=== PATIENT | female | born 1955 | race Caucasian/White ===

== ENCOUNTER 2018-12-19 16:22 | Inpatient (IN) | payer MEDICARE, OTHER ==
--- NOTE | 2018-12-19 16:37 | ED ---
HPI Chest Pain - HPI Summary HPI Summary: Pt is a 63 y/o female who presents to the ED c/o CP. She has had CP since August 2018 that was diagnosed as costochondritis. 2 days ago at 4:00 she began to have more intense mid-sternal chest pressure. As per nurses note pt thought she might be having an ND but did not seek medical attention because she did not want to pay for the ambulance. The CP has been constant, is diffuse , and radiates to her ribs, neck, and back. The pain is made worse when being in a wrong position. At 4:00 this morning she had a syncopal episode. Pt also c/o cough and nausea which has now resolved. She denies any SOB. Currently pt denies any pain and just reports anxiety. PMHx DM, HTN, COPD. Pt is a heavy smoker. STEMI called at 16:41. - History of Current Complaint Chief Complaint: EDChestPainROMI Time Seen by Provider: 12/19/18 16:33 Hx Obtained From: Patient, Medical Records Onset/Duration: Started Days Ago - 2, Still Present Timing: Constant Pain Intensity: 3 Pain Scale Used: 0-10 Numeric Chest Pain Location: Diffuse, Mid Sternal Chest Pain Radiates: Yes Chest Pain Radiates To:: Back, Neck, Other - ribs Character: Pressure/Squeezing Aggravating Factor(s): Other: - "wrong" position Alleviating Factor(s): Nothing Associated Signs and Symptoms: Positive: Chest Pain, Anxiety, Syncope, Nausea, Cough. Negative: Shortness of Breath Related History: Similar Episode/Dx as: - hx HTN, DM - Allergy/Home Medications Allergies/Adverse Reactions: Allergies Allergy/AdvReac Type Severity Reaction Status Date / Time amoxicillin Allergy Severe Anaphylatic Verified 12/19/18 16:54 Shock ampicillin Allergy Severe Anaphylatic Verified 12/19/18 16:54 Shock clavulanic acid Allergy Severe Anaphylatic Verified 12/19/18 16:54 Shock Penicillins Allergy Severe Anaphylatic Verified 12/19/18 16:54 Shock azithromycin Allergy Intermediate Hives Verified 12/19/18 16:54 erythromycin base Allergy Intermediate Hives Verified 12/19/18 16:54 cetirizine Allergy Unknown Unknown Verified 12/19/18 16:54 Reaction Details doxycycline Allergy Unknown Unknown Verified 12/19/18 16:54 Reaction Details Tetracyclines Allergy Unknown Unknown Verified 12/19/18 16:54 Reaction Details ceptra Allergy Intermediate Rash Uncoded 09/28/14 08:42 dairy Allergy Mild Congestion Uncoded 09/28/14 08:42 PMH/Surg Hx/FS Hx/Imm Hx Endocrine/Hematology History: Reports: Hx Diabetes - NIDDM Cardiovascular History: Reports: Hx Hypertension Respiratory History: Reports: Hx Chronic Obstructive Pulmonary Disease (COPD) - Cancer History Hx Chemotherapy: No Hx Radiation Therapy: No - Surgical History Surgery Procedure, Year, and Place: Right knee surgery injury repair Infectious Disease History: No Infectious Disease History: Denies: Traveled Outside the [place] in Last 30 Days - Family History Known Family History: Positive: Hypertension - Social History Alcohol Use: None Substance Use Type: Reports: None, Excessive Caffeine Substance Use Comment - Amount & Last Used: four bottles of soda daily Hx Tobacco Use: Yes Smoking Status (MU): Heavy Every Day Tobacco Smoker Type: Cigarettes Amount Used/How Often: 1 ppd Length of Time of Smoking/Using Tobacco: 40 years Have You Smoked in the Last Year: Yes Review of Systems Positive: Chest Pain Positive: Cough. Negative: Shortness Of Breath Positive: Nausea - resolved Positive: Syncope Positive: Anxious All Other Systems Reviewed And Are Negative: Yes Physical Exam - Summary Physical Exam Summary: Appearance: well appearing, mild pain distress, tearful, mildly agitated Skin: warm, dry, reflects adequate perfusion Head/face: normal Eyes: EOMI, ANJALI ENT: mucous membranes moist Neck: supple, non-tender Respiratory: CTA, breath sounds present Cardiovascular: RRR, pulses symmetrical, tenderness to palpation over sternum Abdomen: non-tender, soft Bowel Sounds: present Musculoskeletal: normal, strength/ROM intact Neuro: normal, sensory motor intact, A&Ox3 Triage Information Reviewed: Yes Vital Signs On Initial Exam: Initial Vitals Temp Pulse Resp BP Pulse Ox 96.0 F 97 22 100/61 97 12/19/18 16:25 12/19/18 16:25 12/19/18 16:25 12/19/18 16:25 12/19/18 16:25 Vital Signs Reviewed: Yes Diagnostics - Vital Signs Vital Signs Temp Pulse Resp BP Pulse Ox 12/19/18 16:25 96.0 F 97 22 100/61 97 - Laboratory Result Diagrams: 12/19/18 16:45 12/19/18 16:45 Lab Statement: Any lab studies that have been ordered have been reviewed, and results considered in the medical decision making process. - Radiology CXR Radiology Interpretation Completed By: Radiologist Summary of Radiographic Findings: RIGHT BASILAR ATELECTASIS VERSUS CONSOLIDATION. ED physician reviewed radiology report. - EKG 16:37 Cardiac Rate: NL - 91 bpm EKG Rhythm: Sinus Rhythm Summary of EKG Findings: RBBB, ST elevations in anterior leads Chest Pain Course/Dx - Course Course Of Treatment: Nurse's notes reviewed. Patient presents with a confusing history however has worsening chest pain today. She had acute ST elevation and a right bundle branch block. STEMI alert called and the beef breaker came to the bedside. He confirmed wall motion abnormality and bedside echocardiogram and took the patient emergently to the Clothing Worker. She did receive aspirin, heparin, etc. here in the ER prior to disposition. There was concern given the course of first symptoms that she may have had thoracic dissection however the chest x-ray did not show widened mediastinum. Following her disposition her troponin level came back at 12. - Chest Pain Differential Diagnosis/HQI/PQRI: Acute ND, ACS, Angina, CHF, Other: - Thoracic aortic dissection - Diagnoses Provider Diagnoses: Acute ST elevation myocardial infarction (STEMI) During the Visit The Following Alert/Code Occurred: STEMI - Called at 16:41 - Provider Notifications Discussed Care Of Patient With: Gary Mcrae Time Discussed With Above Provider: 16:46 Instructed by Provider To: Other - Dr. Mcrae is in the room for a consult. He accepts pt for admission and is bringing her to the supervisor laboratory. The echocardiogram showed abnormal wall movement. - Critical Care Time Critical Care Time: 30-74 min - Critical care time is exclusive of separately billable procedures Discharge - Sign-Out/Discharge Documenting (check all that apply): Patient Departure - Admit Patient Received Moderate/Deep Sedation with Procedure: No - Discharge Plan Condition: Guarded Disposition: ADMITTED TO [facility] - Billing Disposition and Condition Condition: GUARDED Disposition: Admitted to [facility] - Attestation Statements Document Initiated by Scribe: Yes Documenting Scribe: Joan Laboy Provider For Whom Scribe is Documenting (Include Credential): Eliezer Gomez MD Scribe Attestation: Joan Esposito, scribed for Eliezer Gomez MD on 12/19/18 at 1944. Scribe Documentation Reviewed: Yes Provider Attestation: The documentation as recorded by the scribe, Joan Laboy accurately reflects the service I personally performed and the decisions made by me, Eliezer Gomez MD Status of Scribrafael Document: Viewed
[2018-12-19] MEDS ORDERED: NS 0.9% 1000 ML** 1,000 ML IV ONE (16:42)
[2018-12-19] MEDS ORDERED: Ticagrelor* 90 MG TAB PO ONE (16:42)
[2018-12-19] MEDS ORDERED: Heparin for STEMI(*) 5,000 UNITS/ML 1 ML VIAL IV ONE (16:42)
[2018-12-19] MEDS ORDERED: Aspirin 81 mg CHEW TAB* 81 MG TAB.CHEW PO ONE (16:42)
[2018-12-19 17:01] LABS: Hematocrit 43 % (33-41); Hemoglobin 14.7 g/dL (12.0-16.0); Mean Corpuscular HGB Conc 34 g/dL (31-36); Mean Corpuscular Hemoglobin 30 pg (27-31); Mean Corpuscular Volume 88 fL (80-97); Mean Platelet Volume 7.8 fL (7.4-10.4); Platelet Count 307 10^3/uL (150-450); Red Blood Count 4.87 10^6 /uL (3.70-4.87); Red Cell Distribution Width 14 % (10.5-15); White Blood Count 16.6 10^3/uL (3.5-10.8)
[2018-12-19] MEDS ORDERED: Lidocaine 1% INJ* 10 MG/ML 30 ML SDV ONE ×2 (17:08→17:21)
[2018-12-19] MEDS ORDERED: Iohexol 350 (CONTRAST) 200 ML MDV IV ONE (17:08)
[2018-12-19] MEDS ORDERED: Heparin 2 UNITS/ML IVPREMIX* 2,000 UNIT/1,000 ML BAG IV ONE (17:08)
[2018-12-19 17:12] LABS: Activated Partial Thrombo Time 26.8 seconds (26.0-36.3); INR 1.01 (0.77-1.02)
[2018-12-19] MEDS ORDERED: Heparin(*) 1000 UNIT/ML 10 ML VIAL CATH LAB IV ONE (17:20)
[2018-12-19 17:21] LABS: ALT 24 U/L (7-52); AST 43 U/L (13-39); Albumin/Globulin Ratio 1.2 (1-3); Alkaline Phosphatase 97 U/L (34-104); Anion Gap 13 mmol/L (2-11); Blood Urea Nitrogen 20 mg/dL (6-24); CO2 Carbon Dioxide 24 mmol/L (22-32); Calcium 9.4 mg/dL (8.6-10.3); Chloride 97 mmol/L (101-111); Creatine Kinase 183 U/L (10-223); EGFR African American 79.1 (>60); EGFR Non-African American 65.3 (>60); Globulin 3.3 g/dL (2-4); Glucose 188 mg/dL (70-100); LDL Cholesterol Direct 159 mg/dL; Potassium 4.2 mmol/L (3.5-5.0); Sodium 134 mmol/L (135-145); Total Protein 7.3 g/dL (6.4-8.9)
[2018-12-19] MEDS ORDERED: nitroGLYCERIN DRIP* 25,000 MCG/250 ML BTL ONE (17:21)
[2018-12-19 17:24] LABS: CKMB ng/mL 28.2 ng/mL (0.6-6.3)
[2018-12-19] MEDS ORDERED: fentaNYL* 50 MCG/ML 2 ML VIAL (100 MCG VIAL) ONE (17:24)
[2018-12-19] MEDS ORDERED: Midazolam* 1 MG/ML 5 ML VIAL (5 MG) ONE (17:24)
[2018-12-19 17:28] LABS: Troponin I 12.93 ng/mL (<0.04)
[2018-12-19] MEDS ORDERED: Bivalirudin(*) 250 MG VIAL ONE (17:42)
[2018-12-19 17:50] LABS: ABS Basophils 0.1 10^3/ul (0-0.2); ABS Eosinophils 0 10^3/ul (0-0.6); ABS Lymphocytes 3.6 10^3/ul (1.0-4.8); ABS Monocytes 2.1 10^3/ul (0-0.8); ABS Neutrophils 10.8 10^3/ul (1.5-7.7); ABS Nucleated RBC 0 10^3/ul; Eosinophil % 0.2 %; Lymphocyte % 21.5 %; Nucleated Red Blood Cells % 0
[2018-12-19] MEDS ORDERED: Ondansetron INJ* 2 MG/ML VIAL IV PRN (18:21)
[2018-12-19] MEDS ORDERED: Docusate CAP* 100 MG PO PRN (18:21)
[2018-12-19] MEDS ORDERED: NS 0.9% 1000 ML** 1,000 ML IV SCH ×2 (18:30→18:45)
[2018-12-19] MEDS ORDERED: Atorvastatin* 80 MG TAB PO ONE (18:36)
[2018-12-19] MEDS: fentaNYL* 50 MCG/ML 2 ML VIAL (100 MCG VIAL) IV PRN ×3 (19:44→23:41)
[2018-12-19] MEDS: Metoprolol Tartrate TAB* 25 MG PO SCH (19:44)
[2018-12-19] MEDS ORDERED: Dextrose 50% Syringe 50 ML* 25 GM/50 ML SYRINGE IV PUSH PRN (19:49)
[2018-12-19] MEDS ORDERED: Midazolam* 1 MG/ML 2 ML VIAL (2 MG) IV ONE (21:00)
--- NOTE | 2018-12-19 21:00 | CONSULT ---
Subjective Date of Service: 12/19/18 Interval History: MEDICINE CONSULT CC: diabetes question of control PCP: Jeffrey Tumble [facility] Turret Lathe Operator: Grant Requesting MD: Thor HPI: Patient is 63 year old woman with history of tobacco abuse and diabetes who presented to the ER today with vague chest complaints. She describes chest pain off and on since Wednesday, brief severe spells, some rated 10/10. Wednesday morning at 4AM the day of admission she had an episode of loss of consciousness at home. She fell, may have struck head. She does not remember feeling pre- syncopal and no seizure activity was noted. The patient was assessed to have a STEMI in the ER, and was taken to the laborer petroleum ref[facility] by Dr. Mcrae this afternoon, where a 95% lesion of the proximal LAD was stented. She is now on Brillinta and she had a dose of bivalirudin pre-cath. At the time of evaluation she complains of 5/10 chest pain, substernal, with no radiation. Family History: Findings - denies CAD history, father prostate cancer, also had schizophrenia, mother had non-Hodgkins lymphoma, an uncle had diabetes. She has 8 siblings Social History: Findings - Retired, owned business with , , 2 daughters, is HCP. She smokes 2PPD, no alcohol/drug use Past Medical History: Findings - PMH: hypertension, type 2 diabetes, COPD, anxiety; SH: none Review of Systems - Measurements Intake and Output: Intake and Output Last 24 Hours 12/17/18 12/18/18 12/19/18 12/20/18 06:59 06:59 06:59 06:59 Weight 63.503 kg - Review of Systems General Comments: poor historian Constitutional Symptoms: Positive: Weakness, Fatigue Dermatology: Positive: Normal HEENT: Positive: Normal Eyes: Positive: Normal Thyroid: Positive: Normal Pulmonary: Negative: Cough, Shortness of Breath Cardiology: Positive: Chest Pain, Syncope Negative: Palpitations, Orthopnoea Gastroenterology: Positive: Normal Genital - Urinary: Positive: Normal Genitourinay - Female: Positive: Menopause Endocrinology: Positive: Diabetes Mellitus Hematologic/Lymphatic: Positive: Use of Antiplatelet Drugs Neurology: Positive: Normal Psychiatry: Positive: Normal Objective Active Medications: Current ICU medications: Acetaminophen (Tylenol Tab*) 650 mg PO Q4H PRN PRN Reason: HEADACHE/PAIN Aspirin (Aspirin 81 Mg Chew Tab*) 81 mg PO DAILY [facility] Atorvastatin Calcium (Lipitor*) 80 mg PO 2100 [facility] Dextrose (D50w Syringe 50 Ml*) 12.5 gm IV PUSH .FOR FS < 60 - SS PRN PRN Reason: FS < 60 Docusate Sodium (Colace Cap*) 100 mg PO DAILY PRN PRN Reason: CONSTIPATION Fentanyl Citrate (Fentanyl*) 12.5 mcg IV Q2H PRN PRN Reason: PAIN Last Admin: 12/19/18 19:44 Dose: 12.5 mcg Sodium Chloride (Ns 0.9% 1000 Ml) 1,000 mls @ 100 mls/hr IV .100 ML/HR FOR 10 HR [facility] Stop: 12/20/18 04:29 Insulin Human Lispro (Humalog*) 0 units SUBCUT FS ACHS ICU [facility]; Protocol Metoprolol Tartrate (Lopressor Tab*) 12.5 mg PO Q8H [facility] Last Admin: 12/19/18 19:44 Dose: 12.5 mg Midazolam HCl (Versed 2mg/2ml*) 1 mg IV ONCE ONE Stop: 12/19/18 21:01 Nitroglycerin (Nitroglycerin Tab 0.4 Mg*) 0.4 mg SL Q5M PRN PRN Reason: ANGINA Ondansetron HCl (Zofran Inj*) 4 mg IV Q4H PRN PRN Reason: NAUSEA Ticagrelor (Brilinta*) 90 mg PO BID [facility] Vital Signs - 8 hr 12/19/18 12/19/18 12/19/18 16:25 18:28 19:44 Temperature 35.6 C 36.1 C Pulse Rate 97 97 Respiratory 22 22 19 Rate Blood Pressure 100/61 100/61 (mmHg) O2 Sat by Pulse 97 96 Oximetry Oxygen Devices in Use Now: Nasal Cannula Appearance: alert, squirming in bed Eyes: No Scleral Icterus Ears/Nose/Mouth/Throat: Clear Oropharnyx Neck: NL Appearance and Movements; NL JVP, No Thyroid Enlargement, Masses Respiratory: Symmetrical Chest Expansion and Respiratory Effort, - - diminished breath sounds bilat, chest tender anteriorly, parasternal Cardiovascular: NL Sounds; No Murmurs; No JVD, RRR Abdominal: NL Sounds; No Tenderness; No Distention, No Hepatosplenomegaly Lymphatic: No Cervical Adenopathy Skin: No Rash or Ulcers, - - bandage RT groin w/ some blood visible in bandage Neurological: Alert and Oriented x 3 Lines/Tubes/Other Access: Clean, Dry and Intact Peripheral IV Nutrition: Taking PO's Result Diagrams: 12/20/18 05:15 12/20/18 09:35 Additional Lab and Data: Laboratory Tests 12/19/18 12/19/18 12/19/18 16:45 16:45 16:45 INR (Anticoag Therapy) 1.01 APTT 26.8 Glucose 188 H Lactic Acid 1.5 AST 43 H ALT 24 CK-MB (CK-2) 28.2 H Troponin I 12.93 H* LDL Cholesterol Direct 159 Influenza A (Rapid) Influenza B (Rapid) 12/19/18 23:15 INR (Anticoag Therapy) APTT Glucose Lactic Acid AST ALT CK-MB (CK-2) Troponin I LDL Cholesterol Direct Influenza A (Rapid) Negative Influenza B (Rapid) Negative Diagnostic Imaging: CXR: Rt basilar atelectasis vs infiltrate Head CT: no hemorrahge or hematoma EKG Data: NSR, leftward axis, RBBB, ST elevations V2-V5, injury pattern in limb leads, T- wave flattening Assessment/Plan - Billing Plan By Medical Problem: 1. STEMI: had stent to 95% stenosis of proximal LAD. Continue management per Dr. Mcrae. 2. Syncope: likely due to arrhythmia. Head CT reviewed, no intracerebral contusion or hemorrhage seen. 3. Diabetes: will hold metformin, start glimepiride once outpatient dose ascertained. Will monitor FSBG and give sliding scale humalog as needed. 4. Chest pain: differential includes pericarditis, aristeo syndrome, dissecting aorta, or recurrent stenosis of coronaries/angina. Will repeat EKG, discuss with Dr. Mcrae. Will have CTA of chest to rule out dissection, which can be complication of cath. VTE PPX: following cath protocol, on high-potency antiplatelet drugs, can use SCDs also Diet: Diabetic Code Status: Full
[2018-12-19] MEDS: Nitroglycerin TAB 0.4 MG* 0.4 MG TAB SL PRN (21:20)
[2018-12-19] MEDS ORDERED: fentaNYL* 50 MCG/ML 2 ML VIAL (100 MCG VIAL) IV SLOW PU ONE (21:20)
[2018-12-19 22:09] LABS: Creatine Kinase 261 U/L (10-223)
[2018-12-19 22:14] LABS: CKMB ng/mL 19.7 ng/mL (0.6-6.3)
[2018-12-19 22:15] LABS: Troponin I 34.47 ng/mL (<0.04)
[2018-12-19 23:28] LABS: Influenza A Molecular NEGATIVE (Negative); Influenza B Molecular NEGATIVE (Negative)
[2018-12-20] MEDS ORDERED: Iodixanol* (CONTRAST) 320 MG/ML 100 ML SDV IV ONE (00:17)
[2018-12-20] MEDS ORDERED: LORazepam INJ* 2 MG/ML 1 ML VIAL IV PUSH PRN ×2 (01:06→11:11)
[2018-12-20] MEDS: Metoprolol Tartrate TAB* 25 MG PO SCH ×3 (04:11→19:40)
[2018-12-20] MEDS: fentaNYL* 50 MCG/ML 2 ML VIAL (100 MCG VIAL) IV PRN (04:11)
[2018-12-20] MEDS ORDERED: Insulin LISPRO* 1 UNITS UNIT SUBCUT ONE (04:42)
[2018-12-20] MEDS: Insulin LISPRO* 1 UNITS UNIT SUBCUT SCH ×5 (05:45→20:59)
[2018-12-20 06:02] LABS: Creatine Kinase 176 U/L (10-223)
[2018-12-20 06:08] LABS: CKMB ng/mL 11.8 ng/mL (0.6-6.3)
[2018-12-20 06:09] LABS: Troponin I 16.97 ng/mL (<0.04)
[2018-12-20 07:41] LABS: Hematocrit 39 % (33-41); Hemoglobin 13.1 g/dL (12.0-16.0); Mean Corpuscular HGB Conc 33 g/dL (31-36); Mean Corpuscular Hemoglobin 30 pg (27-31); Mean Corpuscular Volume 89 fL (80-97); Mean Platelet Volume 8.4 fL (7.4-10.4); Platelet Count 301 10^3/uL (150-450); Red Cell Distribution Width 14 % (10.5-15); White Blood Count 16.8 10^3/uL (3.5-10.8)
[2018-12-20 07:43] LABS: ABS Basophils 0.2 10^3/ul (0-0.2); ABS Eosinophils 0 10^3/ul (0-0.6); ABS Lymphocytes 2.9 10^3/ul (1.0-4.8); ABS Monocytes 2.1 10^3/ul (0-0.8); ABS Neutrophils 11.6 10^3/ul (1.5-7.7); ABS Nucleated RBC 0 10^3/ul; Eosinophil % 0 %; Lymphocyte % 17.2 %; Nucleated Red Blood Cells % 0.1
[2018-12-20 07:53] LABS: ALT 25 U/L (7-52); Albumin 3.6 g/dL (3.2-5.2); Albumin/Globulin Ratio 1.2 (1-3); Alkaline Phosphatase 101 U/L (34-104); BUN/Creatinine Ratio 25.4 (8-20); Blood Urea Nitrogen 18 mg/dL (6-24); CO2 Carbon Dioxide 19 mmol/L (22-32); Calcium 8.7 mg/dL (8.6-10.3); Chloride 98 mmol/L (101-111); Cholesterol 183 mg/dL; EGFR Non-African American 82.6 (>60); Globulin 3.1 g/dL (2-4); Glucose 260 mg/dL (70-100); LDL Cholesterol 117 mg/dL; Sodium 131 mmol/L (135-145); Total Protein 6.7 g/dL (6.4-8.9); Triglycerides 135 mg/dL
[2018-12-20 07:57] LABS: Anion Gap 14 mmol/L (2-11)
--- NOTE | 2018-12-20 09:13 | ECHO ---
Patient: RADHA SOL [facility] Rec#: [id number] : 1955 Date: 12/20/2018 Age: 63y Height: 163 cm / 64.2 in Weight: 63.5 kg / 140.0 lbs Sex: F BSA: 1.68 Room#: ICU 7 Admit Date#: 12/19/2018 Type: Inpatient Referring: Gary Mcrae MD Reading: Lance Gonzales MD Supervisor Frame Sample And Pattern: China Arzola,RDCS,RDMS CC: Steven Murphy MD Transthoracic Echocardiogram Indication: Acute TN BP: 118/76 HR: 90 Rhythm: NSR with PVCs Findings History: S/P STEMI, PCI, DM, heavy smoker, Technical Comments: The study quality is fair. Left Ventricle: The left ventricular chamber size is normal. Moderate concentric left ventricular hypertrophy is observed. There are multiple regional wall motion abnormalities. There is moderate to severely decreased left ventricular systolic function. The estimated ejection fraction is 25-30%. There is an E to A reversal in the mitral valve flow pattern suggestive of diastolic dysfunction. The mid anteroseptal, mid anterior, mid anterolateral, apical septal, apical anterior, and apical lateral wall segments are hypokinetic (score 2). The apical inferior wall segment is akinetic (score 3). Overall wallmotion score index is 2.14 Left Atrium: The left atrial chamber size is normal. Right Ventricle: The right ventricular chamber size and systolic function are within normal limits. The right ventricle wall thickness is mildly increased. Right Atrium: The right atrial cavity size is normal. The interatrial septum appears lipomatous. Aortic Valve: The aortic valve is trileaflet. Systolic excursion of the aortic valve is normal. There is aortic annular calcification. There is no evidence of aortic regurgitation. There is no evidence of aortic stenosis. Mitral Valve: The mitral valve leaflets appear normal. There is a trace of mitral regurgitation. There is no evidence of mitral stenosis. Tricuspid Valve: The tricuspid valve leaflets are normal. There is trace tricuspid regurgitation. There is evidence of borderline pulmonary hypertension. Pulmonic Valve: The pulmonic valve structure is not well visualized. There is no evidence of pulmonic regurgitation. Pericardium: There is no significant pericardial effusion. Aorta: The aortic root appears normal. There is no dilatation of the aortic arch. Pulmonary Artery: The main pulmonary artery is not well visualized. Venous: The inferior vena cava appears normal in size. There is less than 50% respiratory change in the inferior vena cava dimension. Conclusions Moderate concentric left ventricular hypertrophy is observed. There are multiple regional wall motion abnormalities. There is moderate to severely decreased left ventricular systolic function. The estimated ejection fraction is 25-30%. The mid anteroseptal, mid anterior, mid anterolateral, apical septal, apical anterior, and apical lateral wall segments are hypokinetic (score 2). The apical inferior wall segment is akinetic (score 3). The right ventricular chamber size and systolic function are within normal limits. There is no evidence of aortic stenosis. There is a trace of mitral regurgitation. There is trace tricuspid regurgitation. There is no significant pericardial effusion. Compared to limitied echo yesterday 12/19/18, the LV function is about the same Measurements Name Value Normal Range RVIDd (AP) 2D 2.9 cm (0.9 - 2.6) RVDdMajor (2D) 2.8 cm (2.2 - 4.4) RAd ISD 4CH 3.6 cm (3.4 - 4.9) RA (A4C)W 3.7 cm (2.9 - 4.6) IVSd (2D) 1.4 cm (0.6 - 1) LVPWd (2D) 1.4 cm (0.6 - 1) LVIDd (2D) 4.1 cm (3.6 - 5.4) LVIDs (2D) 3.1 cm - LV FS (2D) 23 % (25 - 45) Aortic Annulus 2 cm (1.4 - 2.6) Ao root diameter (2D) 2.7 cm (2.1 - 3.5) Ascending Ao 2.7 cm (2.1 - 3.4) Aortic arch 2.8 cm (1.8 - 3.4) LA dimension (AP) 2D 2.9 cm (2.3 - 3.8) LAd ISD 4CH 4.1 cm (2.9 - 5.3) LA ISD 4CH W 4.2 cm (2.5 - 4.5) Name Value Normal Range LA ESV BP (A/L) index 20 ml/m2 - Name Value Normal Range MV E-wave Vmax 0.5 m/sec - MV deceleration time 132 msec - MV A-wave Vmax 0.8 m/sec - MV E:A ratio 0.6 ratio - LV septal e' Vmax 0.04 m/sec - LV lateral e' Vmax 0.04 m/sec - LV E:e' septal ratio 12.5 ratio - LV E:e' lateral ratio 12.5 ratio - Name Value Normal Range AV Vmax 1 m/sec - AV VTI 18 cm - AV peak gradient 4 mmHg - AV mean gradient 3 mmHg - LVOT Vmax 1.1 m/sec - LVOT VTI 18 cm - LVOT peak gradient 5 mmHg - LVOT mean gradient 2 mmHg - ZONIA Vmax 0.6 m/sec - Name Value Normal Range TR Vmax 2.5 m/sec - TR peak gradient 25 mmHg - RAP 8 mmHg - RVSP 33 mmHg - IVC diameter 2.1 cm - Name Value Normal Range PV Vmax 0.7 m/sec - PV peak gradient 2 mmHg - Wallmotion BAS Not Seen BA Not Seen BAL Not Seen SHARAN Not Seen BI Not Seen BIS Not Seen MAS Hypokinetic MA Hypokinetic MAL Hypokinetic MIL Not Seen TN Not Seen MIS Not Seen Hypokinetic AA Hypokinetic AL Hypokinetic AI Akinetic APEX Dyskinetic
[2018-12-20] MEDS: Aspirin 81 mg CHEW TAB* 81 MG TAB.CHEW PO SCH (09:18)
[2018-12-20] MEDS: Ticagrelor* 90 MG TAB PO SCH ×2 (09:18→20:56)
[2018-12-20 10:14] LABS: CKMB ng/mL 8.2 ng/mL (0.6-6.3); Potassium Redraw 3.9 mmol/L (3.5-5.0); Troponin I 9.8 ng/mL (<0.04)
--- NOTE | 2018-12-20 10:36 | PN ---
<GurpreetRadha - Last Filed: 12/20/18 10:56> Subjective Date of Service: 12/20/18 - late presenting anterior AR Interval History: s/p Peter proximal LAD with known moderate residual LAD lesion. c.o intermittent chest pain that did not improve with PCI. CT chest negative for dissection. she has had intermittent c/o headache since presenting most recent was at 0800. No c /o change in vision. Currently does not have a headache. I spoke with Iona RODRIGUEZ who is taking care of the patient. She expressed concern in regards to the patient requiring 1:1 sitter and acting sporadic. The patient actually appreciates that she is having a hard time controlling her emotions and states at home she does not have emotional outbursts. She states that she is overwhelmed with diagnosis of having an AR and feels like she is doomed. Medications Active Medications: Acetaminophen (Tylenol Tab*) 650 mg PO Q4H PRN PRN Reason: HEADACHE/PAIN Aspirin (Aspirin 81 Mg Chew Tab*) 81 mg PO DAILY [facility] Last Admin: 12/20/18 09:18 Dose: 81 mg Atorvastatin Calcium (Lipitor*) 80 mg PO 2100 [facility] Dextrose (D50w Syringe 50 Ml*) 12.5 gm IV PUSH .FOR FS < 60 - SS PRN PRN Reason: FS < 60 Docusate Sodium (Colace Cap*) 100 mg PO DAILY PRN PRN Reason: CONSTIPATION Insulin Human Lispro (Humalog*) 0 units SUBCUT FS ACHS ICU [facility]; Protocol Last Admin: 12/20/18 08:42 Dose: 4 unit Lorazepam (Ativan Inj*) 0.5 mg IV PUSH Q4H PRN PRN Reason: ANXIETY Last Admin: 12/20/18 01:22 Dose: 0.5 mg Metoprolol Succinate (Toprol Xl Tab*) 25 mg PO DAILY [facility] Metoprolol Tartrate (Lopressor Tab*) 12.5 mg PO Q8H [facility] Stop: 12/20/18 23:59 Last Admin: 12/20/18 04:11 Dose: 12.5 mg Nitroglycerin (Nitroglycerin Tab 0.4 Mg*) 0.4 mg SL Q5M PRN PRN Reason: ANGINA Last Admin: 12/19/18 21:20 Dose: 0.4 mg Ondansetron HCl (Zofran Inj*) 4 mg IV Q4H PRN PRN Reason: NAUSEA Ticagrelor (Brilinta*) 90 mg PO BID ALDO Last Admin: 12/20/18 09:18 Dose: 90 mg Objective Vital Signs: Temp Pulse Resp BP Pulse Ox 97.6 F 94 24 96/65 95 12/20/18 08:15 12/20/18 09:01 12/20/18 10:00 12/20/18 09:01 12/20/18 09:01 Oxygen Devices in Use Now: None Appearance: weeping sitting in chair upon entering room. A+O x3, cooperative with exam. Ears/Nose/Mouth/Throat: NL Teeth, Lips, Gums, Mucous Membranes Moist, - - + bright blood noted on tissue after patient blew her nose. Neck: NL Appearance and Movements; NL JVP, Trachea Midline Respiratory: Symmetrical Chest Expansion and Respiratory Effort, Clear to Auscultation Cardiovascular: NL Sounds; No Murmurs; No JVD, No Edema Abdominal: NL Sounds; No Tenderness; No Distention Skin: No Rash or Ulcers, - - right groin access site is intact, no blood noted on 4X4 drsg. no hematoma. Strong distal pulses palpated distally. Lines/Tubes/Other Access: Clean, Dry and Intact Peripheral IV Laboratory Results: 12/20/18 05:15 12/20/18 09:35 INR (Anticoag Therapy) 1.01 (0.77-1.02) 12/19/18 16:45 APTT 26.8 seconds (26.0-36.3) 12/19/18 16:45 Total Bilirubin 1.10 mg/dL (0.2-1.0) H 12/20/18 05:15 AST TNP 12/20/18 05:15 ALT 25 U/L (7-52) 12/20/18 05:15 Alkaline Phosphatase 101 U/L (34-104) 12/20/18 05:15 CK-MB (CK-2) 8.2 ng/mL (0.6-6.3) H 12/20/18 09:35 B-Natriuretic Peptide 620 pg/mL (<=100) H 12/19/18 16:45 Total Protein 6.7 g/dL (6.4-8.9) 12/20/18 05:15 Albumin 3.6 g/dL (3.2-5.2) 12/20/18 05:15 Globulin 3.1 g/dL (2-4) 12/20/18 05:15 Albumin/Globulin Ratio 1.2 (1-3) 12/20/18 05:15 Triglycerides 135 mg/dL 12/20/18 05:15 Cholesterol 183 mg/dL 12/20/18 05:15 LDL Cholesterol 117 mg/dL 12/20/18 05:15 HDL Cholesterol 39.0 mg/dL 12/20/18 05:15 12/19/18 12/19/18 12/20/18 16:45 21:41 05:15 Troponin I 12.93 H* 34.47 H* 16.97 H* 12/20/18 09:35 Troponin I 9.80 H* Laboratory Results - last 24 hr 12/19/18 12/19/18 12/19/18 16:45 16:45 16:45 WBC 16.6 H RBC 4.87 Hgb 14.7 Hct 43 H MCV 88 MCH 30 MCHC 34 RDW 14 Plt Count 307 MPV 7.8 Neut % (Auto) 65.2 Lymph % (Auto) 21.5 Hale % (Auto) 12.6 Eos % (Auto) 0.2 Baso % (Auto) 0.5 Absolute Neuts (auto) 10.8 H Absolute Lymphs (auto) 3.6 Absolute Monos (auto) 2.1 H Absolute Eos (auto) 0 Absolute Basos (auto) 0.1 Absolute Nucleated RBC 0 Nucleated RBC % 0 INR (Anticoag Therapy) 1.01 APTT 26.8 POC Activ Clotting Time Sodium 134 L Potassium 4.2 Chloride 97 L Carbon Dioxide 24 Anion Gap 13 H BUN 20 Creatinine 0.87 Est GFR ( Amer) 79.1 Est GFR (Non-Af Amer) 65.3 BUN/Creatinine Ratio 23.0 H Glucose 188 H POC Glucose (mg/dL) Hemoglobin A1c Lactic Acid Calcium 9.4 Total Bilirubin 0.70 AST 43 H ALT 24 Alkaline Phosphatase 97 Total Creatine Kinase 183 CK-MB (CK-2) 28.2 H Troponin I 12.93 H* B-Natriuretic Peptide Total Protein 7.3 Albumin 4.0 Globulin 3.3 Albumin/Globulin Ratio 1.2 Triglycerides Cholesterol LDL Cholesterol LDL Cholesterol Direct 159 HDL Cholesterol Influenza A (Rapid) Influenza B (Rapid) Blood Type Antibody Screen 12/19/18 12/19/18 12/19/18 16:45 16:45 16:45 WBC RBC Hgb Hct MCV MCH MCHC RDW Plt Count MPV Neut % (Auto) Lymph % (Auto) Hale % (Auto) Eos % (Auto) Baso % (Auto) Absolute Neuts (auto) Absolute Lymphs (auto) Absolute Monos (auto) Absolute Eos (auto) Absolute Basos (auto) Absolute Nucleated RBC Nucleated RBC % INR (Anticoag Therapy) APTT POC Activ Clotting Time Sodium Potassium Chloride Carbon Dioxide Anion Gap BUN Creatinine Est GFR ( Amer) Est GFR (Non-Af Amer) BUN/Creatinine Ratio Glucose POC Glucose (mg/dL) Hemoglobin A1c Lactic Acid 1.5 Calcium Total Bilirubin AST ALT Alkaline Phosphatase Total Creatine Kinase CK-MB (CK-2) Troponin I B-Natriuretic Peptide 620 H Total Protein Albumin Globulin Albumin/Globulin Ratio Triglycerides Cholesterol LDL Cholesterol LDL Cholesterol Direct HDL Cholesterol Influenza A (Rapid) Influenza B (Rapid) Blood Type O Positive Antibody Screen Negative 12/19/18 12/19/18 12/19/18 17:38 21:41 23:15 WBC RBC Hgb Hct MCV MCH MCHC RDW Plt Count MPV Neut % (Auto) Lymph % (Auto) Hale % (Auto) Eos % (Auto) Baso % (Auto) Absolute Neuts (auto) Absolute Lymphs (auto) Absolute Monos (auto) Absolute Eos (auto) Absolute Basos (auto) Absolute Nucleated RBC Nucleated RBC % INR (Anticoag Therapy) APTT POC Activ Clotting Time 168 Sodium Potassium Chloride Carbon Dioxide Anion Gap BUN Creatinine Est GFR ( Amer) Est GFR (Non-Af Amer) BUN/Creatinine Ratio Glucose POC Glucose (mg/dL) Hemoglobin A1c Lactic Acid Calcium Total Bilirubin AST ALT Alkaline Phosphatase Total Creatine Kinase 261 H CK-MB (CK-2) 19.7 H Troponin I 34.47 H* B-Natriuretic Peptide Total Protein Albumin Globulin Albumin/Globulin Ratio Triglycerides Cholesterol LDL Cholesterol LDL Cholesterol Direct HDL Cholesterol Influenza A (Rapid) Negative Influenza B (Rapid) Negative Blood Type Antibody Screen 12/20/18 12/20/18 12/20/18 04:35 05:15 05:15 WBC 16.8 H RBC 4.40 Hgb 13.1 Hct 39 MCV 89 MCH 30 MCHC 33 RDW 14 Plt Count 301 MPV 8.4 Neut % (Auto) 69.1 Lymph % (Auto) 17.2 Hale % (Auto) 12.7 Eos % (Auto) 0 Baso % (Auto) 1.0 Absolute Neuts (auto) 11.6 H Absolute Lymphs (auto) 2.9 Absolute Monos (auto) 2.1 H Absolute Eos (auto) 0 Absolute Basos (auto) 0.2 Absolute Nucleated RBC 0 Nucleated RBC % 0.1 INR (Anticoag Therapy) APTT POC Activ Clotting Time Sodium 131 L Potassium TNP Chloride 98 L Carbon Dioxide 19 L Anion Gap 14 H BUN 18 Creatinine 0.71 Est GFR ( Amer) 100.0 Est GFR (Non-Af Amer) 82.6 BUN/Creatinine Ratio 25.4 H Glucose 260 H POC Glucose (mg/dL) 250 H Hemoglobin A1c Lactic Acid Calcium 8.7 Total Bilirubin 1.10 H AST TNP ALT 25 Alkaline Phosphatase 101 Total Creatine Kinase 176 CK-MB (CK-2) 11.8 H Troponin I 16.97 H* B-Natriuretic Peptide Total Protein 6.7 Albumin 3.6 Globulin 3.1 Albumin/Globulin Ratio 1.2 Triglycerides 135 Cholesterol 183 LDL Cholesterol 117 LDL Cholesterol Direct HDL Cholesterol 39.0 Influenza A (Rapid) Influenza B (Rapid) Blood Type Antibody Screen 12/20/18 12/20/18 12/20/18 05:15 08:20 09:35 WBC RBC Hgb Hct MCV MCH MCHC RDW Plt Count MPV Neut % (Auto) Lymph % (Auto) Hale % (Auto) Eos % (Auto) Baso % (Auto) Absolute Neuts (auto) Absolute Lymphs (auto) Absolute Monos (auto) Absolute Eos (auto) Absolute Basos (auto) Absolute Nucleated RBC Nucleated RBC % INR (Anticoag Therapy) APTT POC Activ Clotting Time Sodium Potassium 3.9 Chloride Carbon Dioxide Anion Gap BUN Creatinine Est GFR ( Amer) Est GFR (Non-Af Amer) BUN/Creatinine Ratio Glucose POC Glucose (mg/dL) 225 H Hemoglobin A1c 7.6 H Lactic Acid Calcium Total Bilirubin AST ALT Alkaline Phosphatase Total Creatine Kinase 135 CK-MB (CK-2) 8.2 H Troponin I 9.80 H* B-Natriuretic Peptide Total Protein Albumin Globulin Albumin/Globulin Ratio Triglycerides Cholesterol LDL Cholesterol LDL Cholesterol Direct HDL Cholesterol Influenza A (Rapid) Influenza B (Rapid) Blood Type Antibody Screen Diagnostic Imagin12/20/2018 echo; LVEF 25-30%, moderate PVH, + RWMA, trace MR SOILA from 12/19/2018 please refer to dictated report. EKG Data: 12/20/2018; NSR rate 96 with RBBB. Patient has anterior q waves with ST elevation consistent with prior ecg. Assessment/Plan #1 Late presenting anterior AR; Infarct likely occurred on Wednesday. She is a difficult historian thus it is difficult to get accurate history. She continues to c/o intermittent chest pain. CT ruled out aortic dissection. She is s/p PETER to proximal LAD with known residual mid LAD lesion. Troponin continues to trend down. Will continue ASA 81/day, Brilinta 90mg PO BID, Lipitor and Lopressor therapy. Last dose of Lopressor is tonight at 2300. 12/21/2018 will transition to Toprol 25mg/day. #2 Emotional upset; patient appreciates that she is having difficulty controlling emotions. She denied h/p prior psychological disorders. There are no focal neuro deficits on exam. Last headache was at 0800. She is expressing interest in signing out AMA. I spoke with hospitalist Sergio Mckeon who is to consult neuro psych. I will ask neurology to evaluate patient. CT head was negative for bleed last night. #3 h/o HLD; LDL goal < 70 given new diagnosis of CAD. She is on high intensity statin therapy. She will need repeat FLP and LFT in 6-8 weeks. #4 ICM with episode of syncope. LVEF < 35% will place order for lifevest. I spoke at length with the patient about indication for lifevest given LVEF still < 35% given risk for developing VT/VF. She understood indication. Order placed. Will convert Lopressor to Toprol 12/21/2018. No ACEI/ARB due to BP. She is compensated on exam. #5 Disposition; full code. await psych eval. Lifevest order placed. Will speak with Dr. Mcrae about plan of care. Attending: Gary Mcrae <Gary Mcrae - Last Filed: 12/20/18 14:57> Medications Active Medications: Acetaminophen (Tylenol Tab*) 650 mg PO Q4H PRN PRN Reason: HEADACHE/PAIN Aspirin (Aspirin 81 Mg Chew Tab*) 81 mg PO DAILY [facility] Last Admin: 12/20/18 09:18 Dose: 81 mg Atorvastatin Calcium (Lipitor*) 80 mg PO 2100 [facility] Dextrose (D50w Syringe 50 Ml*) 12.5 gm IV PUSH .FOR FS < 60 - SS PRN PRN Reason: FS < 60 Docusate Sodium (Colace Cap*) 100 mg PO DAILY PRN PRN Reason: CONSTIPATION Insulin Human Lispro (Humalog*) 0 units SUBCUT FS ACHS ICU [facility]; Protocol Last Admin: 12/20/18 13:07 Dose: 4 unit Lorazepam (Ativan Inj*) 1 mg IV PUSH Q4H PRN PRN Reason: ANXIETY Metoprolol Succinate (Toprol Xl Tab*) 25 mg PO DAILY [facility] Metoprolol Tartrate (Lopressor Tab*) 12.5 mg PO Q8H [facility] Stop: 12/20/18 23:59 Last Admin: 12/20/18 13:35 Dose: 12.5 mg Nicotine (Nicotine Inhaler*) 10 mg INH Q2H PRN PRN Reason: CRAVING Last Admin: 12/20/18 11:43 Dose: 10 mg Nicotine (Nicotine Patch 21 Mg/24 Hr*) 1 patch TRANSDERM DAILY@0800 [facility] Last Admin: 12/20/18 11:43 Dose: 1 patch Nitroglycerin (Nitroglycerin Tab 0.4 Mg*) 0.4 mg SL Q5M PRN PRN Reason: ANGINA Last Admin: 12/19/18 21:20 Dose: 0.4 mg Ondansetron HCl (Zofran Inj*) 4 mg IV Q4H PRN PRN Reason: NAUSEA Pharmacy Profile Note (Nicotine Patch Removal Note*) 1 note PATCH OFF 1999 [facility] Ticagrelor (Brilinta*) 90 mg PO BID [facility] Last Admin: 12/20/18 09:18 Dose: 90 mg Venlafaxine HCl (Effexor Xr Cap*) 225 mg PO DAILY [facility] Last Admin: 12/20/18 11:19 Dose: 225 mg Objective Vital Signs: Temp Pulse Resp BP Pulse Ox 98.7 F 101 24 109/56 93 12/20/18 12:00 12/20/18 14:01 12/20/18 14:01 12/20/18 14:00 12/20/18 14:01 Laboratory Results: 12/20/18 05:15 12/20/18 09:35 INR (Anticoag Therapy) 1.01 (0.77-1.02) 12/19/18 16:45 APTT 26.8 seconds (26.0-36.3) 12/19/18 16:45 Total Bilirubin 1.10 mg/dL (0.2-1.0) H 12/20/18 05:15 AST TNP 12/20/18 05:15 ALT 25 U/L (7-52) 12/20/18 05:15 Alkaline Phosphatase 101 U/L (34-104) 12/20/18 05:15 CK-MB (CK-2) 8.2 ng/mL (0.6-6.3) H 12/20/18 09:35 B-Natriuretic Peptide 620 pg/mL (<=100) H 12/19/18 16:45 Total Protein 6.7 g/dL (6.4-8.9) 12/20/18 05:15 Albumin 3.6 g/dL (3.2-5.2) 12/20/18 05:15 Globulin 3.1 g/dL (2-4) 12/20/18 05:15 Albumin/Globulin Ratio 1.2 (1-3) 12/20/18 05:15 Triglycerides 135 mg/dL 12/20/18 05:15 Cholesterol 183 mg/dL 12/20/18 05:15 LDL Cholesterol 117 mg/dL 12/20/18 05:15 HDL Cholesterol 39.0 mg/dL 12/20/18 05:15 12/19/18 12/19/18 12/20/18 16:45 21:41 05:15 Troponin I 12.93 H* 34.47 H* 16.97 H* 12/20/18 09:35 Troponin I 9.80 H* Assessment/Plan I personally spoke with the patient and her eldest daughter and reviewed her cardiac issues to date. Iexamined her as well. I discussed her care with Susanne Vázquez , my nurse practitioner and established the above game plan. Ideally will need a repeat assessment of her LV function before discharge to decide about a lifevest. Her current cardiac enzymes from this admission did not rise significantly suggesting ,her LAD may have been opening and closing over the past week or so.
[2018-12-20] MEDS ORDERED: LORazepam TAB(*) 1 MG PO ONE (11:10)
[2018-12-20] MEDS: Venlafaxine EXT RELEASE CAP* 75 MG PO SCH (11:19)
[2018-12-20] MEDS ORDERED: Nicotine Inhaler* 10 MG AMP INH PRN (11:26)
[2018-12-20] MEDS ORDERED: Mouth Piece, Nicotine* 1 EACH CARTRIDGE ONE (11:41)
[2018-12-20] MEDS: Nicotine PATCH 21 MG/24 HR* PATCH TRANSDERM SCH (11:43)
--- NOTE | 2018-12-20 12:35 | CONSULT ---
Consult Consult: Consult for Medical Decision Making Capacity S: Psychiatry is asked to evaluate capacity in this 63 y.o. single, white female with a history of depression and anxiety who just suffered a heart attack this weekend and was stented yesterday by cardiology. The patient has been extremely distraught and anxious since arrival and has been difficult for staff to accommodate, making attempts at times to leave AMA and refusing lorazepam. She still awaits further testing and placement of a life-vest and it could be detrimental to her if she chose to leave at this time. On exam the patient is anxious and tearful. She complains of claustrophobia in her small ICU room and resents that she has been placed on restrictive 1:1 observations status for her safety. "I'm just so upset. I can't believe this has happened to me. Nobody in my family ever had a heart attack before." She notes that she typically takes 225mg of venlafaxine daily and is endorsing some discomfort from withdrawals from this. She is agreeable to resuming this and states that she would welcome some Ativan to help her relax. She is able to articulate the risks of going home AMA, including further cardiopulmonary compromise and . O: aging, tall white female; dressed in patient gown; limited grooming; very distraught but otherwise cooperative; receptive to reassurance; anxious with a distressed affect bordering on labile; denies SI or HI; insight and judgment limited given her desire to leave without further care; awake and alert; oriented to person/place/situation/time A/P: 1. Capacity: the patient is able to state her diagnosis, the treatment which is indicated at this time, and the risks of going home. In my judgment, she has the capacity to do so, based on her demonstrated understanding of the risk/ benefit appraisal of her situation. Capacity is subject to change in these situations and psychiatry can be re-consulted in the event of any significant changes in her presentation. 2. Anxiety: we will write an order to resume venlafaxine XR 225mg PO qday, first dose now. I will also give her a one time oral dose of 2mg lorazepam. I' ll increase the prn dose of IV lorazepam to 1mg IV q4h for anxiety. Psychiatry will revisit the patient tomorrow (12/21) for follow up.
--- NOTE | 2018-12-20 14:54 | CONS ---
CC: Dr. Murphy; Dr. Borja CONSULTATION REPORT: DATE OF CONSULT: 12/19/18 PRIMARY CARE PROVIDER: Dr. Murphy. USED CAR LOT ATTENDANT: Dr. Borja. REASON FOR CONSULTATION: Emotional lability. HISTORY OF PRESENT ILLNESS: Ms. Martini is a 63-year-old female who has a history of diabetes and hypertension, also she smokes. On Wednesday of this last week, she developed acute onset chest pain, which was on and off that day. On Wednesday morning, she had an episode of loss of consciousness, where she fell. She states that she hit her head and she was out for an unknown amount of time. She has no prior history of seizures. She was in severe pain at that time. She had no bladder or bowel incontinence that she is aware of. No tongue bitting. She was brought to the ER, where she was found to have a STEMI , taken to the rn cardiac cath, found to have a 95% lesion of the proximal LAD and was stented. Subsequently, put on Brilinta. She did well during the procedure. Yesterday, she developed an episode of further chest pain. There was concern for possible dissection. A CT of the chest was done which showed no acute findings; centrilobular emphysema; bibasilar atelectasis; cardiomegaly; small hiatal hernia. She had a transthoracic echocardiogram this morning which showed moderate concentric left ventricular hypertrophy and multiple regional wall motion abnormalities, moderate to severely decreased left ventricular systolic function, estimated ejection fraction of 25% to 30%, mild mid- anteroseptal, midanterior, mid-anterolateral, apicoseptal, apical anterior, and apicolateral wall segments were hypokinetic. Apical inferior wall segment is akinetic. Right ventricular chamber size and systolic function are within normal limits. There is no evidence of aortic stenosis, trace mitral regurg, trace tricuspid regurg. No significant pericardial effusions. Limited echo from day before, LV function is about the same. I was consulted today because the patient has become more erratic in her behavior. She has become emotional. When I arrived to the bedside, she was tearful. Cardiology states that she has been anxious to leave and at times threatened to leave. She notes a long history of headaches that are intermittent in nature. She states they are "normal headaches that people get." She has had some headaches during her hospitalization, but they were not severe. She states that they were very typical and similar to her normal headaches. She notes no specific meningismus , although, she does state that the back of her head and neck hurt from the fall. She notes no photophobia or phonophobia. No nausea or vomiting. She notes no focal numbness, tingling or weakness. No speech difficulties. No vision changes. No swallowing difficulties. She has had no problems ambulating. She does want to go outside and feels "claustrophobic in the room. " She notes that if she has to stay in that room for any prolonged amount of time, she feels like leaving. She is aware of the fact that she cannot leave and that if she left it would be detrimental to her health. Today, she denied any further chest pain to me. No shortness of breath. No palpitations. She has no history of atrial fibrillation. She has no history of prior stroke. She notes that she takes medication at home for her diabetes, cholesterol, and hypertension. She also notes that she has a long history of depression and states that she takes a medication for it. Her home medications listed include an antidepressant of unknown type. She states that she has had depression for years, will occasionally get very emotional. She denies any suicidal or homicidal ideations. She states since Wednesday, she has felt very emotional. She is tearful today. She states that she cannot handle having "all of these problems." She feels that the reason she is emotional is because of all of the acute issues and she is very worried and concerned. She also told me that she has COPD that she was "not aware of." She is completely alert and oriented but is very sad. Her arrived at the bedside and told me that she has been very emotional since Wednesday, which is not typical for her. Based on this, a CT of the brain was done yesterday evening; showed no acute abnormalities. No hemorrhage, mass effect, or edema. No ventriculomegaly. PAST MEDICAL HISTORY: As noted above. MEDICATIONS: Currently include: 1. Tylenol 650 mg p.o. q.4 hours. 2. Aspirin 81 mg daily. 3. Lipitor 80 mg daily. 4. Colace. 5. Humalog sliding scale. 6. Lorazepam x1 and every 4 hours for anxiety. 7. Metoprolol. 8. Nitroglycerin p.r.n. 9. Zofran. 10. Brilinta 90 mg p.o. b.i.d. 11. Venlafaxine 225 mg p.o. daily. ALLERGIES: AMPICILLIN, AMOXICILLIN, CLAVULANIC ACID, PENICILLIN, AZITHROMYCIN, CETIRIZINE, DOXYCYCLINE, TETRACYCLINE, SEPTA, and DAIRY. FAMILY HISTORY: Father with prostate cancer and schizophrenia. Mother with non - Hodgkin lymphoma. Uncle with diabetes. SOCIAL HISTORY: Retired, lives with her , has 2 daughters. She smokes 2 packs per day, but states that she is going to quit. She denies any drug use or alcohol use. REVIEW OF SYSTEMS: Review of systems in 14 organ systems as noted above, otherwise negative. PHYSICAL EXAMINATION: Vital Signs: She is afebrile. Temp of 97.6. Has been afebrile since admission. Blood pressure 124/77, pulse in the 80s to 90s, respiratory rate 17 to 31, sating 96% to 100%. In general, she is a well- nourished, well-developed female, in no acute distress, although she is tearful and anxious. She is normocephalic, atraumatic. Sclerae are anicteric. Mucous membranes are moist. Oropharynx is clear. Nares are patent. She has poor dentition. Neck is supple. She has ability to flex and extend and turn side to side with no significant meningismus. She has no obvious cuts or bruises in the back of her head or neck. Chest: Clear to auscultation bilaterally. Cardiovascular is regular rate and rhythm without any significant murmurs. No carotid bruits. Abdomen is soft, nontender. Extremities: No clubbing, cyanosis, or edema. Her skin is warm and dry. On neurologic exam, she is awake , alert, and oriented x3. Her speech is fluent. There is no dysarthria. Repetition is intact. Recall of remote events is intact. Vocabulary is intact. Her mood is dysthymic. Affect is mood congruent. Cranial Nerves: Pupils are equally round and reactive to light and accommodation. Extraocular muscles are intact. Visual elliott are full. No nystagmus, ptosis, or diplopia appreciated. Face is symmetric. Facial sensation intact to light touch. Hearing is intact bilaterally. Palate raises symmetrically. Tongue is midline. Sternocleidomastoid and trapezius 5/5. Motor exam: She is spontaneously moving all extremities antigravity, good tone and bulk 5/5 throughout, no drift. Sensation is intact to light touch and pinprick throughout except for her left toes which have loss of all modalities. She states it is chronic in nature. DTRs are 2+ and symmetric at the patellar, biceps, brachioradialis, triceps; absent at the ankles. Equivocal Babinski's. Finger-to- nose, rapid alternating movements, and [id number]-[id number] are both normal. No tremors appreciated at rest or gqehkz-ai-[id number]. Gait: She is able to standup and walk several steps stable. Normal base. DIAGNOSTIC STUDIES/LAB DATA: Lab work includes a white count of 16.8, INR 1.01 , PTT of 26.8. Chemistry this morning, sodium of 131, chloride of 98, carbon dioxide of 19, BUN creatinine 25.4, glucose of 260, hemoglobin A1c of 7.6, total bili of 1.10. CK-MB of 11.8, this morning 8.2. Troponin 16.97 down to 9.8. Triglyceride 135, cholesterol 183, LDL 117, HDL 39, influenza negative. ASSESSMENT AND PLAN: Ms. Martini is a 63-year-old female with a history of hypertension, diabetes, heavy smoking for years, some peripheral neuropathy in her left leg, who presents to the hospital with a ST-Elevation Myocardial Infarction, 95% left anterior descending, status post stenting, developed some postop chest pain and her evaluation showed no evidence of dissection. She has been very emotional, since Wednesday, "all of this started happening and I am not ready for it."Has been emotional, tearful, at times threatening to leave, states that she feels "cooped up." She is logical though and understands that leaving would be dangerous for her. She does note significant depression, but notes no suicidal or homicidal ideations. She has a long history of depression. I was consulted to evaluate for possible altered mental status. At this time, her examination is completely nonfocal. She has no meningismus to suggest an infection and no fevers. No photophobia or phonophobia. My suspicion for underlying stroke is extremely low and given the fact that she has had a recent stent and I have a low suspicion. I do not think we need to do any further imaging. CT scan after the procedure showed no evidence of bleeding. I see no evidence of focality that would suggest an intracranial process. At this time, given my low suspicion for intracranial pathology, I feel lumbar puncture would be very low yield and put the patient at excessive risk given the need for blood thinners--risks outweigh benefits. I suspect that she is suffering from severe depression, likely exacerbated by her multiple acute issues over the last 72 hours. She tells me that she feels completely overwhelmed and that is why she is tearful. She does feel depressed as well. She notes no suicidal or homicidal ideations. Dr. Wynn is to see her for evaluation as well. At this point, I would continue her venlafaxine assuming that is safe from a cardiac standpoint. I do not think that there is any need for additional neurologic workup at this point. I will remain available, but will sign off, should any new focal neurologic symptoms develop. Thank you for the opportunity to participate in the care of this very interesting patient. [id number]/[facility] #: [id number] BERTO
--- NOTE | 2018-12-20 15:23 | PN ---
Subjective Date of Service: 12/20/18 Interval History: Patient seen and examined this AM. Remains very tearful and was threatening to leave AMA. Explained that this would not be safe for her given the seriousness of her new diagnosis and PA. Her behavior has been impulsive. She states she has diffuse chest wall pain even with mild palpation, denies SOB, no fevers or chills. Family History: Findings - denies CAD history, father prostate cancer, also had schizophrenia, mother had non-Hodgkins lymphoma, an uncle had diabetes. She has 8 siblings Social History: Findings - Retired, owned business with , , 2 daughters, is HCP. She smokes 2PPD, no alcohol/drug use Past Medical History: Findings - PMH: hypertension, type 2 diabetes, COPD, anxiety; SH: none Objective Active Medications: Acetaminophen (Tylenol Tab*) 650 mg PO Q4H PRN PRN Reason: HEADACHE/PAIN Aspirin (Aspirin 81 Mg Chew Tab*) 81 mg PO DAILY [facility] Last Admin: 12/20/18 09:18 Dose: 81 mg Atorvastatin Calcium (Lipitor*) 80 mg PO 2100 [facility] Dextrose (D50w Syringe 50 Ml*) 12.5 gm IV PUSH .FOR FS < 60 - SS PRN PRN Reason: FS < 60 Docusate Sodium (Colace Cap*) 100 mg PO DAILY PRN PRN Reason: CONSTIPATION Glimepiride (Glimepiride) 4 mg PO BID [facility] Insulin Human Lispro (Humalog*) 0 units SUBCUT FS ACHS ICU [facility]; Protocol Last Admin: 12/20/18 13:07 Dose: 4 unit Lorazepam (Ativan Inj*) 1 mg IV PUSH Q4H PRN PRN Reason: ANXIETY Metoprolol Succinate (Toprol Xl Tab*) 25 mg PO DAILY [facility] Metoprolol Tartrate (Lopressor Tab*) 12.5 mg PO Q8H [facility] Stop: 12/20/18 23:59 Last Admin: 12/20/18 13:35 Dose: 12.5 mg Nicotine (Nicotine Inhaler*) 10 mg INH Q2H PRN PRN Reason: CRAVING Last Admin: 12/20/18 11:43 Dose: 10 mg Nicotine (Nicotine Patch 21 Mg/24 Hr*) 1 patch TRANSDERM DAILY@0800 [facility] Last Admin: 12/20/18 11:43 Dose: 1 patch Nitroglycerin (Nitroglycerin Tab 0.4 Mg*) 0.4 mg SL Q5M PRN PRN Reason: ANGINA Last Admin: 12/19/18 21:20 Dose: 0.4 mg Ondansetron HCl (Zofran Inj*) 4 mg IV Q4H PRN PRN Reason: NAUSEA Pharmacy Profile Note (Nicotine Patch Removal Note*) 1 note PATCH OFF 1999 [facility] Ticagrelor (Brilinta*) 90 mg PO BID [facility] Last Admin: 12/20/18 09:18 Dose: 90 mg Venlafaxine HCl (Effexor Xr Cap*) 225 mg PO DAILY [facility] Last Admin: 12/20/18 11:19 Dose: 225 mg Vital Signs - 8 hr 12/20/18 12/20/18 12/20/18 08:00 08:01 08:15 Temperature 97.6 F Pulse Rate 94 93 Respiratory 33 33 Rate Blood Pressure 105/63 (mmHg) O2 Sat by Pulse 94 96 Oximetry 12/20/18 12/20/18 12/20/18 09:00 09:01 10:00 Temperature Pulse Rate 103 94 Respiratory 24 19 24 Rate Blood Pressure 96/65 (mmHg) O2 Sat by Pulse 92 95 Oximetry 12/20/18 12/20/18 12/20/18 10:06 11:00 11:19 Temperature Pulse Rate 99 97 Respiratory 15 15 24 Rate Blood Pressure 90/54 (mmHg) O2 Sat by Pulse 98 94 Oximetry 12/20/18 12/20/18 12/20/18 11:40 12:00 12:01 Temperature 98.7 F Pulse Rate 93 103 98 Respiratory 30 22 20 Rate Blood Pressure 104/59 100/62 (mmHg) O2 Sat by Pulse 96 96 95 Oximetry 12/20/18 12/20/18 12/20/18 13:00 13:01 14:00 Temperature Pulse Rate 103 104 101 Respiratory 16 29 38 Rate Blood Pressure 113/63 109/56 (mmHg) O2 Sat by Pulse 96 96 94 Oximetry 12/20/18 14:01 Temperature Pulse Rate 101 Respiratory 24 Rate Blood Pressure (mmHg) O2 Sat by Pulse 93 Oximetry Oxygen Devices in Use Now: None Appearance: alert, tearful and agitated at times Eyes: No Scleral Icterus, PERRLA Ears/Nose/Mouth/Throat: NL Teeth, Lips, Gums, Mucous Membranes Moist Neck: NL Appearance and Movements; NL JVP, Trachea Midline Respiratory: Symmetrical Chest Expansion and Respiratory Effort, Clear to Auscultation Cardiovascular: NL Sounds; No Murmurs; No JVD, RRR, No Edema Abdominal: NL Sounds; No Tenderness; No Distention Extremities: No Edema, No Clubbing, Cyanosis Skin: No Rash or Ulcers Neurological: Alert and Oriented x 3, NL Sensation, NL Muscle Strength and Tone Nutrition: Taking PO's Result Diagrams: 12/20/18 05:15 12/20/18 09:35 Additional Lab and Data: Laboratory Tests 12/19/18 12/19/18 12/19/18 16:45 16:45 16:45 INR (Anticoag Therapy) 1.01 APTT 26.8 Glucose 188 H Lactic Acid 1.5 AST 43 H ALT 24 CK-MB (CK-2) 28.2 H Troponin I 12.93 H* LDL Cholesterol Direct 159 Influenza A (Rapid) Influenza B (Rapid) 12/19/18 23:15 INR (Anticoag Therapy) APTT Glucose Lactic Acid AST ALT CK-MB (CK-2) Troponin I LDL Cholesterol Direct Influenza A (Rapid) Negative Influenza B (Rapid) Negative Microbiology and Other Data: Microbiology 12/19/18 23:00 Influenza Types A,B Antigen - Final Nasal Specimen received for Influenza A/B Molecular testing Diagnostic Imaging: CARDIAC ECHO 12/20/18 Conclusions Moderate concentric left ventricular hypertrophy is observed. There are multiple regional wall motion abnormalities. There is moderate to severely decreased left ventricular systolic function. The estimated ejection fraction is 25-30%. The mid anteroseptal, mid anterior, mid anterolateral, apical septal, apical anterior, and apical lateral wall segments are hypokinetic This report is only to be considered final once signed by the Provider(s) as displayed in the "<Electronically Signed by >" field (s). Absence of a signature indicates the report is in a draft status and still needs to be finalized. In the event this document was created by someone other than the signing Provider, the individual initiating the document will be listed in the "Entered by:" or "Dictated by:" elliott. (score 2). The apical inferior wall segment is akinetic (score 3). The right ventricular chamber size and systolic function are within normal limits. There is no evidence of aortic stenosis. There is a trace of mitral regurgitation. There is trace tricuspid regurgitation. There is no significant pericardial effusion. Compared to limitied echo yesterday 12/19/18, the LV function is about the same Patient Name: RADHA SOL Medical Record#: [id number] Ordering Physician: Jose Coulter MD Acct.#: [id number] : 1955 Age: 63 Sex: F Location[facility] Exam Date: 12/19/182326 ADM Status: ADM IN Order Information: CTA CHEST Accession Number: [id number] CPT: 94458 EXAM: CT Angiography Chest With Contrast EXAM DATE/TIME: 12/20/2018 12:31 AM CLINICAL HISTORY: 63 years old, female; Pain; Chest pressure and chest wall pain; Prior surgery; Surgery date: Post-operative (0-2 days); Surgery type: Chest cath earlier; Additional info: Chest pain possible aortic dissection TECHNIQUE: Imaging protocol: Axial computed tomographic angiography images of the chest with intravenous contrast using CT angiography protocol. Coronal and sagittal reformatted images were created and reviewed. 3D rendering: MIP reconstructed images were created and reviewed. Radiation optimization: All CT scans at this facility use at least one of these dose optimization techniques: automated exposure control; mA and/or kV adjustment per patient size (includes targeted exams where dose is matched to clinical indication); or iterative reconstruction. Contrast material: VISIPAQUE 320 Contrast volume: 100 ml Contrast route: RT AC 18 G COMPARISON: OT CXR PORTAP CHEST AP OR PORT 12/19/2018 4:43 PM FINDINGS: Pulmonary arteries: No pulmonary emboli. Aorta: Atherosclerosis. No aortic aneurysm. No aortic dissection. Lungs: Centrilobular emphysema. Bibasilar atelectasis. No consolidation. No masses. Pleural space: No pneumothorax. No pleural effusion. Heart: Cardiomegaly with coronary artery calcification. No pericardial effusion. Lymph nodes: No significantly enlarged lymph nodes. Bones/joints: Degenerative changes in the spine. No acute fracture. Soft tissues: A small hiatal hernia. IMPRESSION: 1. No acute findings. 2. Centrilobular emphysema and bibasilar atelectasis. 3. Cardiomegaly with coronary artery calcification. 4. A small hiatal hernia. Patient Name: RADHA SOL Medical Record#: [id number] Ordering Physician: Gary Mcrae MD Acct.#: [id number] : 1955 Age: 63 Sex: F Location: [facility] Exam Date: 12/19/181933 ADM Status: ADM IN Order Information: CT BRAIN WO Accession Number: [id number] CPT: 94823 EXAM: CT Head Without Contrast EXAM DATE/TIME: 12/19/2018 8:10 PM CLINICAL HISTORY: 63 years old, female; Signs and symptoms; Other: Headache after pci; Additional info: Patient complains of headache after pci TECHNIQUE: Imaging protocol: Axial computed tomography images of the head/brain without contrast. Radiation optimization: All CT scans at this facility use at least one of these dose optimization techniques: automated exposure control; mA and/or kV adjustment per patient size (includes targeted exams where dose is matched to clinical indication); or iterative reconstruction. COMPARISON: No relevant prior studies available. FINDINGS: Brain: Normal. No hemorrhage. No significant white matter disease. No edema. Ventricles: Normal. No ventriculomegaly. Bones/joints: Unremarkable. No acute fracture. Sinuses: Visualized sinuses are unremarkable. No acute sinusitis. Mastoid air cells: Visualized mastoid air cells are unremarkable. No mastoid effusion. Soft tissues: Unremarkable. IMPRESSION: No acute intracranial abnormality. EKG Data: 12/19/18: Pre-PCI NSR, leftward axis, RBBB, ST elevations V2-V5, injury pattern in limb leads, T- wave flattening Assess/Plan/Problems-Billing Assessment: This is a 63 year old female with history of diabetes that presented to ED yesterday with c/o chest pain and syncope, STEMI noted on EKG, currently status post cath and PCI but has been perisistently anxious and agitated since last night. - Patient Problems (1) STEMI (ST elevation myocardial infarction) Code(s): I21.3 - ST ELEVATION (STEMI) MYOCARDIAL INFARCTION OF [facility] SITE SNOMED Code(s): 062442273 Comment: - Stent placed yesterday for 95% stenosis of proximal LAD - Sheath pulled last night - CTA chest negative for PE or dissection, does appear to have undiagnosed emphasema and patient has history of being heavy smoker - BB, brillinta, statin, ASA - Referral made for Life[facility] given ECHO findings above - Continue management per Dr. Mcrae/cardiology (2) Diabetes Code(s): E11.9 - TYPE 2 DIABETES MELLITUS WITHOUT COMPLICATIONS SNOMED Code(s) : 54280145 Comment: - CC diet, lispro SS, restart glimeperide today - A1c pending (3) Anxiety and depression Code(s): F41.9 - ANXIETY DISORDER, UNSPECIFIED; F32.9 - MAJOR DEPRESSIVE DISORDER, SINGLE EPISODE, UNSPECIFIED SNOMED Code(s): 24430069 Comment: - Consulted neuro and psych, as patient was having periods of not being lucid - Per neuro, no additional workup needed - Per psych, patient does have capacity, although she seems to be agreeable to staying inpatient - Per Dr. Wynn, restart venlafaxine with ativan PRN and continue close monitoring (4) Tobacco abuse Code(s): Z72.0 - TOBACCO USE SNOMED Code(s): 789651333 Comment: - Given anxiety, will give nicotine replacement - Counseled on cessation (5) Syncope Code(s): R55 - SYNCOPE AND COLLAPSE SNOMED Code(s): 629689878 Comment: - Concern that there may an underlying arrhythmia? - Continue tele - Optimize lytes (6) Full code status Code(s): Z78.9 - OTHER SPECIFIED HEALTH STATUS SNOMED Code(s): 465407878 Status and Disposition: Inpatient, transfer to telemetry floor.
[2018-12-20] MEDS: Nitroglycerin TAB 0.4 MG* 0.4 MG TAB SL PRN (15:33)
[2018-12-20] MEDS: Acetaminophen TAB* 325 MG PO PRN (16:05)
[2018-12-20] MEDS: traMADol TAB* 50 MG PO PRN (16:19)
--- NOTE | 2018-12-20 16:43 | HP ---
CC: Dr. Steven Murphy; Dr. Borja in [place]* ADMISSION HISTORY AND PHYSICAL: DATE OF ADMISSION: 12/19/18 CHIEF COMPLAINT: The patient presented to the hospital after having multiple days of intermittent chest discomfort and a syncopal episode in the medical assistant secretary hours of Wednesday with profound weakness and an EKG that the emergency room physician called a STEMI alert for. HISTORY OF PRESENT ILLNESS: The patient is a 63-year-old female who denies any history of prior cardiac illnesses. Specifically, he denies any history of myocardial infarction, congestive heart failure, or significant heart rhythm disturbance. The patient's history at best is extremely difficult to get in that she wanders and cannot give a consistent history, and at times states she just does not know. She believes that she has had chest discomfort for multiple months that have been more of rib discomfort and at some point in time she was diagnosed with a history of costochondritis. The emergency room doctor' s documentation seemed to suggest this was a recent diagnosis. She states, however, though that last Wednesday she had a severe episode of chest discomfort but was unable to tell me exactly how long it lasted for; first she said for a minute, then she started saying perhaps longer, but did not know. She did not know if it radiated up to her chest, throat or arm. She stated she was winded and has shortness of breath when she exerts herself, but could not comment if she has significant shortness of breath at that time. Of note, she had symptoms on and off and then on in the early hours of Wednesday morning at 4 a.m., she sat up in bed and felt like she was starting to slide off the bed, then eventually got up, started walking and reportedly does not remember what happened. Her found her on the floor conscious. He stated that at that time she was not specifically complaining about anything, but it was difficult to get any degree of accurate history from him as well. She went back to bed. She eventually was feeling worse and worse and weaker and weaker and her convinced her to come to the emergency room. In the emergency room, the initial EKG documented a right bundle-branch block with a left anterior hemiblock. There were Q waves already in the precordial leads, but some degree of preserved R wave in V1 through V3. There were R waves in 1 and aVL without Q waves, but there was poor R-wave progression in V5 and V6. There was persistent ST segment elevation in V2 through V4 with subtle ST elevation in V5 and V6 and I and aVL. A STEMI alert was called. After discussing with her the risks and benefits during which time she was extremely emotional and tearful, she wished to proceed, and as such she had had 4 baby aspirins, she got 180 mg of Brilinta and 4000 units of heparin intravenously. Further management to be made in the cardiovascular laboratory depending on the findings. Of note, a bedside echocardiogram limited in nature was done, which did reveal severe hypo to akinesis of the apical region in the distal inferior wall with moderate hypokinesis of the rest of the anterior wall. PAST MEDICAL HISTORY: Includes: 1. Reported history of hypertension. 2. Diabetes. 3. COPD. 4. Anxiety. 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 She smokes 2 packs per day. She does not use alcohol or illicit drugs. FAMILY HISTORY: She denies any history in the family of CAD. Apparently, her father had prostate cancer and schizophrenia. REVIEW OF SYSTEMS: Consistent with proceeding emergently to the cardiovascular laboratory. She denied any hematochezia, hematemesis, hematuria. She denied any history of stroke or TIA. She denied any history of kidney disease and she denied any history of contrast allergy, although history was not good enough to know whether or not she was accurate with that. PHYSICAL EXAMINATION VITAL SIGNS: Physical examination when I saw her in the emergency room revealed vital signs, blood pressure was 100/61, ranging to 115/70s; pulse was 95 to 100; respirations were 22; O2 saturation on room air was 96%. HEENT: Conjunctivae were pink. Sclerae clear. NECK: Supple. There was no obvious increased JVP. I cannot appreciate bruits , although it was difficult to hear in the emergency room. LUNGS: Revealed no accessory muscle usage. She has fair excursion. No active rales, rhonchi, or wheezes. HEART: Revealed no palpable heaves or thrills. Normal S1, S2. No significant systolic or diastolic murmur. ABDOMEN: Soft, nontender. EXTREMITIES: Without edema. Of note, in touching her groin area, she was sensitive to this as well. Her ribcage was also quite sensitive to touch in that she said if she had pain, it would become worse with that. NEURO: She seems alert and oriented. MUSCULOSKELETAL: Moves all extremities, appropriate. PSYCHOLOGICAL: She was extremely anxious and tearful in nature. DIAGNOSTIC STUDIES/LAB DATA: Laboratory results were pending at the time of the initial presentation and will be checked again in the laundry laborer as they are available. Chest x-ray interpreted by the emergency room physician did not show any evidence of widening of the mediastinum and also did not show any significant evidence for vascular congestion, although there was some haziness in the right basilar lung field. OVERALL ASSESSMENT: [place] presents now with an EKG that still shows ST-segment elevation, an echocardiogram that does show the apical region akinetic. There did not appear to be profound thinning of the anterior wall at this point in time and there was some motion of the mid anterior wall. Given these findings and knowing that she has had ongoing chest discomfort since Wednesday, intermittent in nature, I favor proceeding to the cardiovascular laboratory to seeing whether or not there is residual critical disease left in her left anterior descending artery that would warrant the need for intervention. She has already received the appropriate medications, precardiac catheterization and further management will be made pending the results of the catheterization. I explained the risks and benefits to both her and her . They understood them and wish to proceed. [id number]/[facility] #: [id number] BERTO
--- NOTE | 2018-12-20 19:50 | CATH ---
CC: Dr. Steven Murphy, Dr. Marquis Doll MD CARDIAC CATHETERIZATION REPORT AND INTERVENTIONAL REPORT: DATE OF PROCEDURE: 12/19/18 REASON FOR THE CARDIAC CATHETERIZATION: The patient presents now with intermittent chest discomfort over the last 4 days with grossly abnormal EKG suggesting an anterior wall ST-segment elevation myocardial infarction with Q waves already developed, unsure of exact timing as the patient is an extremely poor historian. PROCEDURES: Coronary arteriography, left heart catheterization, thrombectomy and primary stenting of the beginning of the midportion of the left anterior descending artery with placement of a 3.5 x 20 mm long Synergy drug-eluting stent postdilated to 3.75 to 3.9 mm. CONSENT: The patient was interviewed and examined in the emergency room where the risks and benefits were explained to both her and her . She understood them and wished to proceed. PRE-CARDIAC CATHETERIZATION LABORATORY RESULTS: None available given the emergent nature of the cardiac catheterization. Ultimately reviewed during the catheterization when available - hemoglobin and hematocrit 14.7 and 43, platelet count of 307,000, glucose 188, BUN and creatinine 20 and 0.87, sodium 134, potassium 4.2, chloride 97, bicarb 24, troponin was 12.9, INR 1.0. MEDICATIONS GIVEN: A. Prior to cardiac catheterization in the emergency room - 180 mg of Brilinta, 325 mg of aspirin chewed, 4000 units of heparin. B. In the cardiac vascular laboratory - 1 mg of Versed, 100 mcg of intracoronary nitroglycerin, Angiomax bolus, and Angiomax drip for a subtherapeutic INR. EQUIPMENT UTILIZED: 1. Right femoral artery sheath - a 6.5-Slovenian Merit Prelude sheath. 2. Diagnostic coronary catheters - an FL4 and an FR4 curve 5-Slovenian catheters. 3. Left heart catheterization catheter - a 5-Slovenian angled pigtail catheter. 4. Interventional guide catheter - a 6-Slovenian VL 3.5 curve guide catheter. 5. Interventional wire utilized was a 190 cm length All Star wire. 6. The thrombectomy catheter - a 6-Slovenian Pronto V4 extraction catheter. 7. The stent utilized - a 3.5 x 20 mm long Synergy drug-eluting stent. 8. Poststent deployment, balloon inflations with a 3.75 x 12 mm long NC Emerge balloon. DESCRIPTION OF PROCEDURE: The patient was brought to the cardiovascular laboratory, where a formal time-out was performed. She was prepped and draped in a sterile fashion. The right coronary artery area was anesthetized with 1% lidocaine, the right femoral artery was cannulated with an anterior wall only stick and the sheath was placed. Coronary arteriography was performed. Following this, the procedure was made to intervene into the mid critical left anterior descending artery lesion just after the 1st septal python engineer. ACT was checked and found to be subtherapeutic and as such Angiomax bolus and Angiomax drip were given. Manual aspiration was carried out followed by stent deployment with post deployment high-pressure balloon inflations. Intracoronary nitroglycerin was given as well. Following this, central aortic pressure was recorded using the angled pigtail catheter advanced to the ascending aorta. The catheter was passed into the left ventricle, but care was taken not to extend into the apical region. Left ventricular pressures were recorded and pullback was performed. No ventriculogram was performed as the patient had a limited echocardiogram in the emergency room demonstrating left ventricular systolic dysfunction. At the end of the case, an injection was made into the right femoral sheath. Decision was made to suture the sheath in place as the patient was coughing quite a bit and had gotten anticoagulation both with heparin albeit subtherapeutic but also with Angiomax. The sheath will be pulled at the appropriate time after the effects of anticoagulation wear off. The total contrast used was 175 cc of omnipaque contrast. The radiation exposure included 10.2 minutes of fluoro time. The Air Kerma was 1220 milliGray, the DAP was 7356 microGy/m2. RESULTS: HEMODYNAMIC DATA: Left heart catheterization - revealed central aortic pressure of 118/66 with a mean of 90, left ventricular pressure 120 over left ventricular end- diastolic pressure of 14. CORONARY ARTERIOGRAPHY: A. Left coronary artery: 1. Left main - widely patent. 2. Left anterior descending artery - of note, there was mild prestenotic dilatation of the proximal left anterior descending artery, followed by critical 95 to 99% lesion with CARLENE 1 to 2 flow down the left anterior descending artery. The LAD supplied a first posteriorly directing diagonal branch followed by 2 more diagonal branches. The LAD extended to the apical region. Of note, there was haziness suggesting the presence of a thrombus in the initial portion of the stenosis in the LAD prior to the 95 to 99% area. 3. Circumflex artery - a nondominant vessel supplying a thin first and second obtuse marginal branch with a moderate to large size bifurcating low lying obtuse marginal branch. B. Right coronary artery - a dominant vessel supplying the PDA and 3 posterior left ventricular branches. There was mild luminal irregularity seen throughout the proximal and mid portion with areas of 30 to 35% narrowing with perhaps the most significant degree of narrowing in its mid segment of 35 to 40% . Collateral blood flow was seen to be filling septal perforators, but not well into the primary LAD. INTERVENTION INTO BEGINNING OF THE MIDPORTION OF THE LEFT ANTERIOR DESCENDING ARTERY: Successful reduction of critical 95 to 99% stenosis with primary stenting utilizing a 3.5 x 20 mm long Synergy drug-eluting stent dilated to 3.85 mm with high-pressure balloon inflation. Of note, in viewing the area of the LAD just distal to this, there was clear luminal reduction seen for the rest of the course of the left anterior descending artery. There was a mid lesion in the LAD of 45 to 50% noted. OVERALL ASSESSMENT: Successful intervention into subtotally occluded LAD as described above. Dual antiplatelet therapy as well as aggressive medications for left ventricular systolic dysfunction will be pursued. High-dose statin therapy will be given as well. Of note, the patient has a history of diabetes and as such, we will ask the hospitalist to manage this and we will also check a hemoglobin A1c to see how well her diabetes is under control on her current diabetic management. [id number]/[facility] #: [id number] MTDD
[2018-12-20] MEDS: Atorvastatin* 80 MG TAB PO SCH (20:56)
[2018-12-20] MEDS: Nicotine Patch Removal NOTE PATCH OFF SCH (20:56)
[2018-12-20] MEDS: CMCS:Glimepiride (NF) 2 MG TAB PO SCH (20:57)
[2018-12-21 06:34] LABS: BUN/Creatinine Ratio 25.4 (8-20); Calcium 8.7 mg/dL (8.6-10.3); EGFR African American 106.9 (>60); EGFR Non-African American 88.3 (>60); Potassium 3.6 mmol/L (3.5-5.0)
[2018-12-21] MEDS: Ticagrelor* 90 MG TAB PO SCH ×2 (07:42→20:44)
[2018-12-21] MEDS: Insulin LISPRO* 1 UNITS UNIT SUBCUT SCH ×4 (07:42→20:53)
[2018-12-21] MEDS: Metoprolol Succinate XL TAB* 25 MG PO SCH (07:42)
[2018-12-21] MEDS: Venlafaxine EXT RELEASE CAP* 75 MG PO SCH (07:42)
[2018-12-21] MEDS: Aspirin 81 mg CHEW TAB* 81 MG TAB.CHEW PO SCH (07:43)
[2018-12-21] MEDS: CMCS:Glimepiride (NF) 2 MG TAB PO SCH ×2 (07:43→20:44)
[2018-12-21] MEDS: Nicotine PATCH 21 MG/24 HR* PATCH TRANSDERM SCH (07:43)
[2018-12-21] MEDS ORDERED: Potassium Chlor TAB* 20 MEQ TAB.ER PO ONE (08:23)
--- NOTE | 2018-12-21 09:06 | PN ---
<GurpreetRadha - Last Filed: 12/21/18 10:14> Subjective Date of Service: 12/21/18 - s/p INDIGO LAD 12/19/2018 due to late presenting [place] Interval History: s/p INDIGO proximal LAD with known moderate residual LAD lesion. No recurrent chest pain since yesterday. Patients affect has improved since re initiation of antidepressant yesterday. She is c/o vision changes and her daughter who is bedside last night she had altered gate which is why she hasn't walked the halls. She denies sob, fitzpatrick, palpitations, sensation of heart racing, edema or dizziness. Does c/o head pain from where she fell. Upon further inquiry the patient will have an altered gait at home when blood glucose is low but otherwise I'm told she walks normal. She ambulated 50feet with me and the RN taking care of her. Her gait was altered ( shuffled) with a tendency to lean to right side. She then added she had double vision yesterday and earlier today. Medications Active Medications: Acetaminophen (Tylenol Tab*) 650 mg PO Q4H PRN PRN Reason: HEADACHE/PAIN Last Admin: 12/20/18 16:05 Dose: 650 mg Aspirin (Aspirin 81 Mg Chew Tab*) 81 mg PO DAILY [facility] Last Admin: 12/21/18 07:43 Dose: 81 mg Atorvastatin Calcium (Lipitor*) 80 mg PO 2100 [facility] Last Admin: 12/20/18 20:56 Dose: 80 mg Dextrose (D50w Syringe 50 Ml*) 12.5 gm IV PUSH .FOR FS < 60 - SS PRN PRN Reason: FS < 60 Docusate Sodium (Colace Cap*) 100 mg PO DAILY PRN PRN Reason: CONSTIPATION Glimepiride (Glimepiride (Nf)) 4 mg PO BID [facility] Last Admin: 12/21/18 07:43 Dose: 4 mg Insulin Human Lispro (Humalog*) 0 units SUBCUT FS ACHS ICU [facility]; Protocol Last Admin: 12/21/18 07:42 Dose: 4 unit Lorazepam (Ativan Inj*) 1 mg IV PUSH Q4H PRN PRN Reason: ANXIETY Last Admin: 12/21/18 01:16 Dose: 1 mg Metoprolol Succinate (Toprol Xl Tab*) 25 mg PO DAILY [facility] Last Admin: 12/21/18 07:42 Dose: 25 mg Nicotine (Nicotine Inhaler*) 10 mg INH Q2H PRN PRN Reason: CRAVING Last Admin: 12/20/18 11:43 Dose: 10 mg Nicotine (Nicotine Patch 21 Mg/24 Hr*) 1 patch TRANSDERM DAILY@0800 [facility] Last Admin: 12/21/18 07:43 Dose: 1 patch Nitroglycerin (Nitroglycerin Tab 0.4 Mg*) 0.4 mg SL Q5M PRN PRN Reason: ANGINA Last Admin: 12/20/18 15:33 Dose: 0.4 mg Ondansetron HCl (Zofran Inj*) 4 mg IV Q4H PRN PRN Reason: NAUSEA Pharmacy Profile Note (Nicotine Patch Removal Note*) 1 note PATCH OFF 1999 [facility] Last Admin: 12/20/18 20:56 Dose: 1 note Ticagrelor (Brilinta*) 90 mg PO BID [facility] Last Admin: 12/21/18 07:42 Dose: 90 mg Tramadol HCl (Ultram*) 50 mg PO Q8H PRN PRN Reason: chest wall pain Last Admin: 12/20/18 16:19 Dose: 50 mg Venlafaxine HCl (Effexor Xr Cap*) 225 mg PO DAILY [facility] Last Admin: 12/21/18 07:42 Dose: 225 mg Objective Vital Signs: Temp Pulse Resp BP Pulse Ox 97.3 F 87 25 114/72 95 12/21/18 06:48 12/21/18 08:01 12/21/18 08:01 12/21/18 08:00 12/21/18 08:01 Oxygen Devices in Use Now: None Appearance: weeping sitting in chair upon entering room. A+O x3, cooperative with exam. Ears/Nose/Mouth/Throat: NL Teeth, Lips, Gums, Mucous Membranes Moist, - - + bright blood noted on tissue after patient blew her nose. Neck: NL Appearance and Movements; NL JVP, Trachea Midline Respiratory: Symmetrical Chest Expansion and Respiratory Effort, Clear to Auscultation Cardiovascular: NL Sounds; No Murmurs; No JVD, No Edema Abdominal: NL Sounds; No Tenderness; No Distention Extremities: No Edema, - - right groin access site is soft nontender, no evidence of hematoma. Skin: No Rash or Ulcers, - - right groin access site is intact, no blood noted on 4X4 drsg. no hematoma. Strong distal pulses palpated distally. Neurological: Alert and Oriented x 3, - - please refer to HPI in regards to gait abnormalities. Lines/Tubes/Other Access: Clean, Dry and Intact Peripheral IV Laboratory Results: 12/20/18 05:15 12/21/18 05:51 INR (Anticoag Therapy) 1.01 (0.77-1.02) 12/19/18 16:45 APTT 26.8 seconds (26.0-36.3) 12/19/18 16:45 Total Bilirubin 1.10 mg/dL (0.2-1.0) H 12/20/18 05:15 AST TNP 12/20/18 05:15 ALT 25 U/L (7-52) 12/20/18 05:15 Alkaline Phosphatase 101 U/L (34-104) 12/20/18 05:15 CK-MB (CK-2) 8.2 ng/mL (0.6-6.3) H 12/20/18 09:35 B-Natriuretic Peptide 620 pg/mL (<=100) H 12/19/18 16:45 Total Protein 6.7 g/dL (6.4-8.9) 12/20/18 05:15 Albumin 3.6 g/dL (3.2-5.2) 12/20/18 05:15 Globulin 3.1 g/dL (2-4) 12/20/18 05:15 Albumin/Globulin Ratio 1.2 (1-3) 12/20/18 05:15 Triglycerides 135 mg/dL 12/20/18 05:15 Cholesterol 183 mg/dL 12/20/18 05:15 LDL Cholesterol 117 mg/dL 12/20/18 05:15 HDL Cholesterol 39.0 mg/dL 12/20/18 05:15 12/19/18 12/19/18 12/20/18 16:45 21:41 05:15 Troponin I 12.93 H* 34.47 H* 16.97 H* 12/20/18 09:35 Troponin I 9.80 H* Laboratory Results - last 24 hr 12/19/18 12/20/18 12/20/18 17:38 09:35 12:40 POC Activ Clotting Time 168 Sodium Potassium 3.9 Chloride Carbon Dioxide Anion Gap BUN Creatinine Est GFR ( Amer) Est GFR (Non-Af Amer) BUN/Creatinine Ratio Glucose POC Glucose (mg/dL) 235 H Calcium Total Creatine Kinase 135 CK-MB (CK-2) 8.2 H Troponin I 9.80 H* 12/20/18 12/20/18 12/21/18 17:23 20:44 04:51 POC Activ Clotting Time Sodium Cancelled Potassium Cancelled Chloride Cancelled Carbon Dioxide Cancelled Anion Gap Cancelled BUN Cancelled Creatinine Cancelled Est GFR ( Amer) Cancelled Est GFR (Non-Af Amer) Cancelled BUN/Creatinine Ratio Cancelled Glucose Cancelled POC Glucose (mg/dL) 200 H 251 H Calcium Cancelled Total Creatine Kinase CK-MB (CK-2) Troponin I 12/21/18 12/21/18 05:51 07:22 POC Activ Clotting Time Sodium 132 L Potassium 3.6 Chloride 100 L Carbon Dioxide 23 Anion Gap 9 BUN 17 Creatinine 0.67 Est GFR ( Amer) 106.9 Est GFR (Non-Af Amer) 88.3 BUN/Creatinine Ratio 25.4 H Glucose 200 H POC Glucose (mg/dL) 204 H Calcium 8.7 Total Creatine Kinase CK-MB (CK-2) Troponin I Laboratory Results - last 24 hr 12/19/18 12/20/18 12/20/18 17:38 09:35 12:40 WBC RBC Hgb Hct MCV MCH MCHC RDW Plt Count MPV Neut % (Auto) Lymph % (Auto) [place] % (Auto) Eos % (Auto) Baso % (Auto) Absolute Neuts (auto) Absolute Lymphs (auto) Absolute Monos (auto) Absolute Eos (auto) Absolute Basos (auto) Absolute Nucleated RBC Nucleated RBC % POC Activ Clotting Time 168 Sodium Potassium Chloride Carbon Dioxide Anion Gap BUN Creatinine Est GFR ( Amer) Est GFR (Non-Af Amer) BUN/Creatinine Ratio Glucose POC Glucose (mg/dL) 235 H Calcium Total Creatine Kinase 135 Troponin I 9.80 H* 12/20/18 12/20/18 12/21/18 17:23 20:44 04:51 WBC RBC Hgb Hct MCV MCH MCHC RDW Plt Count MPV Neut % (Auto) Lymph % (Auto) [place] % (Auto) Eos % (Auto) Baso % (Auto) Absolute Neuts (auto) Absolute Lymphs (auto) Absolute Monos (auto) Absolute Eos (auto) Absolute Basos (auto) Absolute Nucleated RBC Nucleated RBC % POC Activ Clotting Time Sodium Cancelled Potassium Cancelled Chloride Cancelled Carbon Dioxide Cancelled Anion Gap Cancelled BUN Cancelled Creatinine Cancelled Est GFR ( Amer) Cancelled Est GFR (Non-Af Amer) Cancelled BUN/Creatinine Ratio Cancelled Glucose Cancelled POC Glucose (mg/dL) 200 H 251 H Calcium Cancelled Total Creatine Kinase Troponin I 12/21/18 12/21/18 12/21/18 05:51 07:22 07:59 WBC 13.8 H RBC 4.46 Hgb 13.2 Hct 39 MCV 88 MCH 30 MCHC 34 RDW 14 Plt Count 345 MPV 8.1 Neut % (Auto) 64.1 Lymph % (Auto) 22.6 [place] % (Auto) 12.2 Eos % (Auto) 0.5 Baso % (Auto) 0.6 Absolute Neuts (auto) 8.9 H Absolute Lymphs (auto) 3.1 Absolute Monos (auto) 1.7 H Absolute Eos (auto) 0.1 Absolute Basos (auto) 0.1 Absolute Nucleated RBC 0 Nucleated RBC % 0 POC Activ Clotting Time Sodium 132 L Potassium 3.6 Chloride 100 L Carbon Dioxide 23 Anion Gap 9 BUN 17 Creatinine 0.67 Est GFR ( Amer) 106.9 Est GFR (Non-Af Amer) 88.3 BUN/Creatinine Ratio 25.4 H Glucose 200 H POC Glucose (mg/dL) 204 H Calcium 8.7 Total Creatine Kinase Troponin I Diagnostic Imagin12/20/2018 echo; LVEF 25-30%, moderate PVH, + RWMA, trace MR LHC from 12/19/2018 please refer to dictated report. EKG Data: 12/21/2018; NSR rate 87 with RBBB. Patient has anterior q waves with ST elevation consistent with prior ecg. Assessment/Plan #1 Late presenting Anterior [place] s/p INDIGO/ LAD with known moderate mid lesion. no recurrent chest pain since yesterday. Troponin continues to trend down. ECG is consistent with recent infarct. Continue ASA 81/day, Brilinta 90mg Po BID, Lipitor 80mg PO QHS, Toprol 25mg/day. #2 ongoing c/o headache, altered gait and ? diplopia. I spoke with Dr. Rodriguez who is to see the patient again. Orthostatics were negative. #3 h/o HLD; On lipitor 80mg Po QHS. Goal LDL < 70 given h/o CAD. She will need updated labs in 6-8 weeks given statin initiation #4 ICM with severe LV dysfunction; Will reassess LVEF early Wednesday morning if still < 35% patient will need lifevest. She is compensated on exam. Will continue toprol 25/day. unable to start ACEI due to BP. #5 Disposition pending course. Patient is full code. Will follow closely. Attending: Gary Mcrae <Gary Mcrae - Last Filed: 12/21/18 12:57> Medications Active Medications: Acetaminophen (Tylenol Tab*) 650 mg PO Q4H PRN PRN Reason: HEADACHE/PAIN Last Admin: 12/20/18 16:05 Dose: 650 mg Aspirin (Aspirin 81 Mg Chew Tab*) 81 mg PO DAILY [facility] Last Admin: 12/21/18 07:43 Dose: 81 mg Atorvastatin Calcium (Lipitor*) 80 mg PO 2100 [facility] Last Admin: 12/20/18 20:56 Dose: 80 mg Dextrose (D50w Syringe 50 Ml*) 12.5 gm IV PUSH .FOR FS < 60 - SS PRN PRN Reason: FS < 60 Docusate Sodium (Colace Cap*) 100 mg PO DAILY PRN PRN Reason: CONSTIPATION Glimepiride (Glimepiride (Nf)) 4 mg PO BID [facility] Last Admin: 12/21/18 07:43 Dose: 4 mg Insulin Human Lispro (Humalog*) 0 units SUBCUT FS ACHS ICU [facility]; Protocol Last Admin: 12/21/18 11:34 Dose: 6 unit Lorazepam (Ativan Inj*) 1 mg IV PUSH Q4H PRN PRN Reason: ANXIETY Last Admin: 12/21/18 01:16 Dose: 1 mg Metoprolol Succinate (Toprol Xl Tab*) 25 mg PO DAILY [facility] Last Admin: 12/21/18 07:42 Dose: 25 mg Nicotine (Nicotine Inhaler*) 10 mg INH Q2H PRN PRN Reason: CRAVING Last Admin: 12/20/18 11:43 Dose: 10 mg Nicotine (Nicotine Patch 21 Mg/24 Hr*) 1 patch TRANSDERM DAILY@0800 [facility] Last Admin: 12/21/18 07:43 Dose: 1 patch Nitroglycerin (Nitroglycerin Tab 0.4 Mg*) 0.4 mg SL Q5M PRN PRN Reason: ANGINA Last Admin: 12/20/18 15:33 Dose: 0.4 mg Ondansetron HCl (Zofran Inj*) 4 mg IV Q4H PRN PRN Reason: NAUSEA Pharmacy Profile Note (Nicotine Patch Removal Note*) 1 note PATCH OFF 1999 [facility] Last Admin: 12/20/18 20:56 Dose: 1 note Ticagrelor (Brilinta*) 90 mg PO BID [facility] Last Admin: 12/21/18 07:42 Dose: 90 mg Tramadol HCl (Ultram*) 50 mg PO Q8H PRN PRN Reason: chest wall pain Last Admin: 12/20/18 16:19 Dose: 50 mg Venlafaxine HCl (Effexor Xr Cap*) 225 mg PO DAILY [facility] Last Admin: 12/21/18 07:42 Dose: 225 mg Objective Vital Signs: Temp Pulse Resp BP Pulse Ox 96.3 F 89 21 137/80 98 12/21/18 12:00 12/21/18 12:01 12/21/18 12:01 12/21/18 12:01 12/21/18 12:01 Laboratory Results: 12/21/18 07:59 12/21/18 05:51 INR (Anticoag Therapy) 1.01 (0.77-1.02) 12/19/18 16:45 APTT 26.8 seconds (26.0-36.3) 12/19/18 16:45 Total Bilirubin 1.10 mg/dL (0.2-1.0) H 12/20/18 05:15 AST TNP 12/20/18 05:15 ALT 25 U/L (7-52) 12/20/18 05:15 Alkaline Phosphatase 101 U/L (34-104) 12/20/18 05:15 CK-MB (CK-2) 8.2 ng/mL (0.6-6.3) H 12/20/18 09:35 B-Natriuretic Peptide 620 pg/mL (<=100) H 12/19/18 16:45 Total Protein 6.7 g/dL (6.4-8.9) 12/20/18 05:15 Albumin 3.6 g/dL (3.2-5.2) 12/20/18 05:15 Globulin 3.1 g/dL (2-4) 12/20/18 05:15 Albumin/Globulin Ratio 1.2 (1-3) 12/20/18 05:15 Triglycerides 135 mg/dL 12/20/18 05:15 Cholesterol 183 mg/dL 12/20/18 05:15 LDL Cholesterol 117 mg/dL 12/20/18 05:15 HDL Cholesterol 39.0 mg/dL 12/20/18 05:15 12/19/18 12/19/18 12/20/18 16:45 21:41 05:15 Troponin I 12.93 H* 34.47 H* 16.97 H* 12/20/18 09:35 Troponin I 9.80 H* Assessment/Plan I personally saw and examined the patient. I discussed at length the results of both the CT scan and MRI with Dr. Rodriguez the neurologist , who personally spoke with the family. We will ask physical therapy and occupational therapy to evaluate and treat. We will plan for repeat echocardiogram on Wednesday, limited to reassess LV function for possible lifevest. If BP allows we will increase beta baljeet and consider low dose ACEI in light of LV dysfunction.
[2018-12-21 09:09] LABS: Hematocrit 39 % (33-41); Hemoglobin 13.2 g/dL (12.0-16.0); Mean Corpuscular HGB Conc 34 g/dL (31-36); Mean Corpuscular Hemoglobin 30 pg (27-31); Mean Corpuscular Volume 88 fL (80-97); Mean Platelet Volume 8.1 fL (7.4-10.4); Platelet Count 345 10^3/uL (150-450); Red Blood Count 4.46 10^6 /uL (3.70-4.87); Red Cell Distribution Width 14 % (10.5-15); White Blood Count 13.8 10^3/uL (3.5-10.8)
--- NOTE | 2018-12-21 09:30 | PN ---
Subjective Date of Service: 12/21/18 Length of Stay: 2 Days Interval History: I saw Ms. Martini yesterday for some mood lability and some irrational thinking. At that time, her examination was non-focal and it was felt that her mood lability was likely related to underlying depression and the fact that she had been off of her meds for a few days. She was restarted on her Venlafaxine yesterday. She noted to me that she was feeling very overwhelmed by everything , that her health had worsened dramatically and she was not ready to face her health issues and that she was "unable to handle it." She denied any SI/HI ideations at that time. She noted to me yesterday that she had some peripheral neuropathy in her left toes but did not note any problems with gait disturbance or vision symptoms. This morning, she notes intermittent diplopia that started after the heart attack. This tends to come on suddenly, involves all visual elliott and will last for a few seconds and then resolve. It is not associated with any precipitating factors, no headaches, no focal weakness or speech difficulties. She has no history of prior episodes. She also reports difficulty ambulating. She notes feeling very off balance and when the nurse tried to walk her this am, she was unsteady, shuffling and falling toward the right. Her daughter was at the bedside and both the patient and the daughter confirm that she has been having intermittent gait episodes for at least 1-2 years. The episodes come and go and seem to be precipitated by stress, low blood sugars. The patient has felt that it was likely due to her peripheral neuropathy which she attributes to her diabetes. The daughter note that the episodes have seemed to me more frequent lately. Yesterday, when I saw her, she was ambulating without difficulty and did not appear to have balance issues. The patient denies any chest pain currently, no shortness of breath, no swallowing difficulties. Family History: Findings - denies CAD history, father prostate cancer, also had schizophrenia, mother had non-Hodgkins lymphoma, an uncle had diabetes. She has 8 siblings Social History: Findings - Retired, owned business with , , 2 daughters, is HCP. She smokes 2PPD, no alcohol/drug use Past Medical History: Findings - PMH: hypertension, type 2 diabetes, COPD, anxiety; SH: none Objective Active Medications: Acetaminophen (Tylenol Tab*) 650 mg PO Q4H PRN PRN Reason: HEADACHE/PAIN Last Admin: 12/20/18 16:05 Dose: 650 mg Aspirin (Aspirin 81 Mg Chew Tab*) 81 mg PO DAILY [facility] Last Admin: 12/21/18 07:43 Dose: 81 mg Atorvastatin Calcium (Lipitor*) 80 mg PO 2100 [facility] Last Admin: 12/20/18 20:56 Dose: 80 mg Dextrose (D50w Syringe 50 Ml*) 12.5 gm IV PUSH .FOR FS < 60 - SS PRN PRN Reason: FS < 60 Docusate Sodium (Colace Cap*) 100 mg PO DAILY PRN PRN Reason: CONSTIPATION Glimepiride (Glimepiride (Nf)) 4 mg PO BID [facility] Last Admin: 12/21/18 07:43 Dose: 4 mg Insulin Human Lispro (Humalog*) 0 units SUBCUT FS ACHS ICU [facility]; Protocol Last Admin: 12/21/18 07:42 Dose: 4 unit Lorazepam (Ativan Inj*) 1 mg IV PUSH Q4H PRN PRN Reason: ANXIETY Last Admin: 12/21/18 01:16 Dose: 1 mg Metoprolol Succinate (Toprol Xl Tab*) 25 mg PO DAILY [facility] Last Admin: 12/21/18 07:42 Dose: 25 mg Nicotine (Nicotine Inhaler*) 10 mg INH Q2H PRN PRN Reason: CRAVING Last Admin: 12/20/18 11:43 Dose: 10 mg Nicotine (Nicotine Patch 21 Mg/24 Hr*) 1 patch TRANSDERM DAILY@0800 [facility] Last Admin: 12/21/18 07:43 Dose: 1 patch Nitroglycerin (Nitroglycerin Tab 0.4 Mg*) 0.4 mg SL Q5M PRN PRN Reason: ANGINA Last Admin: 12/20/18 15:33 Dose: 0.4 mg Ondansetron HCl (Zofran Inj*) 4 mg IV Q4H PRN PRN Reason: NAUSEA Pharmacy Profile Note (Nicotine Patch Removal Note*) 1 note PATCH OFF 1999 [facility] Last Admin: 12/20/18 20:56 Dose: 1 note Ticagrelor (Brilinta*) 90 mg PO BID [facility] Last Admin: 12/21/18 07:42 Dose: 90 mg Tramadol HCl (Ultram*) 50 mg PO Q8H PRN PRN Reason: chest wall pain Last Admin: 12/20/18 16:19 Dose: 50 mg Venlafaxine HCl (Effexor Xr Cap*) 225 mg PO DAILY [facility] Last Admin: 12/21/18 07:42 Dose: 225 mg Vital Signs 12/20/18 12/20/18 12/20/18 10:00 10:06 11:00 Temperature Pulse Rate 99 97 Respiratory 24 15 15 Rate Blood Pressure 90/54 (mmHg) O2 Sat by Pulse 98 94 Oximetry 12/20/18 12/20/18 12/20/18 11:19 11:40 12:00 Temperature 98.7 F Pulse Rate 93 103 Respiratory 24 30 22 Rate Blood Pressure 104/59 (mmHg) O2 Sat by Pulse 96 96 Oximetry 12/20/18 12/20/18 12/20/18 12:01 13:00 13:01 Temperature Pulse Rate 98 103 104 Respiratory 20 16 29 Rate Blood Pressure 100/62 113/63 (mmHg) O2 Sat by Pulse 95 96 96 Oximetry 12/20/18 12/20/18 12/20/18 14:00 14:01 15:00 Temperature Pulse Rate 101 101 Respiratory 38 24 18 Rate Blood Pressure 109/56 (mmHg) O2 Sat by Pulse 94 93 Oximetry 12/20/18 12/20/18 12/20/18 15:01 15:35 16:00 Temperature 98.4 F Pulse Rate 101 97 96 Respiratory 18 38 24 Rate Blood Pressure 102/66 105/65 (mmHg) O2 Sat by Pulse 94 92 92 Oximetry 12/20/18 12/20/18 12/20/18 16:01 16:59 17:00 Temperature Pulse Rate 91 95 95 Respiratory 20 21 29 Rate Blood Pressure 105/65 122/68 (mmHg) O2 Sat by Pulse 89 95 92 Oximetry 12/20/18 12/20/18 12/20/18 17:01 18:00 19:00 Temperature Pulse Rate 92 98 95 Respiratory 27 22 21 Rate Blood Pressure 95/77 (mmHg) O2 Sat by Pulse 94 94 96 Oximetry 12/20/18 12/20/18 12/20/18 19:01 19:10 20:00 Temperature 97.0 F Pulse Rate 94 89 Respiratory 23 21 Rate Blood Pressure 108/67 (mmHg) O2 Sat by Pulse 97 97 Oximetry 12/20/18 12/20/18 12/20/18 20:01 21:00 21:01 Temperature Pulse Rate 91 92 89 Respiratory 28 24 20 Rate Blood Pressure 108/70 93/59 (mmHg) O2 Sat by Pulse 96 97 97 Oximetry 12/20/18 12/20/18 12/20/18 22:00 22:01 23:00 Temperature Pulse Rate 91 93 96 Respiratory 33 18 28 Rate Blood Pressure 96/50 103/68 (mmHg) O2 Sat by Pulse 95 95 94 Oximetry 12/20/18 12/20/18 12/21/18 23:01 23:38 00:00 Temperature 97.4 F Pulse Rate 94 Respiratory 24 15 Rate Blood Pressure (mmHg) O2 Sat by Pulse 93 Oximetry 12/21/18 12/21/18 12/21/18 00:01 00:02 01:00 Temperature Pulse Rate 95 93 95 Respiratory 15 24 19 Rate Blood Pressure 97/63 108/74 (mmHg) O2 Sat by Pulse 92 94 92 Oximetry 12/21/18 12/21/18 12/21/18 01:01 01:16 02:00 Temperature Pulse Rate 93 95 Respiratory 26 25 21 Rate Blood Pressure (mmHg) O2 Sat by Pulse 93 95 Oximetry 12/21/18 12/21/18 12/21/18 02:01 03:00 04:00 Temperature 97.6 F Pulse Rate 92 92 96 Respiratory 41 26 18 Rate Blood Pressure 113/76 95/55 (mmHg) O2 Sat by Pulse 93 92 90 Oximetry 12/21/18 12/21/18 12/21/18 04:01 05:00 06:00 Temperature Pulse Rate 95 94 Respiratory 28 16 23 Rate Blood Pressure 91/73 (mmHg) O2 Sat by Pulse 93 87 Oximetry 12/21/18 12/21/18 12/21/18 06:01 06:11 06:48 Temperature 97.3 F Pulse Rate 97 95 97 Respiratory 23 27 22 Rate Blood Pressure 132/72 100/60 (mmHg) O2 Sat by Pulse 94 93 97 Oximetry 12/21/18 12/21/18 12/21/18 07:00 07:01 08:00 Temperature Pulse Rate 98 101 89 Respiratory 31 19 24 Rate Blood Pressure 130/92 114/72 (mmHg) O2 Sat by Pulse 95 93 92 Oximetry 12/21/18 12/21/18 12/21/18 08:01 09:12 09:13 Temperature Pulse Rate 87 90 109 Respiratory 25 Rate Blood Pressure 112/70 110/60 (mmHg) O2 Sat by Pulse 95 Oximetry Intake and Output Last 24 Hours 12/19/18 12/20/18 12/21/18 12/22/18 06:59 06:59 06:59 06:59 Intake Total 200 290 100 Output Total 1025 400 375 Balance -825 -110 -275 Weight 147 lb 11.355 oz 152 lb 12.485 oz Intake: Oral 200 290 100 Output: Urine 1025 400 375 Other: Estimated Void Small Date of Last Bowel 12/20/2018 Movement # Bowel Movements 1 Estimated Stool Amount Large Medium Oxygen Devices in Use Now: None Neurology Exam: General: Well nourished, well developed, and in no acute distress HEENT: Normocephalic/atraumatic, sclera anicteric, mucous membranes moist Neck: Supple Chest: Clear to auscultation bilaterally Cardiovascular: Regular rate and rhythm without murmurs, rubs, gallops Abdomen: Soft, non-tender/non-distended Extremities: No clubbing, cyanosis, or edema Neurological Findings: Awake, alert, and oriented to person, place, and time. Speech: fluent without dysarthria, repetition intact Cranial Nerve: PERRL, No APD, EOM intact, No current diplopia, VFF, no nystagmus , face symmetric bilaterally, facial sensation intact, hearing intact to finger rub bilaterally, palate elevates symmetrically, tongue midline, Motor: 5/5 throughout, no focal weakness, normal tone and bulk Sensation: Loss of LT/PP in the left toes. Proprioception is intact. Deep Tendon Reflex: 2+ symmetric in the upper/lower extremities, Babinski - down going Finger to nose, heel to szymanski, rapid alternating movements intact without tremor , no dysdiadochokinesia Gait: Some difficulty standing, requiring walker, wide based with short, shuffling steps, no ataxia, unsteady. At times, falls to the right, requires to assist for stability. Moderate sway with eyes open and closed. Result Diagrams: 12/21/18 07:59 12/21/18 05:51 Additional Lab and Data: Laboratory Tests 12/19/18 12/19/18 12/19/18 16:45 16:45 16:45 INR (Anticoag Therapy) 1.01 APTT 26.8 Glucose 188 H Lactic Acid 1.5 AST 43 H ALT 24 CK-MB (CK-2) 28.2 H Troponin I 12.93 H* LDL Cholesterol Direct 159 Influenza A (Rapid) Influenza B (Rapid) 12/19/18 23:15 INR (Anticoag Therapy) APTT Glucose Lactic Acid AST ALT CK-MB (CK-2) Troponin I LDL Cholesterol Direct Influenza A (Rapid) Negative Influenza B (Rapid) Negative Microbiology and Other Data: Microbiology 12/19/18 23:00 Influenza Types A,B Antigen - Final Nasal Specimen received for Influenza A/B Molecular testing Diagnostic Imaging: CXR: Rt basilar atelectasis vs infiltrate Head CT: no hemorrahge or hematoma Repeat CT: Impression: There is a developing focus of hypoattenuation of the right frontal lobe which may indicate evolutionarychanges within a subacute non-hemorrhagic infarct, though the CT appearance is non-specific. MRI Brain: Films reviewed Impression: 1. Limited study 2. Punctate focus of restricted diffusion within the right occipital lobe consistent with subacute non-hemorrhagic infarct, the differential includes metalic artifact 3. Periventricular and subcortical white matter changes, non specific EKG Data: NSR, leftward axis, RBBB, ST elevations V2-V5, injury pattern in limb leads, T- wave flattening Assessment/Plan Assessment/Plan: 63 year old with a history of recent STEMI status post stent to proximal LAD with mood lability and some irrational behavior, reports intermittent, brief diplopia and gait instability which comes and goes over the last 1-2 years but seems to be worsening. Will have periods of relatively normal gait. She has been diagnosed with peripheral neuropathy of the LLE in the toes. Recent episode of syncope with chest pain which precipitated transportation to the ER. 1. This am, she reports symptoms which, upon questioning have been ongoing for some time, including the balance and walking symptoms which is episodic in nature and seems to worsen with stress and hypoglycemia. She does note some double vision with is episodic and short-lived (seconds) which would be atypical for TIA. Given the fact that it has been ongoing since Wednesday, TIA is even less likely. While the MRI showed a punctate area in the right occipital lobe, it is tiny, lacunar in nature and would not cause balance or gait issues, double vision or acute mood changes. I explained this to the patient and that is it most likely related to her chronic DM, HTN and significant smoking history. I again, reinforced smoking cessation. I would not regional climate change analyst based on this, continue cardiology management, secondary stroke risk factor reduction. I will check a carotid U/S to finish the workup. 2. Peripheral neuropathy: This appears to be longstanding and I suspect is a big contributor to her gait issues. I plan to follow her up in my clinic where we can consider EMG/NCS. For now, I would not treat aggressively with meds but would get PT/OT on board to help with her gait and decrease her fall risk 3. Double vision: Unclear etiology. Lasts seconds at a time, is not consistent with TIAs. Has no dysphagia, exercise dependent weakness or shortness of breath, eyelid droop, not consistent with a MG. This is something we will continue to follow but at this point, I do not think we need additional workup. She should have outpatient eye exam with formal visual field testing given the small right occipital sub-acute stroke. 4. Mood lability: Longstanding history of depression. Improving, back on meds. Psychiatry has evaluated. BZD for acute anxiety. She will need outpatient follow up as well. Denies SI/HI. I reinforced the absolute need for smoking cessation, blood pressure control, diabetes control and fall precautions. I will continue to follow along.
[2018-12-21 09:53] LABS: ABS Basophils 0.1 10^3/ul (0-0.2); ABS Eosinophils 0.1 10^3/ul (0-0.6); ABS Lymphocytes 3.1 10^3/ul (1.0-4.8); ABS Monocytes 1.7 10^3/ul (0-0.8); ABS Neutrophils 8.9 10^3/ul (1.5-7.7); ABS Nucleated RBC 0 10^3/ul; Eosinophil % 0.5 %; Lymphocyte % 22.6 %; Nucleated Red Blood Cells % 0
--- NOTE | 2018-12-21 10:59 | CONSULT ---
Identification - Patient Identification Reason for Psychiatric Consultation: Patient Distress -: Patient is a 63 year old, F admitted on 12/19/18. - MHU Identification Employment Status: Unemployed Hx Psychiatric Hospitalization: No History - Objective HPI: Oneida is seen today by the psychiatric consult team for follow up. She appears much more euthymic this morning and is no longer anxious or demanding release from the hospital. Her daughter Miracle is present, visiting from [place]. The patient is grateful for the services she is receiving here in the hospital and seems to have adjusted to the new reality of being a heart attack survivor. She is tolerating her medications well and has no further behavioral complaints at this time. Exam Appearance: Well Developed/Nourished Hygiene: Normal Grooming: Fairly Well Kept Psychomotor Activities: Normal Exhibits Abnormal Movement: No Attitude and Relatedness: Cooperative Eye Contact: Good - Speech Quality: Unpressured Latencies: Normal Quantity: Appropriate Patient's Decription of Mood: "Fine" Observed Affect: Good Affect Consistent with: Euthymia Patient's Thought Process: Coherent Thought Content: No Passive Wish, No Suicidal Planning, No Homicidal Ideation, No Paranoid Ideation Experiencing Hallucinations: No, Sensorium is Clear Type of Hallucinations: Visual: No, Auditory: No, Command: No Level of Consciousness: Alert Orientation: Yes Intact, Yes Orientated to Time, Yes Orientated to Place, Yes Orientated to Person Impulse Control: Intact Insight and Judgement: Good Impression - Impression Clinical Impression: 63 y.o. , white female with a history of anxiety and depression admitted to the ICU following STEMI and subsequent stenting who presented with severe anxiety and threats to leave the hospital AMA. Inpatient DSM-V Dx: F41.9 Merits Inpatient Hospitalization: No BSU: Problem List - Patient Problems (1) Anxiety Current Visit: Yes Status: Acute Code(s): F41.9 - ANXIETY DISORDER, UNSPECIFIED SNOMED Code(s): 45901365 Plan - Treatment Plan Treatment Plan: The patient has been resumed on venlafaxine XR 225mg PO qday and started on prn lorazepam for anxiety. She's much improved over yesterday and is no longer threatening to leave AMA. Psychiatry will be signing off but can be reconsulted in the event of any changes in her presentation. Continued Medication Management: Continue Outpt Medication Medications: Current Medications Acetaminophen (Tylenol Tab*) 650 mg PO Q4H PRN PRN Reason: HEADACHE/PAIN Last Admin: 12/20/18 16:05 Dose: 650 mg Aspirin (Aspirin 81 Mg Chew Tab*) 81 mg PO DAILY [facility] Last Admin: 12/21/18 07:43 Dose: 81 mg Atorvastatin Calcium (Lipitor*) 80 mg PO 2100 [facility] Last Admin: 12/20/18 20:56 Dose: 80 mg Dextrose (D50w Syringe 50 Ml*) 12.5 gm IV PUSH .FOR FS < 60 - SS PRN PRN Reason: FS < 60 Docusate Sodium (Colace Cap*) 100 mg PO DAILY PRN PRN Reason: CONSTIPATION Glimepiride (Glimepiride (Nf)) 4 mg PO BID [facility] Last Admin: 12/21/18 07:43 Dose: 4 mg Insulin Human Lispro (Humalog*) 0 units SUBCUT FS ACHS ICU [facility]; Protocol Last Admin: 12/21/18 07:42 Dose: 4 unit Lorazepam (Ativan Inj*) 1 mg IV PUSH Q4H PRN PRN Reason: ANXIETY Last Admin: 12/21/18 01:16 Dose: 1 mg Metoprolol Succinate (Toprol Xl Tab*) 25 mg PO DAILY [facility] Last Admin: 12/21/18 07:42 Dose: 25 mg Nicotine (Nicotine Inhaler*) 10 mg INH Q2H PRN PRN Reason: CRAVING Last Admin: 12/20/18 11:43 Dose: 10 mg Nicotine (Nicotine Patch 21 Mg/24 Hr*) 1 patch TRANSDERM DAILY@0800 [facility] Last Admin: 12/21/18 07:43 Dose: 1 patch Nitroglycerin (Nitroglycerin Tab 0.4 Mg*) 0.4 mg SL Q5M PRN PRN Reason: ANGINA Last Admin: 12/20/18 15:33 Dose: 0.4 mg Ondansetron HCl (Zofran Inj*) 4 mg IV Q4H PRN PRN Reason: NAUSEA Pharmacy Profile Note (Nicotine Patch Removal Note*) 1 note PATCH OFF 1999 [facility] Last Admin: 12/20/18 20:56 Dose: 1 note Ticagrelor (Brilinta*) 90 mg PO BID [facility] Last Admin: 12/21/18 07:42 Dose: 90 mg Tramadol HCl (Ultram*) 50 mg PO Q8H PRN PRN Reason: chest wall pain Last Admin: 12/20/18 16:19 Dose: 50 mg Venlafaxine HCl (Effexor Xr Cap*) 225 mg PO DAILY [facility] Last Admin: 12/21/18 07:42 Dose: 225 mg
[2018-12-21] MEDS: Acetaminophen TAB* 325 MG PO PRN (15:15)
--- NOTE | 2018-12-21 16:53 | PN ---
Subjective Date of Service: 12/21/18 Interval History: Patient seen and examined. Had gait dysfunction and reports of diplopia earlier today and was evaluated by Dr. Rodriguez, neuro workup completed. Remains tearful at times, but appears more appropriate today. Discussed carotid US results and use of statins. Patient denies chest pain, no SOB, no n/v, no weakness, fever or chills. Family History: Findings - denies CAD history, father prostate cancer, also had schizophrenia, mother had non-Hodgkins lymphoma, an uncle had diabetes. She has 8 siblings Social History: Findings - Retired, owned business with , , 2 daughters, is HCP. She smokes 2PPD, no alcohol/drug use Past Medical History: Findings - PMH: hypertension, type 2 diabetes, COPD, anxiety; SH: none Objective Active Medications: Acetaminophen (Tylenol Tab*) 650 mg PO Q4H PRN PRN Reason: HEADACHE/PAIN Last Admin: 12/21/18 15:15 Dose: 650 mg Aspirin (Aspirin 81 Mg Chew Tab*) 81 mg PO DAILY [facility] Last Admin: 12/21/18 07:43 Dose: 81 mg Atorvastatin Calcium (Lipitor*) 80 mg PO 2100 [facility] Last Admin: 12/20/18 20:56 Dose: 80 mg Dextrose (D50w Syringe 50 Ml*) 12.5 gm IV PUSH .FOR FS < 60 - SS PRN PRN Reason: FS < 60 Docusate Sodium (Colace Cap*) 100 mg PO DAILY PRN PRN Reason: CONSTIPATION Glimepiride (Glimepiride (Nf)) 4 mg PO BID [facility] Last Admin: 12/21/18 07:43 Dose: 4 mg Insulin Human Lispro (Humalog*) 0 units SUBCUT FS ACHS ICU [facility]; Protocol Last Admin: 12/21/18 11:34 Dose: 6 unit Lorazepam (Ativan Inj*) 1 mg IV PUSH Q4H PRN PRN Reason: ANXIETY Last Admin: 12/21/18 01:16 Dose: 1 mg Metoprolol Succinate (Toprol Xl Tab*) 25 mg PO DAILY [facility] Last Admin: 12/21/18 07:42 Dose: 25 mg Nicotine (Nicotine Inhaler*) 10 mg INH Q2H PRN PRN Reason: CRAVING Last Admin: 12/20/18 11:43 Dose: 10 mg Nicotine (Nicotine Patch 21 Mg/24 Hr*) 1 patch TRANSDERM DAILY@0800 [facility] Last Admin: 12/21/18 07:43 Dose: 1 patch Nitroglycerin (Nitroglycerin Tab 0.4 Mg*) 0.4 mg SL Q5M PRN PRN Reason: ANGINA Last Admin: 12/20/18 15:33 Dose: 0.4 mg Ondansetron HCl (Zofran Inj*) 4 mg IV Q4H PRN PRN Reason: NAUSEA Pharmacy Profile Note (Nicotine Patch Removal Note*) 1 note PATCH OFF 1999 [facility] Last Admin: 12/20/18 20:56 Dose: 1 note Ticagrelor (Brilinta*) 90 mg PO BID [facility] Last Admin: 12/21/18 07:42 Dose: 90 mg Tramadol HCl (Ultram*) 50 mg PO Q8H PRN PRN Reason: chest wall pain Last Admin: 12/20/18 16:19 Dose: 50 mg Venlafaxine HCl (Effexor Xr Cap*) 225 mg PO DAILY [facility] Last Admin: 12/21/18 07:42 Dose: 225 mg Vital Signs - 8 hr 12/21/18 12/21/18 12/21/18 09:00 09:01 09:05 Temperature Pulse Rate 104 99 94 Respiratory 23 25 23 Rate Blood Pressure 116/81 102/74 (mmHg) O2 Sat by Pulse 100 96 93 Oximetry 12/21/18 12/21/18 12/21/18 09:07 09:12 09:13 Temperature Pulse Rate 103 90 109 Respiratory 34 Rate Blood Pressure 81/51 112/70 110/60 (mmHg) O2 Sat by Pulse 98 Oximetry 12/21/18 12/21/18 12/21/18 10:00 10:09 10:10 Temperature Pulse Rate Respiratory 22 24 30 Rate Blood Pressure 115/67 (mmHg) O2 Sat by Pulse Oximetry 12/21/18 12/21/18 12/21/18 11:00 12:00 12:01 Temperature 96.3 F Pulse Rate 91 98 89 Respiratory 29 21 21 Rate Blood Pressure 107/73 137/80 (mmHg) O2 Sat by Pulse 99 92 98 Oximetry 12/21/18 12/21/18 12/21/18 13:00 13:01 14:00 Temperature Pulse Rate 89 89 93 Respiratory 23 28 17 Rate Blood Pressure 121/84 106/75 (mmHg) O2 Sat by Pulse 97 95 97 Oximetry 12/21/18 12/21/18 12/21/18 14:01 15:00 15:01 Temperature Pulse Rate 91 92 94 Respiratory 19 21 23 Rate Blood Pressure 116/76 (mmHg) O2 Sat by Pulse 97 96 97 Oximetry 12/21/18 16:01 Temperature Pulse Rate Respiratory 20 Rate Blood Pressure (mmHg) O2 Sat by Pulse Oximetry Oxygen Devices in Use Now: None Appearance: alert, NAD Eyes: No Scleral Icterus, PERRLA Ears/Nose/Mouth/Throat: NL Teeth, Lips, Gums, Mucous Membranes Moist Neck: NL Appearance and Movements; NL JVP, Trachea Midline Respiratory: Symmetrical Chest Expansion and Respiratory Effort, Clear to Auscultation Cardiovascular: NL Sounds; No Murmurs; No JVD, RRR, No Edema Abdominal: NL Sounds; No Tenderness; No Distention, No Hepatosplenomegaly Extremities: No Edema, No Clubbing, Cyanosis Skin: No Rash or Ulcers Neurological: Alert and Oriented x 3 Nutrition: Taking PO's Result Diagrams: 12/21/18 07:59 12/21/18 05:51 Additional Lab and Data: Laboratory Tests 12/19/18 12/19/18 12/19/18 16:45 16:45 16:45 INR (Anticoag Therapy) 1.01 APTT 26.8 Glucose 188 H Lactic Acid 1.5 AST 43 H ALT 24 CK-MB (CK-2) 28.2 H Troponin I 12.93 H* LDL Cholesterol Direct 159 Influenza A (Rapid) Influenza B (Rapid) 12/19/18 23:15 INR (Anticoag Therapy) APTT Glucose Lactic Acid AST ALT CK-MB (CK-2) Troponin I LDL Cholesterol Direct Influenza A (Rapid) Negative Influenza B (Rapid) Negative Microbiology and Other Data: Microbiology 12/19/18 23:00 Influenza Types A,B Antigen - Final Nasal Specimen received for Influenza A/B Molecular testing Diagnostic Imaging: CXR: Rt basilar atelectasis vs infiltrate Head CT: no hemorrhage or hematoma Repeat CT 12/21/18 Impression: There is a developing focus of hypoattenuation of the right frontal lobe which may indicate evolutionary changes within a subacute non-hemorrhagic infarct, though the CT appearance is non-specific. MRI Brain, Impression: 1. Limited study 2. Punctate focus of restricted diffusion within the right occipital lobe consistent with subacute non-hemorrhagic infarct, the differential includes artifact 3. Periventricular and subcortical white matter changes, non specific EKG Data: NSR, leftward axis, RBBB, ST elevations V2-V5, injury pattern in limb leads, T- wave flattening Assess/Plan/Problems-Billing Assessment/Plan: 63 year old with STEMI status post stent to proximal LAD with mood lability and some irrational behavior, however, today she reports intermittent, brief diplopia and gait instability which comes and goes over the last 1-2 years but seems to be worsening. - Patient Problems (1) Gait instability Code(s): R26.81 - UNSTEADINESS ON FEET SNOMED Code(s): 065660249 Comment: - CT head negative for bleed, does show small area of hypoattentuation. MRI shows small punctate focus in the right occipital region. Leasion does not correlate with symptomology - US carotids shows 50-69% stenosis ipsilaterally, will need follow up in 6 months - Strongly advise lifestyle modification, smoking cessation, continue statin, ASA and glucose control (2) STEMI (ST elevation myocardial infarction) Code(s): I21.3 - ST ELEVATION (STEMI) MYOCARDIAL INFARCTION OF [facility] SITE SNOMED Code(s): 763939152 Comment: - Stent placed 12/19 for 95% stenosis of proximal LAD - CTA chest negative for PE or dissection, does appear to have undiagnosed emphasema and patient has history of being heavy smoker - BB, brillinta, statin, ASA - Referral made for LifeVest given ECHO findings above but will continue to be evaluated by cardio for necessity - Continue management per Dr. Mcrae/cardiology (3) Diabetes Code(s): E11.9 - TYPE 2 DIABETES MELLITUS WITHOUT COMPLICATIONS SNOMED Code(s) : 73833179 Comment: - CC diet, lispro SS, restarted glimeperide - A1c is 7.6 (4) Anxiety and depression Code(s): F41.9 - ANXIETY DISORDER, UNSPECIFIED; F32.9 - MAJOR DEPRESSIVE DISORDER, SINGLE EPISODE, UNSPECIFIED SNOMED Code(s): 49434773 Comment: - Per psych, patient does have capacity and mood seems to be improving - Per Dr. Wynn, continue venlafaxine with ativan PRN and continue close monitoring (5) Tobacco abuse Code(s): Z72.0 - TOBACCO USE SNOMED Code(s): 303029541 Comment: - nicotine replacement - Counseled on cessation (6) Syncope Code(s): R55 - SYNCOPE AND COLLAPSE SNOMED Code(s): 427151566 Comment: - Concern that there may an underlying arrhythmia? - Continue tele, no changes thus far - Optimize lytes (7) Full code status Code(s): Z78.9 - OTHER SPECIFIED HEALTH STATUS SNOMED Code(s): 184028425 Status and Disposition: Inpatient, transfer to [address] [place] [address] with safety monitor. Confirmed transfer with Dr. Mcrae.
[2018-12-21] MEDS: Enoxaparin(*) 40 MG/0.4 ML SYR SUBCUT SCH (20:44)
[2018-12-21] MEDS: Nicotine Patch Removal NOTE PATCH OFF SCH (20:44)
[2018-12-21] MEDS: Atorvastatin* 80 MG TAB PO SCH (20:44)
[2018-12-21] MEDS: traZODone TAB* 50 MG TAB PO SCH (22:28)
[2018-12-22 06:00] LABS: Hematocrit 39 % (33-41); Hemoglobin 13.3 g/dL (12.0-16.0); Mean Corpuscular HGB Conc 34 g/dL (31-36); Mean Corpuscular Hemoglobin 29 pg (27-31); Mean Corpuscular Volume 87 fL (80-97); Mean Platelet Volume 8.4 fL (7.4-10.4); Platelet Count 365 10^3/uL (150-450); Red Blood Count 4.52 10^6 /uL (3.70-4.87); Red Cell Distribution Width 14 % (10.5-15); White Blood Count 12.1 10^3/uL (3.5-10.8)
[2018-12-22 06:01] LABS: ABS Basophils 0.1 10^3/ul (0-0.2); ABS Eosinophils 0.1 10^3/ul (0-0.6); ABS Lymphocytes 3.3 10^3/ul (1.0-4.8); ABS Monocytes 1.6 10^3/ul (0-0.8); ABS Nucleated RBC 0 10^3/ul; Lymphocyte % 27.2 %; Nucleated Red Blood Cells % 0.1
[2018-12-22 06:11] LABS: Albumin 3.5 g/dL (3.2-5.2); BUN/Creatinine Ratio 25.8 (8-20); Calcium 8.9 mg/dL (8.6-10.3); EGFR African American 116.9 (>60); EGFR Non-African American 96.6 (>60); Globulin 3.4 g/dL (2-4); Potassium 4.3 mmol/L (3.5-5.0); Total Bilirubin 0.6 mg/dL (0.2-1.0); Total Protein 6.9 g/dL (6.4-8.9)
[2018-12-22] MEDS: Venlafaxine EXT RELEASE CAP* 75 MG PO SCH (08:33)
[2018-12-22] MEDS: Aspirin 81 mg CHEW TAB* 81 MG TAB.CHEW PO SCH (08:33)
[2018-12-22] MEDS: Ticagrelor* 90 MG TAB PO SCH ×2 (08:33→20:18)
[2018-12-22] MEDS: CMCS:Glimepiride (NF) 2 MG TAB PO SCH ×2 (08:33→20:17)
[2018-12-22] MEDS: Metoprolol Succinate XL TAB* 25 MG PO SCH ×2 (08:33→08:44)
[2018-12-22] MEDS: Nicotine PATCH 21 MG/24 HR* PATCH TRANSDERM SCH (08:34)
--- NOTE | 2018-12-22 08:42 | PN ---
<Radha Vázquez - Last Filed: 12/22/18 08:37> Subjective Date of Service: 12/22/18 - s/p late presenting anteriro HI, SHF Interval History: s/p INDIGO proximal LAD with known moderate residual LAD lesion. No recurrent chest pain since Wednesday. She states she did not sleep well last night. She adds someone was smoking in room and the nurses had a democrat in her room. She appears alert and oriented however, she is still however demonstrating odd behavior. She denies vision changes today, headache, dizziness, palpitations, sob or chest pain. She is sitting in chair with daughters at her side. Medications Active Medications: Acetaminophen (Tylenol Tab*) 650 mg PO Q4H PRN PRN Reason: HEADACHE/PAIN Last Admin: 12/21/18 15:15 Dose: 650 mg Aspirin (Aspirin 81 Mg Chew Tab*) 81 mg PO DAILY [facility] Last Admin: 12/21/18 07:43 Dose: 81 mg Atorvastatin Calcium (Lipitor*) 80 mg PO 2100 [facility] Last Admin: 12/21/18 20:44 Dose: 80 mg Dextrose (D50w Syringe 50 Ml*) 12.5 gm IV PUSH .FOR FS < 60 - SS PRN PRN Reason: FS < 60 Docusate Sodium (Colace Cap*) 100 mg PO DAILY PRN PRN Reason: CONSTIPATION Enoxaparin Sodium (Lovenox(*)) 40 mg SUBCUT Q24H [facility] Last Admin: 12/21/18 20:44 Dose: 40 mg Glimepiride (Glimepiride (Nf)) 4 mg PO BID [facility] Last Admin: 12/21/18 20:44 Dose: 4 mg Insulin Human Lispro (Humalog*) 0 units SUBCUT FS ACHS ICU [facility]; Protocol Last Admin: 12/21/18 20:53 Dose: 4 unit Lisinopril (Prinivil Tab*) 2.5 mg PO DAILY [facility] Lorazepam (Ativan Inj*) 1 mg IV PUSH Q4H PRN PRN Reason: ANXIETY Last Admin: 12/21/18 01:16 Dose: 1 mg Metoprolol Succinate (Toprol Xl Tab*) 25 mg PO DAILY [facility] Nicotine (Nicotine Inhaler*) 10 mg INH Q2H PRN PRN Reason: CRAVING Last Admin: 12/20/18 11:43 Dose: 10 mg Nicotine (Nicotine Patch 21 Mg/24 Hr*) 1 patch TRANSDERM DAILY@0800 [facility] Last Admin: 12/21/18 07:43 Dose: 1 patch Nitroglycerin (Nitroglycerin Tab 0.4 Mg*) 0.4 mg SL Q5M PRN PRN Reason: ANGINA Last Admin: 12/20/18 15:33 Dose: 0.4 mg Ondansetron HCl (Zofran Inj*) 4 mg IV Q4H PRN PRN Reason: NAUSEA Pharmacy Profile Note (Nicotine Patch Removal Note*) 1 note PATCH OFF 1999 [facility] Last Admin: 12/21/18 20:44 Dose: 1 note Ticagrelor (Brilinta*) 90 mg PO BID [facility] Last Admin: 12/21/18 20:44 Dose: 90 mg Tramadol HCl (Ultram*) 50 mg PO Q8H PRN PRN Reason: chest wall pain Last Admin: 12/20/18 16:19 Dose: 50 mg Trazodone HCl (Desyrel Tab*) 200 mg PO QPM [facility] Last Admin: 12/21/18 22:28 Dose: 200 mg Venlafaxine HCl (Effexor Xr Cap*) 225 mg PO DAILY [facility] Last Admin: 12/21/18 07:42 Dose: 225 mg Objective Vital Signs: Temp Pulse Resp BP Pulse Ox 96.3 F 90 22 126/79 94 12/21/18 12:00 12/22/18 08:01 12/22/18 08:01 12/22/18 08:00 12/22/18 08:01 Oxygen Devices in Use Now: None Appearance: A+O x3, cooperative with exam. Ears/Nose/Mouth/Throat: NL Teeth, Lips, Gums, Mucous Membranes Moist, - - + bright blood noted on tissue after patient blew her nose. Neck: NL Appearance and Movements; NL JVP, Trachea Midline Respiratory: Symmetrical Chest Expansion and Respiratory Effort, Clear to Auscultation Cardiovascular: NL Sounds; No Murmurs; No JVD, No Edema Abdominal: NL Sounds; No Tenderness; No Distention Extremities: No Edema, - - right groin access site is soft nontender, no evidence of hematoma. Skin: No Rash or Ulcers, - - right groin access site is intact, no blood noted on 4X4 drsg. no hematoma. Strong distal pulses palpated distally. Neurological: Alert and Oriented x 3, - Lines/Tubes/Other Access: Clean, Dry and Intact Peripheral IV Laboratory Results: 12/22/18 05:41 12/22/18 05:41 INR (Anticoag Therapy) 1.01 (0.77-1.02) 12/19/18 16:45 APTT 26.8 seconds (26.0-36.3) 12/19/18 16:45 Total Bilirubin 0.60 mg/dL (0.2-1.0) 12/22/18 05:41 AST 29 U/L (13-39) 12/22/18 05:41 ALT 36 U/L (7-52) 12/22/18 05:41 Alkaline Phosphatase 104 U/L (34-104) 12/22/18 05:41 CK-MB (CK-2) 8.2 ng/mL (0.6-6.3) H 12/20/18 09:35 B-Natriuretic Peptide 620 pg/mL (<=100) H 12/19/18 16:45 Total Protein 6.9 g/dL (6.4-8.9) 12/22/18 05:41 Albumin 3.5 g/dL (3.2-5.2) 12/22/18 05:41 Globulin 3.4 g/dL (2-4) 12/22/18 05:41 Albumin/Globulin Ratio 1.0 (1-3) 12/22/18 05:41 Triglycerides 135 mg/dL 12/20/18 05:15 Cholesterol 183 mg/dL 12/20/18 05:15 LDL Cholesterol 117 mg/dL 12/20/18 05:15 HDL Cholesterol 39.0 mg/dL 12/20/18 05:15 12/19/18 12/19/18 12/20/18 16:45 21:41 05:15 Troponin I 12.93 H* 34.47 H* 16.97 H* 12/20/18 09:35 Troponin I 9.80 H* Laboratory Results - last 24 hr 12/21/18 12/21/18 12/21/18 07:59 11:30 17:01 WBC 13.8 H RBC 4.46 Hgb 13.2 Hct 39 MCV 88 MCH 30 MCHC 34 RDW 14 Plt Count 345 MPV 8.1 Neut % (Auto) 64.1 Lymph % (Auto) 22.6 Kimball % (Auto) 12.2 Eos % (Auto) 0.5 Baso % (Auto) 0.6 Absolute Neuts (auto) 8.9 H Absolute Lymphs (auto) 3.1 Absolute Monos (auto) 1.7 H Absolute Eos (auto) 0.1 Absolute Basos (auto) 0.1 Absolute Nucleated RBC 0 Nucleated RBC % 0 Sodium Potassium Chloride Carbon Dioxide Anion Gap BUN Creatinine Est GFR ( Amer) Est GFR (Non-Af Amer) BUN/Creatinine Ratio Glucose POC Glucose (mg/dL) 291 H 270 H Calcium Total Bilirubin AST ALT Alkaline Phosphatase Total Protein Albumin Globulin Albumin/Globulin Ratio 12/21/18 12/22/18 12/22/18 20:46 05:41 05:41 WBC 12.1 H RBC 4.52 Hgb 13.3 Hct 39 MCV 87 MCH 29 MCHC 34 RDW 14 Plt Count 365 MPV 8.4 Neut % (Auto) 58.0 Lymph % (Auto) 27.2 Kimball % (Auto) 13.3 Eos % (Auto) 1.0 Baso % (Auto) 0.5 Absolute Neuts (auto) 7.0 Absolute Lymphs (auto) 3.3 Absolute Monos (auto) 1.6 H Absolute Eos (auto) 0.1 Absolute Basos (auto) 0.1 Absolute Nucleated RBC 0 Nucleated RBC % 0.1 Sodium 136 Potassium 4.3 Chloride 101 Carbon Dioxide 23 Anion Gap 12 H BUN 16 Creatinine 0.62 Est GFR ( Amer) 116.9 Est GFR (Non-Af Amer) 96.6 BUN/Creatinine Ratio 25.8 H Glucose 230 H POC Glucose (mg/dL) 235 H Calcium 8.9 Total Bilirubin 0.60 AST 29 ALT 36 Alkaline Phosphatase 104 Total Protein 6.9 Albumin 3.5 Globulin 3.4 Albumin/Globulin Ratio 1.0 Diagnostic Imagin12/20/2018 echo; LVEF 25-30%, moderate PVH, + RWMA, trace MR LHC from 12/19/2018 please refer to dictated report. 12/21/2018 MRI showed a punctate area in the right occipital lobe per neuro report. EKG Data: 12/22/2018; NSR rate 88 with RBBB. Patient has anterior q waves with anterolateral ST elevation consistent with prior ecg. Assessment/Plan #1 Late presenting anterior HI with LVEF 25-30%. She underwent successful INDIGO/ Proximal LAD with known moderate mid LAD residual lesion. She has been free of chest pain since Wednesday. Troponin peaked at 34 on 12/19/2018. She is to have limited echo 12/23/2018. If LVEF still < 35% she will need to be discharged with lifevest. Given presentation was STEMI she will need uninterrupted DAPT ( ASA 81 /day, Brilinta 90mg PO BID) for 12 months. Will continue Lipitor 80mg PO QHS and Toporol 25mg/day. #2 ICM; Compensated on exam. Will continue Toprol 25mg/day. Will start Lisinopril 2.5mg/day. Repeat limited echo scheduled for tomorrow. #3 c/o diplopia, ataxia and AMS; Appreciate Dr. Rodriguez consultation. Symptomatology not consistent with punctate area in the right occipital lobe that was seen on MRI. Peak velocity on left was 89 not consistant with moderate ICA disease I spoke with reading radiologist who agrees patient actually has mild bilateral ICA not moderate he is to edit report reflecting this. Patient on DAPT and high intensity statin therapy. #4 h/o Depression; continue Venlafaxine appreciate psych input. #5 Disposition; pending course patient full code. patient to be transferred to telemetry today. Attending: Gary Mcrae <Gary Mcrae - Last Filed: 12/22/18 10:04> Medications Active Medications: Acetaminophen (Tylenol Tab*) 650 mg PO Q4H PRN PRN Reason: HEADACHE/PAIN Last Admin: 12/21/18 15:15 Dose: 650 mg Aspirin (Aspirin 81 Mg Chew Tab*) 81 mg PO DAILY [facility] Last Admin: 12/22/18 08:33 Dose: 81 mg Atorvastatin Calcium (Lipitor*) 80 mg PO 2100 [facility] Last Admin: 12/21/18 20:44 Dose: 80 mg Dextrose (D50w Syringe 50 Ml*) 12.5 gm IV PUSH .FOR FS < 60 - SS PRN PRN Reason: FS < 60 Docusate Sodium (Colace Cap*) 100 mg PO DAILY PRN PRN Reason: CONSTIPATION Enoxaparin Sodium (Lovenox(*)) 40 mg SUBCUT Q24H [facility] Last Admin: 12/21/18 20:44 Dose: 40 mg Glimepiride (Glimepiride (Nf)) 4 mg PO BID [facility] Last Admin: 12/22/18 08:33 Dose: 4 mg Insulin Glargine (Lantus(*)) 10 units SUBCUT Q24H [facility] Last Admin: 12/22/18 09:47 Dose: 10 unit Insulin Human Lispro (Humalog*) 0 units SUBCUT FS ACHS ICU [facility]; Protocol Last Admin: 12/22/18 09:48 Dose: 6 unit Lisinopril (Prinivil Tab*) 2.5 mg PO DAILY [facility] Last Admin: 12/22/18 09:48 Dose: 2.5 mg Lorazepam (Ativan Inj*) 1 mg IV PUSH Q4H PRN PRN Reason: ANXIETY Last Admin: 12/21/18 01:16 Dose: 1 mg Metoprolol Succinate (Toprol Xl Tab*) 25 mg PO DAILY [facility] Last Admin: 12/22/18 08:44 Dose: Not Given Nicotine (Nicotine Inhaler*) 10 mg INH Q2H PRN PRN Reason: CRAVING Last Admin: 12/20/18 11:43 Dose: 10 mg Nicotine (Nicotine Patch 21 Mg/24 Hr*) 1 patch TRANSDERM DAILY@0800 [facility] Last Admin: 12/22/18 08:34 Dose: 1 patch Nitroglycerin (Nitroglycerin Tab 0.4 Mg*) 0.4 mg SL Q5M PRN PRN Reason: ANGINA Last Admin: 12/20/18 15:33 Dose: 0.4 mg Ondansetron HCl (Zofran Inj*) 4 mg IV Q4H PRN PRN Reason: NAUSEA Pharmacy Profile Note (Nicotine Patch Removal Note*) 1 note PATCH OFF 1999 [facility] Last Admin: 12/21/18 20:44 Dose: 1 note Ticagrelor (Brilinta*) 90 mg PO BID [facility] Last Admin: 12/22/18 08:33 Dose: 90 mg Tramadol HCl (Ultram*) 50 mg PO Q8H PRN PRN Reason: chest wall pain Last Admin: 12/20/18 16:19 Dose: 50 mg Trazodone HCl (Desyrel Tab*) 200 mg PO QPM [facility] Last Admin: 12/21/18 22:28 Dose: 200 mg Venlafaxine HCl (Effexor Xr Cap*) 225 mg PO DAILY [facility] Last Admin: 12/22/18 08:33 Dose: 225 mg Objective Vital Signs: Temp Pulse Resp BP Pulse Ox 96.3 F 101 29 84/64 97 12/21/18 12:00 12/22/18 09:01 12/22/18 09:01 12/22/18 09:01 12/22/18 09:01 Laboratory Results: 12/22/18 05:41 12/22/18 05:41 INR (Anticoag Therapy) 1.01 (0.77-1.02) 12/19/18 16:45 APTT 26.8 seconds (26.0-36.3) 12/19/18 16:45 Total Bilirubin 0.60 mg/dL (0.2-1.0) 12/22/18 05:41 AST 29 U/L (13-39) 12/22/18 05:41 ALT 36 U/L (7-52) 12/22/18 05:41 Alkaline Phosphatase 104 U/L (34-104) 12/22/18 05:41 CK-MB (CK-2) 8.2 ng/mL (0.6-6.3) H 12/20/18 09:35 B-Natriuretic Peptide 620 pg/mL (<=100) H 12/19/18 16:45 Total Protein 6.9 g/dL (6.4-8.9) 12/22/18 05:41 Albumin 3.5 g/dL (3.2-5.2) 12/22/18 05:41 Globulin 3.4 g/dL (2-4) 12/22/18 05:41 Albumin/Globulin Ratio 1.0 (1-3) 12/22/18 05:41 Triglycerides 135 mg/dL 12/20/18 05:15 Cholesterol 183 mg/dL 12/20/18 05:15 LDL Cholesterol 117 mg/dL 12/20/18 05:15 HDL Cholesterol 39.0 mg/dL 12/20/18 05:15 12/19/18 12/19/18 12/20/18 16:45 21:41 05:15 Troponin I 12.93 H* 34.47 H* 16.97 H* 12/20/18 09:35 Troponin I 9.80 H* Assessment/Plan I personally interviewed and examined the patient. I agree with the above assessment. We will need to watch her BP carefully with the institution of the [facility] . We will see the results of tomorrow's echo to reassess LV function for possible lifevest. All of this was reviewed with the patient and family. I appreciate all delivery consultant involvement. Neurology will follow up with the patient as an outpatient.
[2018-12-22] MEDS ORDERED: Metoprolol Succinate XL TAB* 25 MG PO SCH (09:00)
[2018-12-22] MEDS: Lisinopril TAB* 5 MG PO SCH (09:48)
[2018-12-22] MEDS: Insulin LISPRO* 1 UNITS UNIT SUBCUT SCH ×4 (09:48→20:39)
[2018-12-22] MEDS ORDERED: Insulin GLARGINE(*) 1 UNITS UNIT SUBCUT SCH (10:00)
[2018-12-22] MEDS ORDERED: Perflutren Lipid Microsphere* 3 ML VIAL ONE (10:16)
--- NOTE | 2018-12-22 13:14 | PN ---
Subjective Date of Service: 12/22/18 Interval History: Patient seen and examined. Family at bedside, discussed POC for today. Discussed diabetes management at length. Patient currently denies SOB, no chest pain, no n/v, no gait disturbance. Family History: Findings - denies CAD history, father prostate cancer, also had schizophrenia, mother had non-Hodgkins lymphoma, an uncle had diabetes. She has 8 siblings Social History: Findings - Retired, owned business with , , 2 daughters, is HCP. She smokes 2PPD, no alcohol/drug use Past Medical History: Findings - PMH: hypertension, type 2 diabetes, COPD, anxiety; SH: none Objective Active Medications: Acetaminophen (Tylenol Tab*) 650 mg PO Q4H PRN PRN Reason: HEADACHE/PAIN Last Admin: 12/21/18 15:15 Dose: 650 mg Aspirin (Aspirin 81 Mg Chew Tab*) 81 mg PO DAILY [facility] Last Admin: 12/22/18 08:33 Dose: 81 mg Atorvastatin Calcium (Lipitor*) 80 mg PO 2100 [facility] Last Admin: 12/21/18 20:44 Dose: 80 mg Dextrose (D50w Syringe 50 Ml*) 12.5 gm IV PUSH .FOR FS < 60 - SS PRN PRN Reason: FS < 60 Docusate Sodium (Colace Cap*) 100 mg PO DAILY PRN PRN Reason: CONSTIPATION Enoxaparin Sodium (Lovenox(*)) 40 mg SUBCUT Q24H [facility] Last Admin: 12/21/18 20:44 Dose: 40 mg Glimepiride (Glimepiride (Nf)) 4 mg PO BID [facility] Last Admin: 12/22/18 08:33 Dose: 4 mg Insulin Glargine (Lantus(*)) 10 units SUBCUT Q24H [facility] Last Admin: 12/22/18 09:47 Dose: 10 unit Insulin Human Lispro (Humalog*) 0 units SUBCUT FS ACHS ICU [facility]; Protocol Last Admin: 12/22/18 12:24 Dose: 6 unit Lisinopril (Prinivil Tab*) 2.5 mg PO DAILY [facility] Last Admin: 12/22/18 09:48 Dose: 2.5 mg Lorazepam (Ativan Inj*) 1 mg IV PUSH Q4H PRN PRN Reason: ANXIETY Last Admin: 12/21/18 01:16 Dose: 1 mg Metoprolol Succinate (Toprol Xl Tab*) 25 mg PO DAILY [facility] Last Admin: 12/22/18 08:44 Dose: Not Given Nicotine (Nicotine Inhaler*) 10 mg INH Q2H PRN PRN Reason: CRAVING Last Admin: 12/20/18 11:43 Dose: 10 mg Nicotine (Nicotine Patch 21 Mg/24 Hr*) 1 patch TRANSDERM DAILY@0800 [facility] Last Admin: 12/22/18 08:34 Dose: 1 patch Nitroglycerin (Nitroglycerin Tab 0.4 Mg*) 0.4 mg SL Q5M PRN PRN Reason: ANGINA Last Admin: 12/20/18 15:33 Dose: 0.4 mg Ondansetron HCl (Zofran Inj*) 4 mg IV Q4H PRN PRN Reason: NAUSEA Pharmacy Profile Note (Nicotine Patch Removal Note*) 1 note PATCH OFF 1999 [facility] Last Admin: 12/21/18 20:44 Dose: 1 note Ticagrelor (Brilinta*) 90 mg PO BID [facility] Last Admin: 12/22/18 08:33 Dose: 90 mg Tramadol HCl (Ultram*) 50 mg PO Q8H PRN PRN Reason: chest wall pain Last Admin: 12/20/18 16:19 Dose: 50 mg Trazodone HCl (Desyrel Tab*) 200 mg PO QPM [facility] Last Admin: 12/21/18 22:28 Dose: 200 mg Venlafaxine HCl (Effexor Xr Cap*) 225 mg PO DAILY [facility] Last Admin: 12/22/18 08:33 Dose: 225 mg Vital Signs - 8 hr 12/22/18 12/22/18 12/22/18 06:00 06:01 07:00 Pulse Rate 86 88 87 Respiratory 29 27 33 Rate Blood Pressure 108/68 104/61 (mmHg) O2 Sat by Pulse 94 94 92 Oximetry 12/22/18 12/22/18 12/22/18 07:01 08:00 08:01 Pulse Rate 107 88 90 Respiratory 25 16 22 Rate Blood Pressure 126/79 (mmHg) O2 Sat by Pulse 98 96 94 Oximetry 12/22/18 12/22/18 12/22/18 09:00 09:01 09:49 Pulse Rate 99 101 87 Respiratory 19 29 23 Rate Blood Pressure 84/64 105/60 (mmHg) O2 Sat by Pulse 97 97 97 Oximetry 12/22/18 12/22/18 12/22/18 10:00 11:00 11:01 Pulse Rate 81 95 96 Respiratory 23 20 20 Rate Blood Pressure 106/66 100/61 (mmHg) O2 Sat by Pulse 98 98 98 Oximetry 12/22/18 12/22/18 11:33 12:00 Pulse Rate 92 87 Respiratory 26 29 Rate Blood Pressure 114/70 (mmHg) O2 Sat by Pulse 97 97 Oximetry Oxygen Devices in Use Now: None Appearance: alert, comfortable, NAD Eyes: No Scleral Icterus, PERRLA Ears/Nose/Mouth/Throat: NL Teeth, Lips, Gums, Mucous Membranes Moist Neck: NL Appearance and Movements; NL JVP, Trachea Midline Respiratory: Symmetrical Chest Expansion and Respiratory Effort, Clear to Auscultation Cardiovascular: NL Sounds; No Murmurs; No JVD, RRR - RBBB on tele, ST elevations resolving/improving, No Edema Extremities: No Edema Skin: No Rash or Ulcers Neurological: Alert and Oriented x 3, NL Sensation, NL Gait, NL Muscle Strength and Tone Nutrition: Taking PO's Result Diagrams: 12/22/18 05:41 12/22/18 05:41 Additional Lab and Data: Laboratory Tests 12/19/18 12/19/18 12/19/18 16:45 16:45 16:45 INR (Anticoag Therapy) 1.01 APTT 26.8 Glucose 188 H Lactic Acid 1.5 AST 43 H ALT 24 CK-MB (CK-2) 28.2 H Troponin I 12.93 H* LDL Cholesterol Direct 159 Influenza A (Rapid) Influenza B (Rapid) 12/19/18 23:15 INR (Anticoag Therapy) APTT Glucose Lactic Acid AST ALT CK-MB (CK-2) Troponin I LDL Cholesterol Direct Influenza A (Rapid) Negative Influenza B (Rapid) Negative Microbiology and Other Data: Microbiology 12/19/18 23:00 Influenza Types A,B Antigen - Final Nasal Specimen received for Influenza A/B Molecular testing Diagnostic Imaging: CXR: Rt basilar atelectasis vs infiltrate Head CT: no hemorrhage or hematoma Repeat CT 12/21/18 Impression: There is a developing focus of hypoattenuation of the right frontal lobe which may indicate evolutionary changes within a subacute non-hemorrhagic infarct, though the CT appearance is non-specific. MRI Brain, Impression: 1. Limited study 2. Punctate focus of restricted diffusion within the right occipital lobe consistent with subacute non-hemorrhagic infarct, the differential includes artifact 3. Periventricular and subcortical white matter changes, non specific EKG Data: NSR, leftward axis, RBBB, ST elevations V2-V5, injury pattern in limb leads, T- wave flattening Assess/Plan/Problems-Billing Assessment/Plan: 63 year old with STEMI status post stent to proximal LAD with mood lability and some irrational behavior, also appears to have had small subacute infarct on CT brain. - Patient Problems (1) Gait instability Code(s): R26.81 - UNSTEADINESS ON FEET SNOMED Code(s): 709421237 Comment: - CT head negative for bleed, does show small area of hypoattentuation. MRI shows small punctate focus in the right occipital region. Lesion does not correlate with symptomology - US carotids shows 50-69% stenosis ipsilaterally, will need follow up in 6 months - Strongly advise lifestyle modification, smoking cessation, continue statin, ASA and glucose control (2) STEMI (ST elevation myocardial infarction) Code(s): I21.3 - ST ELEVATION (STEMI) MYOCARDIAL INFARCTION OF [facility] SITE SNOMED Code(s): 593986237 Comment: - Stent placed 12/19 for 95% stenosis of proximal LAD - CTA chest negative for PE or dissection, does appear to have undiagnosed emphasema and patient has history of being heavy smoker - BB, brillinta, statin, ASA - Referral made for Life[facility] given ECHO findings above but will continue to be evaluated by cardio for necessity - Continue management per Dr. Mcrae/cardiology (3) Diabetes Code(s): E11.9 - TYPE 2 DIABETES MELLITUS WITHOUT COMPLICATIONS SNOMED Code(s) : 49039627 Comment: - CC diet, lispro SS, restarted glimeperide and added lantus today - A1c is 7.6 but sugars are inadequately controlled on current regimen, may be related to dietary indescretion and stress - Patient and family interested in endocrinology outpatient, will consult Dr. Rhodes to establish relationship and recommendations while patient is recovering from [place]. (4) Anxiety and depression Code(s): F41.9 - ANXIETY DISORDER, UNSPECIFIED; F32.9 - MAJOR DEPRESSIVE DISORDER, SINGLE EPISODE, UNSPECIFIED SNOMED Code(s): 82741546 Comment: - Per psych, patient does have capacity and mood seems to be improving, although she does have periods of irrationality and perhaps hallucinations - Per Dr. Wynn, continue venlafaxine with ativan PRN and continue close monitoring (5) Tobacco abuse Code(s): Z72.0 - TOBACCO USE SNOMED Code(s): 162708512 Comment: - nicotine replacement - Counseled on cessation (6) Syncope Code(s): R55 - SYNCOPE AND COLLAPSE SNOMED Code(s): 735216172 Comment: - Concern that there may an underlying arrhythmia? - Continue tele, no changes thus far - Optimize lytes (7) Full code status Code(s): Z78.9 - OTHER SPECIFIED HEALTH STATUS SNOMED Code(s): 662785327 Status and Disposition: Inpatient, medically stable for transfer to [address] [place] [address] if clear by cardiology.
[2018-12-22] MEDS: Acetaminophen TAB* 325 MG PO PRN (13:23)
--- NOTE | 2018-12-22 14:52 | CONSULT ---
Consult Consult: [facility] Inpatient Consult Note Date of Consult: 12/22/18 Reason for Consult: type 2 diabetes Reason for Admission: STEMI ASSESSMENT: 63 yo F with type 2 diabetes and active tobacco use, now admitted with STEMI s/p stent. She has been able to maintain reasonable glycemic control (A1c 7.6%) with combination of glimeperide, metformin and basal insulin, the latter when she has been able to afford the medication. She is unsure whether she will be able to afford insulin in the future and would prefer less expensive medication options, where possible. Her insulin requirement has been up to 32 units/day during this admission, which is similar to her outpatient basal insulin dose of 24 units/day. Glimeperide is likely to cause hypoglycemia and should be discontinued in favor of glipizide. PLAN: - increase insulin glargine to 24 units QAM - continue insulin lispro sliding scale - discontinue glimeperide - at discharge: - start glipizide XL 10mg daily in the morning - start metformin ER 1500mg daily in the evening - start Steglatro 5mg daily in the morning - resume Lantus 24 units once daily - check blood glucose once daily in the morning - follow-up with endocrine in 4 weeks - plan to add ezetimibe to atorvastatin 80mg if LDL>80 at next check SUBJECTIVE: History of Present Illness: 63 yo F with history of T2DM and >40 pack year history of cigarette use. She experienced acute chest pain on 12/17 and presented to ED with STEMI on 12/19. She underwent PTCA and stent placement to LAD on 12/[address] Mcrae and is now recovering in the ICU. During this admission, she has had frequent blood glucose 200-300 despite minimal appetite. Past Medical History: 1. T2DM 2. COPD 3. Anxiety 4. Hypertension 5. Dyslipidemia Medications Prior to Admission: Allergy Pill 12/02/13 [History Confirmed 12/02/13] Antidepressant 12/02/13 [History Confirmed 12/02/13] Aspir-81 81 mg PO DAILY 12/02/13 [History Confirmed 12/02/13] Calcium 600 mg PO DAILY 12/02/13 [History Confirmed 12/02/13] Glimepiride 2 mg PO TID 12/02/13 [History Confirmed 12/02/13] Lisinopril TAB* [Prinivil TAB*] 5 mg PO DAILY 12/02/13 [History Confirmed ] Simvastatin 20 mg PO DAILY 12/02/13 [History Confirmed 12/02/13] Sudafed 24 Hour 1 tab PO DAILY 12/02/13 [History Confirmed 12/02/13] Vitamin D 1 tab PO DAILY 12/02/13 [History Confirmed 12/02/13] metFORMIN* [Glucophage*] 1,000 mg PO 0800,1700 12/02/13 [History Confirmed 12/20] Trazodone HCl 200 mg PO QPM 12/21/18 [History Confirmed 12/21/18] Inpatient Medications: Acetaminophen (Tylenol Tab*) 650 mg PO Q4H PRN PRN Reason: HEADACHE/PAIN Last Admin: 12/22/18 13:23 Dose: 650 mg Aspirin (Aspirin 81 Mg Chew Tab*) 81 mg PO DAILY [facility] Last Admin: 12/22/18 08:33 Dose: 81 mg Atorvastatin Calcium (Lipitor*) 80 mg PO 2100 [facility] Last Admin: 12/21/18 20:44 Dose: 80 mg Dextrose (D50w Syringe 50 Ml*) 12.5 gm IV PUSH .FOR FS < 60 - SS PRN PRN Reason: FS < 60 Docusate Sodium (Colace Cap*) 100 mg PO DAILY PRN PRN Reason: CONSTIPATION Enoxaparin Sodium (Lovenox(*)) 40 mg SUBCUT Q24H [facility] Last Admin: 12/21/18 20:44 Dose: 40 mg Glimepiride (Glimepiride (Nf)) 4 mg PO BID [facility] Last Admin: 12/22/18 08:33 Dose: 4 mg Insulin Glargine (Lantus(*)) 10 units SUBCUT Q24H [facility] Last Admin: 12/22/18 09:47 Dose: 10 unit Insulin Human Lispro (Humalog*) 0 units SUBCUT FS ACHS ICU [facility]; Protocol Last Admin: 12/22/18 12:24 Dose: 6 unit Lisinopril (Prinivil Tab*) 2.5 mg PO DAILY [facility] Last Admin: 12/22/18 09:48 Dose: 2.5 mg Lorazepam (Ativan Inj*) 1 mg IV PUSH Q4H PRN PRN Reason: ANXIETY Last Admin: 12/21/18 01:16 Dose: 1 mg Metoprolol Succinate (Toprol Xl Tab*) 25 mg PO DAILY [facility] Last Admin: 12/22/18 08:44 Dose: Not Given Nicotine (Nicotine Inhaler*) 10 mg INH Q2H PRN PRN Reason: CRAVING Last Admin: 12/20/18 11:43 Dose: 10 mg Nicotine (Nicotine Patch 21 Mg/24 Hr*) 1 patch TRANSDERM DAILY@0800 [facility] Last Admin: 12/22/18 08:34 Dose: 1 patch Nitroglycerin (Nitroglycerin Tab 0.4 Mg*) 0.4 mg SL Q5M PRN PRN Reason: ANGINA Last Admin: 12/20/18 15:33 Dose: 0.4 mg Ondansetron HCl (Zofran Inj*) 4 mg IV Q4H PRN PRN Reason: NAUSEA Pharmacy Profile Note (Nicotine Patch Removal Note*) 1 note PATCH OFF 1999 [facility] Last Admin: 12/21/18 20:44 Dose: 1 note Ticagrelor (Brilinta*) 90 mg PO BID [facility] Last Admin: 12/22/18 08:33 Dose: 90 mg Tramadol HCl (Ultram*) 50 mg PO Q8H PRN PRN Reason: chest wall pain Last Admin: 12/20/18 16:19 Dose: 50 mg Trazodone HCl (Desyrel Tab*) 200 mg PO QPM [facility] Last Admin: 12/21/18 22:28 Dose: 200 mg Venlafaxine HCl (Effexor Xr Cap*) 225 mg PO DAILY [facility] Last Admin: 12/22/18 08:33 Dose: 225 mg Allergies/Intolerances: numerous antibiotics, see chart Social History: Lives with . Daughters in [place] and [place]. Active smoker. Denies alcohol. Family History: Several family members with diabetes. Review of Systems: As above. She reports 60 lb weight loss due to loss of appetite in recent years. OBJECTIVE: Temp Pulse Resp BP Pulse Ox 96.3 F 101 23 93/68 98 12/21/18 12:00 12/22/18 14:01 12/22/18 14:01 12/22/18 14:01 12/22/18 14:01 General: alert, pleasant, oriented, no distress ENT: neck supple, no thyromegaly, no bruit is heard Chest: CTAB, no wheezing or crackles CV: RRR, no murmur Abdomen: soft, non-tender Extremities: no edema, distal pulses intact, intact sensation to light touch Skin: warm, dry, no rash Neuro: grossly intact motor/sensory in extremities Psych: restricted affect, pleasant Labs: Glucose Results 12/20/18 20:49 251 12/21/18 07:30 204 12/21/18 16:30 270 12/21/18 21:00 235 12/22/18 07:30 234 12/22/18 11:30 299 WBC 12.1 10^3/uL (3.5-10.8) H 12/22/18 05:41 RBC 4.52 10^6 /uL (3.70-4.87) 12/22/18 05:41 Hgb 13.3 g/dL (12.0-16.0) 12/22/18 05:41 Hct 39 % (33-41) 12/22/18 05:41 MCV 87 fL (80-97) 12/22/18 05:41 MCH 29 pg (27-31) 12/22/18 05:41 MCHC 34 g/dL (31-36) 12/22/18 05:41 RDW 14 % (10.5-15) 12/22/18 05:41 Plt Count 365 10^3/uL (150-450) 12/22/18 05:41 MPV 8.4 fL (7.4-10.4) 12/22/18 05:41 Neut % (Auto) 58.0 % 12/22/18 05:41 Lymph % (Auto) 27.2 % 12/22/18 05:41 [place] % (Auto) 13.3 % 12/22/18 05:41 Eos % (Auto) 1.0 % 12/22/18 05:41 Baso % (Auto) 0.5 % 12/22/18 05:41 Absolute Neuts (auto) 7.0 10^3/ul (1.5-7.7) 12/22/18 05:41 Absolute Lymphs (auto) 3.3 10^3/ul (1.0-4.8) 12/22/18 05:41 Absolute Monos (auto) 1.6 10^3/ul (0-0.8) H 12/22/18 05:41 Absolute Eos (auto) 0.1 10^3/ul (0-0.6) 12/22/18 05:41 Absolute Basos (auto) 0.1 10^3/ul (0-0.2) 12/22/18 05:41 Absolute Nucleated RBC 0 10^3/ul 12/22/18 05:41 Nucleated RBC % 0.1 12/22/18 05:41 INR (Anticoag Therapy) 1.01 (0.77-1.02) 12/19/18 16:45 APTT 26.8 seconds (26.0-36.3) 12/19/18 16:45 POC Activ Clotting Time 168 seconds 12/19/18 17:38 Sodium 136 mmol/L (135-145) 12/22/18 05:41 Potassium 4.3 mmol/L (3.5-5.0) 12/22/18 05:41 Chloride 101 mmol/L (101-111) 12/22/18 05:41 Carbon Dioxide 23 mmol/L (22-32) 12/22/18 05:41 Anion Gap 12 mmol/L (2-11) H 12/22/18 05:41 BUN 16 mg/dL (6-24) 12/22/18 05:41 Creatinine 0.62 mg/dL (0.51-0.95) 12/22/18 05:41 Est GFR ( Amer) 116.9 (>60) 12/22/18 05:41 Est GFR (Non-Af Amer) 96.6 (>60) 12/22/18 05:41 BUN/Creatinine Ratio 25.8 (8-20) H 12/22/18 05:41 Glucose 230 mg/dL (70-100) H 12/22/18 05:41 POC Glucose (mg/dL) 299 mg/dL (70-100) H 12/22/18 12:18 Hemoglobin A1c 7.6 % (4.0-5.6) H 12/20/18 05:15 Lactic Acid 1.5 mmol/L (0.5-2.0) 12/19/18 16:45 Calcium 8.9 mg/dL (8.6-10.3) 12/22/18 05:41 Total Bilirubin 0.60 mg/dL (0.2-1.0) 12/22/18 05:41 AST 29 U/L (13-39) 12/22/18 05:41 ALT 36 U/L (7-52) 12/22/18 05:41 Alkaline Phosphatase 104 U/L (34-104) 12/22/18 05:41 Total Creatine Kinase 135 U/L (10-223) 12/20/18 09:35 CK-MB (CK-2) 8.2 ng/mL (0.6-6.3) H 12/20/18 09:35 Troponin I 9.80 ng/mL (<0.04) H* 12/20/18 09:35 B-Natriuretic Peptide 620 pg/mL (<=100) H 12/19/18 16:45 Total Protein 6.9 g/dL (6.4-8.9) 12/22/18 05:41 Albumin 3.5 g/dL (3.2-5.2) 12/22/18 05:41 Globulin 3.4 g/dL (2-4) 12/22/18 05:41 Albumin/Globulin Ratio 1.0 (1-3) 12/22/18 05:41 Triglycerides 135 mg/dL 12/20/18 05:15 Cholesterol 183 mg/dL 12/20/18 05:15 LDL Cholesterol 117 mg/dL 12/20/18 05:15 LDL Cholesterol Direct 159 mg/dL 12/19/18 16:45 HDL Cholesterol 39.0 mg/dL 12/20/18 05:15 Influenza A (Rapid) Negative (Negative) 12/19/18 23:15 Influenza B (Rapid) Negative (Negative) 12/19/18 23:15 Blood Type O Positive 12/19/18 16:45 Antibody Screen Negative 12/19/18 16:45
[2018-12-22] MEDS: traMADol TAB* 50 MG PO PRN (17:25)
[2018-12-22] MEDS: Nicotine Patch Removal NOTE PATCH OFF SCH (19:47)
[2018-12-22] MEDS: Nitroglycerin TAB 0.4 MG* 0.4 MG TAB SL PRN (20:03)
[2018-12-22] MEDS: Enoxaparin(*) 40 MG/0.4 ML SYR SUBCUT SCH (20:17)
[2018-12-22] MEDS: traZODone TAB* 50 MG TAB PO SCH ×2 (20:17→20:22)
[2018-12-22] MEDS: Atorvastatin* 80 MG TAB PO SCH (20:21)
[2018-12-23] MEDS ORDERED: Perflutren Lipid Microsphere* 3 ML VIAL ONE (07:58)
[2018-12-23] MEDS ORDERED: Dextrose 50% Syringe 50 ML* 25 GM/50 ML SYRINGE IV PUSH PRN (08:02)
[2018-12-23] MEDS ORDERED: Metformin ER (NF) 750 MG TAB.ER PO SCH (09:00)
[2018-12-23] MEDS ORDERED: Insulin GLARGINE(*) 1 UNITS UNIT SUBCUT SCH (10:00)
[2018-12-23] MEDS: Insulin LISPRO* 1 UNITS UNIT SUBCUT SCH ×4 (10:01→20:46)
[2018-12-23] MEDS: Venlafaxine EXT RELEASE CAP* 75 MG PO SCH (10:02)
[2018-12-23] MEDS: Aspirin 81 mg CHEW TAB* 81 MG TAB.CHEW PO SCH (10:02)
[2018-12-23] MEDS: glipiZIDE TAB.XL* 5 MG PO SCH (10:02)
[2018-12-23] MEDS: Nicotine PATCH 21 MG/24 HR* PATCH TRANSDERM SCH (10:02)
[2018-12-23] MEDS: Ticagrelor* 90 MG TAB PO SCH ×2 (10:03→20:16)
[2018-12-23] MEDS: Lisinopril TAB* 5 MG PO SCH (10:47)
[2018-12-23] MEDS: Metoprolol Succinate XL TAB* 25 MG PO SCH (10:54)
[2018-12-23] MEDS ORDERED: Metoprolol Succinate XL TAB* 25 MG PO SCH (11:00)
[2018-12-23] MEDS ORDERED: Insulin LISPRO* 1 UNITS UNIT SUBCUT SCH (11:30)
--- NOTE | 2018-12-23 14:36 | DS ---
DISCHARGE SUMMARY: DATE OF ADMISSION: 12/19/18 TENTATIVE DATE OF DISCHARGE PENDING NO COMPLICATIONS: 12/23/18 ATTENDING PHYSICIAN: Gary Mcrae MD* (dictated by Tristen Vázquez NP). PRIMARY PHYSICIAN: Dr. Uriel Brewster. PRIMARY SPIRITUAL MINISTER: Dr. Eugenio Sexton. NEW PRIMARY MICROFILM MOUNTER: Dr. Jeison Rhodes. ADMITTING DIAGNOSES: 1. Late presenting anterior ST elevation myocardial infarction. 2. History of hypertension. 3. History of insulin-dependent diabetes mellitus. 4. History of chronic obstructive pulmonary disease. 5. Ongoing tobacco abuse. 6. History of depression. DISCHARGE DIAGNOSES: 1. Late presenting anterior ST elevation status post drug-eluting stent to proximal LAD with known moderate mid LAD lesion, on aspirin, Brilinta, metoprolol, and Lipitor therapy. Given presentation was STEMI, the patient will need uninterrupted dual antiplatelet therapy with aspirin and Brilinta for 12 months' time. 2. Ischemic cardiomyopathy, LVEF less than 35%. To be sent home with LifeVest. She is on metoprolol 25 mg a day and lisinopril 2.5 mg a day. Unfortunately, we were unable to optimize prior to discharge due to relative hypotension. 3. History of insulin-dependent diabetes mellitus. Dr. Jeison Rhodes evaluated the patient. Unfortunately, she was unable to afford Steglatro. Thus, the patient is to be sent home on metformin, Lantus, glipizide, and lispro therapy. 4. Complaints of ataxia, diplopia, and altered mental status. MRI during hospital stay demonstrated new punctate area in the right occipital lobe. Dr. Rodriguez, Neurology, evaluated the patient and felt that symptomatology was not consistent with finding. She is on dual antiplatelet therapy and statin therapy at this time. She is to follow up with Dr. Rodriguez, outpatient. 5. History of depression. Continue venlafaxine therapy. CONSULTANTS DURING STAY THAT EVALUATED THE PATIENT: 1. Dr. Bob Rodriguez, Neurology. 2. Dr. Jeison Rhodes. 3. Dr. Gary Coulter, Internal Medicine. PROCEDURES PERFORMED: The patient had a left heart catheterization performed on 12/19/[address] Gary Mcrae. A 6.5 Macedonian sheath catheter was placed into the right femoral artery. 1. Left main - widely patent. 2. LAD - mild prestenotic dilation of the proximal LAD followed by critical 95 % to 99% stenosis with CARLENE flow 1 to 2 down the LAD. The LAD supplied a first posteriorly directing diagonal branch followed by 2 more diagonal branches. There was haziness suggestive of a thrombus in the initial portion of the stenosis in the proximal LAD. Mild LAD had 45% to 50% stenosis. 3. Left circumflex nondominant vessel supplied to first and second OM with [id number] size bifurcating low-lying obtuse marginal branch. 4. Right coronary artery dominant vessel supplied by PDA and 3 posterior left ventricular branches. There was mild luminal irregularity seen throughout the proximal mid portion with areas of 30% to 35% narrowing with perhaps a most significant degree of narrowing in its mid segment of 35% to 40%. There was collateral flow seen that was filling the septal perforators, but not well into the primary LAD. The patient underwent successful drug-eluting stent with 3.5 x 20 mm Synergy stent with thrombectomy. Mid LAD lesion is to be treated medically at this current time. COMPLICATIONS: The patient had complaints of diplopia, ataxia, and altered mental status. MRI again showed new punctate right occipital lobe. However, symptomatology was not consistent with this finding. Thus Dr. Rodriguez, Neurology felt that this was an incidental finding. COURSE OF HOSPITAL STAY: This is a pleasant 63-year-old female patient who presented to [facility] on 12/19/18 due to complaints of chest pain. Apparently, the patient had a syncopal episode prior to presentation, but then proceeded to go back to bed. She actually had symptoms of chest pain that occurred on 12/17/18, two days prior to presentation, but she did not seek medical evaluation at that time. On 12/19/18 at 4 in the morning again she had a syncopal episode. She went to bed and when she woke up she apparently was suffering from chest pain. Thus the evening of 12/19/18, she decided to seek evaluation at [facility]. While being evaluated in the emergency department, STEMI was called at 4:41 p.m. The patient was taken urgently to the wastewater analyst lab analyst where she underwent the above mentioned procedure. Postprocedure, she was transferred to the ICU. While being evaluated in the ICU, she was noted to be weepy, somewhat combative, ripping off her electrodes and acting erratically. Thus, Neurology and Psych was asked to evaluate the patient. It had appeared that the patient had been not receiving her antidepressant venlafaxine, thus Dr. Albert Wynn recommended restarting her antidepressant. The patient's mood did improve. There was no focal neuro deficits on when Dr. Rodriguez evaluated the patient. The following day on 12/21/18, she had started to complain of diplopia, ataxia, and given prior altered mental status the day before we asked Neurology to reevaluate the patient, the patient underwent different brain imaging modalities. CT of the brain on 12/20/18 that was initially ordered because of her combative behavior, was negative for bleed. There was no acute intracranial abnormality. She also underwent a CT of the chest because she had been complaining of refractory chest pain that was negative for aortic dissection. Her repeat CAT scan on 12/21/18 per Radiology report was suggestive of a developing focus of a hypoattenuation of the right frontal lobe which may indicate the evolutionary changes within a subacute nonhemorrhagic infarct, though the appearance is nonspecific. Thus, further evaluation was recommended. The patient underwent brain MRI shorty thereafter which per Radiology report demonstrated punctate focus of restricted diffusion within the right occipital lobe consistent with subacute nonhemorrhagic infarct. Dr. Rodriguez, Neurology, felt that the patient's symptomatology was not consistent with this finding, thus felt that it was an incidental finding. The patient has been doing well since then. She was transferred to [address] [place] [address] last evening. She denies chest pain, changes in vision, shortness of breath, dizziness, lightheadedness, weakness. Physical Therapy evaluated the patient yesterday and they are to reevaluate her this morning. Her carotid duplex showed less than 50% bilateral internal carotid artery stenosis. Peak velocity was 89, not consistent with moderate disease. Troponin during this hospitalization peaked at 34.47 on 12/19/18. She underwent a repeat echocardiogram this morning, the final report is pending. I was informed by Dr. Mcrae this morning that who preliminary report illustrated severe LV dysfunction. Thus LifeVest has been ordered and Marquis Leos who is a rep with [employer] is to fit the patient prior to discharge. This morning, her blood glucose was elevated at 233. Dr. Jeison Rhodes had evaluated the patient yesterday evening due to history of type 2 diabetes mellitus, on insulin therapy. He had recommended discontinuation of glimepiride therapy, continuing lispro sliding scale therapy and increasing insulin glargine to 24 units a day. He had recommended starting Steglatro 5 mg a day; however, upon further enquiry with the patient's pharmacist it appears that her out of pocket cost would be 47 dollars a day and given she has Medicare Part D, she would end up not being able to afford it due to the donut hole. Thus, I spoke to Dr. Jeison Rhodes today and he stated that he would not initiate that medication and instead continue Lantus, glipizide, and metformin therapy with monitoring of blood glucose checks. I did speak to the patient's pharmacist and she states that the patient has Lantus at home in addition to metformin and she has been able to afford those medications. There are no other morning blood work today to review. Her LDL, however, during this hospital stay was 117. She was initiated on a high-intensity statin therapy. She will need repeat liver function tests and lipid profile in 6 to 8 weeks' time. Her vital signs remained stable. Currently, temperature is 98.1, pulse 94, respirations 20, oxygenation 99%, blood pressure 109/56. She is not symptomatic. Unfortunately , due to blood pressure I am not able to up-titrate SONJA inhibitor or a beta- baljeet. At this current time, we are awaiting for Physical Therapy to reevaluate the patient with the goal of her being discharged to inpatient rehab. DISPOSITION: Currently unknown at this current time. Further information in regards to discharge will be in addendum report. FOLLOWUP APPOINTMENTS: 1. Dr. Dunn, 12/27/18 at 3:20 p.m. at our medical office building. 2. Dr. Jeison Rhodes, 01/20/19 at 11:20 a.m. at the medical office building. 3. Dr. Eugenio Sexton, Cardiology, 01/10/19 at 9:40 a.m. at our [facility] location. 4. Primary physician, Dr. Uriel Brewster in the next [address] Mcrae agrees with the above assessment and plan. We will await Physical Therapy repeat evaluation to determine whether or not the patient is a candidate for inpatient rehab. TRISTEN VÁZQUEZ, [employer] INST[employer]ER [id number]/[facility] #: [id number] BERTO
[2018-12-23] MEDS: Nitroglycerin TAB 0.4 MG* 0.4 MG TAB SL PRN (14:48)
[2018-12-23] MEDS ORDERED: Benzonatate CAP* 100 MG PO PRN (15:29)
[2018-12-23] MEDS: metFORMIN* 500 MG TAB PO SCH (17:13)
[2018-12-23] MEDS: Acetaminophen TAB* 325 MG PO PRN (17:16)
--- NOTE | 2018-12-23 17:58 | PN ---
Subjective Date of Service: 12/23/18 Interval History: Pt states that she has CP earlier today at 1430 and was assessed then. EKG was ordered, evaluated, and was at baseline. She states that pain occurs with movement, breathing, palpation of the R lower lungs posteriorly. She relays a h /o costochondritis approximately 1 year ago. She also relays a h/o chronic bronchitis. Family History: Findings - denies CAD history, father prostate cancer, also had schizophrenia, mother had non-Hodgkins lymphoma, an uncle had diabetes. She has 8 siblings Social History: Findings - Retired, owned business with , , 2 daughters, is HCP. She smokes 2PPD, no alcohol/drug use Past Medical History: Findings - PMH: hypertension, type 2 diabetes, COPD, anxiety; SH: none Objective Active Medications: Acetaminophen (Tylenol Tab*) 650 mg PO Q4H PRN Aspirin (Aspirin 81 Mg Chew Tab*) 81 mg PO DAILY ALDO Atorvastatin Calcium (Lipitor*) 80 mg PO 2100 ALDO Benzonatate (Tessalon Cap*) 100 mg PO BID PRN Dextrose (D50w Syringe 50 Ml*) 12.5 gm IV PUSH .FOR FS < 60 - SS PRN Enoxaparin Sodium (Lovenox(*)) 40 mg SUBCUT Q24H ALDO Glipizide (Glucotrol Xl*) 10 mg PO DAILY ALDO Insulin Glargine (Lantus(*)) 24 units SUBCUT Q24H ALDO Insulin Human Lispro (Humalog*) 0 units SUBCUT ACHS ALDO; Protocol Lisinopril (Prinivil Tab*) 2.5 mg PO DAILY ALDO Lorazepam (Ativan Inj*) 1 mg IV PUSH Q4H PRN Metformin HCl (Glucophage*) 750 mg PO BID WITH MEALS ALDO Metoprolol Succinate (Toprol Xl Tab*) 25 mg PO DAILY ALDO Nicotine (Nicotine Inhaler*) 10 mg INH Q2H PRN Nicotine (Nicotine Patch 21 Mg/24 Hr*) 1 patch TRANSDERM DAILY@0800 ALDO Nitroglycerin (Nitroglycerin Tab 0.4 Mg*) 0.4 mg SL Q5M PRN Pharmacy Profile Note (Nicotine Patch Removal Note*) 1 note PATCH OFF 1999 ALDO Ticagrelor (Brilinta*) 90 mg PO BID ALDO Trazodone HCl (Desyrel Tab*) 200 mg PO 2000 ALDO Venlafaxine HCl (Effexor Xr Cap*) 225 mg PO DAILY [facility] Vital Signs: Temp Pulse Resp BP Pulse Ox 98.5 F 85 18 105/46 98 12/23/18 15:29 12/23/18 15:29 12/23/18 15:29 12/23/18 15:29 12/23/18 15:29 Oxygen Devices in Use Now: None Appearance: Pt is laying on side in bed. She appears uncomfortable, but is in no acute distress. She is cooperative and appropriate. Eyes: No Scleral Icterus, PERRLA Ears/Nose/Mouth/Throat: NL Teeth, Lips, Gums, Clear Oropharnyx, Mucous Membranes Moist Neck: NL Appearance and Movements; NL JVP, Trachea Midline Respiratory: Symmetrical Chest Expansion and Respiratory Effort, Clear to Auscultation, - - R lower ribs TTP. Cardiovascular: NL Sounds; No Murmurs; No JVD, RRR, No Edema Abdominal: NL Sounds; No Tenderness; No Distention, No Hepatosplenomegaly Extremities: No Edema, No Clubbing, Cyanosis Neurological: Alert and Oriented x 3 Result Diagrams: 12/22/18 05:41 12/22/18 05:41 Additional Lab and Data: Laboratory Tests 12/19/18 12/19/18 12/19/18 16:45 16:45 16:45 INR (Anticoag Therapy) 1.01 APTT 26.8 Glucose 188 H Lactic Acid 1.5 AST 43 H ALT 24 CK-MB (CK-2) 28.2 H Troponin I 12.93 H* LDL Cholesterol Direct 159 Influenza A (Rapid) Influenza B (Rapid) 12/19/18 23:15 INR (Anticoag Therapy) APTT Glucose Lactic Acid AST ALT CK-MB (CK-2) Troponin I LDL Cholesterol Direct Influenza A (Rapid) Negative Influenza B (Rapid) Negative Microbiology and Other Data: Microbiology 12/19/18 23:00 Influenza Types A,B Antigen - Final Nasal Specimen received for Influenza A/B Molecular testing Diagnostic Imaging: CXR: Rt basilar atelectasis vs infiltrate Head CT: no hemorrhage or hematoma Repeat CT 12/21/18 Impression: There is a developing focus of hypoattenuation of the right frontal lobe which may indicate evolutionary changes within a subacute non-hemorrhagic infarct, though the CT appearance is non-specific. MRI Brain, Impression: 1. Limited study 2. Punctate focus of restricted diffusion within the right occipital lobe consistent with subacute non-hemorrhagic infarct, the differential includes artifact 3. Periventricular and subcortical white matter changes, non specific EKG Data: NSR, leftward axis, RBBB, ST elevations V2-V5, injury pattern in limb leads, T- wave flattening Assess/Plan/Problems-Billing Assessment/Plan: 63 year old with STEMI status post stent to proximal LAD with mood lability and some irrational behavior, also appears to have had small subacute infarct on CT brain. - Patient Problems (1) Costochondritis Comment: -Pt with chronic bronchitis -Tylenol q6h ordered for pain; will continue additional medications if this does not control -Tessalon perles ordered per pt request, stating they help at home (2) STEMI (ST elevation myocardial infarction) Comment: - Stent placed 12/19 for 95% stenosis of proximal LAD - CTA chest negative for PE or dissection, does appear to have undiagnosed emphasema and patient has history of being heavy smoker - BB, brillinta, statin, ASA - Referral made for LifeVest given ECHO findings above but will continue to be evaluated by cardio for necessity - Continue management per Dr. Mcrae/cardiology (3) Gait instability Comment: - CT head negative for bleed, does show small area of hypoattentuation. MRI shows small punctate focus in the right occipital region. Lesion does not correlate with symptomology - US carotids shows 50-69% stenosis ipsilaterally, will need follow up in 6 months - Strongly advise lifestyle modification, smoking cessation, continue statin, ASA and glucose control (4) Diabetes Comment: - CC diet, lispro SS, lantus - A1c is 7.6 but sugars are inadequately controlled on current regimen, may be related to dietary indescretion and stress - Patient and family interested in endocrinology outpatient, will consult Dr. Rhodes to establish relationship and recommendations while patient is recovering from MT. (5) Syncope Comment: - Concern that there may an underlying arrhythmia? - Continue tele, no changes thus far - Optimize lytes (6) Anxiety and depression Comment: - Per psych, patient does have capacity and mood seems to be improving, although she does have periods of irrationality and perhaps hallucinations - Per Dr. Wynn, continue venlafaxine with ativan PRN and continue close monitoring (7) Tobacco abuse Comment: - nicotine replacement - Counseled on cessation (8) Full code status Status and Disposition: Inpatient, medically stable for transfer to [address] [place] [address] if clear by cardiology.
[2018-12-23] MEDS: Enoxaparin(*) 40 MG/0.4 ML SYR SUBCUT SCH (20:10)
[2018-12-23] MEDS: traZODone TAB* 50 MG TAB PO SCH (20:14)
[2018-12-23] MEDS: Atorvastatin* 80 MG TAB PO SCH (20:16)
[2018-12-23] MEDS: Nicotine Patch Removal NOTE PATCH OFF SCH (20:20)
--- NOTE | 2018-12-24 06:34 | PN ---
Hospitalist Progress Note Date of Service: 12/24/18 HOSPITALIST ADDENDUM Called by RN because patient is having small amount of epistaxis with change in position. With her recent STEMI and INDIGO, would not change anticoagulation. If it worsens, may require nasal packing. Check CBC.
[2018-12-24 07:35] LABS: ABS Basophils 0.1 10^3/ul (0-0.2); ABS Eosinophils 0.2 10^3/ul (0-0.6); ABS Lymphocytes 2.5 10^3/ul (1.0-4.8); ABS Monocytes 0.8 10^3/ul (0-0.8); ABS Neutrophils 5.9 10^3/ul (1.5-7.7); ABS Nucleated RBC 0 10^3/ul; Eosinophil % 1.8 %; Hematocrit 34 % (33-41); Hemoglobin 11.8 g/dL (12.0-16.0); Lymphocyte % 26.6 %; Mean Corpuscular HGB Conc 34 g/dL (31-36); Mean Corpuscular Hemoglobin 30 pg (27-31); Mean Corpuscular Volume 87 fL (80-97); Mean Platelet Volume 8.2 fL (7.4-10.4); Nucleated Red Blood Cells % 0; Platelet Count 314 10^3/uL (150-450); Red Blood Count 3.95 10^6 /uL (3.70-4.87); Red Cell Distribution Width 14 % (10.5-15); White Blood Count 9.5 10^3/uL (3.5-10.8)
[2018-12-24 08:55] VITALS: BP 95/46
[2018-12-24] MEDS ORDERED: Metoprolol Succinate XL TAB* 25 MG PO SCH (09:00)
[2018-12-24] MEDS ORDERED: Insulin GLARGINE(*) 1 UNITS UNIT SUBCUT SCH (09:00)
[2018-12-24] MEDS: Ticagrelor* 90 MG TAB PO SCH (09:12)
[2018-12-24] MEDS: Venlafaxine EXT RELEASE CAP* 75 MG PO SCH (09:12)
[2018-12-24] MEDS: Lisinopril TAB* 5 MG PO SCH (09:12)
[2018-12-24] MEDS: Nicotine PATCH 21 MG/24 HR* PATCH TRANSDERM SCH (09:13)
[2018-12-24] MEDS: glipiZIDE TAB.XL* 5 MG PO SCH (09:13)
[2018-12-24] MEDS: Aspirin 81 mg CHEW TAB* 81 MG TAB.CHEW PO SCH (09:13)
[2018-12-24] MEDS: Insulin LISPRO* 1 UNITS UNIT SUBCUT SCH (09:14)
[2018-12-24] MEDS: metFORMIN* 500 MG TAB PO SCH (09:20)
--- NOTE | 2018-12-24 10:08 | DS ---
CC: Dr. Eugenio Sexton; Dr. Bob Rodriguez; Dr. Danica Dunn; Dr. Jeison Rhodes ; Dr. Uriel Brewster DISCHARGE SUMMARY: ADDENDUM: Addendum to Radha Vázquez NP discharge summary. Please refer to her discharge summary for complete details of the hospitalization. DATE OF DISCHARGE: 12/24/18. MEDICATIONS: At the time of discharge included: 1. Calcium 1 a day. 2. Trazodone 200 mg p.o. in the p.m. 3. Aspirin 81 mg a day. 4. Vitamin D 1 a day. 5. Atorvastatin 80 mg a day. 6. Glipizide tablet XL 10 mg a day. 7. Glargine insulin (Lantus) 24 units subcu daily. 8. Lisinopril 2.5 mg a day. 9. Metformin 1500 mg once a day with dinner (according to Dr. Jeison Rhodes's recommendations). 10. Metoprolol succinate 25 mg once a day. 11. Nicotine 21 mg once a day. 12. Nitroglycerin 0.4 mg as needed. 13. Ticagrelor 90 mg twice a day. 14 . Venlafaxine 225 mg daily. PHYSICAL EXAMINATION: Physical examination revealed lungs to be clear. Heart to be regular rate and rhythm. No significant systolic or diastolic murmur. Extremities without clubbing, cyanosis or edema. The prior calf site was well healed. DISCHARGE CONDITION AND PLAN: On the day of discharge, the patient was stable with no recurrent angina. The patient has scheduled followup with Dr. Eugenio Sexton on 01/10/19 at 9:40 a.m., with Dr. Danica Dunn on 12/27/18 at 3:20 p.m., with Dr. Jeison Rhodes on 01/20/19 at 9:40 a.m., and with Dr. Uriel Brewster on 01/05/19 at 1:00 p.m. The patient will also be seeing Dr. Bob Rodriguez, neurologist, which still needs to be set up. The patient had fitting of her LifeVest by [employer] last night and is wearing it and understands how to use it. [id number]/[facility] #: [id number] [facility]
[2018-12-24] MEDS ORDERED: metFORMIN* 500 MG TAB PO SCH (17:00)
== END 2018-12-24 11:00 | disposition home health service (06) | DRG 247 ==
LOC: ED 16:22 → CHICATH 17:16 → ICU 18:25 → MEDTELE 12-23 02:13
PROVIDERS: ADMIT Internal Medicine Cardiovascular Disease; ATTEND Internal Medicine Cardiovascular Disease
PROC: 02C03ZZ Extirpation of Matter from Coronary Artery, One Artery, Percutaneous Approach (ICD-10-PCS; 2018-12-19)
PROC: B2111ZZ Fluoroscopy of Multiple Coronary Arteries using Low Osmolar Contrast (ICD-10-PCS; 2018-12-19)
PROC: 4A023N7 Measurement of Cardiac Sampling and Pressure, Left Heart, Percutaneous Approach (ICD-10-PCS; 2018-12-19)
PROC: 027034Z Dilation of Coronary Artery, One Artery with Drug-eluting Intraluminal Device, Percutaneous Approach (ICD-10-PCS; principal; 2018-12-19 14:30)
DX: I21.09 ST elevation (STEMI) myocardial infarction involving other coronary artery of anterior wall (principal); I45.2 Bifascicular block; J98.11 Atelectasis; I10 Essential (primary) hypertension; F17.210 Nicotine dependence, cigarettes, uncomplicated; I45.10 Unspecified right bundle-branch block; F32.9 Major depressive disorder, single episode, unspecified; F41.9 Anxiety disorder, unspecified; I25.5 Ischemic cardiomyopathy; K44.9 Diaphragmatic hernia without obstruction or gangrene; J43.2 Centrilobular emphysema; I08.1 Rheumatic disorders of both mitral and tricuspid valves; I65.23 Occlusion and stenosis of bilateral carotid arteries; E11.42 Type 2 diabetes mellitus with diabetic polyneuropathy; E78.5 Hyperlipidemia, unspecified; I25.10 Atherosclerotic heart disease of native coronary artery without angina pectoris; Z88.0 Allergy status to penicillin; Z88.8 Allergy status to other drugs, medicaments and biological substances; Z88.1 Allergy status to other antibiotic agents; Z91.011 Allergy to milk products; Z82.49 Family history of ischemic heart disease and other diseases of the circulatory system; Z81.8 Family history of other mental and behavioral disorders; Z83.3 Family history of diabetes mellitus; Z80.7 Family history of other malignant neoplasms of lymphoid, hematopoietic and related tissues; R51 Headache; H53.2 Diplopia; R26.0 Ataxic gait; R55 Syncope and collapse; R41.82 Altered mental status, unspecified; M94.0 Chondrocostal junction syndrome [Tietze]; R04.0 Epistaxis; Z79.82 Long term (current) use of aspirin; Z79.4 Long term (current) use of insulin; Z79.02 Long term (current) use of antithrombotics/antiplatelets
CPT/HCPCS: 36415; 70450; 70551; 71045; 71275; 80048; 80053; 80061; 82550; 82553; 83036; 83605; 83721; 83880; 84484; 85025; 85347; 85610; 85730; 86850; 86900; 86901; 93005; 93306; 93308; 93880; 99285; 99406; A9270-GY; C1725; C1757; C1769; C1876; C1887; C8924; C9606-LD; G8978-GP-CJ; G8979-GP-CI; G8987-GO-CI; G8988-GO-CH; J0583; J1644; J1650; J2060; J2250; J3010; Q9967

== ENCOUNTER 2018-12-26 12:18 | Observation (INO) | payer MEDICARE ==
[2018-12-26] MEDS ORDERED: Nitroglycerin TAB 0.4 MG* 0.4 MG TAB SL ONE (12:21)
--- NOTE | 2018-12-26 12:39 | ED ---
HPI Chest Pain - HPI Summary HPI Summary: This patient is a 63 year old F presenting to ED with a chief complaint of L- sided chest pressure since waking up this morning at about 0800, but she has been having it intermittently all week. Patient was sitting during onset There was a pain going up her neck en route but has since subsided. Patient has an external defibrillator. The patient rates the pain 3/10 in severity currently. Symptoms aggravated by moving around. Denies that deep breaths make it worse. Symptoms alleviated by nothing. Patient reports throbbing sensation in the L arm and cough (baseline). She reports her BM has not been regular since last week, last had it morning of 12/25/18. Patient denies fever, diaphoresis, chills , N/V/D, and SOB. PMHx of LA and stent (done on 12/19/18). She was discharged home noon on 12/24/18. Her driver supervisor is Dr. Mcrae and has an appointment with Dr. Escobar tomorrow. - History of Current Complaint Chief Complaint: EDChestPainROMI Time Seen by Provider: 12/26/18 12:21 Hx Obtained From: Patient Onset/Duration: Started Hours Ago - since 0800, Still Present Timing: Constant - since this morning, Intermittent - since last week, Lasting Hours Initial Severity: Mild Current Severity: Mild Pain Intensity: 3 Pain Scale Used: 0-10 Numeric Chest Pain Location: Discrete at: - L-sided Chest Pain Radiates: No Character: Pressure/Squeezing Aggravating Factor(s): Exertion, Other: - denies deep breaths make it worse Alleviating Factor(s): Nothing Associated Signs and Symptoms: Positive: Chest Pain - pressure, Cough - her baseline, Other: - throbbing sensation in the L arm. Negative: Shortness of Breath, Fever, Chills, Diaphoresis, Nausea, Vomiting - Additional Pertinent History Primary Care Physician: [id number] - Allergy/Home Medications Allergies/Adverse Reactions: Allergies Allergy/AdvReac Type Severity Reaction Status Date / Time amoxicillin Allergy Severe Anaphylatic Verified 12/19/18 16:54 Shock ampicillin Allergy Severe Anaphylatic Verified 12/19/18 16:54 Shock clavulanic acid Allergy Severe Anaphylatic Verified 12/19/18 16:54 Shock Penicillins Allergy Severe Anaphylatic Verified 12/19/18 16:54 Shock azithromycin Allergy Intermediate Hives Verified 12/19/18 16:54 erythromycin base Allergy Intermediate Hives Verified 12/19/18 16:54 sulfamethoxazole Allergy Intermediate Rash Verified 12/20/18 15:27 [From ] trimethoprim [From ] Allergy Intermediate Rash Verified 12/20/18 15:27 cetirizine Allergy Unknown Unknown Verified 12/19/18 16:54 Reaction Details doxycycline Allergy Unknown Unknown Verified 12/19/18 16:54 Reaction Details Tetracyclines Allergy Unknown Unknown Verified 12/19/18 16:54 Reaction Details dairy Allergy Mild Congestion Uncoded 09/28/14 08:42 PMH/Surg Hx/FS Hx/Imm Hx Endocrine/Hematology History: Reports: Hx Diabetes Cardiovascular History: Reports: Hx Hypertension Respiratory History: Reports: Hx Chronic Obstructive Pulmonary Disease (COPD) History: Denies: Hx Renal Disease Sensory History: Denies: Hx Contacts or Glasses, Hx Hearing Aid Opthamlomology History: Denies: Hx Contacts or Glasses - Cancer History Hx Chemotherapy: No Hx Radiation Therapy: No - Surgical History Surgery Procedure, Year, and Place: Right knee surgery injury repair Infectious Disease History: No Infectious Disease History: Denies: Traveled Outside the [place] in Last 30 Days - Family History Known Family History: Positive: Hypertension - Social History Alcohol Use: None Substance Use Type: Reports: None, Excessive Caffeine Substance Use Comment - Amount & Last Used: four bottles of soda daily Hx Tobacco Use: Yes Smoking Status (MU): Heavy Every Day Tobacco Smoker Type: Cigarettes Amount Used/How Often: 1 ppd Length of Time of Smoking/Using Tobacco: 40 years Have You Smoked in the Last Year: Yes Review of Systems Negative: Fever, Chills, Skin Diaphoresis Negative: Erythema Negative: Sore Throat Positive: Chest Pain - pressure Positive: Cough - baseline. Negative: Shortness Of Breath Positive: Other - BM has not been regular since last week. Negative: Abdominal Pain, Vomiting, Diarrhea, Nausea Negative: dysuria, hematuria Positive: Other - throbbing sensation in the L arm . Negative: Myalgia, Edema Negative: Rash Neurological: Other - denies dizziness All Other Systems Reviewed And Are Negative: Yes Physical Exam - Summary Physical Exam Summary: Constitutional: Well-developed, Well-nourished, Alert. (-) Distressed. Uncomfortable appearing. Skin: Warm, Dry HENT: Normocephalic; Atraumatic Eyes: Conjunctiva normal Neck: Musculoskeletal ROM normal neck. (-) JVD, (-) Stridor, (-) Tracheal deviation Cardio: Rhythm regular, rate normal, Heart sounds normal; Intact distal pulses; The pedal pulses are 2+ and symmetric. Radial pulses are 2+ and symmetric. (-) Murmur Pulmonary/Chest wall: Effort normal. (-) Respiratory distress, (-) Wheezes, (-) Rales Abd: Soft, (-) epigastric tenderness, (-) Distension, (-) Guarding, (-) Rebound Musculoskeletal: (-) Edema Lymph: (-) Cervical adenopathy Neuro: Alert, Oriented x3 Psych: Mood and affect Normal Triage Information Reviewed: Yes Vital Signs On Initial Exam: Initial Vitals Temp Pulse Resp BP Pulse Ox 97.5 F 72 16 122/72 100 12/26/18 12:22 12/26/18 12:22 12/26/18 12:22 12/26/18 12:22 12/26/18 12:22 Vital Signs Reviewed: Yes Diagnostics - Vital Signs Vital Signs Temp Pulse Resp BP Pulse Ox 12/26/18 12:22 97.5 F 72 16 122/72 100 - Laboratory Result Diagrams: 12/26/18 12:33 12/26/18 12:33 Lab Statement: Any lab studies that have been ordered have been reviewed, and results considered in the medical decision making process. - Radiology CXR Radiology Interpretation Completed By: Radiologist Summary of Radiographic Findings: NO ACTIVE CARDIOPULMONARY DISEASE IS NOTED. Dr. Oscar has reviewed this radiology report. - CT CTA chest/thorax CT Interpretation Completed By: Radiologist Summary of CT Findings: 1. NO EVIDENCE FOR PULMONARY EMBOLISM. 2. 0.8 CM PLEURAL -BASED RIGHT UPPER LOBE NODULE. RECOMMEND A FOLLOW-UP NONCONTRAST CT OF THE CHEST IN 6 MONTHS TIME TO DEMONSTRATE STABILITY. 3. EMPHYSEMA. Dr. Oscar has reviewed this radiology report. - EKG 1223 Cardiac Rate: NL - 73 PM EKG Rhythm: Sinus Rhythm Summary of EKG Findings: no STEMI and ST elevations 1mm in V2-V3 with Q waves residual Re-Evaluation - Re-Evaluation First Eval Re-Evaluation Time: 12:40 Comment: Discussed that Dr. uDnn is looking at her EKG. Second Eval Re-Evaluation Time: 13:33 Comment: Discussed results with the patient and plan for admission. Patient understands and agrees with this plan. Chest Pain Course/Dx - Course Assessment/Plan: This patient is a 63 year old F presenting to ED with a chief complaint of L-sided chest pressure since waking up this morning at about 0800, but she has been having it intermittently all week. In the ED course, the patient was given NTG. EKG reveawls NSR at 73 BPM, no STEMI, and ST elevations 1mm in V2-V3 with Q waves residual. Consulted Dr. Dunn at 1235 about the patients case and he is looking at her EKG now. Discussed concern of persistent ST elevations but also seeing old Q waves from when she had an LA a week ago. Spoke with Dr. Dunn at 1307 in the ED who said that he believed they were residual changes. Consulted Dr. Gonzales about the patients case at 1315 and he recommended admission to hospitalist to r/o LA and possible stress test in the morning. CXR reveals NO ACTIVE CARDIOPULMONARY DISEASE IS NOTED. CTA chest/thorax reveals 1. NO EVIDENCE FOR PULMONARY EMBOLISM. 2. 0.8 CM PLEURAL-BASED RIGHT UPPER LOBE NODULE. RECOMMEND A FOLLOW-UP NONCONTRAST CT OF THE CHEST IN 6 MONTHS TIME TO DEMONSTRATE STABILITY. 3. EMPHYSEMA. Spoke with Dr. Ingram at 1330 who accepts the patient for admission. The patient will be admitted with dx of CP unspecified. Patient understands and agrees with this plan. - Chest Pain Differential Diagnosis/HQI/PQRI: Other: - CP unspecified - Diagnoses Provider Diagnoses: Chest pain, unspecified - Provider Notifications Discussed Care Of Patient With: Danica Dunn Time Discussed With Above Provider: 12:35 Instructed by Provider To: Other - Consulted Dr. Dunn at 1235 about the patients case and he is looking at her EKG now. Discussed concern of persistent ST elevations but also seeing old Q waves from when she had an LA a week ago. Spoke with Dr. Dunn at 1307 in the ED who said that he believed they were residual changes. Consulted Dr. Gonzales about the patients case at 1315 and he recommended admission to hospitalist to r/o LA and possible stress test in the morning. Spoke with Dr. Ingram at 1330 who accepts the patient for admission. - Critical Care Time Critical Care Time: 30-74 min - 35 minutes Discharge - Sign-Out/Discharge Documenting (check all that apply): Patient Departure - admit Patient Received Moderate/Deep Sedation with Procedure: No - Discharge Plan Condition: Stable Disposition: ADMITTED TO [facility] Referrals: Kiera Rodriguez MD [Primary Care Provider] - - Attestation Statements Document Initiated by Scribe: Yes Documenting Scribe: Sergio Funez Provider For Whom Scribe is Documenting (Include Credential): Power Oscar MD Scribe Attestation: ISergio, scribed for Power Oscar MD on 12/26/18 at 1437. Status of Scribe Document: Ready
[2018-12-26 12:47] LABS: ABS Basophils 0.1 10^3/ul (0-0.2); ABS Eosinophils 0.2 10^3/ul (0-0.6); ABS Lymphocytes 4.3 10^3/ul (1.0-4.8); ABS Monocytes 0.8 10^3/ul (0-0.8); ABS Neutrophils 6.1 10^3/ul (1.5-7.7); ABS Nucleated RBC 0 10^3/ul; Eosinophil % 1.5 %; Hematocrit 38 % (33-41); Hemoglobin 12.8 g/dL (12.0-16.0); Lymphocyte % 37.5 %; Mean Corpuscular HGB Conc 34 g/dL (31-36); Mean Corpuscular Hemoglobin 29 pg (27-31); Mean Corpuscular Volume 87 fL (80-97); Nucleated Red Blood Cells % 0; Platelet Count 368 10^3/uL (150-450); Red Blood Count 4.34 10^6 /uL (3.70-4.87); Red Cell Distribution Width 14 % (10.5-15); White Blood Count 11.4 10^3/uL (3.5-10.8)
--- OUTSIDE RECORDS SUMMARY | 2018-12-26 13:00 | XMS REPORT | Continuity of Care Document ---
:1955 External Reference #:[id number] Demographics Phone Unavailable Preferred Language Unknown Marital Status Unknown Jehovah'S Witness Affiliation Unknown Race Unknown Ethnic Group Unknown Author Name Latha Quezada Care Team Providers Name Role Phone Gary Mcrae M.D., [facility], [facility] Care Team Information Inbound Call Center Agent Unavailable Payers Description No Information Available Advance Directives Description No Information Available Problems Description No Information Family History Description No Information Available Social History Type Date Description Comments Sex Unknown Allergies, Adverse Reactions, Alerts Description No Information Medications Description No Information Immunizations Description No Information Available Vital Signs Description No Information Available Results Description No Information Available Procedures Description No Information Available Encounters Description No Information Available Plan of Treatment No Information Available
--- OUTSIDE RECORDS SUMMARY | 2018-12-26 13:00 | XMS REPORT | Continuity of Care Document ---
:1955 External Reference #:[id number] Author Name Latha Quezada Care Team Providers Name Role Phone Uriel Brewster III, MD Primary Care Physician Unavailable Payers Date Identification Numbers Payment Provider Subscriber Policy Number: [id number] Medicare Blue P[employer] PayID: [id number] [address] [address] [place] [address] Advance Directives Description No Information Available Problems Description No Information Family History Description No Information Available Social History Type Date Description Comments Sex Unknown Allergies, Adverse Reactions, Alerts Description No Information Medications Description No Information Immunizations Description No Information Available Vital Signs Description No Information Available Results Description No Information Available Procedures Date Code Description Status 12/23/2018 43385 Echocardiogram, Limited Study Completed 12/20/2018 96563 ECHO Transthorasic Realtime 2D W Doppler & Color Flow Hosp Completed 12/19/2018 83658 Left Heart Cath. Incl S/I Coronaries, Angio S/I V Gram If Completed Done 12/19/2018 40672 Revascularization Acute Total/Subtotal Occlusion Completed Encounters Type Date Location Provider Dx Diagnosis Office Visit 12/19/2018 [facility] Gary Mcrae, R07.9 Chest pain, 9:54a Of [facility] AT [facility] Michelle, FACC, unspecified FSCAI R94.31 Abnormal electrocardiogram [ECG] [EKG] I21.02 Stemi involving left anterior descending coronary artery I25.10 Athscl heart disease of [place] coronary artery w/o ang pctrs Plan of Treatment Future Appointment(s):01/10/2019 10:00 am - Eugenio Sexton DO FACC at [facility]01/20/2019 11:40 am - Jeison Rhoeds MD at [place] [facility]12/27/2018 3:40 pm - Danica Dunn MD, FACC, FSCAI at [facility]01/05/2019 1:20 pm - Uriel Brewster M.D. at [facility] Internal Medicine
--- OUTSIDE RECORDS SUMMARY | 2018-12-26 13:00 | XMS REPORT | Continuity of Care Document ---
:1955 External Reference #:[id number] Author Name Latha Quezada Care Team Providers Name Role Phone Uriel Brewster III, MD Primary Care Physician Unavailable Payers Date Identification Numbers Payment Provider Subscriber Policy Number: [id number] Medicare Blue P[employer] PayID: [id number] [address] [address] [place] [address] Advance Directives Description No Information Available Problems Description No Information Family History Description No Information Available Social History Type Date Description Comments Sex Unknown Allergies, Adverse Reactions, Alerts Description No Information Medications Description No Information Immunizations Description No Information Available Vital Signs Description No Information Available Results Description No Information Available Procedures Date Code Description Status 12/20/2018 36984 ECHO Transthorasic Realtime 2D W Doppler & Color Flow Hosp Completed 12/19/2018 40641 Left Heart Cath. Incl S/I Coronaries, Angio S/I V Gram If Completed Done 12/19/2018 14791 Revascularization Acute Total/Subtotal Occlusion Completed Encounters Description No Information Available Plan of Treatment Future Appointment(s):12/27/2018 3:40 pm - Danica Dunn MD, FACC, [facility] at [facility] AT [facility]01/05/2019 1:20 pm - Uriel Brewster M.D. at [facility] Internal Medicine [facility]
--- OUTSIDE RECORDS SUMMARY | 2018-12-26 13:00 | XMS REPORT | Continuity of Care Document ---
:1955 External Reference #:[id number] Author Name Latha Quezada Care Team Providers Name Role Phone Uriel Brewster III, MD Primary Care Physician Unavailable Payers Date Identification Numbers Payment Provider Subscriber Policy Number: [id number] Medicare Blue P[employer] [employer] PayID: [id number] [address] [address] [place] [address] Advance Directives Description No Information Available Problems Description No Information Family History Description No Information Available Social History Type Date Description Comments Sex Unknown Allergies, Adverse Reactions, Alerts Description No Information Medications Description No Information Immunizations Description No Information Available Vital Signs Description No Information Available Results Description No Information Available Procedures Date Code Description Status 12/20/2018 71436 ECHO Transthorasic Realtime 2D W Doppler & Color Flow Hosp Completed 12/19/2018 68919 Left Heart Cath. Incl S/I Coronaries, Angio S/I V Gram If Completed Done 12/19/2018 89522 Revascularization Acute Total/Subtotal Occlusion Completed Encounters Type Date Location Provider Dx Diagnosis Office Visit 12/19/2018 [facility] Gary Mcrae, R07.9 Chest pain, 9:54a Of [facility] AT [facility] Michelle, FACC, unspecified FSCAI R94.31 Abnormal electrocardiogram [ECG] [EKG] I21.02 Stemi involving left anterior descending coronary artery I25.10 Athscl heart disease of [place] coronary artery w/o ang pctrs Plan of Treatment Future Appointment(s):01/10/2019 10:00 am - Eugenio Sexton DO FACC at [facility]01/20/2019 11:40 am - Jeison Rhodes MD at [place] [facility]12/27/2018 3:40 pm - Danica Dunn MD, FACC, FSCAI at [facility]01/05/2019 1:20 pm - Uriel Brewster M.D. at [facility] Internal Medicine [facility]
--- OUTSIDE RECORDS SUMMARY | 2018-12-26 13:00 | XMS REPORT | Continuity of Care Document ---
:1955 External Reference #:[id number] Author Name Latha Quezada Care Team Providers Name Role Phone Uriel Brewster III, MD Primary Care Physician Unavailable Payers Date Identification Numbers Payment Provider Subscriber Policy Number: [id number] Medicare Blue P[employer] [place] [employer] PayID: [id number] [address] [address] [place] [address] Advance Directives Description No Information Available Problems Description No Information Family History Description No Information Available Social History Type Date Description Comments Sex Unknown Allergies, Adverse Reactions, Alerts Description No Information Medications Description No Information Immunizations Description No Information Available Vital Signs Description No Information Available Results Description No Information Available Procedures Date Code Description Status 12/20/2018 31030 ECHO Transthorasic Realtime 2D W Doppler & Color Flow Hosp Completed 12/19/2018 42585 Left Heart Cath. Incl S/I Coronaries, Angio S/I V Gram If Completed Done 12/19/2018 61905 Revascularization Acute Total/Subtotal Occlusion Completed Encounters Description No Information Available Plan of Treatment Future Appointment(s):12/27/2018 3:40 pm - Danica Dunn MD, FACC, [facility] [place] [facility] AT [facility]01/05/2019 1:20 pm - Uriel Brewster M.D. at [facility] Internal Medicine [facility]
--- OUTSIDE RECORDS SUMMARY | 2018-12-26 13:00 | XMS REPORT | Continuity of Care Document ---
:1955 External Reference #:[id number] Author Name Latha Quezada Care Team Providers Name Role Phone Uriel Brewster III, MD Primary Care Physician Unavailable Payers Date Identification Numbers Payment Provider Subscriber Policy Number: [id number] Medicare Blue Ppo [employer] [employer] PayID: [id number] [address] [address] [place] [address] Advance Directives Description No Information Available Problems Description No Information Family History Description No Information Available Social History Type Date Description Comments Sex Unknown Allergies, Adverse Reactions, Alerts Description No Information Medications Description No Information Immunizations Description No Information Available Vital Signs Description No Information Available Results Description No Information Available Procedures Date Code Description Status 12/20/2018 32188 ECHO Transthorasic Realtime 2D W Doppler & Color Flow Hosp Completed 12/19/2018 84933 Left Heart Cath. Incl S/I Coronaries, Angio S/I V Gram If Completed Done 12/19/2018 67543 Revascularization Acute Total/Subtotal Occlusion Completed Encounters Type Date Location Provider Dx Diagnosis Office Visit 12/19/2018 [facility] Gary Mcrae, R07.9 Chest pain, 9:54a Of [facility] AT [facility] Michelle, FACC, unspecified FSCAI R94.31 Abnormal electrocardiogram [ECG] [EKG] I21.02 Stemi involving left anterior descending coronary artery I25.10 Athscl heart disease of [place] coronary artery w/o ang pctrs Plan of Treatment Future Appointment(s):01/10/2019 10:00 am - Eugenio Sexton DO FACC at [facility]01/20/2019 11:40 am - Jeison Rhodes MD at [place] [facility]12/27/2018 3:40 pm - Danica Dunn MD, FACC, FSCAI at [facility]01/05/2019 1:20 pm - Uriel Brewster M.D. at [facility] Internal Medicine [facility]
--- OUTSIDE RECORDS SUMMARY | 2018-12-26 13:00 | XMS REPORT | Continuity of Care Document ---
:1955 External Reference #:[id number] Author Name Latha Quezada Care Team Providers Name Role Phone Uriel Brewster III, MD Primary Care Physician Unavailable Payers Date Identification Numbers Payment Provider Subscriber Policy Number: [id number] Medicare Blue Ppo [employer] [employer] PayID: [id number] [address] [address] [place] [address] Advance Directives Description No Information Available Problems Description No Information Family History Description No Information Available Social History Type Date Description Comments Sex Unknown Allergies, Adverse Reactions, Alerts Description No Information Medications Description No Information Immunizations Description No Information Available Vital Signs Description No Information Available Results Description No Information Available Procedures Date Code Description Status 12/20/2018 58435 ECHO Transthorasic Realtime 2D W Doppler & Color Flow Hosp Completed 12/19/2018 80518 Left Heart Cath. Incl S/I Coronaries, Angio S/I V Gram If Completed Done 12/19/2018 77258 Revascularization Acute Total/Subtotal Occlusion Completed Encounters Type Date Location Provider Dx Diagnosis Office Visit 12/19/2018 [facility] Gary Mcrae, R07.9 Chest pain, 9:54a Of [facility] AT [facility] Michelle, FACC, unspecified FSCAI R94.31 Abnormal electrocardiogram [ECG] [EKG] I21.02 Stemi involving left anterior descending coronary artery I25.10 Athscl heart disease of [place] coronary artery w/o ang pctrs Plan of Treatment Future Appointment(s):01/10/2019 10:00 am - Eugenio Sexton DO FACC at [facility]01/20/2019 11:40 am - Jeison Rhodes MD at [place] [facility]12/27/2018 3:40 pm - Danica Dunn MD, FACC, FSCAI at [facility]01/05/2019 1:20 pm - Uriel Brewster M.D. at [facility] Internal Medicine [facility]
--- OUTSIDE RECORDS SUMMARY | 2018-12-26 13:00 | XMS REPORT | Continuity of Care Document ---
:1955 External Reference #:[id number] Author Name Latha Quezada Care Team Providers Name Role Phone Uriel Brewster III, MD Primary Care Physician Unavailable Payers Date Identification Numbers Payment Provider Subscriber Policy Number: [id number] Medicare Blue Ppo [employer] [employer] PayID: [id number] [address] [address] [place] [address] Advance Directives Description No Information Available Problems Description No Information Family History Description No Information Available Social History Type Date Description Comments Sex Unknown Allergies, Adverse Reactions, Alerts Description No Information Medications Description No Information Immunizations Description No Information Available Vital Signs Description No Information Available Results Description No Information Available Procedures Date Code Description Status 12/20/2018 67544 ECHO Transthorasic Realtime 2D W Doppler & Color Flow Hosp Completed 12/19/2018 02063 Left Heart Cath. Incl S/I Coronaries, Angio S/I V Gram If Completed Done 12/19/2018 20603 Revascularization Acute Total/Subtotal Occlusion Completed Encounters Type Date Location Provider Dx Diagnosis Office Visit 12/19/2018 [facility] Gary Mcrae, R07.9 Chest pain, 9:54a Of [facility] AT [facility] Michelle, FACC, unspecified FSCAI R94.31 Abnormal electrocardiogram [ECG] [EKG] I21.02 Stemi involving left anterior descending coronary artery I25.10 Athscl heart disease of [place] coronary artery w/o ang pctrs Plan of Treatment Future Appointment(s):01/10/2019 10:00 am - Eugenio Sexton DO FACC at [facility]01/20/2019 11:40 am - Jeison Rhodes MD at [place] [facility]12/27/2018 3:40 pm - Danica Dunn MD, FACC, FSCAI at [place] [facility]01/05/2019 1:20 pm - Uriel Brewster M.D. at [facility] Internal Medicine [facility]
--- OUTSIDE RECORDS SUMMARY | 2018-12-26 13:00 | XMS REPORT | Continuity of Care Document ---
:1955 External Reference #:[id number] Demographics Phone Unavailable Preferred Language Unknown Marital Status Unknown Mandaen Affiliation Unknown Race Unknown Ethnic Group Unknown Author Name Latha Quezada Care Team Providers Name Role Phone Gary Mcrae M.D., [facility], [facility] Care Team Information Baseball Inspector Unavailable Payers Description No Information Available Advance [...]
--- OUTSIDE RECORDS SUMMARY | 2018-12-26 13:00 | XMS REPORT | Continuity of Care Document ---
:1955 External Reference #:[id number] Author Name Latha Quezada Care Team Providers Name Role Phone Uriel Brewster III, MD Primary Care Physician Unavailable Payers Date Identification Numbers Payment Provider Subscriber Policy Number: [id number] Medicare Blue Ppo Oneida Martini PayID: [id number] [address] [address] [place] [address] Advance Directives Description No Information Available Problems Description No Information Family History Description No Information Available Social History Type Date Description Comments Sex Unknown Allergies, Adverse Reactions, Alerts Description No Information Medications Description No Information Immunizations Description No Information Available Vital Signs Description No Information Available Results Description No Information Available Procedures Date Code Description Status 12/20/2018 18843 ECHO Transthorasic Realtime 2D W Doppler & Color Flow Hosp Completed 12/19/2018 90451 Left Heart Cath. Incl S/I Coronaries, Angio S/I V Gram If Completed Done 12/19/2018 32333 Revascularization Acute Total/Subtotal Occlusion Completed Encounters Type Date Location Provider Dx Diagnosis Office Visit 12/19/2018 [facility] Gary Mcrae, R07.9 Chest pain, 9:54a Of [facility] Michelle, FACC, unspecified FSCAI R94.31 Abnormal electrocardiogram [ECG] [EKG] I21.02 Stemi involving left anterior descending coronary artery I25.10 Athscl heart disease of [place] coronary artery w/o ang pctrs Plan of Treatment Future Appointment(s):01/10/2019 10:00 am - Eugenio Sexton DO FACC at [facility]01/20/2019 11:40 am - Jeison Rhodes MD at [facility]12/27/2018 3:40 pm - Danica Dunn MD, FACC, FSCAI at [facility]01/05/2019 1:20 pm - Uriel Brewster M.D. at [facility]
[2018-12-26 13:05] LABS: Albumin 3.7 g/dL (3.2-5.2); Albumin/Globulin Ratio 1.2 (1-3); BUN/Creatinine Ratio 15.9 (8-20); Calcium 9.3 mg/dL (8.6-10.3); EGFR African American 114.8 (>60); EGFR Non-African American 94.8 (>60); Globulin 3.1 g/dL (2-4); Potassium 4.1 mmol/L (3.5-5.0); Total Bilirubin 0.4 mg/dL (0.2-1.0); Total Protein 6.8 g/dL (6.4-8.9)
[2018-12-26 13:08] LABS: Troponin I 0.84 ng/mL (<0.04)
[2018-12-26] MEDS ORDERED: Iodixanol* (CONTRAST) 320 MG/ML 100 ML SDV IV ONE (13:14)
[2018-12-26] MEDS ORDERED: Nitro 2% OINT* (Nitroglycerin) 1 INCH/PAK PAK TOPICAL ONE ×2 (13:44→13:55)
[2018-12-26] MEDS ORDERED: Acetaminophen TAB* 325 MG PO PRN (14:40)
[2018-12-26] MEDS ORDERED: Insulin GLARGINE(*) 1 UNITS UNIT SUBCUT SCH (15:00)
[2018-12-26] MEDS ORDERED: metFORMIN* 500 MG TAB PO SCH (17:00)
[2018-12-26] MEDS ORDERED: traZODone TAB* 100 MG PO SCH (18:00)
--- NOTE | 2018-12-26 18:27 | HP ---
ADMISSION HISTORY AND PHYSICAL: DATE OF ADMISSION: 12/26/18 PRIMARY CARE PROVIDER: Dr. Brewster. TIME SIGNAL WIRER: Dr. Sexton. ELECTROENCEPHALOGRAM TECHNOLOGIST: Dr. Rhodes. HEALTHCARE PROXY: Miracle Ortega, her daughter. CODE STATUS: Full. SOURCE OF INFORMATION: History obtained from interview with the patient, her , review of past medical records. RELIABILITY: Good. CHIEF COMPLAINT: Chest pain. HISTORY OF PRESENT ILLNESS: A 63-year-old female, past medical history includes recent anterior STEMI on 12/19/18, discharged on 12/24/18, status post intervention of her mid LAD with hospital stay complicated by refractory chest pain, status post CT angio to rule out dissection, which was negative. Hospital stay also complicated by altered mental status for which she received brain MRI, identification of punctate lesions, not thought to correlate with her symptoms as well as uncontrolled diabetes. The patient returned home 2 days prior to presentation, thought she was feeling well. Yesterday, the day prior to presentation, again was feeling well, did start smoking cigarettes, again smoked 6 cigarettes down from 2 packs per day prior to her presentation; however, otherwise, felt "normal " moving around with a walker, walking to the kitchen without chest pain or shortness of breath. Today, she woke at 8 a.m., did not feel well, said she had heaviness in her chest that progressively got worse until about 10 a.m. when she decided to get out of the bed. Described it as heaviness mostly on the left as if she could "feel my heart." It radiated to the right, not associated with diaphoresis, nausea, vomiting, lightheadedness, palpitations, but was associated with shortness of breath. She spoke to coding tech's office , who activated EMS, was brought to [facility] via ambulance. The pain lasted approximately 6 hours, relieved approximately 2 p.m. prior to this author meeting her with sublingual nitroglycerin as well as nitroglycerin patch. The patient indicates that she took all of her home medications upon returning home as well as took them all this morning. Compared to during her hospital stay, the patient reports that the discomfort she experiences today was similar but less intense overall than the continued chest pain she had experienced in the hospital prior to her discharge. In the emergency room, her troponins were noted to be elevated; however, downtrending from her previous visit. Hospitalist service consulted for admission. PAST MEDICAL HISTORY: Includes insulin-dependent diabetes mellitus; CAD, status post mid LAD stents on 12/19/18; history of COPD; hypertension; anxiety; tobacco abuse. MEDICATIONS: Home medications from discharge include: 1. Venlafaxine extended release 225 mg daily. 2. Calcium carbonate 1 tab daily. 3. Metformin 1500 mg in the evening. 4. Glipizide XL 10 mg daily. 5. Lisinopril 2.5 mg daily. 6. Glargine 24 units daily. 7. Brilinta 90 mg twice daily. 8. Nicotine patch topically daily. 9. Metoprolol succinate 25 mg daily. 10. Trazodone 200 mg in the evening. 11. Aspirin 81 mg daily. 12. Atorvastatin 80 mg in the evening. 13. Cholecalciferol 400 units daily. ALLERGIES: To AMOXICILLIN, AMPICILLIN, CLAVULANIC ACID, PENICILLIN, AZITHROMYCIN, ERYTHROMYCIN BASE, SULFAMETHOXAZOLE, TRIMETHOPRIM, CETIRIZINE, DOXYCYCLINE, TETRACYCLINE, and DAIRY. FAMILY HISTORY: Notable for prostate cancer in her father and schizophrenia. SOCIAL HISTORY: Many years 2 packs per day, smoked 6 cigarettes yesterday. No alcohol. REVIEW OF SYSTEMS: As per HPI. Otherwise, all other systems negative. PHYSICAL EXAMINATION GENERAL: Sitting up in bed, interactive, pleasant, in no apparent distress. VITAL SIGNS: In the emergency room 122/72, heart rate 72, respiratory rate 16, 100% on room air, 97.5 T-max. HEENT: Oropharynx is clear. She has moist mucous membranes. Sclerae are anicteric. LUNGS: Clear to auscultation with some trace rales in the bases. HEART: She has soft 2/6 systolic ejection murmur. ABDOMEN: Soft. She has mild tenderness in upper and lower quadrants on the right. EXTREMITIES: Warm and well perfused. Without clubbing, cyanosis, or edema. She has a right groin access site with hematoma, though no bruit. NEURO: She is alert and oriented x3. Her cranial nerves II through XII are intact. DIAGNOSTIC STUDIES/LAB DATA: Labs reviewed, notable for troponin I 0.84. D- dimer 419. White blood cell count is 11.4. Data reviewed, EKG: ST elevation, elevated V2, was so on V3, Q waves anteriorly , V2, V3. Chest x-ray: No active cardiopulmonary disease is noted. ASSESSMENT AND PLAN: This is a 63-year-old female with coronary artery disease , recent ST-segment elevation myocardial infarction approximately 7 days prior with hospital stay complicated by chest pain, presenting with recurrent chest pain that is less severe than during her hospital stay. 1. Chest pain in the setting of recent ST-segment elevation myocardial infarction. Warrants observational stay. Trend troponins and EKG. EKG performed now, unchanged from presentation. Continue all home medications. Cardiology consult. 2. Insulin-dependent type 2 diabetes mellitus. Fingerstick glucose a.c., h.s. as well as continue home medications. 3. Abdominal pain. The patient did indicate some constipation. Her abdomen is soft. We will check 2 views of her abdomen for evaluation now. 4. Tobacco abuse. Counseled cessation. Continue patch. 5. DVT prophylaxis. Heparin subcu. [id number]/[facility] #: [id number] MTDD
[2018-12-26] MEDS: Ticagrelor* 90 MG TAB PO SCH (20:24)
[2018-12-26] MEDS: Heparin VIAL(*) 5000 UNITS/ML VIAL (FIVE THOUSAND) SUBCUT SCH (20:26)
[2018-12-26] MEDS ORDERED: Atorvastatin* 80 MG TAB PO SCH (21:00)
[2018-12-27] MEDS: Heparin VIAL(*) 5000 UNITS/ML VIAL (FIVE THOUSAND) SUBCUT SCH (05:03)
[2018-12-27] MEDS ORDERED: Nicotine PATCH 21 MG/24 HR* PATCH TRANSDERM SCH (08:00)
[2018-12-27 08:36] LABS: Hematocrit 36 % (33-41); Hemoglobin 12.4 g/dL (12.0-16.0); Mean Corpuscular HGB Conc 34 g/dL (31-36); Mean Corpuscular Hemoglobin 30 pg (27-31); Mean Corpuscular Volume 88 fL (80-97); Mean Platelet Volume 7.9 fL (7.4-10.4); Platelet Count 372 10^3/uL (150-450); Red Blood Count 4.09 10^6 /uL (3.70-4.87); Red Cell Distribution Width 14 % (10.5-15); White Blood Count 9.3 10^3/uL (3.5-10.8)
[2018-12-27 08:56] LABS: BUN/Creatinine Ratio 16.9 (8-20); Calcium 9.1 mg/dL (8.6-10.3); EGFR African American 110.7 (>60); EGFR Non-African American 91.5 (>60); Potassium 4.1 mmol/L (3.5-5.0)
[2018-12-27] MEDS ORDERED: glipiZIDE TAB.XL* 5 MG PO SCH (09:00)
[2018-12-27] MEDS ORDERED: Aspirin 81 mg CHEW TAB* 81 MG TAB.CHEW PO SCH (09:00)
[2018-12-27] MEDS ORDERED: Insulin GLARGINE(*) 1 UNITS UNIT SUBCUT SCH (09:00)
[2018-12-27] MEDS ORDERED: Metoprolol Succinate XL TAB* 25 MG PO SCH (09:00)
[2018-12-27] MEDS ORDERED: Venlafaxine EXT RELEASE CAP* 75 MG PO SCH (09:00)
[2018-12-27] MEDS ORDERED: Lisinopril TAB* 5 MG PO SCH (09:00)
[2018-12-27] MEDS ORDERED: Cholecalciferol TAB* 400 UNIT PO SCH (09:00)
[2018-12-27 09:12] VITALS: BP 102/59
[2018-12-27] MEDS: Ticagrelor* 90 MG TAB PO SCH (09:22)
--- NOTE | 2018-12-27 12:19 | CONS ---
CC: Dr. Uriel Brewster* CONSULTATION REPORT: DATE OF CONSULT: 12/27/18. ATTENDING PHYSICIAN: Lance Gonzales MD* (dictated by Tristen Vázquez NP). PRIMARY PHYSICIAN: Uriel Brewster MD. PRIMARY RISK CONSULTING TREASURY DIRECTOR: Eugenio Sexton DO. PRIMARY SUPERVISOR CONCRETE STONE FABRICATING: Jeison Rhodes MD. CHIEF COMPLAINT: Substernal chest pressure. HISTORY OF PRESENT ILLNESS: This is a pleasant 63-year-old female patient who follows now with Dr. Eugenio Sexton of our practice, who suffered a late presenting anterior STEMI on 10/21/18. At that time, she underwent successful drug-eluting stent with 3.5 x 20 mm long Synergy stent to proximal LAD. She has known residual 40% to 50% lesion in the mid LAD region. Her hospitalization was complicated by withdrawal from her antidepressant medication in addition to incidental finding of new punctate area of the right occipital lobe. Dr. Rodriguez, Neurology, actually evaluated the patient during the hospitalization and felt that symptomatology was not consistent with new imaging abnormality. She was discharged home on 12/24/18. She has been compliant with LifeVest therapy and states that she has been taking all her cardiac medications. She does admit to still smoking tobacco products; however , she states that she has cut back. Apparently, she had been doing well. The visiting nurse visited her on Wednesday and she states that she was not having any complaints of symptoms. Yesterday on 12/26/18, she woke up at 8 o'clock in the morning with substernal chest pain, described as pressure like in nature radiating across her left and right breast. She states that symptoms were ongoing. They were worse with palpation, not related to exertion, not related to inspiration or movement. She called our office and was instructed to call 911. While she presented to [facility], she was given sublingual nitroglycerin with no relief of symptoms. However, after administration of nitroglycerin patch, apparently chest pressure resolved around 1 p.m. yesterday with no reoccurrence. She states that this discomfort was different than that as when she had a heart attack on 12/19/18. She denies dizziness, palpitations , sensation of heart racing. No increased shortness of breath, dyspnea on exertion, orthopnea, pedal edema, abdominal distention, fever, chills, nausea, vomiting. She states she has otherwise been in her usual state of health since discharge on 12/24/18. She was supposed to follow up with Dr. Danica Dunn today at 3:20 p.m. for a groin check and assessment of medication compliance. She has a followup appointment with Dr. Eugenio Sexton on 01/10/19, and she is to see new primary physician Dr. Uriel Brewster on 01/05/19. Last echocardiogram on 12/19/18, LVEF 25% to 30% with moderate LVH. There were multiple regional wall motion abnormalities. There was moderate to severely decreased left ventricular systolic function. The apical inferior wall segment was akinetic. The mid anteroseptal, mid anterior, mid anterolateral, apical septal, apical anterior, and apical lateral wall segments were hypokinetic. There was trace tricuspid regurgitation, trace mitral regurgitation. Ascending aorta was not aneurysmal. Last ischemic evaluation via left heart catheterization was on 12/19/18 due to late presenting anterior STEMI. At that time, left main was widely patent. LAD proximal 95% to 99% lesion identified with residual 40% to 50% mid LAD stenosis per Dr. Lance Gonzales with whom I personally reviewed the films today. Left circumflex was a nondominant vessel supplying a thin first and second obtuse marginal with moderate to large size, bifurcating, low-lying obtuse marginal branch. Right coronary artery was a dominant vessel supplying the PDA and 3 posterior left ventricular branches. There was mild luminal irregularity seen throughout the proximal mid portion with areas of 30% to 35% narrowing, perhaps the most significant degree of narrowing was in its mid segment at 35% to 40%. At that time, the patient underwent successful drug-eluting stent with 3.5 x 20 mm long Synergy stent to proximal LAD. PAST MEDICAL HISTORY: Includes: 1. Coronary artery disease. 2. Ischemic cardiomyopathy. 3. Severe LV dysfunction. 4. Ongoing tobacco abuse. 5. Type 2 diabetes. 6. History of depression. 7. History of COPD. 8. History of hypertension. 9. Hyperlipidemia. PAST SURGICAL HISTORY: Includes drug-eluting stent to proximal LAD, 12/19/18. MEDICATIONS: Home medications include: 1. Aspirin 81 mg p.o. daily. 2. Lipitor 80 mg p.o. q.h.s. 3. Glipizide 10 mg a day. 4. Venlafaxine 225 mg a day. 5. Trazodone 200 mg p.o. q.h.s. 6. Brilinta 90 mg p.o. b.i.d. 7. Metoprolol 25 mg a day. 8. Metformin 1500 mg p.o. daily. 9. Lisinopril 2.5 mg a day. 10. Lantus 24 units subcutaneously at 0900 daily. ALLERGIES: Include AMOXICILLIN, AMPICILLIN, AUGMENTIN, PENICILLIN, AZITHROMYCIN , ERYTHROMYCIN BASE, CETIRIZINE, DOXYCYCLINE, TETRACYCLINE, and dairy. FAMILY HISTORY: Noncontributory. SOCIAL HISTORY: The patient is , lives at home with her . She is unemployed. Consumes half pack of cigarettes a day for the last 30+ years. Denies alcohol abuse. Denies drug use. REVIEW OF SYSTEMS: All systems have been reviewed and otherwise negative except what is mentioned in the HPI. PHYSICAL EXAMINATION: Current vital signs: Temperature 98.1, pulse 71, respirations 17, oxygenation 98% on room air, blood pressure 102/59. General: The patient was sitting on the edge of the bed upon entering the room, offers no complaints, appears in no apparent distress, cooperative with examination, daughter is at bedside. HEENT: Head is atraumatic, normocephalic. Oral mucosa is moist. Tongue is midline. Neck: Supple. Trachea midline. No JVD. No carotid bruits. Cardiac: Normal S1, S2. Regular rate and rhythm. No murmur , gallop, or rub noted. Lungs: Auscultated posteriorly, clear throughout upon auscultation. She does have a harsh cough noted. /GI: Abdomen is soft, nontender, nondistended with normoactive bowel sounds x4. Extremities: Right groin catheter site is intact. There is a small area of ecchymosis noted. No hematoma with palpation. No clubbing, no cyanosis appreciated. Peripheral vascular: 2+ brachial and dorsalis pedis pulse palpated bilaterally and symmetrically. Skin: Intact. There is a small area of ecchymosis noted in the right groin site. Otherwise, no other abnormalities seen. DIAGNOSTIC STUDIES/LAB DATA: Blood work on 12/27/18, sodium 137, potassium 4.1 , chloride 104, carbon dioxide 27, BUN 11, creatinine 0.65. Troponins peaked at presentation at 0.84 consistent with recent infarct, has continued to go on a downward trajectory since it peaked at 34.47 on 12/19/18. White count is 9.3 , hemoglobin 12.4, hematocrit 36, platelets 372. D-dimer was elevated. The patient underwent a CTA of chest on 12/26/18, which was negative for PE; however, there was an incidental finding of a 0.8 cm pleural-based right upper lobe nodule. According to radiology recommendations, they suggested followup noncontrast CT of the chest in 6 months' time. ECG on 12/26/18 at 1223 demonstrated normal sinus rhythm, rate 73 with known right bundle-branch block. There is presence of anterior Q waves in V1 through V3 consistent with recent infarct on 12/19/18. The patient's anterior leads, specifically in V2 through V5 has minimal ST segment elevation; however, this is consistent with all of her prior ECGs since she had the infarct on 12/19/18 and continues to improve. Chest x-ray on 12/26/18 did not reveal active cardiopulmonary disease per radiology report. ASSESSMENT AND PLAN: 1. Complains of atypical greater than typical chest pain, reproducible with palpation, not the patient's anginal equivalent, occurred at rest at 0800 on 10/15 and lasted until 1 p.m. Apparently, it did not improve with administration of sublingual nitroglycerin; however, it did resolve with administration of transdermal nitroglycerin patch with no reoccurrence. Cardiac enzyme elevation is consistent with recent STEMI on 12/19/18. In fact, troponin continued on a downward trajectory since it peaked at 34.46 on . Please note it takes 14 days for troponin to normalize, thus elevation consistent with recent infarct. The patient has a known residual 40% to 50% lesion involving the mid LAD, which Dr. Lance Gonzales personally reviewed via angiogram from 12/19/18. At this current time, we will discontinue nitrates given the patient's known relative hypotension. There is no evidence of ST elevation to suggest in-stent thrombosis. Thus, we will have the patient receive her morning medications, ambulate the halls and likely sign off case. The patient will need to follow up with primary commercial development manager Dr. Eugenio Sexton as directed on 01/10/19. She is to continue aspirin 81 mg a day, Brilinta 90 mg p.o. b.i.d., metoprolol 25 mg a day, and high intensity statin therapy. She reports compliance with medications. 2. History of ischemic cardiomyopathy. LVEF is 25% to 30%. She is compliant with LifeVest and compliant with lisinopril and metoprolol therapy. Unfortunately, given relative hypotension, I am unable to up-titrate heart failure medication regimen at this time. She is compensated on exam. 3. History of coronary artery disease. On aspirin, statin, beta-blockade, Brilinta therapy. 4. Incidental 0.8 cm right upper lobe nodule identified on CTA chest on . Deferred to hospitalist; however, the patient should follow up with her new primary care provider, Dr. Uriel Brewster for repeat evaluation in 6 months' time per radiology recommendations. 5. History of hyperlipidemia. LDL 117 last week upon presentation with anterior STEMI. Goal is less than 70 given history of now coronary artery disease. She is to have repeat labs in 5 to 6 weeks, [facility] 6. Disposition: Pending course. The patient is full code. Dr. Lance Gonzales has personally reviewed the patient's angiogram films. Has seen and examined the patient. Agrees with the above assessment and plan. Thank you for this kind consultation. Any future questions or concerns, please do not hesitate to contact our practice. TRISTEN VÁZQUEZ NP [id number]/[facility] #: [id number] BERTO
--- NOTE | 2018-12-28 00:35 | DS ---
CC: Dr. Brewster; Dr. Sexton * DISCHARGE SUMMARY: DATE OF ADMISSION: 12/26/18 DATE OF DISCHARGE: 12/27/18 PROVIDER: KO Carter ATTENDING PHYSICIAN: Dr. Anna Ramires * (dictated by KO Carter). PRIMARY CARE PROVIDER: Dr. Brewster. ESCROW CLERK: Dr. Sexton. PRIMARY DIAGNOSIS: Chest pain, noncardiac. SECONDARY DIAGNOSES: 1. Coronary artery disease, status post stent on 12/19/18. 2. Diabetes mellitus type 2. 3. Chronic obstructive pulmonary disease. 4. Hypertension. 5. Anxiety. 6. Tobacco use disorder. CONSULTS: Cardiology with Radha Vázquez NP. STUDIES: EKG on 12/27/18: Normal sinus rhythm, rate [address] elevation approximately 1 mm in V2, V4, V5. ST elevation approximately 2 mm in V3. No additional T wave changes. ST elevations smaller compared to EKG on 12/23/18. The study on 12/27/[address] depressions that are present on the study on 12/23/18. Chest CTA on 12/26/18, impression: No evidence for pulmonary embolism. 0.8 cm pleural based right upper lobe nodule, recommended a followup non-contrast CT of the chest in 6 months' time to demonstrate stability. Emphysema. Abdominal x-ray on 12/26/18, impression: "No abdominal or pelvic pathological process evident." DISCHARGE MEDICATIONS: 1. Nicotine patch 21 mg per 24 hours one patch transdermally daily q.a.m. Continued Home Medications: 1. Venlafaxine 225 mg p.o. daily. 2. Calcium carbonate/vitamin D3 tablet one tablet p.o. daily. 3. Metformin 1500 mg p.o. q.1700. 4. Glipizide 10 mg p.o. daily. 5. Lisinopril 2.5 mg p.o. daily. 6. Lantus 24 units subcu daily. 7. Brilinta 90 mg p.o. b.i.d. 8. Metoprolol succinate 25 mg p.o. daily. 9. Trazodone 200 mg p.o. every evening. 10. Aspirin 81 mg p.o. daily. 11. Lipitor 80 mg p.o. every evening. 12. Nitroglycerin 0.4 mg sublingually p.r.n. chest pain. 13. Vitamin D 400 units p.o. daily. HISTORY OF PRESENT ILLNESS/HOSPITAL COURSE: The patient is a 63-year-old white female with past medical history for STEMI on 12/19/18, status post stent, diabetes mellitus type 2, COPD, hypertension, anxiety, tobacco use disorder, who presented to the emergency room on 12/26/18 complaining of chest heaviness that progressively got worse over the course of 2 hours. She also experienced radiation of her pain to the right side of her chest. It is of note that the patient was discharged on 12/24/18 from the hospital following a hospitalization for her STEMI complicated by refractory chest pain. Her troponins were trended which initially were 0.84 and later 0.80 x2. Cardiology was consulted. Her home medications for CAD were continued including metoprolol , daily aspirin, lisinopril, Lipitor. An additional EKG was performed which was unchanged from her presentation to the emergency department. Cardiology assessed the patient on 12/27/18 and compared her chest CTA on admission to her previous CTA on 12/19/18. Her lesion in the mid LAD was unchanged per Dr. Gonzales , as discussed with Radha Vázquez NP. Cardiology is comfortable with discharge of the patient today. Cardiology does note that her troponins elevated to 0.84 which then decreased to 0.8 x2 is consistent with her STEMI, with troponins that peaked to 34.46 on 12/19/18. During her stay, her home aspirin, metoprolol , lisinopril, and Lipitor were continued and her Brilinta was continued. The patient is already fit with a LifeVest. Regarding chronic management for diabetes mellitus type 2, her home medications were continued including her glipizide, insulin, and metformin. Regarding treatment of her anxiety and depression, her home Effexor was continued during her stay. Regarding her tobacco use disorder, a nicotine patch was provided. The patient has been trying to decrease her tobacco use. At time of visit today, the patient is without chest pain, shortness of breath, dyspnea, nausea, vomiting, fever, chills. The patient has no complaints at the time of visit. The patient had constipation complaint on day of admission and this was resolved on day of discharge and abdominal x-ray did not have any pathologic findings. REVIEW OF SYSTEMS: An 11-point review of systems was completed and pertinent positives and negatives are described. The patient's daughter confirmed that she does have an appointment setup with her new PCP, Dr. Brewster, and her new scientific informatics leader, Dr. Sexton. PHYSICAL EXAMINATION: General: White female appearing older than stated age, sitting upright on side of bed, appearing in no acute distress, daughter at bedside. Head: Normocephalic, atraumatic. ENT: Mucous membranes moist. Neck : No JVD. Cardio: Regular rate and rhythm without murmurs, rubs or gallops. Respiratory: Lungs are clear to auscultation throughout. Respirations are symmetrical. Abdomen: Abdomen is soft, nontender, nondistended. Extremities: No clubbing or edema. Neuro: Cranial nerves II through XII are grossly intact. The patient is alert and oriented x3. DISCHARGE PLAN: Diet: Low-cholesterol, low-fat, carb consistent. Activity: The patient to return to normal activity as tolerated. The patient has an appointment with her new PCP on 01/05/19. The patient also has an appointment with her new scientific informatics leader, Dr. Sexton, on 01/10/19. She does plan to make an appointment with a new escapement matcher to help control her diabetes mellitus type 2. The patient's chest pain from 12/26/18 is unlikely to be of cardiac etiology as per explanation of Cardiology with CTA without new occlusion compared to CTA from prior admission on 12/19/18. The patient is to continue her home medications of nitroglycerin prn, Brilinta, metoprolol, Lipitor, and lisinopril. It is likely that her chest pain is related to anxiety. It is recommended the patient follow up the stability of anxiety with her PCP. It is also recommended that her PCP obtain additional CT of chest in 6 months to evaluate the incidental lung nodule that was found on CTA. Additionally, the patient is to continue her home medications for treatment of her anxiety with Effexor. The patient is also to continue her home medications for treatment of her diabetes with metformin, glipizide, and insulin. The patient is interested in smoking cessation and a prescription for nicotine patch was provided at discharge. The patient agrees to be compliant with her LifeVest as per recommendation of Cardiology. She understands to return to the emergency department if she is experiencing chest pain, especially if associated with shortness of breath, radiation to jaw, neck, or arms. A prescription for nicotine patch was provided to assist the patient in smoking cessation. CONDITION ON DISCHARGE: Stable. TIME SPENT: Approximately 45 minutes was spent on this discharge, approximately half of this time was spent at bedside. KO CARTER [id number]/CPS #: [id number] MTDJennifer
== END 2018-12-27 12:27 | disposition home or self-care (01) ==
LOC: ED 12:18 → MEDTELE 14:40
PROVIDERS: ADMIT Internal Medicine; ATTEND Internal Medicine
DX: R07.9 Chest pain, unspecified (principal); I25.10 Atherosclerotic heart disease of native coronary artery without angina pectoris; J44.9 Chronic obstructive pulmonary disease, unspecified; E11.9 Type 2 diabetes mellitus without complications; Z95.5 Presence of coronary angioplasty implant and graft; I10 Essential (primary) hypertension; F17.210 Nicotine dependence, cigarettes, uncomplicated; Z79.82 Long term (current) use of aspirin; I25.5 Ischemic cardiomyopathy; E78.5 Hyperlipidemia, unspecified; I50.1 Left ventricular failure, unspecified; Z88.0 Allergy status to penicillin; Z79.899 Other long term (current) drug therapy
CPT/HCPCS: 36415; 71045; 71275; 74019; 80048; 80053; 83605; 84484; 85025; 85027; 85379; 93005; 96372; 99284; 99406; A9270-GY; G0378; J1644; Q9967

== ENCOUNTER 2019-01-04 17:36 | Emergency (ER) | payer MEDICARE ==
--- NOTE | 2019-01-04 18:04 | ED ---
HPI Chest Pain - HPI Summary HPI Summary: Pt is a 63 y/o F presenting to the ED with a chief complaint of chest pain described as stabbing onset 1300. Its very fleeting, but it happens roughly every hour, and she is usually at rest at onset. She has also been severely fatigued and short of breath the past couple of days, and she called her topographical field assistant who recommended taking an NTG at 1600. She had an MS about two weeks ago which she had a cardiac stent placed for, and has hx of smoking, diabetes, HTN, and COPD. She denies nausea, vomiting, and diaphoresis. - History of Current Complaint Chief Complaint: EDChestPainROMI Time Seen by Provider: 01/04/19 17:52 Hx Obtained From: Patient Onset/Duration: Started Days Ago, Resolved Timing: Intermittent, Lasting Seconds Initial Severity: Severe Current Severity: None Pain Intensity: 0 Pain Scale Used: 0-10 Numeric Chest Pain Location: Left Anterior Chest Pain Radiates: No Character: Sharp/Stabbing Aggravating Factor(s): Nothing Alleviating Factor(s): Nothing Associated Signs and Symptoms: Positive: Chest Pain, Shortness of Breath, Other : - fatigue. Negative: Lightheadedness, Nausea, Vomiting - Additional Pertinent History Primary Care Physician: [id number] - Allergy/Home Medications Allergies/Adverse Reactions: Allergies Allergy/AdvReac Type Severity Reaction Status Date / Time amoxicillin Allergy Severe Anaphylatic Verified 12/19/18 16:54 Shock ampicillin Allergy Severe Anaphylatic Verified 12/19/18 16:54 Shock clavulanic acid Allergy Severe Anaphylatic Verified 12/19/18 16:54 Shock Penicillins Allergy Severe Anaphylatic Verified 12/19/18 16:54 Shock azithromycin Allergy Intermediate Hives Verified 12/19/18 16:54 erythromycin base Allergy Intermediate Hives Verified 12/19/18 16:54 sulfamethoxazole Allergy Intermediate Rash Verified 12/20/18 15:27 [From ] trimethoprim [From ] Allergy Intermediate Rash Verified 12/20/18 15:27 cetirizine Allergy Unknown Unknown Verified 12/19/18 16:54 Reaction Details doxycycline Allergy Unknown Unknown Verified 12/19/18 16:54 Reaction Details Tetracyclines Allergy Unknown Unknown Verified 12/19/18 16:54 Reaction Details dairy Allergy Mild Congestion Uncoded 09/28/14 08:42 PMH/Surg Hx/FS Hx/Imm Hx Previously Healthy: No Endocrine/Hematology History: Reports: Hx Diabetes Cardiovascular History: Reports: Hx Hypertension, Hx Myocardial Infarction Respiratory History: Reports: Hx Chronic Obstructive Pulmonary Disease (COPD) History: Denies: Hx Dialysis, Hx Renal Disease Sensory History: Reports: Hx Contacts or Glasses Denies: Hx Hearing Aid Opthamlomology History: Reports: Hx Contacts or Glasses - Cancer History Hx Chemotherapy: No Hx Radiation Therapy: No - Surgical History Surgery Procedure, Year, and Place: Right knee surgery injury repair - Immunization History Date of Influenza Vaccine: no Infectious Disease History: No - Family History Known Family History: Positive: Hypertension - Social History Alcohol Use: None Substance Use Type: Reports: None Substance Use Comment - Amount & Last Used: four bottles of soda daily Hx Tobacco Use: Yes Smoking Status (MU): Heavy Every Day Tobacco Smoker Type: Cigarettes Amount Used/How Often: 6-7 cigs/day Length of Time of Smoking/Using Tobacco: 40 years Have You Smoked in the Last Year: Yes Review of Systems Positive: Fatigue. Negative: Skin Diaphoresis Positive: Chest Pain Positive: Shortness Of Breath Negative: Vomiting, Nausea All Other Systems Reviewed And Are Negative: Yes Physical Exam - Summary Physical Exam Summary: Appearance: Well-appearing, Well-nourished, lying in bed comfortably Skin: Warm, dry, no obvious rash Eyes: sclera anicteric, no conjunctival pallor ENT: mucous membranes moist, pharynx appears normal Neck: Supple, nontender Respiratory: Clear to auscultation, no signs of respiratory distress Cardiovascular: Normal S1, S2. No murmurs. Normal distal pulses in tibial and radial bilaterally. Abdomen: Soft, nontender, normal active bowel sounds present Musculoskeletal: Normal, Strength/ROM Intact Neurological: A&Ox3, awake and alert, mentation is normal, speech is fluent and appropriate Psychiatric: affect is normal, does not appear anxious or depressed Triage Information Reviewed: Yes Vital Signs On Initial Exam: Initial Vitals Temp Pulse Resp BP Pulse Ox 97.9 F 68 20 111/73 97 01/04/19 17:39 01/04/19 17:39 01/04/19 17:39 01/04/19 17:39 01/04/19 17:39 Vital Signs Reviewed: Yes Diagnostics - Vital Signs Vital Signs Temp Pulse Resp BP Pulse Ox 01/04/19 17:39 97.9 F 68 20 111/73 97 - Laboratory Result Diagrams: 01/04/19 17:50 01/04/19 18:08 Lab Statement: Any lab studies that have been ordered have been reviewed, and results considered in the medical decision making process. - EKG 1740 Cardiac Rate: NL - 69bpm EKG Rhythm: Sinus Rhythm ST Segment: Normal Ectopy: None EKG Comparison: No Significant Change - from 12/27/18 Summary of EKG Findings: RBBB. Anterior infarct, age indeterminate. No STEMI. Chest Pain Course/Dx - Course Course Of Treatment: Pt is a 63 y/o F presenting to the ED with a chief complaint of chest pain described as stabbing onset 1300. Its very fleeting, but it happens roughly every hour, and she is usually at rest at onset. She reports shortness of breath, severe fatigue, and recent MS which she had a stent placed for. She denies nausea, vomiting, and diaphoresis. An EKG at 1740 shows NSR 69bpm with RBBB, anterior infarct, age indeterminate, but no STEMI. The pt will be signed out to Dr. Parsons at shift change pending second troponin results. - Diagnoses Provider Diagnoses: Chest pain Discharge - Sign-Out/Discharge Documenting (check all that apply): Sign-Out Patient Signing out patient TO: Max Parsons - Discharge Plan Condition: Stable Referrals: Uriel Brewster MD [Primary Care Provider] - - Attestation Statements Document Initiated by Scribe: Yes Documenting Scribe: Rubina Ibrahim Provider For Whom Scribe is Documenting (Include Credential): Alexis Tinajero MD. Scribe Attestation: Rubina Esposito, chavaed for Alexis Tinajero MD. on 01/04/19 at 1909. Status of Scribe Document: Ready
[2019-01-04 18:14] LABS: ABS Basophils 0.1 10^3/ul (0-0.2); ABS Eosinophils 0.1 10^3/ul (0-0.6); ABS Lymphocytes 4.4 10^3/ul (1.0-4.8); ABS Monocytes 0.8 10^3/ul (0-0.8); ABS Neutrophils 4.1 10^3/ul (1.5-7.7); ABS Nucleated RBC 0 10^3/ul; Eosinophil % 1.3 %; Hematocrit 37 % (33-41); Hemoglobin 12.4 g/dL (12.0-16.0); Lymphocyte % 46.1 %; Mean Corpuscular HGB Conc 34 g/dL (31-36); Mean Corpuscular Hemoglobin 30 pg (27-31); Mean Corpuscular Volume 88 fL (80-97); Mean Platelet Volume 7.8 fL (7.4-10.4); Nucleated Red Blood Cells % 0.1; Platelet Count 416 10^3/uL (150-450); Red Blood Count 4.18 10^6 /uL (3.70-4.87); Red Cell Distribution Width 14 % (10.5-15); White Blood Count 9.6 10^3/uL (3.5-10.8)
[2019-01-04 18:27] LABS: Albumin 3.8 g/dL (3.2-5.2); CO2 Carbon Dioxide 24 mmol/L (22-32); Calcium 9.1 mg/dL (8.6-10.3); Chloride 105 mmol/L (101-111); Sodium 135 mmol/L (135-145)
[2019-01-04 18:33] LABS: ALT 24 U/L (7-52); Albumin/Globulin Ratio 1.2 (1-3); Alkaline Phosphatase 97 U/L (34-104); BUN/Creatinine Ratio 20.8 (8-20); Blood Urea Nitrogen 15 mg/dL (6-24); EGFR African American 98.4 (>60); EGFR Non-African American 81.3 (>60); Globulin 3.1 g/dL (2-4); Glucose 104 mg/dL (70-100); Total Protein 6.9 g/dL (6.4-8.9)
[2019-01-04 18:34] LABS: Anion Gap 6 mmol/L (2-11); Troponin I 0.03 ng/mL (<0.04)
--- NOTE | 2019-01-04 19:10 | ED ---
Progress - Progress Note Progress Note: This patient was signed out from Dr. Tinajero to Dr. Parsons upon shift change at 19 :00 01/04/19 pending second troponin. Pt had no CP in the ED. She claims her pain was stabbing, quick lasting pain for 2 seconds. The patient said her pain is different from her MT last month. She had two negative troponins. Her EKG was negative for acute ischemia. The patient will be discharged and is agreeable with this plan. Re-Evaluation - Re-Evaluation First Eval Re-Evaluation Time: 21:34 Change: Improved Comment: Discussed results and plan for discharge with patient. Course/Dx - Course Course Of Treatment: This patient was signed out from Dr. Tinajero to Dr. Parsons upon shift change at 19:00 01/04/19 pending second troponin. Pt had no CP in the ED. She claims her pain was stabbing, quick lasting pain for 2 seconds. The patient said her pain is different from her MT last month. She had two negative troponins. Her EKG was negative for acute ischemia. The patient will be discharged and is agreeable with this plan. - Diagnoses Provider Diagnoses: Chest pain, atypical Discharge - Sign-Out/Discharge Documenting (check all that apply): Patient Departure - DC Patient Received Moderate/Deep Sedation with Procedure: No - Discharge Plan Condition: Stable Disposition: HOME Patient Education Materials: Chest Pain (DC) Referrals: Uriel Brewster MD [Primary Care Provider] - (1-3 days) Additional Instructions: PLEASE RETURN TO THE ED IMMEDIATELY FOR WORSENING OR CONCERNING SYMPTOMS. - Billing Disposition and Condition Condition: STABLE Disposition: Home - Attestation Statements Document Initiated by Lesia: Yes Documenting Scribe: Gary Clark Provider For Whom Lesia is Documenting (Include Credential): Max Parsons MD Scribe Attestation: Cate, Gary Clark, scribed for Max Parsons MD on 01/06/19 at 0556. Scribe Documentation Reviewed: Yes Provider Attestation: The documentation as recorded by the Gary angeles accurately reflects the service I personally performed and the decisions made by me, Max Parsons MD Status of Scribe Document: Viewed
[2019-01-04 21:48] VITALS: BP 114/73
== END 2019-01-04 21:47 | disposition home or self-care (01) ==
LOC: ED 17:36
DX: I21.9 Acute myocardial infarction, unspecified (principal); I10 Essential (primary) hypertension; E11.9 Type 2 diabetes mellitus without complications; J44.9 Chronic obstructive pulmonary disease, unspecified; Z87.891 Personal history of nicotine dependence
CPT/HCPCS: 36415; 80053; 83605; 84484; 85025; 93005; 99283

== ENCOUNTER 2019-02-12 17:00 | Emergency (ER) | payer MEDICARE ==
--- OUTSIDE RECORDS SUMMARY | 2019-02-12 17:29 | XMS REPORT | Continuity of Care Document ---
:1955 External Reference #:[id number] Author Name JorgeMarline mitchell Care Team Providers Name Role Phone Uriel Brewster III, MD Primary Care Physician Unavailable Payers Date Identification Numbers Payment Provider Subscriber Policy Number: [id number] Medicare Blue Ppo Oneida Martini PayID: [id number] [address] [address] [place] [address] Advance Directives Description No Information Available Problems Active Problems Provider Date Tobacco use Bob Rodriguez M.D. 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 Onset: 02/07/2019 Hyperlipidemia Bob Rodriguez M.D. Onset: 02/07/2019 Type II diabetes mellitus uncontrolled Bob Rodriguez M.D. Onset: 2018 History of cerebrovascular accident without Bob Rodriguez M.D. 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 day <2 ppd max Smoking Status Reviewed: 02/07/19 Patient is a current started at age smoker, smokes every 17--smokes 6 daily. day <2 ppd max Exercise Type/Frequency Exercises rarely Starting cardiac PT at the end of January 2019 Allergies, Adverse Reactions, Alerts Active Allergies Reaction Severity Comments Date Clindamycin 01/05/2019 Tetracycline Hydrochloride 01/05/2019 Vibramycin 01/05/2019 Zyrtec 01/05/2019 Zithromax 01/05/2019 Penicillins 01/05/2019 Augmentin 01/05/2019 Medications Active Medications SIG Qnty Indications Ordering Date Provider Freestyle Lite Test test blood sugar 100units Jeison Rhodes MD 01/20/2019 3 times daily Strips and as needed Freestyle Lancets 3 times daily 100units Jeison Rhodes MD 01/20/2019 Misc and as needed Steglatro 1 by mouth every 30tabs E11.65 Jeison Rhodes MD 01/20/2019 5mg Tablets day in the morning Lisinopril 1 by mouth every 90tabs Eugenio Sexton, 01/10/2019 5mg Tablets day DO FACC Venlafaxine HCL ER 3 tablets daily Unknown 225mg Tablets ER 24HR Lantus Solostar 24 units in the Jeison Rhodes MD am. 100Unit/ML Solution Pen-Inject Nitroglycerin Unknown 0.4mg Tablets Sub Vitamin D by mouth Unknown 1000Unit everyday Tablets Calcium 500 one by mouth Unknown twice a day [id number]-mg-Unit Tablets Trazodone HCL 2 every night at Unknown 100mg bedtime Tablets Nicotine Step 1 Unknown 21mg/24HR Patches 24HR Glipizide 1 by mouth every Unknown 10mg Tablets day Aspir-Low 1 by mouth every 90tabs Eugenio Sexton, 81mg Tablets day DO FACC DR Steven Moreno Blood ShelbySteven mcdonald, Glucose Monitoring MD System Device Freestyle Lite Test Will Matias Michelle wallis Strips Metformin HCL 1500 mg total ShelbySteven, 500mg daily MD Tablets Relion Pen [place] ShelbySteven mcdonald, 32G MD X 4 mm Misc Atorvastatin Calcium 1 by night every 90tabs Eugenio SSalty Sexton, night DO FACC 80mg Tablets Brilinta twice daily 180tabs Eugenio Sexton, 90mg Tablets DO FACC Metoprolol Succinate Take one tablet 180tabs Eugenio Rafaela Sexton, ER by mouth twice DO FACC 25mg Tablets ER 24HR daily History Medications Lisinopril 1 by mouth every Unknown - 2.5mg Tablets day 01/10/2019 Glimepiride Steven Murphy, - 2mg Tablets MD 01/04/2019 Losartan Potassium JorgerafaelLise - 50mg Tablets MEfraín 01/04/2019 Glipizide XL Unknown - 5mg Tablets ER 01/05/2019 24HR Lantus Solostar Unknown - 100Unit/ML 01/19/2019 Solution Pen-Inject Lisinopril Unknown - 5mg Tablets 01/05/2019 Metformin HCL Unknown - 500mg Tablets 01/05/2019 Nitroglycerin Unknown - 0.4mg Tablets Sub 01/04/2019 Trazodone HCL Steven Murphy, - 50mg Tablets 01/05/2019 Venlafaxine HCL ER Steven Murphy, - 75mg Caps ER 01/05/2019 24HR Montelukast Sodium Steven Murphy, - 10mg Tablets 01/05/2019 Fluticasone Propionate Laure Vazquez, - EMERGENCY MEDICAL SERVICE MANAGER 01/05/2019 50mcg/Act Suspension Immunizations CPT Code Status Date Vaccine Reaction Lot # [id number] Given 01/05/2019 Pneumococcal Conjugate shot tolerated well, no [id number] Vaccine 13 Valent For immediate reaction. Intramuscular Use Vital Signs Date Vital Result Comment 02/07/2019 8:06am Height 64 inches 5'4" Weight 146.00 lb Heart Rate 68 /min BP Systolic 118 mmHg BP Diastolic 70 mmHg BMI (Body Mass Index) 25.1 kg/m2 02/02/2019 1:10pm Height 64 inches 5'4" Weight 148.00 lb Heart Rate 66 /min BP Systolic Sitting 88 mmHg Rue reg cuff BP Diastolic Sitting 58 mmHg Rue reg cuff Respiratory Rate 18 /min O2 % BldC Oximetry 98 % On Ra BMI (Body Mass Index) 25.4 kg/m2 Neck Circumference in inches 15.75 01/20/2019 11:37am Height 64 inches 5'4" Weight 146.00 lb w/ shoes Heart Rate 81 /min BP Systolic Sitting 104 mmHg BP Diastolic Sitting 64 mmHg BMI (Body Mass Index) 25.1 kg/m2 01/10/2019 9:32am Height 64 inches 5'4" Weight 151.00 lb with shoes Heart Rate 90 /min BP Systolic Sitting 130 mmHg Rue reg cuff BP Diastolic Sitting 80 mmHg Rue reg cuff Respiratory Rate 18 /min BMI (Body Mass Index) 25.9 kg/m2 01/05/2019 1:26pm Height 64 inches 5'4" Weight 151.00 lb Heart Rate 89 /min BP Systolic Sitting 100 mmHg BP Diastolic Sitting 64 mmHg O2 % BldC Oximetry 98 % BMI (Body Mass Index) 25.9 kg/m2 Results Description No Information Available Procedures Date Code Description Status 01/10/2019 29140 EKG Tracing & Interpretation Completed 12/27/2018 90393 EKG, Interpretation Only Completed 12/26/2018 37452 EKG, Interpretation Only Completed 12/23/2018 87892 Echocardiogram, Limited Study Completed 12/23/2018 02822 EKG, Interpretation Only Completed 12/22/2018 34325 Echocardiogram, Limited Study Completed 12/22/2018 24389 EKG, Interpretation Only Completed 12/21/2018 44048 EKG, Interpretation Only Completed 12/20/2018 79770 ECHO Transthorasic Realtime 2D W Doppler & Color Flow Hosp Completed 12/20/2018 74566 EKG, Interpretation Only Completed 12/19/2018 67842 Left Heart Cath. 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 I50.22 Chronic systolic (congestive) heart failure E78.5 Hyperlipidemia, unspecified Office Visit 01/10/2019 10:00a [facility] Eugenio SSatly I50.22 Chronic systolic Of [facility] Darshan DO (congestive) heart FACC failure I25.5 Ischemic cardiomyopathy I25.10 Athscl heart disease of [place] coronary artery w/o ang pctrs I25.2 Old myocardial infarction Z72.0 Tobacco use R06.02 Shortness of breath R05 Cough F41.9 Anxiety disorder, unspecified E11.69 Type 2 diabetes mellitus with other specified complication I10 Essential (primary) hypertension E78.5 Hyperlipidemia, unspecified Office Visit 01/05/2019 1:20p [facility] Internal Uriel De La Rosa E11.9 Type 2 diabetes Medicine Michelle Brewster mellitus without complications I25.10 Athscl heart disease of [place] coronary artery w/o ang pctrs I25.5 Ischemic cardiomyopathy J43.2 Centrilobular emphysema Z23 Encounter for immunization Office Visit 12/27/2018 [facility] Latha R07.9 Chest pain, 11:41a Assoc,pc RICKIE Parrish unspecified Hospitalists Office Visit 12/26/2018 [facility] Bonifacio R07.9 Chest pain, 11:41a Assoc,yeni Ingram M.D. unspecified Hospitalists Office Visit 12/24/2018 [facility] Gary Mcrae, I21.02 Stemi involving 4:43p Of [facility] M.D., FACC, left anterior FSCAI descending coronary artery I25.10 Athscl heart disease of [place] coronary artery w/o ang pctrs Z98.61 Coronary angioplasty status Office Visit 12/23/2018 4:41p [facility] Gary Mcrae, I21.02 Stemi involving Of [facility] AT [facility].D., FACC, left anterior FSCAI descending coronary artery I25.10 Athscl heart disease of [place] coronary artery w/o ang pctrs Z98.61 Coronary angioplasty status I25.5 Ischemic cardiomyopathy H53.2 Diplopia R27.0 Ataxia, unspecified R41.82 Altered mental status, unspecified Office Visit 12/23/2018 11:43a [facility] Dora oGode, R07.89 Other chest Assoc,pc [place] pain Hospitalists I21.3 St elevation (Stemi) myocardial infarction of [facility] R26.9 Unspecified abnormalities of gait and mobility E11.69 Type 2 diabetes mellitus with other specified complication R55 Syncope and collapse Office Visit 12/22/2018 [facility] R26.81 Unsteadiness on 11:43a Assoc, nadya Mcelroy Hospitalists EMERGENCY MEDICAL SERVICE MANAGER I21.3 St elevation (Stemi) myocardial infarction of [facility] E11.9 Type 2 diabetes mellitus without complications F41.9 Anxiety disorder, unspecified R55 Syncope and collapse Office Visit 12/22/2018 9:59a [facility] Radha Vázquez, I21.02 Stemi involving Of [facility]grader AT [facility] EMERGENCY MEDICAL SERVICE MANAGER left anterior descending coronary artery I25.10 Athscl heart disease of [place] coronary artery w/o ang pctrs Z98.61 Coronary angioplasty status I25.5 Ischemic cardiomyopathy H53.2 Diplopia R27.0 Ataxia, unspecified R41.82 Altered mental status, unspecified Office Visit 12/22/2018 [facility] Mchugh Coch, E11.9 Type 2 diabetes 10:25a Endocrinology of MD mellitus without Regrader complications I21.02 Stemi involving left anterior descending coronary artery Office 12/21/2018 [facility] Bob R26.81 Unsteadiness on Visit 7:00a Isabela Rodriguez M.D. feet H53.2 Diplopia R45.86 Emotional lability Z71.6 Tobacco abuse counseling Office Visit 12/21/2018 [facility] R26.81 Unsteadiness on 11:43a Assoc, nadya Mcelroy Hospitalists EMERGENCY MEDICAL SERVICE MANAGER I21.02 Stemi involving left anterior descending coronary artery E11.9 Type 2 diabetes mellitus without complications F43.23 Adjustment disorder with mixed anxiety and depressed mood I10 Essential (primary) hypertension F17.200 Nicotine dependence, unspecified, uncomplicated R55 Syncope and collapse Office Visit 12/21/2018 4:18p [facility] Radha Vázquez, I21.02 Stemi involving Of [facility]grader AT [facility] EMERGENCY MEDICAL SERVICE MANAGER left anterior descending coronary artery I25.10 Athscl heart disease of [place] coronary artery w/o ang pctrs Z98.61 Coronary angioplasty status R51 Headache R26.9 Unspecified abnormalities of gait and mobility E78.5 Hyperlipidemia, unspecified I25.5 Ischemic cardiomyopathy Office Visit 12/20/2018 4:01p [facility] Radha Lozanoclay, I21.02 Stemi involving Of [facility] AT [facility] EMERGENCY MEDICAL SERVICE MANAGER left anterior descending coronary artery I25.5 Ischemic cardiomyopathy R45.86 Emotional lability E78.5 Hyperlipidemia, unspecified Office Visit 12/20/2018 11:42a [facility] Kadie I21.02 Stemi involving Assoc,pc Eduar Mayer, left anterior Hospitalists EMERGENCY MEDICAL SERVICE MANAGER descending coronary artery F17.200 Nicotine dependence, unspecified, uncomplicated I10 Essential (primary) hypertension E11.9 Type 2 diabetes mellitus without complications F43.23 Adjustment disorder with mixed anxiety and depressed mood R55 Syncope and collapse Office 12/20/2018 [facility] Bob R45.86 Emotional Visit 7:00a Isabela Rodriguez M.D. lability Office 12/19/2018 [facility] Jose Agrawal I21.02 Stemi involving Visit 11:42a Assoc,pc Hospitalists Michelle Coulter,FACP left anterior descending coronary artery R55 Syncope and collapse E11.9 Type 2 diabetes mellitus without complications R07.9 Chest pain, unspecified Office Visit 12/19/2018 9:54a [facility] Gary Mcrae, R07.9 Chest pain, Of [facility] AT [facility] M.Tanja, FACC, unspecified FSCAI R94.31 Abnormal electrocardiogram [ECG] [EKG] I21.02 Stemi involving left anterior descending coronary artery I25.10 Athscl heart disease of [place] coronary artery w/o ang pctrs Plan of Treatment Future Appointment(s):04/18/2019 9:40 am - Jeison Rhodes MD at [facility]05/10/2019 1:00 pm - Uriel Brewster M.D. at [facility] Internal Damjrvef95/14/2019 - Bob Rodriguez M.D.Z86.73 Personal history of transient ischemic attack (TIA), and cerFollow up:Follow up prnE11.65 Type 2 diabetes mellitus with fasrblbhwzikwL31.5 Hyperlipidemia, izuptqraxkuD10.10 Atherosclerotic heart disease of [place] coronary artery withI25.2 Old myocardial yquuccpvqcP45.0 Tobacco use
--- OUTSIDE RECORDS SUMMARY | 2019-02-12 17:29 | XMS REPORT | Continuity of Care Document ---
:1955 External Reference #:[id number] Author Name Covert, Karlene Care Team Providers Name Role Phone Uriel Brewster III, MD Primary Care Physician Unavailable Payers Date Identification Numbers Payment Provider Subscriber Policy Number: [id number] Medicare Blue o [place] Martini PayID: [id number] [address] [address] [place] [address] Advance Directives Description No Information Available Problems Description No Information Family History Description No Information Available Social History Type Date Description Comments Sex Unknown Marital Status Occupation Retired ETOH Use Denies alcohol use Tobacco Use Start: Unknown Patient is a current smoker, smokes every day Tobacco Use Start: Unknown Patient is a current started at age smoker, smokes every 17--smokes 6 daily. day <2 ppd max Smoking Status Reviewed: 01/20/19 Patient is a current started at age smoker, smokes every 17--smokes 6 daily. day <2 ppd max Exercise Type/Frequency Exercises rarely Allergies, Adverse Reactions, Alerts Active Allergies Reaction [...] one by mouth Unknown twice a day [phone]-mg-Unit Tablets Trazodone HCL 2 every night at Unknown 100mg bedtime Tablets Nicotine Step 1 Unknown 21mg/24HR Patches 24HR Glipizide 1 by mouth every Unknown 10mg Tablets day Aspir-Low 1 by mouth every 90tabs Eugenio Sexton, 81mg Tablets day DO FACC DR Steven Moreno Blood Steven Murphy, Glucose Monitoring MD System Device Freestyle Lite Test Will Matias Michelle wallis Strips Metformin HCL 1500 mg total MernaSteven mcdonald, 500mg daily MD Tablets Relion Pen [place] MernaSteven mcdonald, 32G X 4 mm Misc Atorvastatin Calcium 1 by night every 90tabs Eugenio Sexton, night DO FACC 80mg Tablets Brilinta twice daily 180tabs Eugenio Sexton, 90mg Tablets DO FACC Metoprolol Succinate Take one tablet 180tabs Eugenio Sexton, ER by mouth twice DO FACC 25mg Tablets ER 24HR daily History Medications Lisinopril 1 by mouth every Unknown - 2.5mg Tablets day 01/10/2019 Glimepiride Steven Murphy, - 2mg Tablets 01/04/2019 Losartan Potassium Lise Matias - 50mg Tablets , M.DSalty 01/04/2019 Glipizide XL Unknown - 5mg Tablets ER 01/05/2019 24HR Lantus Solostar Unknown - 100Unit/ML 01/19/2019 Solution Pen-Inject Lisinopril Unknown - 5mg Tablets 01/05/2019 Metformin HCL Unknown - 500mg Tablets 01/05/2019 Nitroglycerin Unknown - 0.4mg Tablets Sub 01/04/2019 Trazodone HCL MernaRonald mcdonaldew, - 50mg Tablets 01/05/2019 Venlafaxine HCL ER Merna Steven, - 75mg Caps ER MD 01/05/2019 24HR Montelukast Sodium MernaRonald mcdonaldew, - 10mg Tablets MD 01/05/2019 Fluticasone Propionate Laure Vazquez, - TOASTER ELEMENT REPAIRER 01/05/2019 50mcg/Act Suspension Immunizations CPT Code Status Date Vaccine Reaction Lot # [id number] Given 01/05/2019 Pneumococcal Conjugate shot tolerated well, no [id number] Vaccine 13 Valent For immediate reaction. Intramuscular Use Vital Signs Date Vital Result Comment 01/20/2019 11:37am Height 64 inches 5'4" Weight [...] Available Procedures Date Code Description Status 01/10/2019 49943 EKG Tracing & Interpretation Completed 12/23/2018 13855 Echocardiogram, Limited Study Completed 12/22/2018 28182 Echocardiogram, Limited Study Completed 12/20/2018 56730 ECHO Transthorasic Realtime 2D W Doppler & Color Flow Hosp Completed 12/19/2018 11664 Left Heart Cath. Incl S/I Coronaries, Angio S/I V Gram If Completed Done 12/19/2018 10439 Revascularization Acute Total/Subtotal Occlusion Completed Encounters Type Date Location Provider Dx Diagnosis Office Visit 01/10/2019 [facility] Eugenio JesúsSalty Sexton, I50.22 Chronic systolic 10:00a Of [facility] DO FACC (congestive) heart failure I25.5 Ischemic cardiomyopathy I25.10 Athscl heart disease of [place] coronary artery w/o ang pctrs I25.2 Old myocardial infarction Z72.0 Tobacco use R06.02 Shortness of breath R05 Cough F41.9 Anxiety disorder, unspecified E11.69 Type 2 diabetes mellitus with other specified complication I10 Essential (primary) hypertension E78.5 Hyperlipidemia, unspecified Office Visit 01/05/2019 1:20p [facility] Internal Uriel E. E11.9 Type 2 diabetes Dahiana Brewster M.D. mellitus without complications I25.10 Athscl heart disease of [place] coronary artery w/o ang pctrs I25.5 Ischemic cardiomyopathy J43.2 Centrilobular emphysema Z23 Encounter for immunization Office Visit 12/24/2018 4:43p [facility] Gary Mcrae, I21.02 Stemi involving Of Riddler Operator AT [facility].D., FAC, left anterior FSCAI descending coronary artery I25.10 Athscl heart disease of [place] coronary artery w/o ang pctrs Z98.61 Coronary angioplasty status Office Visit 12/23/2018 4:41p [facility] Gary Mcrae, I21.02 Stemi involving Of Riddler Operator AT [facility].D., FACC, left anterior FSCAI descending coronary artery I25.10 Athscl heart disease of [place] coronary artery w/o ang pctrs Z98.61 Coronary angioplasty status I25.5 Ischemic cardiomyopathy H53.2 Diplopia R27.0 Ataxia, unspecified R41.82 Altered mental status, unspecified Office Visit 12/22/2018 9:59a [facility] Radha Vázquez, I21.02 Stemi involving Of Riddler Operator AT [facility] TOASTER ELEMENT REPAIRER left anterior descending coronary artery I25.10 Athscl heart disease of [place] coronary artery w/o ang pctrs Z98.61 Coronary angioplasty status I25.5 Ischemic cardiomyopathy H53.2 Diplopia R27.0 Ataxia, unspecified R41.82 Altered mental status, unspecified Office Visit 12/22/2018 [facility] Mchugh Coch, E11.9 Type 2 diabetes 10:25a Endocrinology of MD mellitus without [facility] complications I21.02 Stemi involving left anterior descending coronary artery Office Visit 12/21/2018 [facility] Kadie R26.81 Unsteadiness on 11:43a Assoc,yeni Mayer, feet Hospitalists TOASTER ELEMENT REPAIRER I21.02 Stemi involving left anterior descending coronary artery E11.9 Type 2 diabetes mellitus without complications F43.23 Adjustment disorder with mixed anxiety and depressed mood I10 Essential (primary) hypertension F17.200 Nicotine dependence, unspecified, uncomplicated R55 Syncope and collapse Office Visit 12/21/2018 4:18p [facility] Radha Vázquez, I21.02 Stemi involving Of Riddler Operator AT [facility] TOASTER ELEMENT REPAIRER left anterior descending coronary artery I25.10 Athscl heart disease of [place] coronary artery w/o ang pctrs Z98.61 Coronary angioplasty status R51 Headache R26.9 Unspecified abnormalities of gait and mobility E78.5 Hyperlipidemia, unspecified I25.5 Ischemic cardiomyopathy Office Visit 12/20/2018 11:42a [facility] I21.02 Stemi involving Assoc,yeni Mayer, left anterior Hospitalists TOASTER ELEMENT REPAIRER descending coronary artery F17.200 Nicotine dependence, unspecified, uncomplicated I10 Essential (primary) hypertension E11.9 Type 2 diabetes mellitus without complications F43.23 Adjustment disorder with mixed anxiety and depressed mood R55 Syncope and collapse Office Visit 12/20/2018 4:01p [facility] Radha Vázquez, I21.02 Stemi involving Of Riddler Operator AT [facility] TOASTER ELEMENT REPAIRER left anterior descending coronary artery I25.5 Ischemic cardiomyopathy R45.86 Emotional lability E78.5 Hyperlipidemia, unspecified Office Visit 12/19/2018 [facility] Jose Agrawal I21.02 Stemi involving 11:42a Assocyeni M.D.,FACP left anterior Hospitalists descending coronary artery R55 Syncope and collapse E11.9 Type 2 diabetes mellitus without complications R07.9 Chest pain, unspecified Office Visit 12/19/2018 9:54a [facility] Gary Mcrae, R07.9 Chest pain, Of Riddler Operator AT [facility] Michelle, FACC, unspecified FSCAI R94.31 Abnormal electrocardiogram [ECG] [EKG] I21.02 Stemi involving left anterior descending coronary artery I25.10 Athscl heart disease of [place] coronary artery w/o ang pctrs Plan of Treatment Future Appointment(s):04/18/2019 9:40 am - Jeison Rhodes MD at [facility]02/07/2019 8:00 am - Bob Rodriguez M.D. at [facility]05/10/2019 1:00 pm - Uriel Brewster M.D. at [facility] Internal Giufryjr84/26/2019 - Jeison Rhodes MDE11.65 Type 2 diabetes mellitus with hyperglycemiaNew Medication:Steglatro 5 mg - 1 by mouth every day in the morningFollow up:3 monthsInstructions:1. Start Steglatro 5mg once daily in the morning for diabetes. 2. Continue your other medications. 3. Return in January for fasting blood tests. 4. Your LDL goal is 70 or less. 5. I recommend ezetimibe 10mg daily if cholesterol remains high. 6. Continue checking blood glucose in the morning. 7. Change Lantus to 24 units at bedtime. 8. Increase Lantus by 2 units every week until morning blood glucose is consistently less than 130mg/ dL.I50.22 Chronic systolic (congestive) heart ueweobzA95.0 Tobacco use
--- NOTE | 2019-02-12 18:10 | ED ---
Abdominal Pain/Female - HPI Summary HPI Summary: This patient is a 63 year old F presenting to [facility] accompanied by family with a chief complaint of sudden right flank pain radiating into the mid abdomen since 1600 this afternoon. Pain rated 5/10 in severity. Reports nausea. Denies urinary symptoms. Symptoms unchanged by movement. - History of Current Complaint Chief Complaint: EDFlankPain Stated Complaint: "ABD PAIN PER PT" Time Seen by Provider: 02/12/19 17:11 Hx Obtained From: Patient Onset/Duration: Sudden Onset, Lasting Hours Timing: Constant Severity Currently: Moderate Pain Intensity: 5 Pain Scale Used: 0-10 Numeric Location: Flank - right Radiates: Yes Radiates to: Other - abdomen Aggravating Factor(s): Nothing Alleviating Factor(s): Nothing Associated Signs and Symptoms: Positive: Nausea. Negative: Urinary Symptoms Allergies/Adverse Reactions: Allergies Allergy/AdvReac Type Severity Reaction Status Date / Time amoxicillin Allergy Severe Anaphylatic Verified 12/19/18 16:54 Shock ampicillin Allergy Severe Anaphylatic Verified 12/19/18 16:54 Shock clavulanic acid Allergy Severe Anaphylatic Verified 12/19/18 16:54 Shock Penicillins Allergy Severe Anaphylatic Verified 12/19/18 16:54 Shock azithromycin Allergy Intermediate Hives Verified 12/19/18 16:54 erythromycin base Allergy Intermediate Hives Verified 12/19/18 16:54 sulfamethoxazole Allergy Intermediate Rash Verified 12/20/18 15:27 [From ] trimethoprim [From ] Allergy Intermediate Rash Verified 12/20/18 15:27 cetirizine Allergy Unknown Unknown Verified 12/19/18 16:54 Reaction Details doxycycline Allergy Unknown Unknown Verified 12/19/18 16:54 Reaction Details Tetracyclines Allergy Unknown Unknown Verified 12/19/18 16:54 Reaction Details dairy Allergy Mild Congestion Uncoded 09/28/14 08:42 PMH/Surg Hx/FS Hx/Imm Hx Endocrine/Hematology History: Reports: Hx Diabetes Cardiovascular History: Reports: Hx Hypertension, Hx Myocardial Infarction Respiratory History: Reports: Hx Chronic Obstructive Pulmonary Disease (COPD) History: Denies: Hx Dialysis, Hx Renal Disease Sensory History: Reports: Hx Contacts or Glasses Denies: Hx Hearing Aid Opthamlomology History: Reports: Hx Contacts or Glasses - Cancer History Hx Chemotherapy: No Hx Radiation Therapy: No - Surgical History Surgery Procedure, Year, and Place: Right knee surgery injury repair - Immunization History Date of Influenza Vaccine: no Infectious Disease History: No Infectious Disease History: Denies: Traveled Outside the [place] in Last 30 Days - Family History Known Family History: Positive: Hypertension - Social History Alcohol Use: None Substance Use Type: Reports: None Substance Use Comment - Amount & Last Used: four bottles of soda daily Hx Tobacco Use: Yes Smoking Status (MU): Heavy Every Day Tobacco Smoker Type: Cigarettes Amount Used/How Often: 6-7 cigs/day Length of Time of Smoking/Using Tobacco: 40 years Have You Smoked in the Last Year: Yes Review of Systems Positive: Abdominal Pain, Nausea Positive: flank pain. Negative: dysuria All Other Systems Reviewed And Are Negative: Yes Physical Exam - Summary Physical Exam Summary: Appearance: The patient is well-nourished in no acute distress and in no acute pain. Skin: The skin is warm and dry and skin color reflects adequate perfusion. HEENT: The head is normocephalic and atraumatic. The pupils are equal and reactive. The conjunctivae are clear and without drainage. Nares are patent and without drainage. Mouth reveals moist mucous membranes and the throat is without erythema and exudate. The external ears are intact. The ear canals are patent and without drainage. The tympanic membranes are intact. Neck: The neck is supple with full range of motion and non-tender. There are no carotid bruits. There is no neck vein distension. Respiratory: Chest is non-tender. Lungs are clear to auscultation and breath sounds are symmetrical and equal. Cardiovascular: Heart is regular rate and rhythm. There is no murmur or rub auscultated. There is no peripheral edema and pulses are symmetrical and equal. Abdomen: The abdomen is soft and non-tender. There are normal bowel sounds heard in all four quadrants and there is no organomegaly palpated. Musculoskeletal: There is no back tenderness noted. Extremities are non-tender with full range of motion. There is good capillary refill. There is no peripheral edema or calf tenderness elicited. Neurological: Patient is alert and oriented to person, place and time. The patient has symmetrical motor strength in all four extremities. Cranial nerves are grossly intact. Deep tendon reflexes are symmetrical and equal in all four extremities. Psychiatric: The patient has an appropriate affect and does not exhibit any anxiety or depression Triage Information Reviewed: Yes Vital Signs On Initial Exam: Initial Vitals Temp Pulse Resp BP Pulse Ox 97.3 F 88 18 117/72 96 02/12/19 17:02 02/12/19 17:02 02/12/19 17:02 02/12/19 17:02 02/12/19 17:02 Vital Signs Reviewed: Yes Diagnostics - Vital Signs Vital Signs Temp Pulse Resp BP Pulse Ox 02/12/19 17:50 77 95 02/12/19 17:48 81 112/65 94 02/12/19 17:02 97.3 F 88 18 117/72 96 - Laboratory Result Diagrams: 02/12/19 18:41 02/12/19 18:41 Lab Statement: Any lab studies that have been ordered have been reviewed, and results considered in the medical decision making process. - Radiology CT A/P Radiology Interpretation Completed By: Radiologist Summary of Radiographic Findings: 1. Cholelithiasis. 2. Question of minimal nonspecific left colitis from the mid transverse colon. to the rectum. 3. Otherwise negative CT abdomen/pelvis. No renal or ureteral calculi are. evident and there is no evidence of obstructive uropathy. ED Physician has reviewed this report. - EKG 1841 Cardiac Rate: NL - 79 BPM EKG Rhythm: Sinus Rhythm EKG Comparison: No Significant Change - 01/04/19 Summary of EKG Findings: RBBB Abdominal Pain Fem Course/Dx - Course Course Of Treatment: Ms. Martini had sudden onset of right flank pain today. When I evaluated her, her exam was generally unremarkable, she was nontoxic in appearance and her vitals were stable. CT was obtained to rule out a kidney stone and was read as possible left sided colitis. Again the patient has right sided symptoms and she specifically denied any left sided symptoms after the CT scan. Her abdomen was soft and nontender on the left as well as the right. Patient was asked to give a urine sample however she was frustrated with the length of time that things are taking and apparently left without giving a urine sample. - Diagnoses Provider Diagnoses: Right flank pain Discharge - Sign-Out/Discharge Documenting (check all that apply): Patient Departure - eloped - Discharge Plan Condition: Stable Disposition: ELOPEMENT Referrals: Uriel Brewster MD [Primary Care Provider] - - Billing Disposition and Condition Condition: STABLE Disposition: Elopement - Attestation Statements Document Initiated by Scribe: Yes Documenting Scribe: Wendy Franco Provider For Whom Scribe is Documenting (Include Credential): Alexis Judd MD Scribe Attestation: I, Wendy Franco, scribed for Alexis Judd MD on 02/12/19 at 2126. Scribe Documentation Reviewed: Yes Provider Attestation: The documentation as recorded by the scribeWendy accurately reflects the service I personally performed and the decisions made by me, Alexis Judd MD Status of Scribe Document: Viewed
[2019-02-12 18:49] LABS: ABS Basophils 0.1 10^3/ul (0-0.2); ABS Eosinophils 0.2 10^3/ul (0-0.6); ABS Neutrophils 4.2 10^3/ul (1.5-7.7); Eosinophil % 1.6 %; Hematocrit 40 % (35-47); Hemoglobin 13.2 g/dL (12.0-16.0); Lymphocyte % 48.1 %; Mean Corpuscular HGB Conc 33 g/dL (31-36); Mean Corpuscular Hemoglobin 29 pg (27-31); Mean Corpuscular Volume 89 fL (80-97); Mean Platelet Volume 7.8 fL (7.4-10.4); Nucleated Red Blood Cells % 0.1; Platelet Count 252 10^3/uL (150-450); Red Blood Count 4.48 10^6 /uL (3.70-4.87); Red Cell Distribution Width 15 % (10.5-15); White Blood Count 10.4 10^3/uL (3.5-10.8)
[2019-02-12 19:06] LABS: Albumin/Globulin Ratio 1.6 (1-3); BUN/Creatinine Ratio 16.3 (8-20); C Reactive Protein 4.49 mg/L (<8.01); Calcium 10.3 mg/dL (8.6-10.3); EGFR African American 74.1 (>60); EGFR Non-African American 61.3 (>60); Globulin 2.5 g/dL (2-4); Total Bilirubin 0.3 mg/dL (0.2-1.0); Total Protein 6.5 g/dL (6.4-8.9)
[2019-02-12 19:11] LABS: Potassium 5.2 mmol/L (3.5-5.0)
[2019-02-12 20:39] VITALS: BP 108/72
== END 2019-02-12 21:06 | disposition home or self-care (01) ==
LOC: ED 17:00
DX: R10.9 Unspecified abdominal pain (principal); F17.210 Nicotine dependence, cigarettes, uncomplicated; E11.9 Type 2 diabetes mellitus without complications; I10 Essential (primary) hypertension; I25.2 Old myocardial infarction; J44.9 Chronic obstructive pulmonary disease, unspecified; K80.20 Calculus of gallbladder without cholecystitis without obstruction; Z88.0 Allergy status to penicillin; I45.10 Unspecified right bundle-branch block; Z79.4 Long term (current) use of insulin; Z79.82 Long term (current) use of aspirin
CPT/HCPCS: 36415; 74176; 80053; 85025; 86140; 93005; 99283

== ENCOUNTER 2019-03-28 11:03 | Emergency (ER) | payer MEDICARE ==
[2019-03-28] MEDS ORDERED: NS 0.9% 1000 ML** 1,000 ML IV ONE (11:19)
[2019-03-28] MEDS ORDERED: Ondansetron INJ* 2 MG/ML VIAL IV ONE (11:19)
[2019-03-28] MEDS ORDERED: Morphine 4 MG/ML VIAL (1 ml) 4 MG/ML VIAL IV ONE (11:19)
--- NOTE | 2019-03-28 11:20 | ED ---
Abdominal Pain/Female - HPI Summary HPI Summary: 64 year old F presenting [place] [facility] accompanied by daughter with a chief complaint of right sided flank pain radiating to her back, neck and abdomen since 1730 yesterday. The patient rates the pain 5/10 in severity. Symptoms aggravated by nothing. Symptoms alleviated by nothing. Patient reports nausea, decreased appetite. Patient has hx gallstones. Patient was seen in ED one month ago. She followed up with her primary care provider who informed her that she had gallstones. Patient additionally complains of chest pain described as pressure that began today. Patient has hx NE in November 2018. - History of Current Complaint Chief Complaint: EDAbdPain Stated Complaint: RT SIDE ABD PAIN PER PT Time Seen by Provider: 03/28/19 11:13 Hx Obtained From: Patient Onset/Duration: Lasting Hours - 1729 yesterday, Still Present Timing: Constant Severity Currently: Moderate Pain Intensity: 5 Pain Scale Used: 0-10 Numeric Location: Flank - right Radiates: Yes Radiates to: Back, Other - neck, abdomen Aggravating Factor(s): Nothing Alleviating Factor(s): Nothing Associated Signs and Symptoms: Positive: Decreased Appetite, Nausea, Other: - chest pain described as pressure that began today Allergies/Adverse Reactions: Allergies Allergy/AdvReac Type Severity Reaction Status Date / Time amoxicillin Allergy Severe Anaphylatic Verified 03/28/19 11:10 Shock ampicillin Allergy Severe Anaphylatic Verified 03/28/19 11:10 Shock clavulanic acid Allergy Severe Anaphylatic Verified 03/28/19 11:10 Shock Penicillins Allergy Severe Anaphylatic Verified 03/28/19 11:10 Shock azithromycin Allergy Intermediate Hives Verified 03/28/19 11:10 erythromycin base Allergy Intermediate Hives Verified 03/28/19 11:10 sulfamethoxazole Allergy Intermediate Rash Verified 03/28/19 11:10 [From ] trimethoprim [From ] Allergy Intermediate Rash Verified 03/28/19 11:10 cetirizine Allergy Unknown Unknown Verified 03/28/19 11:10 Reaction Details doxycycline Allergy Unknown Unknown Verified 03/28/19 11:10 Reaction Details Tetracyclines Allergy Unknown Unknown Verified 03/28/19 11:10 Reaction Details dairy Allergy Mild Congestion Uncoded 09/28/14 08:42 Home Medications: Home Medications Calcium Carbonate/Vitamin D3 [Calcium 500-Vit D3 200 Caplet] 1 tab PO BID [History Confirmed 03/28/19] Cholecalciferol TAB* [Vitamin D TAB*] 1,000 unit PO DAILY 03/28/19 [History Confirmed 03/28/19] Docusate CAP* [Colace Cap*] 100 mg PO QPM 03/28/19 [History Confirmed 03/28/19] Ertugliflozin Pidolate [Steglatro] 5 mg PO QAM 03/28/19 [History Confirmed 03/28] Insulin GLARGINE(*) [Lantus(*)] 24 units SUBCUT QPM 03/28/19 [History Confirmed 03/28/19] Lisinopril TAB* [Prinivil TAB 5 MG*] 5 mg PO DAILY 03/28/19 [History Confirmed 03/28/19] Metoprolol Succinate XL TAB* [Toprol XL TAB*] 25 mg PO BID 03/28/19 [History Confirmed 03/28/19] metFORMIN* [Glucophage 500 MG TAB *] 1,500 mg PO DAILY 03/28/19 [History Confirmed 03/28/19] traZODone TAB* [Desyrel TAB*] 200 mg PO BEDTIME 03/28/19 [History Confirmed 11/15] PMH/Surg Hx/FS Hx/Imm Hx Previously Healthy: No Endocrine/Hematology History: Reports: Hx Diabetes Cardiovascular History: Reports: Hx Hypertension, Hx Myocardial Infarction - November 2018 Respiratory History: Reports: Hx Chronic Obstructive Pulmonary Disease (COPD) History: Denies: Hx Dialysis, Hx Renal Disease Sensory History: Reports: Hx Contacts or Glasses Denies: Hx Hearing Aid Opthamlomology History: Reports: Hx Contacts or Glasses - Cancer History Hx Chemotherapy: No Hx Radiation Therapy: No - Surgical History Surgery Procedure, Year, and Place: Right knee surgery injury repair - Immunization History Date of Influenza Vaccine: no Infectious Disease History: No Infectious Disease History: Denies: Traveled Outside the [place] in Last 30 Days - Family History Known Family History: Positive: Hypertension - Social History Alcohol Use: None Hx Substance Use: No Substance Use Type: Reports: None Substance Use Comment - Amount & Last Used: four bottles of soda daily Hx Tobacco Use: Yes Smoking Status (MU): Heavy Every Day Tobacco Smoker Type: Cigarettes Amount Used/How Often: 6-7 cigs/day Length of Time of Smoking/Using Tobacco: 40 years Have You Smoked in the Last Year: Yes Review of Systems Positive: Chest Pain Positive: Nausea, Other - decreased appetite Positive: flank pain All Other Systems Reviewed And Are Negative: Yes Physical Exam - Summary Physical Exam Summary: VITAL SIGNS: Reviewed. GENERAL: Patient is a well-developed and nourished FEMALE who is lying comfortable in the stretcher. Patient is not in any acute respiratory distress. HEAD AND FACE: No signs of trauma. No ecchymosis, hematomas or skull depressions. No sinus tenderness. EYES: PERRLA, EOMI x 2, No injected conjunctiva, no nystagmus. EARS: Hearing grossly intact. Ear canals and tympanic membranes are within normal limits. MOUTH: Oropharynx within normal limits. NECK: Supple, trachea is midline, no adenopathy, no JVD, no carotid bruit, no c- spine tenderness, neck with full ROM. CHEST: Symmetric, no tenderness at palpation LUNGS: Clear to auscultation bilaterally. No wheezing or crackles. CVS: Regular rate and rhythm, S1 and S2 present, no murmurs or gallops appreciated. ABDOMEN: Soft, RUQ tenderness. No signs of distention. No rebound no guarding, and no masses palpated. Bowel sounds are normal. EXTREMITIES: FROM in all major joints, no edema, no cyanosis or clubbing. NEURO: Alert and oriented x 3. No acute neurological deficits. Speech is normal and follows commands. SKIN: Dry and warm. Triage Information Reviewed: Yes Vital Signs On Initial Exam: Initial Vitals Temp Pulse Resp BP Pulse Ox 98.8 F 91 16 135/83 98 03/28/19 11:05 03/28/19 11:05 03/28/19 11:05 03/28/19 11:05 03/28/19 11:05 Vital Signs Reviewed: Yes Diagnostics - Vital Signs Vital Signs Temp Pulse Resp BP Pulse Ox 03/28/19 11:05 98.8 F 91 16 135/83 98 - Laboratory Result Diagrams: 03/28/19 11:28 03/28/19 11:27 Lab Statement: Any lab studies that have been ordered have been reviewed, and results considered in the medical decision making process. - Radiology Chest x-ray Radiology Interpretation Completed By: Radiologist Summary of Radiographic Findings: NO ACTIVE CARDIOPULMONARY DISEASE. ED physician has reviewed this report. - EKG 1139 Cardiac Rate: NL - 78 BPM EKG Rhythm: Sinus Rhythm EKG Comparison: No Significant Change - 02/12/19 Summary of EKG Findings: Sinus rhythm [address] elevations. Right bundle branch block. No change compared to 02/12/19. - Additional Comments Diagnostic Additional Comments: US Gallbladder shows, per radiologist, CHOLELITHIASIS WITHOUT SONOGRAPHIC FEATURES OF ACUTE CHOLECYSTITIS. ED physician has reviewed this report. Abdominal Pain Fem Course/Dx - Course Course Of Treatment: 64 year old F presenting to [facility] accompanied by daughter with a chief complaint of right sided flank pain radiating to her back, neck and abdomen since 1729 yesterday. The patient rates the pain 5/10 in severity. Symptoms aggravated by nothing. Symptoms alleviated by nothing. Patient reports nausea, decreased appetite. Patient has hx gallstones. Patient was seen in ED one month ago. She followed up with her primary care provider who informed her that she had gallstones. Patient additionally complains of chest pain described as pressure that began today. Patient has hx NE in November 2018. Blood work without any significant abnormality except for WBCs of 11.4, glucose 226, magnesium 1.7, CRP of 9.74 and BNP 172. RUQ U/S IMPRESSION: CHOLELITHIASIS WITHOUT SONOGRAPHIC FEATURES OF ACUTE CHOLECYSTITIS. In the ED course the patient was given IV fluids, Zofran for nausea and vomiting morphine for pain. I discussed my physical exam findings and test results with Dr. Bermudez from surgery and after his assessment he reports that he is unable to do any surgery for the patient since the patient had an NE only 3 months ago. After the patient was given Zofran and morphine the patients symptoms have significantly improved. The second troponin is negative. Since the patient is feeling better , and the symptoms have subsided the patient will be discharged home with follow -up with primary care physician. Patient is hemodynamically stable alert oriented 3. I discussed all the findings and test results with the patient. Patient was instructed to return to the emergency room immediately if any of the symptoms return worsens. Plan of care was discussed with the patient and she understands and agrees. All questions were answered at patient satisfaction. There were no further complaints or concerns. Lung exam before discharge: CTA B/L. Good air exchange. No wheezing or crackles heard. CVS: S1 and S2 present. No murmurs appreciated. Patient is alert and oriented x 3. Patient is hemodynamically stable. Patient will be discharged home with follow up PCP in the next 2-3 days - Diagnoses Provider Diagnoses: Atypical chest pain, Cholelithiasis - Provider Notifications Discussed Care Of Patient With: Ortiz Bermudez Time Discussed With Above Provider: 13:43 Instructed by Provider To: Other - Dr. Bermudez, surgery, that patient is not candidate for surgergy because she had NE only 3 months ago. Even if patient has cholecystitis, she will have to be treated medically at this point with pain medications and antibiotics. Discharge - Sign-Out/Discharge Documenting (check all that apply): Patient Departure - Discharge Patient Received Moderate/Deep Sedation with Procedure: No - Discharge Plan Condition: Stable Disposition: HOME Prescriptions: HYDROcodone/ACETAMIN 5-325 MG* [Hood 5-325 TAB*] 1 tab PO Q6H PRN #10 tab MDD 4 PRN Reason: Pain Patient Education Materials: Chest Pain (ED), Gallstones (ED) Referrals: Uriel Brewster MD [Primary Care Provider] - 3 Days Additional Instructions: Follow up with your primary care provider in 3 days. Return to the Emergency Department for new or worsening symptoms. - Billing Disposition and Condition Condition: STABLE Disposition: Home - Attestation Statements Document Initiated by Scribe: Yes Documenting Scribe: Debbie Harp Provider For Whom Lesia is Documenting (Include Credential): Uriel Palmer MD Scribe Attestation: Debbie Esposito, scribed for Uriel Palmer MD on 03/29/19 at 2110. Scribe Documentation Reviewed: Yes Provider Attestation: The documentation as recorded by the Debbie angeles accurately reflects the service I personally performed and the decisions made by , Uriel Palmer MD Status of Scribe Document: Viewed
--- OUTSIDE RECORDS SUMMARY | 2019-03-28 11:32 | XMS REPORT | Continuity of Care Document ---
:1955 External Reference #:[id number] Author Name Ron Sr M.D. Address [address] [place] [address] Care Team Providers Name Role Phone Uriel Brewster MD Care Team Information International Sourcing Manager Unavailable Uriel Brewster MD Primary Care Physician Unavailable Payers Date Identification Numbers Payment Provider Subscriber Effective: Policy Number: [id number] [employer] Oneida Martini 2019 Advntg PayID: [id number] 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 1-5 Cigarettes Daily Tobacco Use Start: Unknown Never Smoked Cigars Tobacco Use Start: Unknown Never Smoked A Pipe Smokeless Tobacco Never Used Smokeless Tobacco ETOH Use Denies alcohol use Tobacco Use Start: Unknown Patient is a current smoker, smokes every day Smoking Status Reviewed: 03/05/19 Patient is a current smoker, smokes every day Allergies, Adverse Reactions, Alerts Active Allergies Reaction Severity Comments Date Symbicort itching 01/24/2019 Zithromax rash/hives 01/24/2019 Penicillin rash/hives 01/24/2019 Zyrtec 01/24/2019 Tetracycline 01/24/2019 Vibramycin 01/24/2019 Ampicillin 01/24/2019 Augmentin itching/tongue cash 01/24/2019 Ceptra 01/24/2019 Medications Active Medications SIG Qnty Indications Ordering Date Provider Terrence Cedeno inhale 1 puff by 90units R05 Ron Shaw 03/06/2019 mouth daily. Remberto, 200-25mcg/Inh Aerosol M.D. Spiriva Respimat inhale 2 puffs by 12gm R05 Ron Shaw 03/06/2019 mouth daily Remberto, 1.25mcg/Act Aerosol M.D. Mupirocin apply to inside of 22gm J34.81 Ron Shaw 01/24/2019 2% Ointment nose twice a day Michelle Sr Allergy 1 at bedtime Unknown 25mg Tablets Vitamin D3 1 by mouth every Unknown 1000Unit day Capsules Stelatro 5 MG daily Unknown Calcium as directed Unknown Trazodone HCL 4 PO QHS Unknown 100mg Tablets Nicotine Step 1 as directed Unknown 21mg/24HR Patches 24HR Venlafaxine HCL ER 1 by mouth every Unknown day 225mg Tablets ER 24HR Metoprolol Succinate bid Unknown ER 25mg Tablets ER 24HR Metformin HCL ER 3 tabs po daily Unknown (Mod) 500mg Tablets ER 24HR Lisinopril 1 by mouth every Unknown 2.5mg day Tablets Lantus 24 units Q24H Unknown 100Unit/ML Solution Glipizide daily Unknown 10mg Tablets Atorvastatin Calcium daily Unknown 80mg Tablets Aspirin 81 Low Dose daily Unknown 81mg Chewtabs Brilinta bid Unknown 90mg Tablets Acetaminophen as directed as Unknown 500mg needed Tablets Nitrostat 1 tab sublingual Unknown 0.4mg Tablets every 5 mins x 3 Sub as needed for chest pain History Medications Vitamin D as directed Unknown - 03/06/2019 Benzonatate tid Unknown - 03/06/2019 100mg Capsules Benadryl Allergy 1 at bedtime Unknown - 03/06/2019 25mg Tablets Vital Signs Date Vital Result Comment 03/06/2019 1:48pm Weight 147.00 lb Weight 66.679 kg Height 64 inches 5'4" Height in cm's 162.6 cm BMI (Body Mass Index) 25.2 kg/m2 01/24/2019 8:45am Weight 147.00 lb Weight 66.679 kg Height 64 inches 5'4" Height in cm's 162.6 cm BMI (Body Mass Index) 25.2 kg/m2 Encounters Type Date Location Provider Dx Diagnosis Office Visit 03/06/2019 2:30p [place] 09/27/07 Ron Sr, R05 Cough Michelle Z72.0 Tobacco use Office Visit 01/24/2019 8:45a [place],After 09/27/07 Ron Shaw R04.0 Epistaxis Michelle Sr J34.81 Nasal mucositis (ulcerative) Z72.0 Tobacco use J44.9 Chronic obstructive pulmonary disease, unspecified M54.2 Cervicalgia Plan of Treatment 03/06/2019 - Ron Sr M.D.R05 CoughNew Medication:Breo Ellipta 200- 25 mcg/Inh - inhale 1 puff by mouth daily.Spiriva Respimat 1.25 mcg/Act - inhale 2 puffs by mouth dailyComments:The patient returned for her chronic cough. I wanted her to get a PFT. My thought was she had COPD from her smoking. Her PFT looked pretty good and she got worse after the Albuterol. I think she was tiring. She also did not hit a plateau. Probably because she started coughing. I am starting her on Breo and Spiriva. She had itching with Symbicort in the past. I assume this was a propellant. She hasused Breo in the past and liked it.Follow up:FU 1 [id number] Tobacco use
--- OUTSIDE RECORDS SUMMARY | 2019-03-28 11:32 | XMS REPORT | Continuity of Care Document ---
:1955 External Reference #:[id number] Author Name Jessica Calixto Care Team Providers Name Role Phone Uriel Brewster III, MD Primary Care Physician Unavailable Payers Date Identification Numbers Payment Provider Subscriber Policy Number: [id number] Medicare Blue Ppo Oneida Martini PayID: [id number] [address] [address] [place] [address] Problems Active Problems Provider Date Tobacco use Bob Rodriguez M.D. Onset: 02/07/2019 Atherosclerotic heart disease of [place] Bob Rodriguez M.D. Onset: 2018 coronary artery [...] day <2 ppd max Smoking Status Reviewed: 03/28/19 Patient is a current started at age [...] Sexton, 01/10/2019 5mg Tablets day DO FACC Docu Soft once at night Unknown 100mg Capsules Venlafaxine HCL ER 3 tablets daily Unknown 225mg Tablets ER 24HR Lantus Solostar 24 units in the Jeison Rhodes MD pm. 100Unit/ML Solution Pen-Inject Nitroglycerin Unknown 0.4mg Tablets Sub Vitamin D by mouth Unknown 1000Unit everyday Tablets Calcium 500 one by mouth Unknown twice a day [phone]-[phone] Tablets Trazodone HCL 4 every night at Unknown 100mg bedtime Tablets Nicotine Step 1 Unknown 21mg/24HR Patches 24HR Glipizide 1 by mouth every Unknown 10mg Tablets day Aspir-Low 1 by mouth every 90tabs Eugenio Sexton, 81mg Tablets day DO FACC Steven Werner, Glucose Monitoring MD System Device Freestyle Lite Test Will Matias Michelle wallis Strips Metformin HCL 1500 mg total 270tabs Jeison Rhodes MD 500mg daily Tablets Relion Pen [place] Steven Murphy, 32G X 4 mm Misc Atorvastatin Calcium 1 by night every 90tabs Eugenio Sexton, night DO FACC 80mg Tablets Brilinta twice daily 180tabs Eugenio Sexton, 90mg Tablets DO FACC Metoprolol Succinate Take one tablet 180tabs Eugenio Sexton, ER by mouth twice DO FACC 25mg Tablets ER 24HR daily History Medications Cephalexin 1 by mouth 14caps L03.032 Uriel De La Rosa 02/14/2019 - 500mg Capsules twice a day Michelle Brewster 03/27/2019 Lisinopril 1 by mouth Unknown - 2.5mg Tablets every day 01/10/2019 Glimepiride Steven Murphy, - 2mg Tablets 01/04/2019 Losartan Potassium Will Matias - 50mg Michelle wallis 01/04/2019 Tablets Glipizide XL Unknown - 5mg Tablets 01/05/2019 ER 24HR Lantus Solostar Unknown - 01/19/2019 100Unit/ML Solution Pen-Inject Lisinopril Unknown - 5mg Tablets 01/05/2019 Metformin HCL Unknown - 500mg 01/05/2019 Tablets Nitroglycerin Unknown - 0.4mg 01/04/2019 Tablets Sub Trazodone HCL Steven Murphy, - 50mg 01/05/2019 Tablets Venlafaxine HCL ER Steven Murphy, - 75mg 01/05/2019 Caps ER 24HR Montelukast Sodium Steven Murphy, - 10mg 01/05/2019 Tablets Fluticasone Propionate Taylor, - ASHLEY Kelsey 01/05/2019 50mcg/Act Suspension Immunizations CPT Code Status Date Vaccine Reaction Lot # [id number] Given 01/05/2019 Pneumococcal Conjugate shot tolerated well, no [id number] Vaccine 13 Valent For immediate reaction. Intramuscular Use Vital Signs Date Vital Result Comment 03/28/2019 9:51am Height 64 inches 5'4" Weight 140.00 lb no shoes Heart Rate 80 /min BP Systolic Sitting 130 mmHg lue reg cuff BP Diastolic Sitting 68 mmHg lue reg cuff BP Systolic Standing 124 mmHg lue reg cuff BP Diastolic Standing 64 mmHg lue reg cuff Respiratory Rate 14 /min BMI (Body Mass Index) 24.0 kg/m2 Ejection Fraction 35-40% echo. 03/15/19 02/14/2019 3:27pm Height 64 inches 5'4" Weight 146.38 lb Heart Rate 80 /min BP Systolic 113 mmHg BP Diastolic 69 mmHg Body Temperature 97.4 F O2 % BldC Oximetry 95 % BMI (Body Mass Index) 25.1 kg/m2 02/07/2019 8:06am Height 64 inches 5'4" Weight [...] BMI (Body Mass Index) 25.9 kg/m2 Results Test Date Facility Test Result H/L Range Note Comp Metabolic Panel 02/12/2019 [facility] Sodium 136 mmol/L N 135-[address] [place] [address] [phone] Chloride 104 mmol/L N 101-111 Co2 Carbon Dioxide 28 mmol/L N 22-32 Glucose 139 mg/dL High 70-100 Blood Urea Nitrogen 15 mg/dL N 6-24 Creatinine 0.92 mg/dL N 0.51-0.95 BUN/Creatinine Ratio 16.3 N 8-20 Calcium 10.3 mg/dL N 8.6-10.3 Total Protein 6.5 g/dL N 6.4-8.9 Albumin 4.0 g/dL N 3.2-5.2 Globulin 2.5 g/dL N 2-4 Albumin/Globulin Ratio 1.6 N 1-3 Total Bilirubin 0.30 mg/dL N 0.2-1.0 Alkaline Phosphatase 68 U/L N 34-104 Alt 20 U/L N 7-52 Ast 14 U/L N 13-39 Egfr Non- 61.3 >60 Egfr 74.1 >60 1 Potassium 5.2 mmol/L High 3.5-5.0 Anion Gap 4 mmol/L N 2-11 Laboratory test 02/12/2019 [facility] C Reactive 4.49 mg/L N < 8.[address] [place] [address] [phone] CBC Auto Diff 02/12/2019 [facility] White Blood 10.4 N 3.5- 10.[address] Count 10^3/[place] [address] [phone] Red Blood Count 4.48 10^6/uL N 3.70-4.87 Hemoglobin 13.2 g/dL N 12.0-16.0 Hematocrit 40 % N 35-47 Mean Corpuscular Volume 89 fL N 80-97 Mean Corpuscular Hemoglobin 29 pg N 27-31 Mean Corpuscular HGB Conc 33 g/dL N 31-36 Red Cell Distribution Width 15 % N 10.5-15 Platelet Count 252 10^3/uL N 150-450 Mean Platelet Volume 7.8 fL N 7.4-10.4 Abs Neutrophils 4.2 10^3/uL N 1.5-7.7 Abs Lymphocytes 5.0 10^3/uL High 1.0-4.8 Abs Monocytes 1.0 10^3/uL High 0-0.8 Abs Eosinophils 0.2 10^3/uL N 0-0.6 Abs Basophils 0.1 10^3/uL N 0-0.2 Abs Nucleated RBC 0.0 10^3/uL Granulocyte % 40.3 % Lymphocyte % 48.1 % Monocyte % 9.2 % Eosinophil % 1.6 % Basophil % 0.8 % Nucleated Red Blood Cells % 0.1 1 Because ethnic data is not always readily available, this report includes an eGFR for both -Americans and non- Americans. The National Kidney Disease Education Program (NKDEP) does not endorse the use of the MDRD equation for patients that are not between the ages of 18 and 70, are , have extremes of body size, muscle mass, or nutritional status, or are non- or non-. According to the National Kidney Foundation, irrespective of diagnosis, the stage of the disease is based on the level of kidney function: Stage Description GFR(mL/min/1.73 m(2)) 1 Kidney damage with normal or decreased GFR 90 2 Kidney damage with mild decrease in GFR 60-89 3 Moderate decrease in GFR 30-59 4 Severe decrease in GFR 15-29 5 Kidney failure <15 (or dialysis) Procedures Date Code Description Status 03/15/2019 32707 ECHO Transthorasic Realtime 2D W Doppler & Color Flow Hosp Completed 01/10/2019 14242 EKG Tracing & Interpretation Completed 12/27/2018 87901 EKG, Interpretation Only Completed 12/26/2018 51517 EKG, Interpretation Only Completed 12/23/2018 32105 Echocardiogram, Limited Study Completed 12/23/2018 22723 EKG, Interpretation Only Completed 12/22/2018 55603 Echocardiogram, Limited Study Completed 12/22/2018 18586 EKG, Interpretation Only Completed 12/22/2018 39082 EKG, Interpretation Only Completed 12/21/2018 39364 EKG, Interpretation Only Completed 12/21/2018 55652 EKG, Interpretation Only Completed 12/20/2018 61190 ECHO Transthorasic Realtime 2D W Doppler & Color Flow Hosp Completed 12/20/2018 10761 EKG, Interpretation Only Completed 12/20/2018 14560 EKG, Interpretation Only Completed 12/19/2018 63870 Left Heart Cath. Incl S/I Coronaries, Angio S/I V Gram If Completed Done 12/19/2018 81685 EKG, Interpretation Only Completed 12/19/2018 86568 EKG, Interpretation Only Completed 12/19/2018 64786 Revascularization Acute Total/Subtotal Occlusion Completed Encounters Type Date Location Provider Dx Diagnosis Office Visit 02/14/2019 [facility] Internal Uriel De La Rosa L03.032 Cellulitis of left 3:00p Medicine - Chriss Brewster M.D. toe G47.30 Sleep apnea, unspecified Office Visit 02/07/2019 8:00a [facility] , Z86.73 Prsnl hx of Services Of [facility] Michelle TIA (TIA), and cereb infrc w/o resid deficits E11.65 Type 2 diabetes mellitus with hyperglycemia E78.5 Hyperlipidemia, unspecified I25.10 Athscl heart disease of [place] coronary artery w/o ang pctrs I25.2 Old myocardial infarction Z72.0 Tobacco use G62.9 Polyneuropathy, unspecified F41.9 Anxiety disorder, unspecified Office Visit 01/20/2019 [facility] Mchugh Coch, E11.65 Type 2 diabetes 11:40a Endocrinology of MD mellitus with [facility] hyperglycemia Z79.4 FCI (current) use of insulin I50.22 Chronic systolic (congestive) heart failure E78.5 Hyperlipidemia, unspecified Office Visit 01/10/2019 10:00a [facility] Eugenio Russo I50.22 Chronic systolic Of [facility] Darshan DO (congestive) heart FACC failure I25.5 Ischemic cardiomyopathy I25.10 Athscl heart disease of [place] coronary artery w/o ang pctrs I25.2 Old myocardial infarction Z72.0 Tobacco use R06.02 Shortness of breath R05 Cough F41.9 Anxiety disorder, unspecified E11.69 Type 2 diabetes mellitus with other specified complication I10 Essential (primary) hypertension E78.5 Hyperlipidemia, unspecified Office Visit 01/05/2019 1:20p [facility] Luis De La Rosa E11.9 Type 2 diabetes Dahiana Brewster M.D. mellitus without [facility] complications I25.10 Athscl heart disease of [place] coronary artery w/o ang pctrs I25.5 Ischemic cardiomyopathy J43.2 Centrilobular emphysema Z23 Encounter for immunization Office Visit 12/27/2018 [facility] Latha R07.9 Chest pain, 11:41a Assoc,pc RICKIE Parrish unspecified Hospitalists Office Visit 12/26/2018 [facility] Bonifacio R07.9 Chest pain, 11:41a Assoc,yeni Ingram M.D. unspecified Hospitalists Office Visit 12/24/2018 [facility] Gary Mcrae, I21.02 Stemi involving 4:43p Of [facility] [place] [facility] [place] FACC, left anterior FSCAI descending coronary artery I25.10 Athscl heart disease of [place] coronary artery w/o ang pctrs Z98.61 Coronary angioplasty status Office Visit 12/23/2018 4:41p [facility] Gary Mcrae, I21.02 Stemi involving Of Manager Delivery [place] [facility] [place]., FACC, left anterior FSCAI descending coronary artery I25.10 Athscl heart disease of [place] coronary artery w/o ang pctrs Z98.61 Coronary angioplasty status I25.5 Ischemic cardiomyopathy H53.2 Diplopia R27.0 Ataxia, unspecified R41.82 Altered mental status, unspecified Office Visit 12/23/2018 11:43a [facility] Dora Goode, R07.89 Other chest Assoc,pc PA pain Hospitalists I21.3 St elevation (Stemi) myocardial infarction of [facility] site R26.9 Unspecified abnormalities of gait and mobility E11.69 Type 2 diabetes mellitus with other specified complication R55 Syncope and collapse Office Visit 12/22/2018 [facility] Kadie R26.81 Unsteadiness on 11:43a Assoc,pc Eduar Mayer, feet Hospitalists [employer] I21.3 St elevation (Stemi) myocardial infarction of [facility] site E11.9 Type 2 diabetes mellitus without complications F41.9 Anxiety disorder, unspecified R55 Syncope and collapse Office Visit 12/22/2018 [facility] Jeison Rhodes, E11.9 Type 2 diabetes 10:25a Endocrinology of MD mellitus without Manager Delivery complications I21.02 Stemi involving left anterior descending coronary artery Office Visit 12/22/2018 9:59a [facility] Radha Vázquez, I21.02 Stemi involving Of Manager Delivery [place] [facility] [place] [employer] left anterior descending coronary artery I25.10 Athscl heart disease of [place] coronary artery w/o ang pctrs Z98.61 Coronary angioplasty status I25.5 Ischemic cardiomyopathy H53.2 Diplopia R27.0 Ataxia, unspecified R41.82 Altered mental status, unspecified Office Visit 12/21/2018 4:18p [facility] Radhasimran Vázquez, I21.02 Stemi involving Of [facility] AT [facility] [place] [employer] left anterior descending coronary artery I25.10 Athscl heart disease of [place] coronary artery w/o ang pctrs Z98.61 Coronary angioplasty status R51 Headache R26.9 Unspecified abnormalities of gait and mobility E78.5 Hyperlipidemia, unspecified I25.5 Ischemic cardiomyopathy Office Visit 12/21/2018 [facility] R26.81 Unsteadiness on 11:43a Assoc,yeni Mayer, feet Hospitalists [employer] I21.02 Stemi involving left anterior descending coronary artery E11.9 Type 2 diabetes mellitus without complications F43.23 Adjustment disorder with mixed anxiety and depressed mood I10 Essential (primary) hypertension F17.200 Nicotine dependence, unspecified, uncomplicated R55 Syncope and collapse Office 12/21/2018 [facility] Bob R26.81 Unsteadiness on Visit 7:00a Isabela Rodriguez M.D. feet H53.2 Diplopia R45.86 Emotional lability Z71.6 Tobacco abuse counseling Office Visit 12/20/2018 11:42a [facility] I21.02 Stemi involving Asszaida,yeni Mayer, left anterior Hospitalists [employer] descending coronary artery F17.200 Nicotine dependence, unspecified, uncomplicated I10 Essential (primary) hypertension E11.9 Type 2 diabetes mellitus without complications F43.23 Adjustment disorder with mixed anxiety and depressed mood R55 Syncope and collapse Office 12/20/2018 [facility] Bob R45.86 Emotional Visit 7:00a Isabela Rodriguez M.D. lability Office 12/20/2018 [facility] Of Radha Vázquez, I21.02 Stemi involving Visit 4:01p Manager Delivery [place] [facility] [place] [employer] left anterior descending coronary artery I25.5 Ischemic cardiomyopathy R45.86 Emotional lability E78.5 Hyperlipidemia, unspecified Office Visit 12/19/2018 [facility] Jose Agrawal I21.02 Stemi involving 11:42a Assoc,yeni Coulter M.D.,FACP left anterior Hospitalists descending coronary artery R55 Syncope and collapse E11.9 Type 2 diabetes mellitus without complications R07.9 Chest pain, unspecified Office Visit 12/19/2018 9:54a [facility] Gary Mcrae, R07.9 Chest pain, Of [facility] AT [facility] [place]., FACC, unspecified FSCAI R94.31 Abnormal electrocardiogram [ECG] [EKG] I21.02 Stemi involving left anterior descending coronary artery I25.10 Athscl heart disease of [place] coronary artery w/o ang pctrs Plan of Treatment Future Appointment(s):04/18/2019 9:40 am - Jeison Rhodes MD at [facility]05/10/2019 1:00 pm - Uriel Brewster M.D. at [facility] Internal Medicine - [facility]03/28/2019 - Eugenio Sexton, DO FACCI25.2 Old myocardial infarctionFollow up:f/u 11/20191902G24.10 Atherosclerotic heart disease of [place] coronary artery withZ72.0 Tobacco useE11.69 Type 2 diabetes mellitus with other specified agzegbhndskfB87.5 Hyperlipidemia, mnthqodpqihA45 Essential (primary) hypertension
[2019-03-28 11:39] LABS: ABS Basophils 0.1 10^3/ul (0-0.2); ABS Eosinophils 0.1 10^3/ul (0-0.6); ABS Lymphocytes 4.2 10^3/ul (1.0-4.8); ABS Monocytes 0.9 10^3/ul (0-0.8); ABS Neutrophils 6.1 10^3/ul (1.5-7.7); Eosinophil % 0.9 %; Hematocrit 44 % (35-47); Hemoglobin 14.5 g/dL (12.0-16.0); Lymphocyte % 36.5 %; Mean Corpuscular HGB Conc 33 g/dL (31-36); Mean Corpuscular Hemoglobin 29 pg (27-31); Mean Corpuscular Volume 88 fL (80-97); Platelet Count 264 10^3/uL (150-450); Red Blood Count 5.02 10^6 /uL (3.70-4.87); Red Cell Distribution Width 15 % (10-15); White Blood Count 11.4 10^3/uL (3.5-10.8)
[2019-03-28 12:06] LABS: Albumin/Globulin Ratio 1.4 (1-3); C Reactive Protein 9.74 mg/L (<8.01); Calcium 9.4 mg/dL (8.6-10.3); Globulin 2.9 g/dL (2-4); Magnesium 1.7 mg/dL (1.9-2.7); Potassium 4.6 mmol/L (3.5-5.0); Total Bilirubin 0.4 mg/dL (0.2-1.0); Total Protein 6.9 g/dL (6.4-8.9)
[2019-03-28 12:08] LABS: Troponin I 0.01 ng/mL (<0.04)
[2019-03-28 15:54] VITALS: BP 117/71
== END 2019-03-28 15:54 | disposition home or self-care (01) ==
LOC: ED 11:03
DX: R07.89 Other chest pain (principal); K80.20 Calculus of gallbladder without cholecystitis without obstruction; E11.9 Type 2 diabetes mellitus without complications; I10 Essential (primary) hypertension; J44.9 Chronic obstructive pulmonary disease, unspecified; I25.2 Old myocardial infarction; F17.210 Nicotine dependence, cigarettes, uncomplicated; Z88.1 Allergy status to other antibiotic agents; Z88.0 Allergy status to penicillin; Z88.2 Allergy status to sulfonamides; Z88.8 Allergy status to other drugs, medicaments and biological substances; Z79.4 Long term (current) use of insulin; Z79.899 Other long term (current) drug therapy
CPT/HCPCS: 36415; 71045; 76705; 80053; 82550; 83605; 83690; 83735; 83880; 84484; 85025; 86140; 93005; 96361; 96374; 96375; 99284; J2270; J2405

== ENCOUNTER 2019-04-18 09:37 | Emergency (ER) | payer MEDICARE ==
--- OUTSIDE RECORDS SUMMARY | 2019-04-18 09:53 | XMS REPORT | Continuity of Care Document ---
:1955 External Reference #:[id number] Author Name Shira Fong Care Team Providers Name Role Phone Uriel Brewster III, MD Primary Care Physician Unavailable Payers Date Identification Numbers Payment Provider Subscriber Policy Number: [id number] Medicare Blue Ppo Oneida Martini PayID: [id number] [address] [address] [place] [address] Problems Active Problems Provider Date Tobacco use Bob Rodriguez M.D. Onset: 02/07/2019 Atherosclerotic heart disease of [place] Bob Rodriguez M.D. Onset: 2018 coronary artery [...] started at age smoker, smokes every 17--smokes 10 day daily. <2 ppd max Smoking Status Reviewed: 04/04/19 Patient is a current started at age smoker, smokes every 17--smokes 10 day daily. <2 ppd max Exercise Type/Frequency Exercises rarely Cardiac rehab underway Allergies, Adverse Reactions, Alerts Active Allergies Reaction [...] one by mouth Unknown twice a day [id number]-mg-Unit Tablets Trazodone HCL 4 every night at Unknown 100mg bedtime Tablets Nicotine Step 1 Unknown 21mg/24HR Patches 24HR Glipizide 1 by mouth every Unknown 10mg Tablets day Aspir-Low 1 by mouth every 90tabs Eugenio Sexton, 81mg Tablets day DO FACC DR tSeven Moreno Blood Steven Murphy, Glucose Monitoring MD System Device Freestyle Lite Test Will Matias Michelle wallis Strips Metformin HCL 1500 mg total 270tabs Jeison Rhodes MD 500mg daily Tablets Relion Pen Tarpley Steven Murphy, 32G MD X 4 mm Misc Atorvastatin [...] Code Status Date Vaccine Reaction Lot # [id number] Given 01/05/2019 Pneumococcal Conjugate shot tolerated well, no [id number] Vaccine 13 Valent For immediate reaction. Intramuscular Use Vital Signs Date Vital Result Comment 04/04/2019 4:19pm Height 64 inches 5'4" Weight 143.00 lb Heart Rate 78 /min BP Systolic 123 mmHg BP Diastolic 77 mmHg Body Temperature 97.5 F O2 % BldC Oximetry 95 % BMI (Body Mass Index) 24.5 kg/m2 03/28/2019 9:51am Height 64 inches 5'4" Weight [...] Date Facility Test Result H/L Range Note Laboratory test 03/28/2019 [facility] Troponin-I 0.01 ng/mL < 0.[address] (TnI) [place] [address] [phone] CBC Auto Diff 03/28/2019 [facility] White Blood 11.4 10^3/uL High 3.5-10.[address] [place] [address] [phone] Red Blood Count 5.02 10^6/uL High 3.70-4.87 Hemoglobin 14.5 g/dL N 12.0-16.0 Hematocrit 44 % N 35-47 Mean Corpuscular Volume 88 fL N 80-97 Mean Corpuscular Hemoglobin 29 pg N 27-31 Mean Corpuscular HGB Conc 33 g/dL N 31-36 Red Cell Distribution Width 15 % N 10-15 Platelet Count 264 10^3/uL N 150-450 Mean Platelet Volume 8.0 fL N 7.4-10.4 Abs Neutrophils 6.1 10^3/uL N 1.5-7.7 Abs Lymphocytes 4.2 10^3/uL N 1.0-4.8 Abs Monocytes 0.9 10^3/uL High 0-0.8 Abs Eosinophils 0.1 10^3/uL N 0-0.6 Abs Basophils 0.1 10^3/uL N 0-0.2 Abs Nucleated RBC 0.0 10^3/uL Granulocyte % 53.7 % Lymphocyte % 36.5 % Monocyte % 7.8 % Eosinophil % 0.9 % Basophil % 1.1 % Nucleated Red Blood Cells % 0.0 Comp Metabolic Panel 03/28/2019 [facility] Sodium 136 mmol/L N 135-[address] [place] [address] [phone] Potassium 4.6 mmol/L N 3.5-5.0 Chloride 102 mmol/L N 101-111 Co2 Carbon Dioxide 27 mmol/L N 22-32 Anion Gap 7 mmol/L N 2-11 Glucose 226 mg/dL High 70-100 Blood Urea Nitrogen 9 mg/dL N 6-24 Creatinine 0.60 mg/dL N 0.51-0.95 BUN/Creatinine Ratio 15.0 N 8-20 Calcium 9.4 mg/dL N 8.6-10.3 Total Protein 6.9 g/dL N 6.4-8.9 Albumin 4.0 g/dL N 3.2-5.2 Globulin 2.9 g/dL N 2-4 Albumin/Globulin Ratio 1.4 N 1-3 Total Bilirubin 0.40 mg/dL N 0.2-1.0 Alkaline Phosphatase 93 U/L N 34-104 Alt 30 U/L N 7-52 Ast 17 U/L N 13-39 Egfr Non- 100.0 >60 Egfr 121.0 >60 2 Laboratory test 03/28/2019 [facility] Magnesium 1.7 mg/dL Low 1.9-2.[address] [place] [address] [phone] Lipase 16 U/L N 11.0-82.0 Creatine Kinase(CK) 32 U/L N 10-223 C Reactive Protein 9.74 mg/L High <8.01 Troponin-I (TnI) 0.01 ng/mL <0.04 3 Lactic Acid 1.7 mmol/L N 0.5-2.0 4 B-Type Natriuretic Peptide BNP 172 pg/mL High <=100 Comp Metabolic Panel 02/12/2019 [facility] Sodium 136 mmol/L N 135-[address] [place] [address] [phone] Chloride 104 mmol/L N 101-111 Co2 Carbon [...] Egfr Non- 61.3 >60 Egfr 74.1 >60 5 Potassium 5.2 mmol/L High 3.5-5.0 Anion Gap 4 mmol/L N 2-11 Laboratory test 02/12/2019 [facility] C Reactive 4.49 mg/L N < 8.[address] [place] [address] [phone] CBC Auto Diff 02/12/2019 [facility] White Blood 10.4 N 3.5- 10.[address] Count 10^3/[place] [address] [phone] Red Blood Count 4.48 10^6/uL N 3.70-4.87 [...] Nucleated Red Blood Cells % 0.1 1 Troponin-I testing on Plasma Separator Tubes (PST) has a known false positive rate of 0.20-0.40%. All positive troponins reflex immediately to secondary confirmatory testing. Using the FlockI 800 Access Immunoassay systems, the 99th percentile upper reference limit was demonstrated to be < 0.03 ng/mL. 2 Because ethnic data is not always readily [...] 15-29 5 Kidney failure <15 (or dialysis) 3 Troponin-I testing on Plasma Separator Tubes (PST) has a known false positive rate of 0.20-0.40%. All positive troponins reflex immediately to secondary confirmatory testing. Using the Moven Access Immunoassay systems, the 99th percentile upper reference limit was demonstrated to be < 0.03 ng/mL. 4 [facility] Severe Sepsis and Septic Shock Management Bundle Measure requires all lactic acids initially measuring >2.0 mmol/L be repeated. 5 Because ethnic data is not always readily [...] dialysis) Procedures Date Code Description Status 03/15/2019 79324 ECHO Transthorasic Realtime 2D W Doppler & Color Flow Hosp Completed 01/10/2019 92373 EKG Tracing & Interpretation Completed 12/27/2018 58847 EKG, Interpretation Only Completed 12/26/2018 25769 EKG, Interpretation Only Completed 12/23/2018 76289 Echocardiogram, Limited Study Completed 12/23/2018 15022 EKG, Interpretation Only Completed 12/22/2018 01106 Echocardiogram, Limited Study Completed 12/22/2018 77487 EKG, Interpretation Only Completed 12/22/2018 52902 EKG, Interpretation Only Completed 12/21/2018 81655 EKG, Interpretation Only Completed 12/21/2018 18824 EKG, Interpretation Only Completed 12/20/2018 59357 ECHO Transthorasic Realtime 2D W Doppler & Color Flow Hosp Completed 12/20/2018 93654 EKG, Interpretation Only Completed 12/20/2018 90447 EKG, Interpretation Only Completed 12/19/2018 86535 Left Heart Cath. Incl S/I Coronaries, Angio S/I V Gram If Completed Done 12/19/2018 28757 EKG, Interpretation Only Completed 12/19/2018 97452 EKG, Interpretation Only Completed 12/19/2018 87512 Revascularization Acute Total/Subtotal Occlusion Completed Encounters Type Date Location Provider Dx Diagnosis Office Visit 03/28/2019 [facility] Eugenio Sexton, I25.2 Old myocardial 10:00a Of [facility] DO FAC infarction I25.10 Athscl heart disease of [place] coronary artery w/o ang pctrs Z72.0 Tobacco use E11.69 Type 2 diabetes mellitus with other specified complication E78.5 Hyperlipidemia, unspecified I10 Essential (primary) hypertension F41.9 Anxiety disorder, unspecified J43.9 Emphysema, unspecified I25.5 Ischemic cardiomyopathy I63.9 Cerebral infarction, unspecified Office Visit 02/14/2019 3:00p [facility] Internal Uriel De La Rosa L03.032 Cellulitis of Medicine Tato Brewster M.D. left toe Ccmob G47.30 Sleep apnea, unspecified Office Visit 02/07/2019 8:00a [facility] Laureanoopher Michael, Z86.73 Prsnl hx of Services Of [facility] Michelle TIA (TIA), and cereb infrc w/o resid deficits E11.65 Type 2 diabetes mellitus with hyperglycemia E78.5 Hyperlipidemia, unspecified I25.10 Athscl heart disease of [place] coronary artery w/o ang pctrs I25.2 Old myocardial infarction Z72.0 Tobacco use G62.9 Polyneuropathy, unspecified F41.9 Anxiety disorder, unspecified Office Visit 01/20/2019 [facility] Jeison Rhodes, E11.65 Type 2 diabetes 11:40a Endocrinology of [place] mellitus with [facility] hyperglycemia Z79.4 social service assistant (current) use of insulin I50.22 Chronic systolic (congestive) heart failure E78.5 Hyperlipidemia, unspecified Office Visit 01/10/2019 10:00a [facility] Eugenio Russo I50.22 Chronic systolic Of [facility] DO Darshan (congestive) heart FACC failure I25.5 Ischemic cardiomyopathy I25.10 Athscl heart disease of [place] coronary artery w/o ang pctrs I25.2 Old myocardial infarction Z72.0 Tobacco use R06.02 Shortness of breath R05 Cough F41.9 Anxiety disorder, unspecified E11.69 Type 2 diabetes mellitus with other specified complication I10 Essential (primary) hypertension E78.5 Hyperlipidemia, unspecified Office Visit 01/05/2019 1:20p [facility] Internal Uriel De La Rosa E11.9 Type 2 diabetes Dahiana Brewster M.D. mellitus without Ccmob complications I25.10 Athscl heart disease of [place] coronary artery w/o ang pctrs I25.5 Ischemic cardiomyopathy J43.2 Centrilobular emphysema Z23 Encounter for immunization Office Visit 12/27/2018 [facility] Latha R07.9 Chest pain, 11:41a Assoc,yeni Parrish PA-C unspecified Hospitalists Office Visit 12/26/2018 [facility] Bonifacio R07.9 Chest pain, 11:41a Assocyeni M.D. unspecified Hospitalists Office Visit 12/24/2018 [facility] Gary Mcrae, I21.02 Stemi involving 4:43p Of [facility] [place] [facility] [place], FACC, left anterior FSCAI descending coronary artery I25.10 Athscl heart disease of [place] coronary artery w/o ang pctrs Z98.61 Coronary angioplasty status Office Visit 12/23/2018 4:41p [facility] Gary Mcrae, I21.02 Stemi involving Of [facility] Michelle, FACC, left anterior FSCAI descending coronary artery I25.10 Athscl heart disease of [place] coronary artery w/o ang pctrs Z98.61 Coronary angioplasty status I25.5 Ischemic cardiomyopathy H53.2 Diplopia R27.0 Ataxia, unspecified R41.82 Altered mental status, unspecified Office Visit 12/23/2018 11:43a [facility] Dora Goode, R07.89 Other chest Assoc,pc PA pain Hospitalists I21.3 St elevation (Stemi) myocardial infarction of [facility] site R26.9 Unspecified abnormalities of gait and mobility E11.69 Type 2 diabetes mellitus with other specified complication R55 Syncope and collapse Office Visit 12/22/2018 [facility] Debbie Engle R26.81 Unsteadiness on 11:43a Assoc,yeni [facility] Leyla, feet Hospitalists INSTRUCTIONAL TECHNOLOGY SPECIALIST I21.3 St elevation (Stemi) myocardial infarction of [facility] site E11.9 Type 2 diabetes mellitus without complications F41.9 Anxiety disorder, unspecified R55 Syncope and collapse Office Visit 12/22/2018 [facility] Je[facility], E11.9 Type 2 diabetes 10:25a Endocrinology of [place] mellitus without Fusion Operator complications I21.02 Stemi involving left anterior descending coronary artery Office Visit 12/22/2018 9:59a [facility] Radhasimran Vázquez, I21.02 Stemi involving Of [employer] [place] [facility] INSTRUCTIONAL TECHNOLOGY SPECIALIST left anterior descending coronary artery I25.10 Athscl heart disease of [place] coronary artery w/o ang pctrs Z98.61 Coronary angioplasty status I25.5 Ischemic cardiomyopathy H53.2 Diplopia R27.0 Ataxia, unspecified R41.82 Altered mental status, unspecified Office Visit 12/21/2018 4:18p [facility] Gurpreet, I21.02 Stemi involving Of [employer] AT [facility] INSTRUCTIONAL TECHNOLOGY SPECIALIST left anterior descending coronary artery I25.10 Athscl heart disease of [place] coronary artery w/o ang pctrs Z98.61 Coronary angioplasty status R51 Headache R26.9 Unspecified abnormalities of gait and mobility E78.5 Hyperlipidemia, unspecified I25.5 Ischemic cardiomyopathy Office Visit 12/21/2018 [facility] Kadie R26.81 Unsteadiness on 11:43a Assoc,yeni BhatEduar Leyla, feet Hospitalists INSTRUCTIONAL TECHNOLOGY SPECIALIST I21.02 Stemi involving left anterior descending coronary artery E11.9 Type 2 diabetes mellitus without complications F43.23 Adjustment disorder with mixed anxiety and depressed mood I10 Essential (primary) hypertension F17.200 Nicotine dependence, unspecified, uncomplicated R55 Syncope and collapse Office 12/21/2018 [facility] Bob R26.81 Unsteadiness on Visit 7:00a Isabela Rodriguez M.D. feet H53.2 Diplopia R45.86 Emotional lability Z71.6 Tobacco abuse counseling Office Visit 12/20/2018 11:42a [facility] Kadie I21.02 Stemi involving Assoc,pc Eduar Mayer, left anterior Hospitalists INSTRUCTIONAL TECHNOLOGY SPECIALIST descending coronary artery F17.200 Nicotine dependence, unspecified, uncomplicated I10 Essential (primary) hypertension E11.9 Type 2 diabetes mellitus without complications F43.23 Adjustment disorder with mixed anxiety and depressed mood R55 Syncope and collapse Office 12/20/2018 [facility] Bob R45.86 Emotional Visit 7:00a Isabela Rodriguez M.D. lability Office 12/20/2018 [facility], I21.02 Stemi involving Visit 4:01p [facility] AT [facility] INSTRUCTIONAL TECHNOLOGY SPECIALIST left anterior descending coronary artery I25.5 Ischemic cardiomyopathy R45.86 Emotional lability E78.5 Hyperlipidemia, unspecified Office Visit 12/19/2018 [facility] Jose Agrawal I21.02 Stemi involving 11:42a Assoc,yeni Coulter M.D.,FACP left anterior Hospitalists descending coronary artery R55 Syncope and collapse E11.9 Type 2 diabetes mellitus without complications R07.9 Chest pain, unspecified Office Visit 12/19/2018 9:54a [facility] Gary Mcrae, R07.9 Chest pain, Of [facility] Michelle, FACC, unspecified FSCAI R94.31 Abnormal electrocardiogram [ECG] [EKG] I21.02 Stemi involving left anterior descending coronary artery I25.10 Athscl heart disease of [place] coronary artery w/o ang pctrs Plan of Treatment Future Appointment(s):04/18/2019 9:40 am - Jeison Rhodes MD at [facility]05/10/2019 1:00 pm - Uriel Brewster M.D. at [facility]
[2019-04-18 10:10] LABS: ABS Basophils 0.1 10^3/ul (0-0.2); ABS Eosinophils 0.1 10^3/ul (0-0.6); ABS Lymphocytes 3.8 10^3/ul (1.0-4.8); ABS Monocytes 0.9 10^3/ul (0-0.8); ABS Neutrophils 6.2 10^3/ul (1.5-7.7); Eosinophil % 1.1 %; Hematocrit 43 % (35-47); Hemoglobin 14.5 g/dL (12.0-16.0); Lymphocyte % 34.5 %; Mean Corpuscular HGB Conc 34 g/dL (31-36); Mean Corpuscular Hemoglobin 30 pg (27-31); Mean Corpuscular Volume 87 fL (80-97); Mean Platelet Volume 7.8 fL (7.4-10.4); Platelet Count 283 10^3/uL (150-450); Red Blood Count 4.93 10^6 /uL (3.70-4.87); Red Cell Distribution Width 15 % (10-15); White Blood Count 11.1 10^3/uL (3.5-10.8)
--- NOTE | 2019-04-18 10:14 | ED ---
HPI Chest Pain - HPI Summary HPI Summary: This pt is a 64 y/o female presenting to [facility] c/o sudden onset of left sided chest pain. Pt reports she was in her appointment today with her customer solutions supervisor and around 09:30 she began to feel tired and became pale. Suddenly she began to experience chest pain, described as sharp and located on the left side of her chest. She rates this pain 8/10 in severity and the severity of it lasted about 5 minutes. The customer solutions supervisor told her her heart rate was slow and was told to come to the ED. Pt notes as they were wheeling her down to the ED she began to feel pressure behind her right shoulder and down her back. Denies swelling. Currently she notes her chest pain has resolved. Pt states she has hx of gallstones and she has been having more intense abdominal pain on the right side for the past 3-4 days. Of note, she has hx of STEMI on 12/19/18. She had a PCI of LAD. Pt reports she had a nondrug eluting stent placed and is currently on Plavix. Pt reports at the time of her STEMI she had excruciating pain in her mid abdomen/lower chest that was sharp and woke her up from sleep. She notes she didn't come in for 2 days because her pain was so intense but brief that she went back to sleep. Pt had a CTA negative for dissection. She had recent presentation in December for chest pain. Echo on 03/15 with ejection fraction of 35-40%. She had an ER visit on 03/28 for abdominal pain that showed gallstones without cholecystitis. Pt has a follow up with her dial marker in 6 months. She is still smoking 1 PPD. At the time of her STEMI she was smoking almost 2 PPD. Pt is trying to cut back and is wearing a patch. - History of Current Complaint Chief Complaint: EDChestPainROMI Time Seen by Provider: 04/18/19 09:49 Hx Obtained From: Patient Onset/Duration: Started Hours Ago, Still Present Timing: Lasting Hours Initial Severity: Severe Current Severity: None Pain Intensity: 0 Pain Scale Used: 0-10 Numeric Chest Pain Location: Left Anterior Chest Pain Radiates: Yes Chest Pain Radiates To:: Back, Shoulder - right Character: Sharp/Stabbing - sharp Aggravating Factor(s): Nothing Alleviating Factor(s): Nothing Associated Signs and Symptoms: Positive: Chest Pain, Abdominal Pain. Negative: Fever - Additional Pertinent History Primary Care Physician: [id number] - Allergy/Home Medications Allergies/Adverse Reactions: Allergies Allergy/AdvReac Type Severity Reaction Status Date / Time amoxicillin Allergy Severe Anaphylatic Verified 04/18/19 10:37 Shock ampicillin Allergy Severe Anaphylatic Verified 04/18/19 10:37 Shock clavulanic acid Allergy Severe Anaphylatic Verified 04/18/19 10:37 Shock Penicillins Allergy Severe Anaphylatic Verified 04/18/19 10:37 Shock azithromycin Allergy Intermediate Hives Verified 04/18/19 10:37 erythromycin base Allergy Intermediate Hives Verified 04/18/19 10:37 sulfamethoxazole Allergy Intermediate Rash Verified 04/18/19 10:37 [From ] trimethoprim [From ] Allergy Intermediate Rash Verified 04/18/19 10:37 cetirizine Allergy Unknown Unknown Verified 04/18/19 10:37 Reaction Details doxycycline Allergy Unknown Unknown Verified 04/18/19 10:37 Reaction Details Tetracyclines Allergy Unknown Unknown Verified 04/18/19 10:37 Reaction Details dairy Allergy Mild Congestion Uncoded 04/18/19 10:37 PMH/Surg Hx/FS Hx/Imm Hx Endocrine/Hematology History: Reports: Hx Diabetes Cardiovascular History: Reports: Hx Hypertension, Hx Myocardial Infarction - November 2018 Respiratory History: Reports: Hx Asthma, Hx Chronic Obstructive Pulmonary Disease (COPD) History: Denies: Hx Dialysis, Hx Renal Disease Sensory History: Reports: Hx Contacts or Glasses Denies: Hx Hearing Aid Opthamlomology History: Reports: Hx Contacts or Glasses - Cancer History Hx Chemotherapy: No Hx Radiation Therapy: No - Surgical History Surgery Procedure, Year, and Place: Right knee surgery injury repair - Immunization History Date of Influenza Vaccine: no Infectious Disease History: No Infectious Disease History: Denies: Traveled Outside the [place] in Last 30 Days - Family History Known Family History: Positive: Hypertension - Social History Alcohol Use: None Hx Substance Use: No Substance Use Type: Reports: None Substance Use Comment - Amount & Last Used: four bottles of soda daily Hx Tobacco Use: Yes Smoking Status (MU): Heavy Every Day Tobacco Smoker Type: Cigarettes Amount Used/How Often: 6-7 cigs/day Length of Time of Smoking/Using Tobacco: 40 years Have You Smoked in the Last Year: Yes Review of Systems Negative: Fever, Chills Positive: Chest Pain Positive: Abdominal Pain All Other Systems Reviewed And Are Negative: Yes Physical Exam - Summary Physical Exam Summary: Constitutional: Well-developed, Well-nourished, Alert. (-) Distressed Skin: Warm, Dry HENT: Normocephalic; Atraumatic Eyes: Conjunctiva normal Neck: Musculoskeletal ROM normal neck. (-) JVD, (-) Stridor Cardio: Rhythm regular, rate normal, Heart sounds normal; Intact distal pulses; Radial pulses are 2+ and symmetric. (-) Murmur Pulmonary/Chest wall: Effort normal. (-) Respiratory distress, (-) Wheezes, (-) Rales Abd: Soft, mild RUQ tenderness, (-) Distension, (-) Guarding, (-) Rebound Musculoskeletal: (-) Edema Lymph: (-) Cervical adenopathy Neuro: Alert, Oriented x3 Psych: Mood and affect Normal Triage Information Reviewed: Yes Vital Signs On Initial Exam: Initial Vitals Temp Pulse Resp BP Pulse Ox 96.9 F 54 18 109/69 100 04/18/19 09:42 04/18/19 09:42 04/18/19 09:42 04/18/19 09:42 04/18/19 09:42 Vital Signs Reviewed: Yes Diagnostics - Vital Signs Vital Signs Temp Pulse Resp BP Pulse Ox 04/18/19 09:42 96.9 F 54 18 109/69 100 - Laboratory Result Diagrams: 04/18/19 10:00 04/18/19 10:00 Lab Statement: Any lab studies that have been ordered have been reviewed, and results considered in the medical decision making process. - Radiology Chest XR Radiology Interpretation Completed By: Radiologist Summary of Radiographic Findings: IMPRESSION: There is a nodular density in the right upper lobe. Recommend a CT of the chest without contrast for further evaluation. Dr. Atkins has reviewed this report. - CT Chest CT CT Interpretation Completed By: Radiologist Summary of CT Findings: Pleural-based density in the right upper lobe which is spiculated and appears to be similar to that identified on December 26, 2016 with underlying emphysema. Further follow-up is suggested. ED physician has reviewed this report. - EKG 09:42 Cardiac Rate: NL - at 68 bpm EKG Rhythm: Sinus Rhythm Summary of EKG Findings: An EKG at 0942 reveals normal sinus rhythm at 68 bpm. Old RBBB. No change from prior compared to 03/28/19. Re-Evaluation - Re-Evaluation First Eval Re-Evaluation Time: 10:44 Comment: Troponin is negative. Plan to discuss with hospitalist. Second Eval Re-Evaluation Time: 10:58 Comment: Patient to be admitted by hospitalist team per Dr. Pierre. Third Eval Re-Evaluation Time: 11:21 Comment: Pt does not want to be admitted. She would like to be discharged home. Plan for repeat trop at [address] non con chest to evaluate nodule Fourth Eval Re-Evaluation Time: 12:35 Comment: Patient does want to stay for repeat trop. d/w her that she could be having a heart attack and risk of but she wants to leave AMA Chest Pain Course/Dx - Course Course Of Treatment: Lianet 64-year-old female with a history of an MA back in November, diabetes and heart failure with an EF of 35% presents with left-sided sharp chest pain. Vital signs stable NAD. Physical exam notable right upper quadrant tenderness which is chronic per patient secondary to gallstones. Chest Pain DDX: The patient is well appearing, with stable vitals. Given the patient's clinical presentation, highest on differential is ACS. Although less likely, differential also includes the following: --Pneumothorax: Equal breath sounds, story inconsistent since gradual onset of symptoms. CXR shows no evidence of pneumothorax. Unlikely. --Cardiac tamponade: The history and physical are not concerning for tamponade. No Pulsus Paradoxus, no tachypnea. Unlikely. --Mediastinitis or esophageal rupture: The history is not consistent , as the patient has had no recent history of significant wretching, instrumentation, or mediastinal surgeries. Unlikely. --Aortic dissection: The patient does not describe the classical tearing chest pain radiating into the back, and the CXR does not show mediastinal widening or other signs of aortic dissection. BPs equal in both arms. Unlikely. --PE: Vitals wnl (not hypoxic, tachycardic or tachypneic). - Chest Pain Differential Diagnosis/HQI/PQRI: Angina - Diagnoses Provider Diagnoses: Chest pain, Abdominal pain - Provider Notifications Discussed Care Of Patient With: Anna Pierre - hospitalist Time Discussed With Above Provider: 10:58 Instructed by Provider To: Admit As Inpatient Discharge - Sign-Out/Discharge Documenting (check all that apply): Patient Departure - Discharge home Patient Received Moderate/Deep Sedation with Procedure: No - Discharge Plan Condition: Stable Disposition: AGAINST MEDICAL ADVICE Patient Education Materials: Chest Pain (ED) Referrals: Uriel Brewster MD [Primary Care Provider] - Additional Instructions: Please follow up with your primary care provider within the next 2-3 days, as well as your dial marker as scheduled. We recommended that you stay overnight to observe he is given near high risk factors for heart disease. You declined however if you change your mind please feel free to return to the ER. The CT of the chest showed a 1 cm nodule in your lung which is thought to suggest scarring however we recommend follow-up with a repeat CT scan. Please follow-up with your primary care doctor regarding this finding. Return to the emergency department with any new or worsening symptoms, continued chest pain, trouble breathing or if you are concerned. - Billing Disposition and Condition Condition: STABLE Disposition: Against Medical Advice - Attestation Statements Document Initiated by Lesia: Yes Documenting Scribe: Audrey Grijalva Provider For Whom Lesia is Documenting (Include Credential): Daniel Atkins MD Scribe Attestation: IAudrey, scribed for Daniel Atkins MD on 04/18/19 at 1249. Scribe Documentation Reviewed: Yes Provider Attestation: The documentation as recorded by the Audrey angeles accurately reflects the service I personally performed and the decisions made by , Daniel Atkins MD Status of Scribe Document: Viewed
[2019-04-18 10:17] LABS: INR 0.94 (0.82-1.09)
[2019-04-18] MEDS ORDERED: Dicyclomine CAP* 10 MG PO ONE (10:23)
[2019-04-18 10:26] LABS: Troponin I 0.01 ng/mL (<0.04)
[2019-04-18 10:32] LABS: Albumin 3.9 g/dL (3.2-5.2); Albumin/Globulin Ratio 1.4 (1-3); BUN/Creatinine Ratio 18.8 (8-20); Calcium 9.2 mg/dL (8.6-10.3); EGFR African American 86.8 (>60); EGFR Non-African American 71.8 (>60); Globulin 2.7 g/dL (2-4); Potassium 4.4 mmol/L (3.5-5.0); Total Bilirubin 0.4 mg/dL (0.2-1.0); Total Protein 6.6 g/dL (6.4-8.9)
[2019-04-18 12:43] VITALS: BP 102/64
== END 2019-04-18 12:49 | disposition left against medical advice (07) ==
LOC: ED 09:37
DX: R07.89 Other chest pain (principal); R10.11 Right upper quadrant pain; R91.1 Solitary pulmonary nodule; I45.10 Unspecified right bundle-branch block; E11.9 Type 2 diabetes mellitus without complications; I10 Essential (primary) hypertension; I25.2 Old myocardial infarction; Z79.02 Long term (current) use of antithrombotics/antiplatelets; J44.9 Chronic obstructive pulmonary disease, unspecified; Z88.0 Allergy status to penicillin; Z88.2 Allergy status to sulfonamides; Z88.1 Allergy status to other antibiotic agents; Z91.011 Allergy to milk products; F17.210 Nicotine dependence, cigarettes, uncomplicated
CPT/HCPCS: 36415; 71046; 71250; 80053; 83036; 84484; 85025; 85610; 93005; 99283; A9270-GY

== ENCOUNTER 2020-12-21 19:43 | Inpatient (IN) ==
[2020-12-21] MEDS ORDERED: NS 0.9% 1000 ml BAG 1,000 ML IV ONE (22:15)
[2020-12-21 22:36] LABS: ABS Basophils 0.1 10^3/ul (0-0.2); ABS Eosinophils 0.3 10^3/ul (0-0.6); ABS Lymphocytes 3.2 10^3/ul (1.0-4.8); ABS Monocytes 1.4 10^3/ul (0-0.8); ABS Neutrophils 9.6 10^3/ul (1.5-7.7); Eosinophil % 1.9 %; Hematocrit 42 % (35-47); Hemoglobin 13.8 g/dL (12.0-16.0); Mean Corpuscular HGB Conc 33 g/dL (31-36); Mean Corpuscular Hemoglobin 29 pg (27-31); Mean Corpuscular Volume 90 fL (80-97); Mean Platelet Volume 7.1 fL (7.4-10.4); Platelet Count 355 10^3/uL (150-450); Red Blood Count 4.71 10^6 /uL (3.70-4.87); Red Cell Distribution Width 15 % (10-15); White Blood Count 14.5 10^3/uL (3.5-10.8)
[2020-12-21 22:52] LABS: Albumin 3.2 g/dL (3.2-5.2); Albumin/Globulin Ratio 1.1 (1-3); BUN/Creatinine Ratio 23.7 (8-20); C Reactive Protein 48.28 mg/L (<8.01); Calcium 8.7 mg/dL (8.6-10.3); EGFR African American 91.8 (>60); EGFR Non-African American 75.9 (>60); Globulin 2.8 g/dL (2-4); Magnesium 1.7 mg/dL (1.9-2.7); Phosphorus 3.9 mg/dL (2.5-5.0); Potassium 4.2 mmol/L (3.5-5.0); Total Bilirubin 0.3 mg/dL (0.2-1.0)
[2020-12-22] MEDS ORDERED: NS 0.9% 1000 ml BAG 1,000 ML IV ONE (00:37)
[2020-12-22] MEDS ORDERED: Levofloxacin 750 MG IVPREMIX 750 MG/150 ML BAG IVPB ONE (00:38)
[2020-12-22] MEDS ORDERED: Albuterol HFA INHALER 8 gm MDI INH ONE ×2 (00:57→01:01)
[2020-12-22] MEDS ORDERED: Magnesium Sulfate 2 gm BAG 2 GM/50 ML BAG IVPB ONE (01:46)
[2020-12-22] MEDS ORDERED: Dextrose 50% Syringe 50 ml 25 GM/50 ML SYRINGE IV PUSH PRN (01:59)
[2020-12-22] MEDS: Morphine 2 MG/ML SYRINGE IV PRN ×5 (02:35→20:55)
[2020-12-22] MEDS ORDERED: Iodixanol (CONTRAST) 320 MG/ML 100 ML SDV IV ONE (02:58)
[2020-12-22] MEDS: Lidocaine PATCH 5% PATCH TRANSDERM SCH (05:03)
[2020-12-22] MEDS: Heparin 5000 UNITS/ML 1 mL VIAL SUBCUT SCH ×3 (05:05→20:59)
[2020-12-22 05:46] LABS: Urine Appearance Clear; Urine Bilirubin Negative (Negative); Urine Blood Negative (Negative); Urine Color Yellow; Urine Glucose 3+(>=500 mg/dL) (Negative); Urine Ketones 2+ (Negative); Urine Nitrite Negative (Negative); Urine Protein Negative (Negative); Urine Specific Gravity 1.026 (1.010-1.030); Urine Urobilinogen Negative (Negative)
[2020-12-22 08:02] LABS: Activated Partial Thrombo Time 27.5 seconds (26.0-38.0); INR 1.23 (0.82-1.09)
[2020-12-22 08:09] LABS: BUN/Creatinine Ratio 19.7 (8-20); Calcium 8.1 mg/dL (8.6-10.3); EGFR African American 108.1 (>60); EGFR Non-African American 89.3 (>60); Potassium 3.6 mmol/L (3.5-5.0)
[2020-12-22 08:17] LABS: ABS Basophils 0.1 10^3/ul (0-0.2); ABS Eosinophils 0.5 10^3/ul (0-0.6); ABS Lymphocytes 2.9 10^3/ul (1.0-4.8); ABS Monocytes 1.3 10^3/ul (0-0.8); ABS Neutrophils 7.6 10^3/ul (1.5-7.7); Hematocrit 39 % (35-47); Hemoglobin 12.6 g/dL (12.0-16.0); Lymphocyte % 23.5 %; Mean Corpuscular HGB Conc 33 g/dL (31-36); Mean Corpuscular Hemoglobin 30 pg (27-31); Mean Corpuscular Volume 91 fL (80-97); Mean Platelet Volume 7.2 fL (7.4-10.4); Platelet Count 329 10^3/uL (150-450); Red Blood Count 4.27 10^6 /uL (3.70-4.87); Red Cell Distribution Width 16 % (10-15); White Blood Count 12.4 10^3/uL (3.5-10.8)
[2020-12-22] MEDS: Venlafaxine XR 75 mg PO SCH (08:47)
[2020-12-22] MEDS ORDERED: Potassium Chlor 20 meq TAB.ER PO ONE (09:01)
[2020-12-22 09:36] LABS: Influenza A Molecular Negative (Negative); Influenza B Molecular Negative (Negative)
[2020-12-22] MEDS: Insulin GLARGINE 100 un/ml 10 ml VIAL SUBCUT SCH (17:39)
[2020-12-22] MEDS: Dexamethasone IV 4 MG/ML VIAL 1 ml VIAL IV SLOW PU SCH ×2 (17:41→23:44)
[2020-12-22] MEDS: Lidocaine Patch REMOVE PATCH PATCH OFF SCH (21:03)
[2020-12-23] MEDS ORDERED: Levofloxacin 750 MG IVPREMIX 750 MG/150 ML BAG IVPB SCH (02:00)
[2020-12-23] MEDS: Morphine 2 MG/ML SYRINGE IV PRN ×3 (03:14→21:37)
[2020-12-23] MEDS: Dexamethasone IV 4 MG/ML VIAL 1 ml VIAL IV SLOW PU SCH ×3 (05:53→17:39)
[2020-12-23] MEDS: Heparin 5000 UNITS/ML 1 mL VIAL SUBCUT SCH ×3 (05:54→21:36)
[2020-12-23 07:56] LABS: ABS Lymphocytes 1.5 10^3/ul (1.0-4.8); ABS Monocytes 0.2 10^3/ul (0-0.8); ABS Neutrophils 6.1 10^3/ul (1.5-7.7); Hematocrit 40 % (35-47); Hemoglobin 13.3 g/dL (12.0-16.0); Lymphocyte % 18.6 %; Mean Corpuscular HGB Conc 34 g/dL (31-36); Mean Corpuscular Hemoglobin 30 pg (27-31); Mean Corpuscular Volume 90 fL (80-97); Mean Platelet Volume 7.5 fL (7.4-10.4); Platelet Count 347 10^3/uL (150-450); Red Blood Count 4.41 10^6 /uL (3.70-4.87); Red Cell Distribution Width 15 % (10-15); White Blood Count 7.8 10^3/uL (3.5-10.8)
[2020-12-23 08:22] LABS: BUN/Creatinine Ratio 24.6 (8-20); EGFR African American 118.4 (>60); EGFR Non-African American 97.8 (>60)
[2020-12-23 08:24] LABS: Potassium 5.4 mmol/L (3.5-5.0)
[2020-12-23] MEDS: Venlafaxine XR 75 mg PO SCH (09:01)
[2020-12-23] MEDS: Lidocaine PATCH 5% PATCH TRANSDERM SCH (09:02)
[2020-12-23 09:06] LABS: Albumin 3.4 g/dL (3.2-5.2); Albumin/Globulin Ratio 1.1 (1-3); BUN/Creatinine Ratio 24.6 (8-20); Calcium 9.3 mg/dL (8.6-10.3); EGFR Non-African American 90.9 (>60); Magnesium 1.5 mg/dL (1.9-2.7); Total Bilirubin 0.3 mg/dL (0.2-1.0); Total Protein 6.4 g/dL (6.4-8.9)
[2020-12-23 12:54] LABS: Body Fluid Source Pleural Fluid
[2020-12-23] MEDS ORDERED: Magnesium Sulf 4 GM/100 ML IV 4,000 MG/100 ML BAG IVPB ONE (13:02)
[2020-12-23] MEDS ORDERED: Gadoteridol (CONTRAST) 279.3 MG/ML 10 ML IV ONE (13:27)
[2020-12-23] MEDS ORDERED: Senna TAB 8.6 mg TAB PO PRN (14:02)
[2020-12-23] MEDS: Insulin GLARGINE 100 un/ml 10 ml VIAL SUBCUT SCH (17:38)
[2020-12-23 17:39] LABS: Body Fluid Band 3 %; Body Fluid Mono 1 %; Body Fluid Other Cells 20
[2020-12-23] MEDS: Magnesium Hydroxide LIQ 30 ML UDC PO SCH (21:36)
[2020-12-23] MEDS: Lidocaine Patch REMOVE PATCH PATCH OFF SCH (21:38)
[2020-12-24] MEDS: Dexamethasone IV 4 MG/ML VIAL 1 ml VIAL IV SLOW PU SCH
[2020-12-24] MEDS: Morphine 2 MG/ML SYRINGE IV PRN ×4 (01:59→20:39)
[2020-12-24] MEDS: Levofloxacin 750 MG IVPREMIX 750 MG/150 ML BAG IVPB SCH (02:02)
[2020-12-24] MEDS: Heparin 5000 UNITS/ML 1 mL VIAL SUBCUT SCH ×3 (05:34→20:38)
[2020-12-24 06:44] LABS: ABS Basophils 0.1 10^3/ul (0-0.2); ABS Lymphocytes 1.1 10^3/ul (1.0-4.8); ABS Monocytes 0.8 10^3/ul (0-0.8); ABS Neutrophils 10.2 10^3/ul (1.5-7.7); Eosinophil % 0.1 %; Hematocrit 37 % (35-47); Hemoglobin 12.1 g/dL (12.0-16.0); Lymphocyte % 9.3 %; Mean Corpuscular HGB Conc 33 g/dL (31-36); Mean Corpuscular Hemoglobin 30 pg (27-31); Mean Corpuscular Volume 90 fL (80-97); Mean Platelet Volume 7.6 fL (7.4-10.4); Platelet Count 309 10^3/uL (150-450); Red Blood Count 4.07 10^6 /uL (3.70-4.87); Red Cell Distribution Width 15 % (10-15); White Blood Count 12.3 10^3/uL (3.5-10.8)
[2020-12-24 07:00] LABS: Calcium 8.5 mg/dL (8.6-10.3); EGFR African American 114.1 (>60); EGFR Non-African American 94.3 (>60); Magnesium 2.2 mg/dL (1.9-2.7); Potassium 4.8 mmol/L (3.5-5.0)
[2020-12-24] MEDS: Lidocaine PATCH 5% PATCH TRANSDERM SCH (09:36)
[2020-12-24] MEDS ORDERED: Gadoteridol (CONTRAST) 279.3 MG/ML 10 ML IV ONE (11:14)
[2020-12-24] MEDS: Venlafaxine XR 75 mg PO SCH (12:09)
[2020-12-24] MEDS: Magnesium Hydroxide LIQ 30 ML UDC PO SCH ×2 (12:09→20:39)
[2020-12-24] MEDS ORDERED: Iodixanol (CONTRAST) 320 MG/ML 100 ML SDV IV ONE (12:55)
[2020-12-24 15:54] LABS: Fluid Type, Glucose PLEURAL; Glucose, BF 207 mg/dL
[2020-12-24 15:56] LABS: Fluid Type, Protein, Total PLEURAL; Lactate Dehydrogenase, BF 576 U/L
[2020-12-24] MEDS: Insulin GLARGINE 100 un/ml 10 ml VIAL SUBCUT SCH (17:33)
[2020-12-24] MEDS: Lidocaine Patch REMOVE PATCH PATCH OFF SCH (20:47)
[2020-12-25] MEDS: Levofloxacin 750 MG IVPREMIX 750 MG/150 ML BAG IVPB SCH (02:29)
[2020-12-25] MEDS: Heparin 5000 UNITS/ML 1 mL VIAL SUBCUT SCH ×3 (05:55→20:36)
[2020-12-25] MEDS ORDERED: Buffered Lidocaine 1% SYRIN 1 ml INTRADERM ONE (06:00)
[2020-12-25 07:06] LABS: Hematocrit 38 % (35-47); Hemoglobin 12.6 g/dL (12.0-16.0); Mean Corpuscular HGB Conc 33 g/dL (31-36); Mean Corpuscular Hemoglobin 30 pg (27-31); Mean Corpuscular Volume 90 fL (80-97); Mean Platelet Volume 7.6 fL (7.4-10.4); Platelet Count 295 10^3/uL (150-450); Red Blood Count 4.23 10^6 /uL (3.70-4.87); Red Cell Distribution Width 15 % (10-15); White Blood Count 10.4 10^3/uL (3.5-10.8)
[2020-12-25 07:17] LABS: ABS Basophils 0.1 10^3/ul (0-0.2); ABS Eosinophils 0.6 10^3/ul (0-0.6); ABS Lymphocytes 2.7 10^3/ul (1.0-4.8); ABS Monocytes 1.3 10^3/ul (0-0.8); ABS Neutrophils 5.5 10^3/ul (1.5-7.7); Eosinophil % 6.2 %; Lymphocyte % 26.4 %
[2020-12-25] MEDS: Magnesium Hydroxide LIQ 30 ML UDC PO SCH ×2 (08:40→20:36)
[2020-12-25] MEDS: Venlafaxine XR 75 mg PO SCH (08:40)
[2020-12-25] MEDS: Lidocaine PATCH 5% PATCH TRANSDERM SCH (08:40)
[2020-12-25] MEDS: Morphine 2 MG/ML SYRINGE IV PRN ×4 (09:37→20:36)
[2020-12-25] MEDS ORDERED: Midazolam 2 mg/2 ml VIAL 1 mg/ml 2 ml VIAL (2 mg) ONE (11:56)
[2020-12-25] MEDS ORDERED: fentaNYL 100 mcg/2 ml 50 MCG/ML VIAL ONE (11:56)
[2020-12-25] MEDS ORDERED: Levofloxacin 500 MG IVPREMIX 500 MG/100 ML BAG IVPB SCH (12:00)
[2020-12-25] MEDS ORDERED: Rocuronium 50 mg VIAL 10 mg/ml 5 ml VIAL (50 mg) ONE (12:09)
[2020-12-25] MEDS ORDERED: Benzocaine/Butamben/Tetracain (CETACAINE - SINGLE USE) 5 gm TOPICAL ONE (12:44)
[2020-12-25] MEDS ORDERED: Lidocaine 1% VIAL 10 MG/ML VIAL ONE (13:11)
[2020-12-25] MEDS ORDERED: Lidocaine 2% PF 10 ML AMP ONE (13:12)
[2020-12-25] MEDS ORDERED: Lidocaine 2% JELLY 20 ML (for OR use) ONE (13:12)
[2020-12-25] MEDS ORDERED: Propofol 10 MG/ML 20 ML BTL ONE ×2 (14:04→14:33)
[2020-12-25] MEDS ORDERED: Ondansetron 4 mg VIAL 2 MG/ML 2 ml VIAL ONE (14:12)
[2020-12-25] MEDS ORDERED: Dexamethasone IV 4 MG/ML VIAL 1 ml VIAL ONE (14:12)
[2020-12-25] MEDS ORDERED: Acetaminophen IV 1 GM/100ML 1,000 MG/100 ML VIAL IVPB ONE (14:47)
[2020-12-25] MEDS ORDERED: Naloxone 0.4 mg VIAL 0.4 mg/ml 1 ml VIAL IV PRN (14:47)
[2020-12-25] MEDS ORDERED: fentaNYL 100 mcg/2 ml 50 MCG/ML VIAL IV PRN (14:47)
[2020-12-25] MEDS ORDERED: diPHENhydraMINE IV 50 MG/ML 1 ml VIAL (BENADRYL) IV PRN (14:47)
[2020-12-25 15:00] LABS: BUN/Creatinine Ratio 25.4 (8-20); Calcium 8.5 mg/dL (8.6-10.3); EGFR Non-African American 101.7 (>60); Potassium 5.2 mmol/L (3.5-5.0)
[2020-12-25] MEDS ORDERED: Albuterol 2.5mg/3 ml (0.083%) NEB.SOLN INH ONE (15:23)
[2020-12-25] MEDS: Albuterol/Ipratropium NEB.SOL (2.5/0.5 MG) 3 ML NEB.SOLN INH PRN (15:42)
[2020-12-25] MEDS: Insulin GLARGINE 100 un/ml 10 ml VIAL SUBCUT SCH (17:30)
[2020-12-25] MEDS ORDERED: guaiFENesin/CODIENE 100mg/10mg 5 ML UDC PO PRN (19:15)
[2020-12-25] MEDS: Lidocaine Patch REMOVE PATCH PATCH OFF SCH (20:38)
[2020-12-25] MEDS: Lactated Ringers 1000 ml BAG 1,000 ML IV SCH (23:21)
[2020-12-26] MEDS ORDERED: diPHENhydraMINE 25 mg TAB PO PRN (00:40)
[2020-12-26] MEDS: Heparin 5000 UNITS/ML 1 mL VIAL SUBCUT SCH ×2 (05:33→12:45)
[2020-12-26 06:24] LABS: BUN/Creatinine Ratio 19.6 (8-20); Calcium 8.6 mg/dL (8.6-10.3); EGFR African American 130.7 (>60); Potassium 4.8 mmol/L (3.5-5.0)
[2020-12-26] MEDS ORDERED: Morphine 2 MG/ML SYRINGE IV PRN ×2 (06:36→14:00)
[2020-12-26] MEDS: Magnesium Hydroxide LIQ 30 ML UDC PO SCH ×2 (09:06→21:12)
[2020-12-26] MEDS: Lactated Ringers 1000 ml BAG 1,000 ML IV SCH ×2 (09:08→21:15)
[2020-12-26] MEDS: Venlafaxine XR 75 mg PO SCH (09:08)
[2020-12-26] MEDS: Levofloxacin 500 MG IVPREMIX 500 MG/100 ML BAG IVPB SCH (09:08)
[2020-12-26] MEDS: Lidocaine PATCH 5% PATCH TRANSDERM SCH (09:10)
[2020-12-26] MEDS ORDERED: Morphine 2 MG/ML SYRINGE IV ONE (11:44)
[2020-12-26] MEDS ORDERED: Naloxone 0.4 mg VIAL 0.4 mg/ml 1 ml VIAL IV PUSH PRN (12:23)
[2020-12-26] MEDS: Morphine 2 MG/ML SYRINGE IV PRN ×3 (14:18→22:21)
[2020-12-26] MEDS ORDERED: fentaNYL 100 mcg/2 ml 50 MCG/ML VIAL ONE (15:08)
[2020-12-26] MEDS: Insulin GLARGINE 100 un/ml 10 ml VIAL SUBCUT SCH (18:01)
[2020-12-26] MEDS: oxyCODONE SR 15 mg TAB PO SCH (21:12)
[2020-12-26] MEDS: Lidocaine Patch REMOVE PATCH PATCH OFF SCH (21:18)
[2020-12-27] MEDS: Lactated Ringers 1000 ml BAG 1,000 ML IV SCH (05:35)
[2020-12-27] MEDS ORDERED: Clindamycin 900 MG/D5W BAG 900 MG/50 ML BAG IVPB ONE (06:00)
[2020-12-27] MEDS ORDERED: Propofol 10 MG/ML 20 ML BTL ONE ×3 (07:02→16:34)
[2020-12-27] MEDS ORDERED: Midazolam 2 mg/2 ml VIAL 1 mg/ml 2 ml VIAL (2 mg) ONE ×2 (07:02→17:54)
[2020-12-27] MEDS ORDERED: Remifentanil 2 MG VIAL ONE ×2 (07:02→12:51)
[2020-12-27] MEDS ORDERED: fentaNYL 250 mcg/5 ml 50 MCG/ML 5 ml VIAL (250 MCG) ONE (07:02)
[2020-12-27] MEDS ORDERED: Lidocaine 2% PF 5 ML VIAL ONE (07:09)
[2020-12-27] MEDS ORDERED: Buffered Lidocaine 1% SYRIN 1 ml INTRADERM ONE (07:15)
[2020-12-27] MEDS ORDERED: Succinylcholine 200 mg VIAL 20 mg/ml 10 ml VIAL (200 mg) ONE (07:29)
[2020-12-27] MEDS ORDERED: Albuterol/Ipratropium NEB.SOL (2.5/0.5 MG) 3 ML NEB.SOLN ONE (07:50)
[2020-12-27] MEDS: Albuterol/Ipratropium NEB.SOL (2.5/0.5 MG) 3 ML NEB.SOLN INH PRN (07:57)
[2020-12-27] MEDS: Lidocaine PATCH 5% PATCH TRANSDERM SCH (08:01)
[2020-12-27] MEDS: Levofloxacin 500 MG IVPREMIX 500 MG/100 ML BAG IVPB SCH (08:01)
[2020-12-27] MEDS: Venlafaxine XR 75 mg PO SCH (08:02)
[2020-12-27] MEDS: Magnesium Hydroxide LIQ 30 ML UDC PO SCH ×3 (08:02→22:20)
[2020-12-27] MEDS: oxyCODONE SR 15 mg TAB PO SCH ×2 (08:02→23:01)
[2020-12-27] MEDS ORDERED: Vancomycin 1,000 MG VIAL ONE ×2 (08:04→14:29)
[2020-12-27] MEDS ORDERED: Bacitracin OINTMENT TUBE ONE (08:04)
[2020-12-27] MEDS ORDERED: ceFAZolin VIAL VIAL ONE (08:04)
[2020-12-27] MEDS ORDERED: Bacitracin INJECTION 50,000 UNITS ONE (08:04)
[2020-12-27] MEDS ORDERED: Clindamycin 300 MG/D5W BAG 300 MG/50 ML BAG IV ONE (08:30)
[2020-12-27] MEDS ORDERED: Rocuronium 50 mg VIAL 10 mg/ml 5 ml VIAL (50 mg) ONE (10:51)
[2020-12-27] MEDS ORDERED: CLINDAMYCIN ONE (12:14)
[2020-12-27 13:45] LABS: ABS Basophils 0.1 10^3/ul (0-0.2); ABS Eosinophils 0.4 10^3/ul (0-0.6); ABS Lymphocytes 1.7 10^3/ul (1.0-4.8); ABS Monocytes 0.7 10^3/ul (0-0.8); ABS Neutrophils 10.3 10^3/ul (1.5-7.7); Hematocrit 33 % (35-47); Hemoglobin 10.7 g/dL (12.0-16.0); Lymphocyte % 12.6 %; Mean Corpuscular HGB Conc 32 g/dL (31-36); Mean Corpuscular Hemoglobin 29 pg (27-31); Mean Corpuscular Volume 90 fL (80-97); Mean Platelet Volume 7.8 fL (7.4-10.4); Platelet Count 274 10^3/uL (150-450); Red Blood Count 3.66 10^6 /uL (3.70-4.87); Red Cell Distribution Width 15 % (10-15); White Blood Count 13.2 10^3/uL (3.5-10.8)
[2020-12-27 13:55] LABS: Albumin 2.5 g/dL (3.2-5.2); Albumin/Globulin Ratio 1.3 (1-3); BUN/Creatinine Ratio 19.5 (8-20); Calcium 7.8 mg/dL (8.6-10.3); EGFR African American 187.2 (>60); EGFR Non-African American 154.7 (>60); Potassium 4.3 mmol/L (3.5-5.0); Total Bilirubin 0.3 mg/dL (0.2-1.0); Total Protein 4.5 g/dL (6.4-8.9)
[2020-12-27] MEDS ORDERED: Acetaminophen IV 1 GM/100ML 100 ML ONE (14:41)
[2020-12-27] MEDS ORDERED: Naloxone 0.4 mg VIAL 0.4 mg/ml 1 ml VIAL IV PRN (14:59)
[2020-12-27] MEDS ORDERED: Ondansetron 4 mg VIAL 2 MG/ML 2 ml VIAL IV PRN (14:59)
[2020-12-27] MEDS ORDERED: Levalbuterol HFA INHALER MDI ONE (15:28)
[2020-12-27] MEDS ORDERED: fentaNYL 100 mcg/2 ml 50 MCG/ML VIAL ONE ×2 (16:20→16:53)
[2020-12-27] MEDS: fentaNYL 100 mcg/2 ml 50 MCG/ML VIAL IV PRN ×7 (16:25→18:45)
[2020-12-27] MEDS ORDERED: Ondansetron 4 mg VIAL 2 MG/ML 2 ml VIAL ONE (16:34)
[2020-12-27] MEDS ORDERED: HYDROmorphone 1 MG/1 ML SYRINGE ONE (17:13)
[2020-12-27] MEDS: HYDROmorphone 1 MG/1 ML SYRINGE IV PRN ×5 (17:15→17:40)
[2020-12-27] MEDS ORDERED: Midazolam 2 mg/2 ml VIAL 1 mg/ml 2 ml VIAL (2 mg) IV SLOW PU ONE (17:54)
[2020-12-27] MEDS: Morphine 2 MG/ML SYRINGE IV PRN (21:14)
[2020-12-27] MEDS ORDERED: Magnesium Hydroxide LIQ 30 ML UDC PO PRN (21:28)
[2020-12-27] MEDS: Insulin GLARGINE 100 un/ml 10 ml VIAL SUBCUT SCH (22:17)
[2020-12-27] MEDS: NS 0.9% 1,000 ML IV SCH (22:43)
[2020-12-27] MEDS: Acetaminophen IV 1000 MG/100ML IVPB SCH (22:44)
[2020-12-27] MEDS: Clindamycin 900 MG IVPREMIX- Q8H IVPB SCH (22:57)
[2020-12-28] MEDS: Lidocaine Patch REMOVE PATCH PATCH OFF SCH ×2 (02:36→21:25)
[2020-12-28 05:22] LABS: ABS Lymphocytes 2.2 10^3/ul (1.0-4.8); ABS Monocytes 1.4 10^3/ul (0-0.8); ABS Neutrophils 9.9 10^3/ul (1.5-7.7); Eosinophil % 0.1 %; Hematocrit 28 % (35-47); Hemoglobin 9.3 g/dL (12.0-16.0); Lymphocyte % 16.4 %; Mean Corpuscular HGB Conc 33 g/dL (31-36); Mean Corpuscular Hemoglobin 30 pg (27-31); Mean Corpuscular Volume 91 fL (80-97); Mean Platelet Volume 7.7 fL (7.4-10.4); Platelet Count 204 10^3/uL (150-450); Red Blood Count 3.14 10^6 /uL (3.70-4.87); Red Cell Distribution Width 15 % (10-15); White Blood Count 13.6 10^3/uL (3.5-10.8)
[2020-12-28 05:39] LABS: Albumin 2.7 g/dL (3.2-5.2); Albumin/Globulin Ratio 1.4 (1-3); Calcium 7.8 mg/dL (8.6-10.3); EGFR African American 148.9 (>60); EGFR Non-African American 123.1 (>60); Potassium 4.6 mmol/L (3.5-5.0); Total Bilirubin 0.5 mg/dL (0.2-1.0); Total Protein 4.7 g/dL (6.4-8.9)
[2020-12-28] MEDS: Acetaminophen IV 1000 MG/100ML IVPB SCH ×2 (06:22→13:32)
[2020-12-28] MEDS: Clindamycin 900 MG IVPREMIX- Q8H IVPB SCH ×3 (06:22→21:41)
[2020-12-28 08:42] LABS: Magnesium 1.8 mg/dL (1.9-2.7); Phosphorus 3.8 mg/dL (2.5-5.0)
[2020-12-28] MEDS: oxyCODONE SR 15 mg TAB PO SCH ×2 (09:08→21:42)
[2020-12-28] MEDS: Enoxaparin 40 MG/0.4 ML SYR SUBCUT SCH (09:09)
[2020-12-28] MEDS: Lidocaine PATCH 5% PATCH TRANSDERM SCH (09:10)
[2020-12-28] MEDS: Magnesium Hydroxide LIQ 30 ML UDC PO SCH ×2 (09:11→21:59)
[2020-12-28] MEDS: Polyethylene Glycol 3350 17 GM PACKET PO SCH (09:12)
[2020-12-28] MEDS: Venlafaxine XR 75 mg PO SCH (09:12)
[2020-12-28] MEDS ORDERED: Magnesium Sulfate 2 gm BAG 2 GM/50 ML BAG IVPB ONE (09:26)
[2020-12-28] MEDS: NS 0.9% 1,000 ML IV SCH (10:39)
[2020-12-28] MEDS: Calcium/Vitamin D TAB 250/125 TAB PO SCH ×2 (12:53→21:41)
[2020-12-28] MEDS: Insulin GLARGINE 100 un/ml 10 ml VIAL SUBCUT SCH (18:22)
[2020-12-28] MEDS: Albuterol 2.5mg/3 ml (0.083%) NEB.SOLN INH SCH (23:27)
[2020-12-29 05:47] LABS: ABS Basophils 0.1 10^3/ul (0-0.2); ABS Eosinophils 0.5 10^3/ul (0-0.6); ABS Lymphocytes 2.4 10^3/ul (1.0-4.8); ABS Monocytes 1.5 10^3/ul (0-0.8); ABS Neutrophils 7.5 10^3/ul (1.5-7.7); Eosinophil % 4.5 %; Hematocrit 25 % (35-47); Lymphocyte % 20.2 %; Mean Corpuscular HGB Conc 33 g/dL (31-36); Mean Corpuscular Hemoglobin 29 pg (27-31); Mean Corpuscular Volume 90 fL (80-97); Mean Platelet Volume 7.5 fL (7.4-10.4); Platelet Count 195 10^3/uL (150-450); Red Blood Count 2.72 10^6 /uL (3.70-4.87); Red Cell Distribution Width 15 % (10-15); White Blood Count 12.1 10^3/uL (3.5-10.8)
[2020-12-29 05:55] LABS: INR 1.17 (0.82-1.09)
[2020-12-29 06:04] LABS: Albumin 2.6 g/dL (3.2-5.2); Albumin/Globulin Ratio 1.2 (1-3); BUN/Creatinine Ratio 33.3 (8-20); EGFR African American 168.2 (>60); Globulin 2.1 g/dL (2-4); Phosphorus 3.4 mg/dL (2.5-5.0); Potassium 4.2 mmol/L (3.5-5.0); Total Bilirubin 0.4 mg/dL (0.2-1.0); Total Protein 4.7 g/dL (6.4-8.9)
[2020-12-29] MEDS: Clindamycin 900 MG IVPREMIX- Q8H IVPB SCH ×3 (06:19→23:10)
[2020-12-29] MEDS: Albuterol 2.5mg/3 ml (0.083%) NEB.SOLN INH SCH (07:49)
[2020-12-29] MEDS: Calcium/Vitamin D TAB 250/125 TAB PO SCH ×2 (08:51→22:31)
[2020-12-29] MEDS: Venlafaxine XR 75 mg PO SCH (08:53)
[2020-12-29] MEDS: Polyethylene Glycol 3350 17 GM PACKET PO SCH (09:15)
[2020-12-29] MEDS: Lidocaine PATCH 5% PATCH TRANSDERM SCH (09:15)
[2020-12-29] MEDS: Enoxaparin 40 MG/0.4 ML SYR SUBCUT SCH (09:16)
[2020-12-29] MEDS: Magnesium Hydroxide LIQ 30 ML UDC PO SCH ×2 (09:16→22:31)
[2020-12-29] MEDS: Insulin GLARGINE 100 un/ml 10 ml VIAL SUBCUT SCH (18:32)
[2020-12-29 18:33] LABS: Hematocrit 26 % (35-47); Hemoglobin 8.6 g/dL (12.0-16.0)
[2020-12-29] MEDS: oxyCODONE SR 15 mg TAB PO SCH (22:31)
[2020-12-29] MEDS: Senna TAB 8.6 mg TAB PO SCH (22:31)
[2020-12-29] MEDS: Lidocaine Patch REMOVE PATCH PATCH OFF SCH (23:10)
[2020-12-30] MEDS: Clindamycin 900 MG IVPREMIX- Q8H IVPB SCH ×3 (06:23→23:50)
[2020-12-30 07:11] LABS: Hematocrit 25 % (35-47); Hemoglobin 8.2 g/dL (12.0-16.0); Mean Corpuscular HGB Conc 32 g/dL (31-36); Mean Corpuscular Hemoglobin 29 pg (27-31); Mean Corpuscular Volume 91 fL (80-97); Mean Platelet Volume 7.9 fL (7.4-10.4); Platelet Count 218 10^3/uL (150-450); Red Blood Count 2.79 10^6 /uL (3.70-4.87); Red Cell Distribution Width 15 % (10-15); White Blood Count 11.5 10^3/uL (3.5-10.8)
[2020-12-30 07:28] LABS: Albumin 2.7 g/dL (3.2-5.2); Albumin/Globulin Ratio 1.1 (1-3); BUN/Creatinine Ratio 26.1 (8-20); Calcium 8.3 mg/dL (8.6-10.3); EGFR Non-African American 135.5 (>60); Globulin 2.4 g/dL (2-4); Potassium 4.2 mmol/L (3.5-5.0); Total Bilirubin 0.4 mg/dL (0.2-1.0); Total Protein 5.1 g/dL (6.4-8.9)
[2020-12-30 08:15] LABS: ABS Basophils 0.1 10^3/ul (0-0.2); ABS Eosinophils 0.4 10^3/ul (0-0.6); ABS Lymphocytes 2.6 10^3/ul (1.0-4.8); ABS Monocytes 1.7 10^3/ul (0-0.8); ABS Neutrophils 6.7 10^3/ul (1.5-7.7); Eosinophil % 3.6 %; Lymphocyte % 22.2 %
[2020-12-30] MEDS: Calcium/Vitamin D TAB 250/125 TAB PO SCH ×2 (09:29→20:38)
[2020-12-30] MEDS: oxyCODONE SR 15 mg TAB PO SCH ×2 (09:31→20:38)
[2020-12-30] MEDS: Venlafaxine XR 75 mg PO SCH (09:31)
[2020-12-30] MEDS: Polyethylene Glycol 3350 17 GM PACKET PO SCH (09:53)
[2020-12-30] MEDS: Magnesium Hydroxide LIQ 30 ML UDC PO SCH ×2 (09:53→20:39)
[2020-12-30] MEDS: Enoxaparin 40 MG/0.4 ML SYR SUBCUT SCH (10:58)
[2020-12-30] MEDS: Lidocaine PATCH 5% PATCH TRANSDERM SCH (13:16)
[2020-12-30 16:41] LABS: Urine Appearance Cloudy; Urine Bilirubin Negative (Negative); Urine Blood Negative (Negative); Urine Color Yellow; Urine Glucose Negative (Negative); Urine Ketones Negative (Negative); Urine Nitrite Negative (Negative); Urine Protein Negative (Negative); Urine Specific Gravity 1.011 (1.002-1.030); Urine Urobilinogen Negative (Negative)
[2020-12-30] MEDS: Insulin GLARGINE 100 un/ml 10 ml VIAL SUBCUT SCH (18:15)
[2020-12-30] MEDS: Lidocaine Patch REMOVE PATCH PATCH OFF SCH (20:39)
[2020-12-30] MEDS: Senna TAB 8.6 mg TAB PO SCH (23:49)
[2020-12-31] MEDS: Clindamycin 900 MG IVPREMIX- Q8H IVPB SCH ×2 (06:37→15:19)
[2020-12-31 07:08] LABS: Hematocrit 23 % (35-47); Hemoglobin 7.7 g/dL (12.0-16.0); Mean Corpuscular HGB Conc 34 g/dL (31-36); Mean Corpuscular Hemoglobin 30 pg (27-31); Mean Corpuscular Volume 90 fL (80-97); Mean Platelet Volume 7.8 fL (7.4-10.4); Platelet Count 237 10^3/uL (150-450); Red Blood Count 2.57 10^6 /uL (3.70-4.87); Red Cell Distribution Width 15 % (10-15); White Blood Count 9.7 10^3/uL (3.5-10.8)
[2020-12-31 07:41] LABS: INR 1.32 (0.82-1.09)
[2020-12-31] MEDS ORDERED: Midazolam 2 mg/2 ml VIAL 1 mg/ml 2 ml VIAL (2 mg) ONE (08:25)
[2020-12-31] MEDS ORDERED: fentaNYL 100 mcg/2 ml 50 MCG/ML VIAL ONE (08:25)
[2020-12-31 08:41] LABS: ABS Eosinophils 0.2 10^3/ul (0-0.6); ABS Lymphocytes 1.8 10^3/ul (1.0-4.8); ABS Monocytes 1.6 10^3/ul (0-0.8); ABS Neutrophils 5.9 10^3/ul (1.5-7.7); Eosinophil % 2.5 %; Lymphocyte % 18.7 %; Nucleated Red Blood Cells % 0.1
[2020-12-31] MEDS: Lidocaine PATCH 5% PATCH TRANSDERM SCH (15:19)
[2020-12-31] MEDS: Calcium/Vitamin D TAB 250/125 TAB PO SCH ×2 (15:19→21:57)
[2020-12-31] MEDS: Magnesium Hydroxide LIQ 30 ML UDC PO SCH ×2 (15:19→22:03)
[2020-12-31] MEDS: Venlafaxine XR 75 mg PO SCH (15:28)
[2020-12-31] MEDS: oxyCODONE SR 15 mg TAB PO SCH ×2 (15:29→21:58)
[2020-12-31] MEDS: Polyethylene Glycol 3350 17 GM PACKET PO SCH (15:36)
[2020-12-31] MEDS: Insulin GLARGINE 100 un/ml 10 ml VIAL SUBCUT SCH (18:08)
[2020-12-31] MEDS ORDERED: Enoxaparin 40 MG/0.4 ML SYR SUBCUT SCH (21:00)
[2020-12-31] MEDS: Senna TAB 8.6 mg TAB PO SCH (21:56)
[2020-12-31] MEDS: Lidocaine Patch REMOVE PATCH PATCH OFF SCH (21:58)
[2021-01-01] MEDS: Lidocaine PATCH 5% PATCH TRANSDERM SCH (08:45)
[2021-01-01] MEDS: Calcium/Vitamin D TAB 250/125 TAB PO SCH ×2 (08:47→23:25)
[2021-01-01] MEDS: Polyethylene Glycol 3350 17 GM PACKET PO SCH (08:47)
[2021-01-01] MEDS: Venlafaxine XR 75 mg PO SCH (08:47)
[2021-01-01] MEDS: oxyCODONE SR 15 mg TAB PO SCH ×2 (08:47→23:26)
[2021-01-01] MEDS: Magnesium Hydroxide LIQ 30 ML UDC PO SCH ×2 (08:48→23:23)
[2021-01-01 08:55] LABS: Hematocrit 20 % (35-47); Hemoglobin 6.9 g/dL (12.0-16.0); Mean Corpuscular HGB Conc 34 g/dL (31-36); Mean Corpuscular Hemoglobin 30 pg (27-31); Mean Corpuscular Volume 89 fL (80-97); Mean Platelet Volume 7.5 fL (7.4-10.4); Platelet Count 235 10^3/uL (150-450); Red Blood Count 2.27 10^6 /uL (3.70-4.87); Red Cell Distribution Width 15 % (10-15); White Blood Count 9.3 10^3/uL (3.5-10.8)
[2021-01-01 16:49] LABS: Hematocrit 29 % (35-47); Hemoglobin 9.7 g/dL (12.0-16.0)
[2021-01-01] MEDS: Senna TAB 8.6 mg TAB PO SCH (23:23)
[2021-01-01] MEDS: Lidocaine Patch REMOVE PATCH PATCH OFF SCH (23:27)
[2021-01-02 05:10] LABS: Hematocrit 26 % (35-47); Hemoglobin 8.7 g/dL (12.0-16.0)
[2021-01-02] MEDS: Magnesium Hydroxide LIQ 30 ML UDC PO SCH ×2 (08:15→21:01)
[2021-01-02] MEDS: Polyethylene Glycol 3350 17 GM PACKET PO SCH (08:15)
[2021-01-02] MEDS: oxyCODONE SR 15 mg TAB PO SCH (08:42)
[2021-01-02] MEDS: Venlafaxine XR 75 mg PO SCH (08:43)
[2021-01-02] MEDS: Calcium/Vitamin D TAB 250/125 TAB PO SCH ×2 (08:45→21:05)
[2021-01-02] MEDS: Lidocaine PATCH 5% PATCH TRANSDERM SCH (08:49)
[2021-01-02] MEDS ORDERED: Naloxone 0.4 mg VIAL 0.4 mg/ml 1 ml VIAL IV PUSH PRN (13:25)
[2021-01-02] MEDS ORDERED: Insulin GLARGINE 100 un/ml 10 ml VIAL SUBCUT SCH (18:00)
[2021-01-02] MEDS: Senna TAB 8.6 mg TAB PO SCH (21:01)
[2021-01-02] MEDS: oxyCODONE SR 20 mg TAB PO SCH (21:05)
[2021-01-02] MEDS: Lidocaine Patch REMOVE PATCH PATCH OFF SCH (21:06)
[2021-01-03 08:33] LABS: Hematocrit 28 % (35-47)
[2021-01-03] MEDS: oxyCODONE SR 20 mg TAB PO SCH ×2 (09:27→20:31)
[2021-01-03] MEDS: Lidocaine PATCH 5% PATCH TRANSDERM SCH (09:28)
[2021-01-03] MEDS: Venlafaxine XR 75 mg PO SCH (09:29)
[2021-01-03] MEDS: Calcium/Vitamin D TAB 250/125 TAB PO SCH ×2 (09:29→20:31)
[2021-01-03] MEDS: Magnesium Hydroxide LIQ 30 ML UDC PO SCH ×2 (09:31→20:32)
[2021-01-03] MEDS: Polyethylene Glycol 3350 17 GM PACKET PO SCH (09:32)
[2021-01-03] MEDS: Morphine 2 MG/ML SYRINGE IV PRN (18:08)
[2021-01-03 20:08] LABS: Urine Appearance Cloudy; Urine Bilirubin Negative (Negative); Urine Blood 3+ (Negative); Urine Color Yellow; Urine Glucose Negative (Negative); Urine Ketones 2+ (Negative); Urine Nitrite Negative (Negative); Urine Protein 1+(30 mg/dL) (Negative); Urine Specific Gravity 1.016 (1.002-1.030); Urine Urobilinogen Negative (Negative)
[2021-01-03 20:18] LABS: Urine Bacteria Absent (Absent); Urine Red Blood Cell 3+(>10/hpf) (Absent); Urine Squamous Epithelial Cell Present (Absent); Urine White Blood Cell 3+(>20/hpf) (Absent)
[2021-01-03] MEDS: Senna TAB 8.6 mg TAB PO SCH (20:31)
[2021-01-03] MEDS: Lidocaine Patch REMOVE PATCH PATCH OFF SCH (20:32)
[2021-01-04] MEDS: Venlafaxine XR 75 mg PO SCH (08:15)
[2021-01-04] MEDS: Calcium/Vitamin D TAB 250/125 TAB PO SCH ×2 (08:15→20:26)
[2021-01-04] MEDS: Lidocaine PATCH 5% PATCH TRANSDERM SCH (08:16)
[2021-01-04] MEDS: oxyCODONE SR 20 mg TAB PO SCH ×2 (08:16→20:27)
[2021-01-04] MEDS: Albuterol 2.5mg/3 ml (0.083%) NEB.SOLN INH PRN (08:33)
[2021-01-04] MEDS: Magnesium Hydroxide LIQ 30 ML UDC PO SCH ×2 (08:39→22:01)
[2021-01-04] MEDS: Polyethylene Glycol 3350 17 GM PACKET PO SCH (08:39)
[2021-01-04] MEDS: Senna TAB 8.6 mg TAB PO SCH (20:25)
[2021-01-04] MEDS: Lidocaine Patch REMOVE PATCH PATCH OFF SCH (21:59)
[2021-01-05 08:13] LABS: Hematocrit 28 % (35-47); Hemoglobin 9.4 g/dL (12.0-16.0)
[2021-01-05] MEDS: Calcium/Vitamin D TAB 250/125 TAB PO SCH ×2 (08:52→20:19)
[2021-01-05] MEDS: Venlafaxine XR 75 mg PO SCH (08:52)
[2021-01-05] MEDS: Morphine 2 MG/ML SYRINGE IV PRN ×2 (08:53→12:45)
[2021-01-05] MEDS: oxyCODONE SR 20 mg TAB PO SCH ×2 (08:53→20:19)
[2021-01-05] MEDS: Enoxaparin 40 MG/0.4 ML SYR SUBCUT SCH (08:54)
[2021-01-05] MEDS: Magnesium Hydroxide LIQ 30 ML UDC PO SCH ×2 (08:54→20:31)
[2021-01-05] MEDS: Lidocaine PATCH 5% PATCH TRANSDERM SCH (09:01)
[2021-01-05] MEDS: Polyethylene Glycol 3350 17 GM PACKET PO SCH (10:35)
[2021-01-05] MEDS: Senna TAB 8.6 mg TAB PO SCH (20:18)
[2021-01-05] MEDS: Lidocaine Patch REMOVE PATCH PATCH OFF SCH (20:36)
[2021-01-06] MEDS: Magnesium Hydroxide LIQ 30 ML UDC PO SCH ×2 (07:51→21:38)
[2021-01-06] MEDS: Polyethylene Glycol 3350 17 GM PACKET PO SCH (07:52)
[2021-01-06] MEDS: Lidocaine PATCH 5% PATCH TRANSDERM SCH (08:09)
[2021-01-06] MEDS: Calcium/Vitamin D TAB 250/125 TAB PO SCH ×2 (08:11→21:37)
[2021-01-06] MEDS: oxyCODONE SR 20 mg TAB PO SCH ×2 (08:11→21:35)
[2021-01-06] MEDS: Venlafaxine XR 75 mg PO SCH (08:12)
[2021-01-06] MEDS: Enoxaparin 40 MG/0.4 ML SYR SUBCUT SCH (08:12)
[2021-01-06] MEDS: Senna TAB 8.6 mg TAB PO SCH (21:38)
[2021-01-06] MEDS: Lidocaine Patch REMOVE PATCH PATCH OFF SCH (21:45)
[2021-01-06] MEDS: Morphine 2 MG/ML SYRINGE IV PRN (22:56)
[2021-01-07] MEDS: Morphine 2 MG/ML SYRINGE IV PRN ×3 (02:18→17:31)
[2021-01-07] MEDS: Calcium/Vitamin D TAB 250/125 TAB PO SCH ×2 (09:12→20:46)
[2021-01-07] MEDS: Venlafaxine XR 75 mg PO SCH (09:12)
[2021-01-07] MEDS: oxyCODONE SR 20 mg TAB PO SCH (09:13)
[2021-01-07] MEDS: Magnesium Hydroxide LIQ 30 ML UDC PO SCH ×2 (09:13→20:47)
[2021-01-07] MEDS: Polyethylene Glycol 3350 17 GM PACKET PO SCH (09:14)
[2021-01-07] MEDS: Enoxaparin 40 MG/0.4 ML SYR SUBCUT SCH (09:18)
[2021-01-07] MEDS: Lidocaine PATCH 5% PATCH TRANSDERM SCH (10:23)
[2021-01-07 13:53] LABS: % Iron Saturation 11 % (15-55); Iron 23 ug/dL (50-212); Total Iron Binding Capacity 204 mcg/dL (250-450); Transferrin 146 mg/dL (203-362); Unsaturated Iron Binding < 189 ug/dL
[2021-01-07 14:14] LABS: Ferritin 175.9 ng/mL (11-307)
[2021-01-07 14:18] LABS: Vitamin B12 1279 pg/mL (180-914)
[2021-01-07] MEDS ORDERED: Morphine 2 MG/ML SYRINGE IV PRN (19:38)
[2021-01-07] MEDS: Senna TAB 8.6 mg TAB PO SCH (20:47)
[2021-01-07] MEDS: oxyCODONE SR 10 mg TAB PO SCH (20:48)
[2021-01-07] MEDS: Insulin GLARGINE 100 un/ml 10 ml VIAL SUBCUT SCH (20:49)
[2021-01-07] MEDS: Lidocaine Patch REMOVE PATCH PATCH OFF SCH (21:52)
[2021-01-08] MEDS: Enoxaparin 40 MG/0.4 ML SYR SUBCUT SCH (08:51)
[2021-01-08] MEDS: Venlafaxine XR 75 mg PO SCH (08:53)
[2021-01-08] MEDS: oxyCODONE SR 10 mg TAB PO SCH ×2 (08:53→21:42)
[2021-01-08] MEDS: Lidocaine PATCH 5% PATCH TRANSDERM SCH (08:54)
[2021-01-08] MEDS: Calcium/Vitamin D TAB 250/125 TAB PO SCH ×2 (09:18→21:43)
[2021-01-08] MEDS: Magnesium Hydroxide LIQ 30 ML UDC PO SCH ×2 (09:19→21:44)
[2021-01-08] MEDS: Polyethylene Glycol 3350 17 GM PACKET PO SCH (09:19)
[2021-01-08 15:00] LABS: ABS Basophils 0.1 10^3/ul (0-0.2); ABS Eosinophils 0.6 10^3/ul (0-0.6); ABS Monocytes 1.2 10^3/ul (0-0.8); Eosinophil % 4.3 %; Hematocrit 27 % (35-47); Hemoglobin 8.8 g/dL (12.0-16.0); Lymphocyte % 15.7 %; Mean Corpuscular HGB Conc 33 g/dL (31-36); Mean Corpuscular Hemoglobin 29 pg (27-31); Mean Corpuscular Volume 88 fL (80-97); Mean Platelet Volume 7.2 fL (7.4-10.4); Platelet Count 359 10^3/uL (150-450); Red Blood Count 3.02 10^6 /uL (3.70-4.87); Red Cell Distribution Width 16 % (10-15); White Blood Count 12.9 10^3/uL (3.5-10.8)
[2021-01-08 19:46] LABS: C Reactive Protein 150.01 mg/L (<8.01)
[2021-01-08] MEDS: Senna TAB 8.6 mg TAB PO SCH (21:44)
[2021-01-08] MEDS: Lidocaine Patch REMOVE PATCH PATCH OFF SCH (21:47)
[2021-01-08] MEDS: Insulin GLARGINE 100 un/ml 10 ml VIAL SUBCUT SCH (21:59)
[2021-01-09] MEDS: Lidocaine PATCH 5% PATCH TRANSDERM SCH (08:31)
[2021-01-09] MEDS: Enoxaparin 40 MG/0.4 ML SYR SUBCUT SCH (08:35)
[2021-01-09] MEDS: Calcium/Vitamin D TAB 250/125 TAB PO SCH ×2 (08:36→20:15)
[2021-01-09] MEDS: Venlafaxine XR 75 mg PO SCH (08:36)
[2021-01-09] MEDS: Polyethylene Glycol 3350 17 GM PACKET PO SCH (08:37)
[2021-01-09] MEDS: oxyCODONE SR 10 mg TAB PO SCH (08:37)
[2021-01-09] MEDS: Magnesium Hydroxide LIQ 30 ML UDC PO SCH ×2 (08:38→20:28)
[2021-01-09 09:20] LABS: ABS Basophils 0.1 10^3/ul (0-0.2); ABS Eosinophils 0.6 10^3/ul (0-0.6); ABS Lymphocytes 1.8 10^3/ul (1.0-4.8); ABS Neutrophils 8.6 10^3/ul (1.5-7.7); Eosinophil % 5.1 %; Hematocrit 29 % (35-47); Hemoglobin 9.6 g/dL (12.0-16.0); Lymphocyte % 14.9 %; Mean Corpuscular HGB Conc 34 g/dL (31-36); Mean Corpuscular Hemoglobin 30 pg (27-31); Mean Corpuscular Volume 88 fL (80-97); Mean Platelet Volume 6.9 fL (7.4-10.4); Platelet Count 380 10^3/uL (150-450); Red Blood Count 3.25 10^6 /uL (3.70-4.87); Red Cell Distribution Width 15 % (10-15); White Blood Count 12.1 10^3/uL (3.5-10.8)
[2021-01-09 09:36] LABS: BUN/Creatinine Ratio 10.8 (8-20); Calcium 8.5 mg/dL (8.6-10.3); EGFR African American 210.8 (>60); EGFR Non-African American 174.2 (>60); Potassium 3.9 mmol/L (3.5-5.0)
[2021-01-09] MEDS: oxyCODONE SR 15 mg TAB PO SCH (20:15)
[2021-01-09] MEDS: Lidocaine Patch REMOVE PATCH PATCH OFF SCH (20:27)
[2021-01-09] MEDS: Senna TAB 8.6 mg TAB PO SCH (20:28)
[2021-01-09] MEDS: Insulin GLARGINE 100 un/ml 10 ml VIAL SUBCUT SCH (21:21)
[2021-01-10] MEDS: oxyCODONE SR 15 mg TAB PO SCH (08:00)
[2021-01-10] MEDS: Lidocaine PATCH 5% PATCH TRANSDERM SCH (08:01)
[2021-01-10] MEDS: Calcium/Vitamin D TAB 250/125 TAB PO SCH ×2 (10:24→20:20)
[2021-01-10] MEDS: Venlafaxine XR 75 mg PO SCH (10:26)
[2021-01-10] MEDS: Magnesium Hydroxide LIQ 30 ML UDC PO SCH ×2 (10:27→20:26)
[2021-01-10] MEDS: Nystatin TOP POWDER 15 GM BTL TOPICAL SCH ×2 (10:27→20:27)
[2021-01-10] MEDS: Polyethylene Glycol 3350 17 GM PACKET PO SCH (10:27)
[2021-01-10] MEDS: Enoxaparin 40 MG/0.4 ML SYR SUBCUT SCH (10:31)
[2021-01-10] MEDS: Insulin GLARGINE 100 un/ml 10 ml VIAL SUBCUT SCH (20:19)
[2021-01-10] MEDS: oxyCODONE SR 20 mg TAB PO SCH (20:22)
[2021-01-10] MEDS: Lidocaine Patch REMOVE PATCH PATCH OFF SCH (20:26)
[2021-01-10] MEDS: Senna TAB 8.6 mg TAB PO SCH (20:27)
[2021-01-11] MEDS: oxyCODONE SR 20 mg TAB PO SCH ×2 (08:18→20:51)
[2021-01-11] MEDS: Lidocaine PATCH 5% PATCH TRANSDERM SCH (08:18)
[2021-01-11] MEDS: Calcium/Vitamin D TAB 250/125 TAB PO SCH ×2 (09:58→20:50)
[2021-01-11] MEDS: Venlafaxine XR 75 mg PO SCH (09:59)
[2021-01-11] MEDS: Nystatin TOP POWDER 15 GM BTL TOPICAL SCH ×2 (10:02→20:58)
[2021-01-11] MEDS: Enoxaparin 40 MG/0.4 ML SYR SUBCUT SCH (10:02)
[2021-01-11] MEDS: Polyethylene Glycol 3350 17 GM PACKET PO SCH (10:06)
[2021-01-11] MEDS: Magnesium Hydroxide LIQ 30 ML UDC PO SCH ×2 (10:06→20:57)
[2021-01-11] MEDS: Senna TAB 8.6 mg TAB PO SCH (20:56)
[2021-01-11] MEDS: Insulin GLARGINE 100 un/ml 10 ml VIAL SUBCUT SCH (21:01)
[2021-01-11] MEDS: Lidocaine Patch REMOVE PATCH PATCH OFF SCH (21:02)
[2021-01-12] MEDS ORDERED: Pantoprazole VIAL 40 MG VIAL IV ONE (04:20)
[2021-01-12 05:09] LABS: ABS Basophils 0.1 10^3/ul (0-0.2); ABS Eosinophils 0.6 10^3/ul (0-0.6); ABS Lymphocytes 1.6 10^3/ul (1.0-4.8); ABS Neutrophils 7.8 10^3/ul (1.5-7.7); Eosinophil % 5.4 %; Hematocrit 29 % (35-47); Hemoglobin 9.3 g/dL (12.0-16.0); Lymphocyte % 14.7 %; Mean Corpuscular HGB Conc 33 g/dL (31-36); Mean Corpuscular Hemoglobin 29 pg (27-31); Mean Corpuscular Volume 89 fL (80-97); Mean Platelet Volume 7.3 fL (7.4-10.4); Platelet Count 398 10^3/uL (150-450); Red Cell Distribution Width 16 % (10-15); White Blood Count 11.1 10^3/uL (3.5-10.8)
[2021-01-12 05:28] LABS: BUN/Creatinine Ratio 11.9 (8-20); Calcium 8.1 mg/dL (8.6-10.3); EGFR African American 182.1 (>60); EGFR Non-African American 150.5 (>60)
[2021-01-12 05:31] LABS: Troponin I 0.01 ng/mL (<0.03)
[2021-01-12] MEDS: Calcium/Vitamin D TAB 250/125 TAB PO SCH ×2 (09:24→20:49)
[2021-01-12] MEDS: oxyCODONE SR 20 mg TAB PO SCH ×2 (09:24→20:57)
[2021-01-12] MEDS: Venlafaxine XR 75 mg PO SCH (09:25)
[2021-01-12] MEDS: Magnesium Hydroxide LIQ 30 ML UDC PO SCH ×2 (09:25→20:48)
[2021-01-12] MEDS: Polyethylene Glycol 3350 17 GM PACKET PO SCH (09:26)
[2021-01-12] MEDS: Nystatin TOP POWDER 15 GM BTL TOPICAL SCH ×2 (09:26→20:57)
[2021-01-12] MEDS: Enoxaparin 40 MG/0.4 ML SYR SUBCUT SCH (09:31)
[2021-01-12] MEDS: Lidocaine PATCH 5% PATCH TRANSDERM SCH (09:32)
[2021-01-12] MEDS ORDERED: Iodixanol (CONTRAST) 320 MG/ML 100 ML SDV IV ONE ×2 (14:02)
[2021-01-12] MEDS: Insulin GLARGINE 100 un/ml 10 ml VIAL SUBCUT SCH (20:47)
[2021-01-12] MEDS: Senna TAB 8.6 mg TAB PO SCH (20:49)
[2021-01-12] MEDS: Lidocaine Patch REMOVE PATCH PATCH OFF SCH (20:50)
[2021-01-13 02:52] LABS: LNGPR Tissue ID S21-3290
[2021-01-13] MEDS: oxyCODONE SR 20 mg TAB PO SCH (08:59)
[2021-01-13] MEDS: Venlafaxine XR 75 mg PO SCH (09:00)
[2021-01-13] MEDS: Calcium/Vitamin D TAB 250/125 TAB PO SCH ×2 (09:00→21:14)
[2021-01-13] MEDS: Lidocaine PATCH 5% PATCH TRANSDERM SCH (09:02)
[2021-01-13] MEDS: Enoxaparin 40 MG/0.4 ML SYR SUBCUT SCH (09:02)
[2021-01-13] MEDS: Magnesium Hydroxide LIQ 30 ML UDC PO SCH ×2 (09:03→21:18)
[2021-01-13] MEDS: Polyethylene Glycol 3350 17 GM PACKET PO SCH (09:03)
[2021-01-13] MEDS: Nystatin TOP POWDER 15 GM BTL TOPICAL SCH ×2 (10:37→21:33)
[2021-01-13] MEDS ORDERED: Magnesium CITRATE LIQ 300 ML BTL PO ONE (13:30)
[2021-01-13] MEDS: Psyllium PAK PO SCH (14:42)
[2021-01-13] MEDS: PAIN RELIEVING RUB (MENTHOL/SALICYLATE) 1 APPLIC TUBE TOPICAL SCH ×2 (14:50→21:18)
[2021-01-13] MEDS: Insulin GLARGINE 100 un/ml 10 ml VIAL SUBCUT SCH (21:13)
[2021-01-13] MEDS: oxyCODONE SR 15 mg TAB PO SCH (21:15)
[2021-01-13] MEDS: Lidocaine Patch REMOVE PATCH PATCH OFF SCH (21:17)
[2021-01-13] MEDS: Senna TAB 8.6 mg TAB PO SCH (21:18)
[2021-01-14] MEDS: Magnesium Hydroxide LIQ 30 ML UDC PO SCH ×2 (09:20→21:31)
[2021-01-14] MEDS: Nystatin TOP POWDER 15 GM BTL TOPICAL SCH ×2 (09:21→21:32)
[2021-01-14] MEDS: Psyllium PAK PO SCH (09:22)
[2021-01-14] MEDS: Polyethylene Glycol 3350 17 GM PACKET PO SCH (09:22)
[2021-01-14] MEDS: Venlafaxine XR 75 mg PO SCH (09:23)
[2021-01-14] MEDS: oxyCODONE SR 15 mg TAB PO SCH ×2 (09:25→21:30)
[2021-01-14] MEDS: Calcium/Vitamin D TAB 250/125 TAB PO SCH ×2 (09:26→21:31)
[2021-01-14] MEDS: Enoxaparin 40 MG/0.4 ML SYR SUBCUT SCH (09:33)
[2021-01-14] MEDS ORDERED: NS 0.9% 500 ml BAG 500 ML IV SCH (10:00)
[2021-01-14] MEDS: PAIN RELIEVING RUB (MENTHOL/SALICYLATE) 1 APPLIC TUBE TOPICAL SCH ×2 (12:15→21:32)
[2021-01-14] MEDS: Lidocaine PATCH 5% PATCH TRANSDERM SCH (12:15)
[2021-01-14] MEDS: Senna TAB 8.6 mg TAB PO SCH (21:31)
[2021-01-14] MEDS: Lidocaine Patch REMOVE PATCH PATCH OFF SCH (21:33)
[2021-01-15] MEDS: Albuterol/Ipratropium NEB.SOL (2.5/0.5 MG) 3 ML NEB.SOLN INH PRN (01:31)
[2021-01-15] MEDS ORDERED: Morphine 2 MG/ML SYRINGE IV ONE (01:39)
[2021-01-15] MEDS: Albuterol 2.5mg/3 ml (0.083%) NEB.SOLN INH PRN (08:59)
[2021-01-15] MEDS: Lidocaine PATCH 5% PATCH TRANSDERM SCH (09:04)
[2021-01-15] MEDS: Enoxaparin 40 MG/0.4 ML SYR SUBCUT SCH (09:04)
[2021-01-15] MEDS: Calcium/Vitamin D TAB 250/125 TAB PO SCH ×2 (09:06→20:12)
[2021-01-15] MEDS: oxyCODONE SR 15 mg TAB PO SCH ×2 (09:06→20:22)
[2021-01-15] MEDS: Venlafaxine XR 75 mg PO SCH (09:06)
[2021-01-15] MEDS: Magnesium Hydroxide LIQ 30 ML UDC PO SCH ×2 (09:07→20:15)
[2021-01-15] MEDS: Polyethylene Glycol 3350 17 GM PACKET PO SCH (09:08)
[2021-01-15] MEDS: PAIN RELIEVING RUB (MENTHOL/SALICYLATE) 1 APPLIC TUBE TOPICAL SCH ×2 (09:08→20:18)
[2021-01-15] MEDS: Nystatin TOP POWDER 15 GM BTL TOPICAL SCH ×2 (09:08→20:18)
[2021-01-15] MEDS: Psyllium PAK PO SCH (09:09)
[2021-01-15] MEDS: Senna TAB 8.6 mg TAB PO SCH (20:11)
[2021-01-15] MEDS: Lidocaine Patch REMOVE PATCH PATCH OFF SCH (20:17)
[2021-01-16] MEDS: Lidocaine PATCH 5% PATCH TRANSDERM SCH (10:21)
[2021-01-16] MEDS: Venlafaxine XR 75 mg PO SCH (10:25)
[2021-01-16] MEDS: Calcium/Vitamin D TAB 250/125 TAB PO SCH ×2 (10:25→21:19)
[2021-01-16] MEDS: oxyCODONE SR 15 mg TAB PO SCH ×2 (10:26→21:14)
[2021-01-16] MEDS: Enoxaparin 40 MG/0.4 ML SYR SUBCUT SCH (10:27)
[2021-01-16] MEDS: Magnesium Hydroxide LIQ 30 ML UDC PO SCH ×2 (10:27→21:22)
[2021-01-16] MEDS: Nystatin TOP POWDER 15 GM BTL TOPICAL SCH ×2 (10:27→21:11)
[2021-01-16] MEDS: PAIN RELIEVING RUB (MENTHOL/SALICYLATE) 1 APPLIC TUBE TOPICAL SCH ×2 (10:36→21:11)
[2021-01-16] MEDS: Polyethylene Glycol 3350 17 GM PACKET PO SCH (10:38)
[2021-01-16] MEDS: Psyllium PAK PO SCH (10:39)
[2021-01-16] MEDS: Senna TAB 8.6 mg TAB PO SCH (21:21)
[2021-01-16] MEDS: Lidocaine Patch REMOVE PATCH PATCH OFF SCH (22:02)
[2021-01-17 05:34] LABS: ABS Basophils 0.1 10^3/ul (0-0.2); ABS Lymphocytes 1.5 10^3/ul (1.0-4.8); ABS Monocytes 1.5 10^3/ul (0-0.8); ABS Neutrophils 6.6 10^3/ul (1.5-7.7); Eosinophil % 9.1 %; Hematocrit 28 % (35-47); Hemoglobin 9.1 g/dL (12.0-16.0); Lymphocyte % 14.2 %; Mean Corpuscular HGB Conc 33 g/dL (31-36); Mean Corpuscular Hemoglobin 29 pg (27-31); Mean Corpuscular Volume 88 fL (80-97); Mean Platelet Volume 7.2 fL (7.4-10.4); Platelet Count 390 10^3/uL (150-450); Red Blood Count 3.16 10^6 /uL (3.70-4.87); Red Cell Distribution Width 16 % (10-15); White Blood Count 10.7 10^3/uL (3.5-10.8)
[2021-01-17 05:49] LABS: Calcium 8.1 mg/dL (8.6-10.3); EGFR African American 232.4 (>60); EGFR Non-African American 192.1 (>60); Magnesium 1.6 mg/dL (1.9-2.7); Potassium 4.2 mmol/L (3.5-5.0)
[2021-01-17] MEDS ORDERED: Magnesium Sulfate 2 gm BAG 2 GM/50 ML BAG IVPB ONE (08:08)
[2021-01-17] MEDS: oxyCODONE SR 15 mg TAB PO SCH ×2 (09:29→21:11)
[2021-01-17] MEDS: Lidocaine PATCH 5% PATCH TRANSDERM SCH (09:29)
[2021-01-17] MEDS: Venlafaxine XR 75 mg PO SCH (09:31)
[2021-01-17] MEDS: Calcium/Vitamin D TAB 250/125 TAB PO SCH ×2 (09:34→21:03)
[2021-01-17] MEDS: Enoxaparin 40 MG/0.4 ML SYR SUBCUT SCH (09:44)
[2021-01-17] MEDS: Nystatin TOP POWDER 15 GM BTL TOPICAL SCH ×2 (09:45→21:06)
[2021-01-17] MEDS: Magnesium Hydroxide LIQ 30 ML UDC PO SCH ×2 (09:45→20:57)
[2021-01-17] MEDS: Polyethylene Glycol 3350 17 GM PACKET PO SCH (09:45)
[2021-01-17] MEDS: Psyllium PAK PO SCH (09:45)
[2021-01-17] MEDS: PAIN RELIEVING RUB (MENTHOL/SALICYLATE) 1 APPLIC TUBE TOPICAL SCH ×2 (09:45→21:05)
[2021-01-17] MEDS: Senna TAB 8.6 mg TAB PO SCH (21:01)
[2021-01-17] MEDS: Lidocaine Patch REMOVE PATCH PATCH OFF SCH (21:05)
[2021-01-18] MEDS: Enoxaparin 40 MG/0.4 ML SYR SUBCUT SCH (08:35)
[2021-01-18] MEDS: Nystatin TOP POWDER 15 GM BTL TOPICAL SCH (08:36)
[2021-01-18] MEDS: Lidocaine PATCH 5% PATCH TRANSDERM SCH (08:36)
[2021-01-18] MEDS: PAIN RELIEVING RUB (MENTHOL/SALICYLATE) 1 APPLIC TUBE TOPICAL SCH (08:37)
[2021-01-18] MEDS: Magnesium Hydroxide LIQ 30 ML UDC PO SCH (08:39)
[2021-01-18] MEDS: Venlafaxine XR 75 mg PO SCH (08:39)
[2021-01-18] MEDS: Calcium/Vitamin D TAB 250/125 TAB PO SCH (08:40)
[2021-01-18] MEDS: oxyCODONE SR 15 mg TAB PO SCH (08:41)
[2021-01-18] MEDS: Polyethylene Glycol 3350 17 GM PACKET PO SCH (08:45)
[2021-01-18] MEDS: Psyllium PAK PO SCH (08:45)
[2021-01-18 15:29] VITALS: BP 128/58
== END 2021-01-18 16:06 | disposition swing bed (61) | DRG 853 ==
LOC: MED 19:43 → ED 19:43 → MED 12-22 04:27 → ICU 12-27 20:25 → SSU 12-28 15:23
PROVIDERS: ADMIT Internal Medicine Interventional Cardiology; ATTEND Hospitalist

== ENCOUNTER 2021-01-18 16:58 | Inpatient (IN) ==
[2021-01-18] MEDS ORDERED: Dextrose 50% Syringe 50 ml 25 GM/50 ML SYRINGE IV PUSH PRN ×2 (17:02→17:07)
[2021-01-18] MEDS ORDERED: Albuterol 2.5mg/3 ml (0.083%) NEB.SOLN INH PRN (17:07)
[2021-01-18] MEDS ORDERED: Albuterol/Ipratropium NEB.SOL (2.5/0.5 MG) 3 ML NEB.SOLN INH PRN (17:07)
[2021-01-18] MEDS ORDERED: Naloxone 0.4 mg VIAL 0.4 mg/ml 1 ml VIAL IV PUSH PRN (17:07)
[2021-01-18] MEDS ORDERED: NON FORMULARY MED (Lidocaine Patch Remove 1 PATCH) PATCH OFF SCH (21:00)
[2021-01-18] MEDS: Senna TAB 8.6 mg TAB PO SCH (22:19)
[2021-01-18] MEDS: Calcium/Vitamin D TAB 250/125 TAB PO SCH (22:20)
[2021-01-18] MEDS: Nystatin TOP POWDER 15 GM BTL TOPICAL SCH (22:22)
[2021-01-18] MEDS: Magnesium Hydroxide LIQ 30 ML UDC PO SCH (22:23)
[2021-01-18] MEDS: PAIN RELIEVING RUB (MENTHOL/SALICYLATE) 1 APPLIC TUBE TOPICAL SCH (22:23)
[2021-01-18] MEDS: oxyCODONE SR 15 mg TAB PO SCH (22:36)
[2021-01-19] MEDS: Enoxaparin 40 MG/0.4 ML SYR SUBCUT SCH (09:29)
[2021-01-19] MEDS: PAIN RELIEVING RUB (MENTHOL/SALICYLATE) 1 APPLIC TUBE TOPICAL SCH ×2 (09:30→20:57)
[2021-01-19] MEDS: Lidocaine PATCH 5% PATCH TRANSDERM SCH (09:31)
[2021-01-19] MEDS: oxyCODONE SR 15 mg TAB PO SCH ×2 (09:32→21:42)
[2021-01-19] MEDS: Venlafaxine XR 75 mg PO SCH (09:33)
[2021-01-19] MEDS: Calcium/Vitamin D TAB 250/125 TAB PO SCH ×2 (09:34→21:28)
[2021-01-19] MEDS: Magnesium Hydroxide LIQ 30 ML UDC PO SCH ×2 (09:39→20:57)
[2021-01-19] MEDS: Nystatin TOP POWDER 15 GM BTL TOPICAL SCH ×2 (09:39→20:57)
[2021-01-19] MEDS: Polyethylene Glycol 3350 17 GM PACKET PO SCH (09:39)
[2021-01-19] MEDS: Psyllium PAK PO SCH (09:40)
[2021-01-19] MEDS: Lidocaine Patch REMOVE PATCH PATCH OFF SCH (20:57)
[2021-01-19] MEDS: Senna TAB 8.6 mg TAB PO SCH (21:35)
[2021-01-20] MEDS: Enoxaparin 40 MG/0.4 ML SYR SUBCUT SCH (09:26)
[2021-01-20] MEDS: Polyethylene Glycol 3350 17 GM PACKET PO SCH (09:27)
[2021-01-20] MEDS: Magnesium Hydroxide LIQ 30 ML UDC PO SCH ×2 (09:27→22:21)
[2021-01-20] MEDS: oxyCODONE SR 15 mg TAB PO SCH ×2 (09:28→22:21)
[2021-01-20] MEDS: Venlafaxine XR 75 mg PO SCH (09:28)
[2021-01-20] MEDS: Calcium/Vitamin D TAB 250/125 TAB PO SCH ×2 (09:29→22:21)
[2021-01-20] MEDS: Psyllium PAK PO SCH (09:41)
[2021-01-20] MEDS: Nystatin TOP POWDER 15 GM BTL TOPICAL SCH ×2 (09:41→22:21)
[2021-01-20] MEDS: Lidocaine PATCH 5% PATCH TRANSDERM SCH (11:09)
[2021-01-20] MEDS: PAIN RELIEVING RUB (MENTHOL/SALICYLATE) 1 APPLIC TUBE TOPICAL SCH ×2 (11:09→22:20)
[2021-01-20] MEDS: Ondansetron 4 mg VIAL 2 MG/ML 2 ml VIAL IV PRN (16:30)
[2021-01-20] MEDS: Senna TAB 8.6 mg TAB PO SCH (22:20)
[2021-01-20] MEDS: Lidocaine Patch REMOVE PATCH PATCH OFF SCH (22:22)
[2021-01-21] MEDS: Ondansetron 4 mg VIAL 2 MG/ML 2 ml VIAL IV PRN (09:20)
[2021-01-21] MEDS: Polyethylene Glycol 3350 17 GM PACKET PO SCH (10:39)
[2021-01-21] MEDS: Lidocaine PATCH 5% PATCH TRANSDERM SCH (10:39)
[2021-01-21] MEDS: Psyllium PAK PO SCH (10:39)
[2021-01-21] MEDS: Enoxaparin 40 MG/0.4 ML SYR SUBCUT SCH (10:39)
[2021-01-21] MEDS: Calcium/Vitamin D TAB 250/125 TAB PO SCH ×2 (10:40→20:22)
[2021-01-21] MEDS: oxyCODONE SR 15 mg TAB PO SCH ×2 (10:41→20:22)
[2021-01-21] MEDS: Nystatin TOP POWDER 15 GM BTL TOPICAL SCH ×2 (10:41→20:22)
[2021-01-21] MEDS: Magnesium Hydroxide LIQ 30 ML UDC PO SCH ×2 (10:41→20:21)
[2021-01-21] MEDS: Venlafaxine XR 75 mg PO SCH (10:42)
[2021-01-21] MEDS: PAIN RELIEVING RUB (MENTHOL/SALICYLATE) 1 APPLIC TUBE TOPICAL SCH ×2 (11:02→20:40)
[2021-01-21] MEDS: Senna TAB 8.6 mg TAB PO SCH (20:22)
[2021-01-21] MEDS: Lidocaine Patch REMOVE PATCH PATCH OFF SCH (20:23)
[2021-01-22] MEDS: oxyCODONE SR 15 mg TAB PO SCH ×2 (09:43→22:48)
[2021-01-22] MEDS: Lidocaine PATCH 5% PATCH TRANSDERM SCH (09:43)
[2021-01-22] MEDS: Nystatin TOP POWDER 15 GM BTL TOPICAL SCH ×2 (09:53→22:51)
[2021-01-22] MEDS: PAIN RELIEVING RUB (MENTHOL/SALICYLATE) 1 APPLIC TUBE TOPICAL SCH ×2 (09:53→22:50)
[2021-01-22] MEDS: Magnesium Hydroxide LIQ 30 ML UDC PO SCH ×2 (10:01→22:52)
[2021-01-22] MEDS: Enoxaparin 40 MG/0.4 ML SYR SUBCUT SCH (10:01)
[2021-01-22] MEDS: Psyllium PAK PO SCH (10:02)
[2021-01-22] MEDS: Calcium/Vitamin D TAB 250/125 TAB PO SCH ×2 (10:02→22:46)
[2021-01-22] MEDS: Polyethylene Glycol 3350 17 GM PACKET PO SCH (10:02)
[2021-01-22] MEDS: Venlafaxine XR 75 mg PO SCH (10:02)
[2021-01-22] MEDS: Senna TAB 8.6 mg TAB PO SCH (22:45)
[2021-01-22] MEDS: Lidocaine Patch REMOVE PATCH PATCH OFF SCH (22:51)
[2021-01-23] MEDS: oxyCODONE SR 15 mg TAB PO SCH ×2 (08:56→21:25)
[2021-01-23] MEDS: Polyethylene Glycol 3350 17 GM PACKET PO SCH ×2 (08:57→09:17)
[2021-01-23] MEDS: Enoxaparin 40 MG/0.4 ML SYR SUBCUT SCH (08:57)
[2021-01-23] MEDS: Venlafaxine XR 75 mg PO SCH (08:57)
[2021-01-23] MEDS: Psyllium PAK PO SCH ×2 (08:57→09:17)
[2021-01-23] MEDS: Lidocaine PATCH 5% PATCH TRANSDERM SCH (08:57)
[2021-01-23] MEDS: Calcium/Vitamin D TAB 250/125 TAB PO SCH ×2 (08:57→21:30)
[2021-01-23] MEDS: Magnesium Hydroxide LIQ 30 ML UDC PO SCH ×2 (09:16→21:34)
[2021-01-23] MEDS: PAIN RELIEVING RUB (MENTHOL/SALICYLATE) 1 APPLIC TUBE TOPICAL SCH ×2 (09:16→21:37)
[2021-01-23] MEDS: Nystatin TOP POWDER 15 GM BTL TOPICAL SCH ×2 (09:16→21:34)
[2021-01-23] MEDS: Ondansetron 4 mg VIAL 2 MG/ML 2 ml VIAL IV PRN ×2 (09:30→15:12)
[2021-01-23] MEDS: Lidocaine Patch REMOVE PATCH PATCH OFF SCH (21:30)
[2021-01-23] MEDS: Senna TAB 8.6 mg TAB PO SCH (21:32)
[2021-01-24] MEDS: Venlafaxine XR 75 mg PO SCH (09:27)
[2021-01-24] MEDS: Calcium/Vitamin D TAB 250/125 TAB PO SCH ×2 (09:28→20:19)
[2021-01-24] MEDS: oxyCODONE SR 15 mg TAB PO SCH ×2 (09:28→20:20)
[2021-01-24] MEDS: Magnesium Hydroxide LIQ 30 ML UDC PO SCH ×2 (09:32→20:10)
[2021-01-24] MEDS: Lidocaine PATCH 5% PATCH TRANSDERM SCH (09:33)
[2021-01-24] MEDS: Polyethylene Glycol 3350 17 GM PACKET PO SCH (09:33)
[2021-01-24] MEDS: Enoxaparin 40 MG/0.4 ML SYR SUBCUT SCH (09:35)
[2021-01-24] MEDS: PAIN RELIEVING RUB (MENTHOL/SALICYLATE) 1 APPLIC TUBE TOPICAL SCH ×2 (09:35→21:43)
[2021-01-24] MEDS: Nystatin TOP POWDER 15 GM BTL TOPICAL SCH ×3 (09:36→21:46)
[2021-01-24] MEDS: Psyllium PAK PO SCH (09:51)
[2021-01-24] MEDS: Senna TAB 8.6 mg TAB PO SCH (20:19)
[2021-01-24] MEDS: Lidocaine Patch REMOVE PATCH PATCH OFF SCH (20:29)
[2021-01-24] MEDS: Ondansetron 4 mg VIAL 2 MG/ML 2 ml VIAL IV PRN (20:30)
[2021-01-25] MEDS: oxyCODONE SR 15 mg TAB PO SCH ×2 (10:21→19:53)
[2021-01-25] MEDS: Venlafaxine XR 75 mg PO SCH (10:21)
[2021-01-25] MEDS: Lidocaine PATCH 5% PATCH TRANSDERM SCH (10:22)
[2021-01-25] MEDS: Enoxaparin 40 MG/0.4 ML SYR SUBCUT SCH (10:22)
[2021-01-25] MEDS: Calcium/Vitamin D TAB 250/125 TAB PO SCH ×2 (10:22→19:52)
[2021-01-25] MEDS: PAIN RELIEVING RUB (MENTHOL/SALICYLATE) 1 APPLIC TUBE TOPICAL SCH ×2 (10:23→21:14)
[2021-01-25] MEDS: Nystatin TOP POWDER 15 GM BTL TOPICAL SCH ×2 (10:23→19:51)
[2021-01-25] MEDS: Magnesium Hydroxide LIQ 30 ML UDC PO SCH ×2 (10:23→19:53)
[2021-01-25] MEDS: Polyethylene Glycol 3350 17 GM PACKET PO SCH (10:24)
[2021-01-25] MEDS: Psyllium PAK PO SCH (10:24)
[2021-01-25] MEDS: Senna TAB 8.6 mg TAB PO SCH (19:53)
[2021-01-25] MEDS: Lidocaine Patch REMOVE PATCH PATCH OFF SCH (19:53)
[2021-01-26] MEDS: Venlafaxine XR 75 mg PO SCH (08:10)
[2021-01-26] MEDS: oxyCODONE SR 15 mg TAB PO SCH ×2 (08:10→21:55)
[2021-01-26] MEDS: Calcium/Vitamin D TAB 250/125 TAB PO SCH ×2 (08:10→21:56)
[2021-01-26] MEDS: Lidocaine PATCH 5% PATCH TRANSDERM SCH (08:15)
[2021-01-26] MEDS: Magnesium Hydroxide LIQ 30 ML UDC PO SCH ×2 (08:15→22:02)
[2021-01-26] MEDS: Enoxaparin 40 MG/0.4 ML SYR SUBCUT SCH (08:15)
[2021-01-26] MEDS: Polyethylene Glycol 3350 17 GM PACKET PO SCH (08:16)
[2021-01-26] MEDS: Psyllium PAK PO SCH (08:16)
[2021-01-26] MEDS: PAIN RELIEVING RUB (MENTHOL/SALICYLATE) 1 APPLIC TUBE TOPICAL SCH ×2 (08:16→22:04)
[2021-01-26] MEDS: Nystatin TOP POWDER 15 GM BTL TOPICAL SCH ×2 (08:16→22:02)
[2021-01-26] MEDS: Ondansetron 4 mg VIAL 2 MG/ML 2 ml VIAL IV PRN (16:45)
[2021-01-26] MEDS: Senna TAB 8.6 mg TAB PO SCH (22:00)
[2021-01-26] MEDS: Lidocaine Patch REMOVE PATCH PATCH OFF SCH (22:04)
[2021-01-27 07:05] LABS: Hematocrit 28 % (35-47); Hemoglobin 9.2 g/dL (12.0-16.0); Mean Corpuscular HGB Conc 32 g/dL (31-36); Mean Corpuscular Hemoglobin 28 pg (27-31); Mean Corpuscular Volume 85 fL (80-97); Mean Platelet Volume 7.9 fL (7.4-10.4); Platelet Count 359 10^3/uL (150-450); Red Blood Count 3.33 10^6 /uL (3.70-4.87); Red Cell Distribution Width 16 % (10-15)
[2021-01-27 07:22] LABS: Calcium 7.9 mg/dL (8.6-10.3); EGFR African American 217.6 (>60); EGFR Non-African American 179.8 (>60); Potassium 4.7 mmol/L (3.5-5.0)
[2021-01-27 07:30] LABS: Polychromasia 1+
[2021-01-27 07:31] LABS: ABS Basophils 0.1 10^3/ul (0-0.2); ABS Eosinophils 1.1 10^3/ul (0-0.6); ABS Lymphocytes 2.3 10^3/ul (1.0-4.8); ABS Monocytes 1.8 10^3/ul (0-0.8); ABS Neutrophils 6.8 10^3/ul (1.5-7.7); Lymphocyte % 19.1 %; Nucleated Red Blood Cells % 0.1
[2021-01-27] MEDS: Polyethylene Glycol 3350 17 GM PACKET PO SCH (07:40)
[2021-01-27] MEDS: Psyllium PAK PO SCH (07:40)
[2021-01-27] MEDS: Lidocaine PATCH 5% PATCH TRANSDERM SCH (07:40)
[2021-01-27] MEDS: oxyCODONE SR 15 mg TAB PO SCH (07:40)
[2021-01-27 08:21] VITALS: BP 113/64
[2021-01-27] MEDS: Magnesium Hydroxide LIQ 30 ML UDC PO SCH (08:50)
[2021-01-27] MEDS ORDERED: Sodium Phosphate ADULT ENEMA 133 ML BTL PR ONE (08:58)
[2021-01-27] MEDS: Calcium/Vitamin D TAB 250/125 TAB PO SCH (09:23)
[2021-01-27] MEDS: Venlafaxine XR 75 mg PO SCH (09:24)
[2021-01-27] MEDS: Enoxaparin 40 MG/0.4 ML SYR SUBCUT SCH (09:24)
[2021-01-27] MEDS: Nystatin TOP POWDER 15 GM BTL TOPICAL SCH (09:26)
[2021-01-27] MEDS: PAIN RELIEVING RUB (MENTHOL/SALICYLATE) 1 APPLIC TUBE TOPICAL SCH (09:26)
== END 2021-01-27 11:35 | DRG 180 ==
LOC: SSU → OBSVTOIN 16:58
PROVIDERS: ADMIT Hospitalist; ATTEND Hospitalist

== ENCOUNTER 2021-01-31 01:38 | Inpatient (IN) ==
[2021-01-31] MEDS ORDERED: LORazepam 2 mg VIAL 1 ml IV PUSH ONE ×3 (01:47→13:04)
[2021-01-31] MEDS ORDERED: Lorazepam PYXIS KEY PRN ×3 (01:47→13:04)
[2021-01-31 02:46] LABS: ABS Basophils 0.1 10^3/ul (0-0.2); ABS Lymphocytes 0.8 10^3/ul (1.0-4.8); ABS Monocytes 1.1 10^3/ul (0-0.8); Eosinophil % 0.2 %; Hematocrit 30 % (35-47); Hemoglobin 9.4 g/dL (12.0-16.0); Lymphocyte % 5.1 %; Mean Corpuscular HGB Conc 32 g/dL (31-36); Mean Corpuscular Hemoglobin 27 pg (27-31); Mean Corpuscular Volume 85 fL (80-97); Mean Platelet Volume 7.6 fL (7.4-10.4); Platelet Count 341 10^3/uL (150-450); Red Blood Count 3.46 10^6 /uL (3.70-4.87); Red Cell Distribution Width 17 % (10-15)
[2021-01-31 03:03] LABS: ALT 12 U/L (7-52); AST 13 U/L (13-39); Albumin 2.2 g/dL (3.2-5.2); Albumin/Globulin Ratio 0.8 (1-3); Alkaline Phosphatase 115 U/L (34-104); Anion Gap 14 mmol/L (2-11); Blood Urea Nitrogen 8 mg/dL (6-24); CO2 Carbon Dioxide 22 mmol/L (22-32); Calcium 7.6 mg/dL (8.6-10.3); Chloride 98 mmol/L (101-111); EGFR African American 249.2 (>60); Globulin 2.9 g/dL (2-4); Glucose 175 mg/dL (70-100); Potassium 3.5 mmol/L (3.5-5.0); Sodium 134 mmol/L (135-145); Total Protein 5.1 g/dL (6.4-8.9)
[2021-01-31] MEDS ORDERED: Vancomycin 1,000 MG in NS 0.9% 250 ml 250 ML IVPB ONE (03:49)
[2021-01-31] MEDS ORDERED: Iodixanol (CONTRAST) 320 MG/ML 100 ML SDV IV ONE (03:52)
[2021-01-31] MEDS ORDERED: Levofloxacin 750 MG IVPREMIX 750 MG/150 ML BAG IVPB ONE (03:53)
[2021-01-31] MEDS ORDERED: Vancomycin 1,250 MG in NS 0.9% 250 ml 250 ML IVPB ONE (03:55)
[2021-01-31] MEDS ORDERED: Vancomycin per Pharmacy 1 EA NOTE FOLLOW UP SCH (04:00)
[2021-01-31 04:25] LABS: C Reactive Protein 132.34 mg/L (<8.01); Magnesium 1.4 mg/dL (1.9-2.7)
[2021-01-31] MEDS ORDERED: Magnesium Sulfate IV 3 GM in NS 0.9% 100 ml BAG 100 ML IVPB ONE (05:13)
[2021-01-31] MEDS ORDERED: Albuterol/Ipratropium NEB.SOL (2.5/0.5 MG) 3 ML NEB.SOLN INH PRN (06:07)
[2021-01-31] MEDS: KCL 20 MEQ/100 ML IVPREMIX 20 MEQ/100 ML BAG IV SCH ×2 (07:53→11:53)
[2021-01-31] MEDS: Pantoprazole VIAL 40 MG VIAL IV SCH (07:53)
[2021-01-31 08:32] LABS: Urine Appearance Clear; Urine Bilirubin Negative (Negative); Urine Blood Negative (Negative); Urine Color Yellow; Urine Glucose Negative (Negative); Urine Ketones 2+ (Negative); Urine Nitrite Negative (Negative); Urine Protein 1+(30 mg/dL) (Negative); Urine Specific Gravity 1.019 (1.002-1.030); Urine Urobilinogen Negative (Negative)
[2021-01-31 09:00] LABS: Urine Bacteria Absent (Absent); Urine Red Blood Cell Trace(0-2/hpf) (Absent); Urine Squamous Epithelial Cell Present (Absent); Urine White Blood Cell Trace(0-5/hpf) (Absent)
[2021-01-31] MEDS ORDERED: LORazepam 2 mg VIAL 1 ml IV PUSH PRN ×3 (10:18→18:22)
[2021-01-31] MEDS ORDERED: Lactated Ringers 500 ml BAG 500 ML IV ONE (13:06)
[2021-01-31 14:21] LABS: Troponin I 0.19 ng/mL (<0.03)
[2021-01-31] MEDS ORDERED: HYDROmorphone 0.5 MG/0.5 ML SYRINGE IV SLOW PU PRN (16:08)
[2021-01-31] MEDS: Vancomycin 1,250 MG in NS 0.9% 250 ml 250 ML IVPB SCH (16:54)
[2021-01-31] MEDS ORDERED: HYDROmorphone 1 MG/1 ML SYRINGE ONE (18:24)
[2021-01-31] MEDS: HYDROmorphone 1 MG/1 ML SYRINGE IV SLOW PU PRN ×2 (18:37→22:01)
[2021-01-31] MEDS ORDERED: fentaNYL PATCH 25 MCG/HR 1 PATCH TRANSDERM SCH (20:00)
[2021-02-01] MEDS: HYDROmorphone 1 MG/1 ML SYRINGE IV SLOW PU PRN ×3 (00:29→07:38)
[2021-02-01] MEDS ORDERED: Morphine 2 MG/ML SYRINGE IV ONE (01:17)
[2021-02-01] MEDS ORDERED: Morphine 2 MG/ML SYRINGE ONE (01:24)
[2021-02-01 04:50] LABS: Hematocrit 33 % (35-47); Hemoglobin 10.1 g/dL (12.0-16.0); Mean Corpuscular HGB Conc 31 g/dL (31-36); Mean Corpuscular Hemoglobin 27 pg (27-31); Mean Corpuscular Volume 86 fL (80-97); Mean Platelet Volume 7.6 fL (7.4-10.4); Platelet Count 428 10^3/uL (150-450); Red Blood Count 3.78 10^6 /uL (3.70-4.87); Red Cell Distribution Width 17 % (10-15); White Blood Count 21.9 10^3/uL (3.5-10.8)
[2021-02-01 05:01] LABS: Calcium 8.7 mg/dL (8.6-10.3); EGFR African American 177.2 (>60); EGFR Non-African American 146.5 (>60); Potassium 4.4 mmol/L (3.5-5.0)
[2021-02-01] MEDS: Vancomycin 1,250 MG in NS 0.9% 250 ml 250 ML IVPB SCH (05:22)
[2021-02-01 05:52] LABS: ABS Basophils 0.1 10^3/ul (0-0.2); ABS Lymphocytes 0.5 10^3/ul (1.0-4.8); ABS Monocytes 1.8 10^3/ul (0-0.8); ABS Neutrophils 19.6 10^3/ul (1.5-7.7); Eosinophil % 0.1 %; Lymphocyte % 2.2 %
[2021-02-01] MEDS ORDERED: Levofloxacin 750 MG IVPREMIX 750 MG/150 ML BAG IVPB SCH (06:00)
[2021-02-01] MEDS: fentaNYL Patch Check Q Shift NOTE FOLLOW UP SCH ×2 (07:14→14:16)
[2021-02-01] MEDS: Pantoprazole VIAL 40 MG VIAL IV SCH (07:29)
[2021-02-01] MEDS ORDERED: HYDROmorphone 1 MG/1 ML SYRINGE IV SLOW PU PRN (07:58)
[2021-02-01] MEDS: LORazepam 2 mg VIAL 1 ml IV PUSH PRN ×2 (08:05→11:12)
[2021-02-01 12:04] VITALS: BP 109/67
[2021-02-01] MEDS ORDERED: LORazepam 2 mg VIAL 1 ml IV PUSH PRN (12:43)
[2021-02-02] MEDS ORDERED: Vancomycin Trough Check NOTE FOLLOW UP ONE (05:30)
== END 2021-02-01 15:19 | disposition expired ==
LOC: ED 01:38 → ICU 03:41
PROVIDERS: ADMIT Pediatrics; ATTEND Internal Medicine